=== PATIENT | female | born 1945 | race Caucasian/White ===

== ENCOUNTER 2020-01-27 13:09 | Outpatient (REF) | payer MEDICARE, SELFPAY ==
--- NOTE | 2020-01-27 13:28 | XR_ITS ---
EXAMINATION: BILATERAL SHOULDER X-RAY CLINICAL INFORMATION: Pain COMPARISON: None TECHNIQUE: 4 views each shoulder FINDINGS: Right: Bone alignment is normal. No fracture or dislocation is seen. There is evidence of arthritis at the glenohumeral and acromioclavicular joints with joint space narrowing and osteophyte formation. Soft tissues are unremarkable. Left: Bone alignment is normal. No fracture or dislocation is seen. There is evidence of arthritis of the glenohumeral and acromioclavicular joints with joint space narrowing and osteophyte formation. Soft tissues are unremarkable. IMPRESSION: Bilateral arthritis, right greater than left.
== END 2020-01-27 13:10 | disposition home or self-care (01) ==
LOC: HO.XRAY 13:09
PROVIDERS: PCP Family Medicine; Visit Provider Family Medicine
DX: M19.011 Primary osteoarthritis, right shoulder (principal); M25.511 Pain in right shoulder
CPT/HCPCS: 73030

== ENCOUNTER → 2020-02-07 16:17 | Outpatient (BNVA) | payer MEDICARE, SELFPAY | PROVIDERS: PCP Family Medicine; Visit Provider Internal Medicine | DX: I82.503 Chronic embolism and thrombosis of unspecified deep veins of lower extremity, bilateral (principal); Z51.81 Encounter for therapeutic drug level monitoring; Z79.01 Long term (current) use of anticoagulants | CPT/HCPCS: 85610; 99211 ==

== ENCOUNTER → 2020-03-01 16:09 | Outpatient (BNVA) | payer MEDICARE, SELFPAY | PROVIDERS: PCP Family Medicine; Referring Provider Family Medicine; Visit Provider Internal Medicine | DX: I82.503 Chronic embolism and thrombosis of unspecified deep veins of lower extremity, bilateral (principal); Z51.81 Encounter for therapeutic drug level monitoring; Z79.01 Long term (current) use of anticoagulants | CPT/HCPCS: 85610; 99211 ==

== ENCOUNTER → 2020-03-15 15:56 | Outpatient (BNVA) | payer MEDICARE, SELFPAY | PROVIDERS: PCP Family Medicine; Visit Provider Internal Medicine | DX: I82.503 Chronic embolism and thrombosis of unspecified deep veins of lower extremity, bilateral (principal); Z51.81 Encounter for therapeutic drug level monitoring; Z79.01 Long term (current) use of anticoagulants | CPT/HCPCS: 85610; 99211 ==

== ENCOUNTER 2020-03-22 16:14 | Outpatient (REF) | payer MEDICARE, SELFPAY ==
--- NOTE | 2020-03-22 | US_ITS ---
EXAMINATION: US RETROPERITONEAL LIMITED (RENAL ONLY) CLINICAL INFORMATION: Renal cyst. COMPARISON: Ultrasound abdomen 08/30/2015. CT abdomen and pelvis 09/08/2013. Renal ultrasound 11/12/2012. KUB 07/13/2009. TECHNIQUE: Real-time imaging of the kidneys. FINDINGS: RIGHT KIDNEY: 9.4 x 5.1 x 5.3 cm (SAG x AP x TRV). The kidney is normal in size, contour, and echogenicity. Renal cortical thickness is normal. No renal calculi or hydronephrosis. There are multiple anechoic cysts. The largest cyst midpole measures 3.0 x 2.1 x 2.5 cm. LEFT KIDNEY: 9.5 x 4.8 x 5.0 cm (SAG x AP x TRV). The kidney is normal in size, contour, and echogenicity. Renal cortical thickness is normal. No renal calculi or hydronephrosis. There are multiple anechoic cysts. The largest cyst in midpole measures 4.7 x 4.5 x 5.5 cm. US/US renal BI IMPRESSION: 1. Bilateral renal cysts. 2. No echogenic stones or hydronephrosis seen.
== END 2020-03-22 16:15 | disposition home or self-care (01) ==
LOC: HO.US 16:14
PROVIDERS: Visit Provider Urology
DX: N28.1 Cyst of kidney, acquired (principal)
CPT/HCPCS: 76775

== ENCOUNTER → 2020-04-04 16:04 | Outpatient (BNVA) | payer MEDICARE, SELFPAY | PROVIDERS: PCP Family Medicine; Referring Provider Family Medicine; Visit Provider Family Medicine | DX: I82.503 Chronic embolism and thrombosis of unspecified deep veins of lower extremity, bilateral (principal); Z79.01 Long term (current) use of anticoagulants; Z51.81 Encounter for therapeutic drug level monitoring | CPT/HCPCS: 85610; 99211 ==

== ENCOUNTER 2020-05-10 12:30 | Outpatient (REF) | payer MEDICARE, SELFPAY ==
[2020-05-10 13:55] LABS: MANUAL DIFF FLAG NO
[2020-05-10 14:06] LABS: Basophils Percent Auto 0.2 % (0-2); Eosinophils Percent Auto 0.6 % (0-4); Hematocrit 34.2 % (37-47); Hemoglobin 11.2 g/dl (12.0-16.0); Imm Gran Abs Auto 0.01 X10*3/uL (0.00-0.03); Imm Gran Pct Auto 0.2 % (0.0-0.4); Lymphocytes Absolute Auto 1.3 X10*3/uL (1.2-4.9); Mean Corpuscular HGB Conc 32.7 g/dl (31.0-35.0); Mean Corpuscular Hemoglobin 29.7 pg (27.0-33.0); Mean Corpuscular Volume 90.7 fL (80-98); Mean Platelet Volume 10.9 fL (9.4-12.3); Monocytes Absolute Auto 0.8 X10*3/uL (0.1-1.2); Monocytes Percent Auto 15.8 % (2-11); Neutrophils Absolute Auto 3.1 X10*3/uL (2.0-8.3); Neutrophils Percent Auto 59.2 % (45-73); Platelet Count 166 X10*3/uL (160-400); Red Blood Count 3.77 X10*6/uL (4.20-5.50); Red Cell Distribution Width 15.2 % (11.0-16.0); White Blood Count 5.3 X10*3/uL (4.8-10.8)
[2020-05-10 14:45] LABS: Alanine Aminotransferase 10 U/L (0-31); Albumin Level 3.9 g/dL (3.5-5.0); Alkaline Phosphatase 123 U/L (39-117); Anion Gap 13 (12-20); Aspartate Amino Transferase 16 U/L (5-31); Bilirubin Total 0.4 mg/dL (0.0-1.0); Blood Urea Nitrogen 16 mg/dL (9-16); C Reactive Protein 1.37 mg/dL (< or = 0.50); Calcium 8.8 mg/dL (8.4-10.2); Carbon Dioxide 25 mmol/L (22-29); Chloride 106 mmol/L (96-108); Estimated Glomerular Filt Rate 56; Glucose Random 103 mg/dL (60-115); Potassium 4.6 mmol/l (3.3-5.1); Sodium 139 mmol/L (135-145); Total Protein 6.6 g/dL (6.5-8.0)
[2020-05-10 14:54] LABS: Rheumatoid Factor < 15.0 IU/mL (<15.0)
[2020-05-10 15:13] LABS: Erythrocyte Sedimentation Rate 42 MM/HR (0-20)
[2020-05-11 15:48] LABS: Cyclic Citrullinated Peptide <16 UNITS
== END 2020-05-10 12:31 | disposition home or self-care (01) ==
LOC: HO.LAB 12:30
PROVIDERS: PCP Family Medicine; Referring Provider Family Medicine; Visit Provider Student in an Organized Health Care Education/Training Program
DX: M25.511 Pain in right shoulder (principal); M25.512 Pain in left shoulder; G89.29 Other chronic pain; Z79.899 Other long term (current) drug therapy; Z79.01 Long term (current) use of anticoagulants
CPT/HCPCS: 36415; 80053; 85025; 85652; 86140; 86200; 86431; 99202

== ENCOUNTER → 2020-05-19 16:04 | Outpatient (BNVA) | payer MEDICARE, SELFPAY | PROVIDERS: PCP Family Medicine; Visit Provider Internal Medicine | DX: I82.503 Chronic embolism and thrombosis of unspecified deep veins of lower extremity, bilateral (principal); Z51.81 Encounter for therapeutic drug level monitoring; Z79.01 Long term (current) use of anticoagulants | CPT/HCPCS: 85610; 99211 ==

== ENCOUNTER → 2020-06-16 15:50 | Outpatient (BNVA) | payer MEDICARE, SELFPAY | PROVIDERS: PCP Family Medicine; Visit Provider Internal Medicine | DX: I82.503 Chronic embolism and thrombosis of unspecified deep veins of lower extremity, bilateral (principal); Z51.81 Encounter for therapeutic drug level monitoring; Z79.01 Long term (current) use of anticoagulants | CPT/HCPCS: 85610; 99211 ==

== ENCOUNTER → 2020-07-04 16:04 | Outpatient (BNVA) | payer MEDICARE, SELFPAY | PROVIDERS: PCP Family Medicine; Visit Provider Internal Medicine | DX: I82.503 Chronic embolism and thrombosis of unspecified deep veins of lower extremity, bilateral (principal); Z51.81 Encounter for therapeutic drug level monitoring; Z79.01 Long term (current) use of anticoagulants | CPT/HCPCS: 85610; 99211 ==

== ENCOUNTER → 2020-07-21 16:00 | Outpatient (BNVA) | payer MEDICARE, SELFPAY | PROVIDERS: PCP Family Medicine; Visit Provider Internal Medicine | DX: I82.503 Chronic embolism and thrombosis of unspecified deep veins of lower extremity, bilateral (principal); Z79.01 Long term (current) use of anticoagulants; Z51.81 Encounter for therapeutic drug level monitoring | CPT/HCPCS: 85610; 99211 ==

== ENCOUNTER → 2020-07-27 10:24 | Outpatient (BNVA) | payer MEDICARE, SELFPAY | PROVIDERS: PCP Family Medicine; Visit Provider Internal Medicine | DX: I82.503 Chronic embolism and thrombosis of unspecified deep veins of lower extremity, bilateral (principal); Z79.01 Long term (current) use of anticoagulants; Z51.81 Encounter for therapeutic drug level monitoring | CPT/HCPCS: 85610; 99211 ==

== ENCOUNTER → 2020-08-03 16:05 | Outpatient (BNVA) | payer MEDICARE, SELFPAY | PROVIDERS: PCP Family Medicine; Visit Provider Internal Medicine | DX: I82.503 Chronic embolism and thrombosis of unspecified deep veins of lower extremity, bilateral (principal); Z79.01 Long term (current) use of anticoagulants; Z51.81 Encounter for therapeutic drug level monitoring | CPT/HCPCS: 85610; 99211 ==

== ENCOUNTER → 2020-08-11 11:02 | Outpatient (BNVA) | payer MEDICARE, SELFPAY | PROVIDERS: PCP Family Medicine; Visit Provider Internal Medicine | DX: I82.503 Chronic embolism and thrombosis of unspecified deep veins of lower extremity, bilateral (principal); Z79.01 Long term (current) use of anticoagulants; Z51.81 Encounter for therapeutic drug level monitoring | CPT/HCPCS: 85610; 99211 ==

== ENCOUNTER → 2020-09-08 16:07 | Outpatient (BNVA) | payer MEDICARE, SELFPAY | PROVIDERS: PCP Family Medicine; Visit Provider Internal Medicine | DX: I82.503 Chronic embolism and thrombosis of unspecified deep veins of lower extremity, bilateral (principal); Z51.81 Encounter for therapeutic drug level monitoring; Z79.01 Long term (current) use of anticoagulants | CPT/HCPCS: 85610; 99211 ==

== ENCOUNTER → 2020-10-02 16:01 | Outpatient (BNVA) | payer MEDICARE, SELFPAY | PROVIDERS: PCP Family Medicine; Visit Provider Internal Medicine | DX: I82.503 Chronic embolism and thrombosis of unspecified deep veins of lower extremity, bilateral (principal); Z51.81 Encounter for therapeutic drug level monitoring; Z79.01 Long term (current) use of anticoagulants | CPT/HCPCS: 85610; 99211 ==

== ENCOUNTER → 2020-10-16 15:16 | Outpatient (BNVA) | payer MEDICARE, SELFPAY | PROVIDERS: PCP Family Medicine; Visit Provider Internal Medicine | DX: I82.503 Chronic embolism and thrombosis of unspecified deep veins of lower extremity, bilateral (principal); Z51.81 Encounter for therapeutic drug level monitoring; Z79.01 Long term (current) use of anticoagulants | CPT/HCPCS: 85610; 99211 ==

== ENCOUNTER 2020-10-16 15:52 | Emergency (ER) | payer MEDICARE, SELFPAY ==
--- NOTE | ~2020-10-16 | CT_ITS ---
EXAMINATION: CT HEAD WITHOUT CONTRAST CT CERVICAL SPINE WITHOUT CONTRAST CLINICAL INFORMATION: Headache COMPARISON: CT head 05/01/2010 TECHNIQUE: Imaging was performed from the skull base to vertex without intravenous administration of contrast. In addition, helical noncontrast CT imaging was acquired through the cervical spine and source images were reviewed along with axial reconstructions and sagittal and coronal MPRs. [This CT examination was performed using dose optimization techniques as appropriate, variously including the following: *Automated exposure control *Adjustment of mA and/or kV according to patient size (this includes techniques or standardized protocols for targeted exams where dose is matched to indication/reason for exam; i.e. extremities or head) *Use of iterative reconstruction technique] DLP: 1414 mGy-cm FINDINGS: HEAD: No intracranial mass, hemorrhage, or midline shift is visualized. There is generalized global volume loss. There is mild prominence of the ventricles and the sulci . There is mild hypodensity of the periventricular white matter due to chronic small vessel ischemic disease. There are vascular calcifications of the internal carotid arteries bilaterally. No extra-axial collections are identified. The paranasal sinuses and mastoid air cells are well aerated. CERVICAL SPINE: There is no evidence of acute cervical spine fracture. Vertebral bodies remain normal in height. Cervical vertebrae have normal alignment. There is multilevel degenerative spondylosis of the cervical spine with disc height narrowing and endplate spurs and facet joint arthrosis No pre- or paravertebral soft tissue abnormality is identified. Limited assessment of the lung apices is unremarkable. CT/CT cervical spine wo con IMPRESSION: 1. No acute intracranial pathology. 2. No CT evidence of acute cervical spine fracture or traumatic subluxation
--- NOTE | ~2020-10-16 | XR_ITS ---
EXAMINATION: XR CHEST CLINICAL INFORMATION: Shortness of breath. COMPARISON: Chest 06/30/2018 TECHNIQUE: Frontal view of the chest was obtained. FINDINGS: No significant abnormality is noted involving the heart, lungs, mediastinum, bony thorax or soft tissues. XR/XR chest 1V IMPRESSION: Unremarkable chest exam.
[2020-10-16 15:57] VITALS: BP 122/74; PULSE 87; RESP 22; TEMP 36.7; O2SAT 95; BMI 39.9
--- NOTE | 2020-10-16 16:02 | ECG_ITS ---
Test Reason : SOB Blood Pressure : / mmHG Vent. Rate : 085 BPM Atrial Rate : 085 BPM P-R Int : 142 ms QRS Dur : 100 ms QT Int : 378 ms P-R-T Axes : 020 -19 053 degrees QTc Int : 449 ms Normal sinus rhythm Minimal voltage criteria for LVH, may be normal variant Borderline ECG When compared with ECG of 05-JAN-2020 11:54, No significant change was found Referred By: Generic ED Physician Electronically Signed By:LOTTIE COLLADO MD
[2020-10-16 16:34] LABS: MANUAL DIFF FLAG NO
[2020-10-16 16:35] LABS: Eosinophils Percent Auto 0.5 % (0-4); Hematocrit 33.8 % (37-47); Hemoglobin 11.1 g/dl (12.0-16.0); Imm Gran Abs Auto 0.01 X10*3/uL (0.00-0.03); Imm Gran Pct Auto 0.2 % (0.0-0.4); Lymphocytes Absolute Auto 1.4 X10*3/uL (1.2-4.9); Lymphocytes Percent Auto 22.7 % (20-40); Mean Corpuscular HGB Conc 32.8 g/dl (31.0-35.0); Mean Corpuscular Hemoglobin 29.4 pg (27.0-33.0); Mean Corpuscular Volume 89.4 fL (80-98); Mean Platelet Volume 10.4 fL (9.4-12.3); Monocytes Percent Auto 15.6 % (2-11); Neutrophils Absolute Auto 3.9 X10*3/uL (2.0-8.3); Platelet Count 154 X10*3/uL (160-400); Red Blood Count 3.78 X10*6/uL (4.20-5.50); Red Cell Distribution Width 14.7 % (11.0-16.0); White Blood Count 6.3 X10*3/uL (4.8-10.8)
[2020-10-16 17:02] LABS: B Type Natriuretic Peptide 93 pg/mL (<100); Troponin-I High Sensitivity 5.1 ng/L (<3.5-17.0)
[2020-10-16 17:06] LABS: Anion Gap 12 (12-20); Blood Urea Nitrogen 12 mg/dL (9-16); Calcium 8.9 mg/dL (8.4-10.2); Carbon Dioxide 27 mmol/L (22-29); Chloride 106 mmol/L (96-108); Creatinine Clr Calc Pharmacy 65.1; Estimated Glomerular Filt Rate > 60; Glucose Random 111 mg/dL (60-115); Potassium 3.9 mmol/L (3.3-5.1); Sodium 141 mmol/L (135-145)
[2020-10-16 21:24] VITALS: BP 153/66; PULSE 77; RESP 28; O2SAT 95
[2020-10-16 21:48] LABS: COVID-19 Test Negative (Negative); IDNOW Serial# 9DD0AD1C
--- NOTE | 2020-10-16 22:04 | ED_ITS ---
HPI - General Adult General Chief complaint: General Medical Stated complaint: sob Time Seen by Provider: 10/16/20 21:59 History of Present Illness HPI narrative: patient is 75 years old presents today with having weakness. Patient fell 2 days ago. Hit her head. She was in the bathroom at the time. Patient denies any chest pain. No nausea no vomiting. No diaphoresis. No coughing, congestion, upper respiratory symptoms. Patient is from home. History of coronary artery disease. History of HIV. History of hypertension. History of osteoarthritis. Patient denies any focal weakness. Denies any fever. Denies any pain on urination. Denies any recreational drug use. Amy kellogg also has a history of DVT. currently on Coumadin. Related Data Home Medications Medication Instructions Recorded Confirmed acetaminophen 500 mg capsule 500 mg PO Q6H PRN 01/18/20 07/27/20 albuterol sulfate 2.5 mg/0.5 mL 2.5 mg INHALATION Q20M 01/18/20 07/27/20 solution for nebulization albuterol sulfate 90 mcg/actuation 2 puff INHALATION Q6H PRN 01/18/20 07/27/20 aerosol inhaler bictegravir 50 mg-emtricitabine 1 tab PO DAILY 01/18/20 07/27/20 200 mg-tenofovir alafenam 25 mg tablet blood-glucose meter #1 ea 01/18/20 07/27/20 calcium carbonate 600 mg calcium 600 mg PO DAILY 01/18/20 07/27/20 (1,500 mg) tablet cyanocobalamin (vitamin B-12) 1,000 mcg PO DAILY 01/18/20 07/27/20 1,000 mcg/mL oral drops diltiazem HCl 120 mg 120 mg PO DAILY 01/18/20 07/27/20 capsule,extended release 24 hr docusate sodium 100 mg capsule 100 mg PO DAILY 01/18/20 07/27/20 famotidine 20 mg tablet 20 mg PO DAILY 01/18/20 07/27/20 lancets 28 gauge #100 ea 01/18/20 07/27/20 loratadine 10 mg capsule 10 mg PO DAILY 01/18/20 07/27/20 nitroglycerin 0.4 mg sublingual 0.4 mg SUBLINGUAL Q5M PRN 01/18/20 07/27/20 tablet polyethylene glycol 3350 17 gram 17 g PO DAILY 01/18/20 07/27/20 oral powder packet pregabalin 75 mg capsule 75 mg PO DAILY 01/18/20 07/27/20 quetiapine 200 mg tablet 200 mg PO BEDTIME 01/18/20 07/27/20 sertraline 100 mg tablet 100 mg PO DAILY 01/18/20 07/27/20 sertraline 25 mg tablet 25 mg PO DAILY 01/18/20 07/27/20 sumatriptan succinate 25 mg tablet 25 mg PO Q2-4H PRN 01/18/20 07/27/20 atorvastatin 20 mg tablet 20 mg PO DAILY 04/04/20 07/27/20 calcium carbonate 600 mg (1,500 1 tab PO BID 04/04/20 07/27/20 mg)-vitamin D3 400 unit tablet sumatriptan succinate 50 mg tablet 0 mg PO 04/04/20 07/27/20 torsemide 20 mg tablet 20 mg PO DAILY 04/04/20 07/27/20 sertraline 100 mg tablet 100 mg PO DAILY 05/10/20 07/27/20 acetaminophen 300 mg-codeine 30 mg 0 tab PO 05/19/20 07/27/20 tablet blood sugar diagnostic #10 ea 05/19/20 07/27/20 cyanocobalamin (vitamin B-12) 1,000 mcg PO DAILY 05/19/20 07/27/20 1,000 mcg tablet diltiazem HCl 180 mg 180 mg PO DAILY 05/19/20 07/27/20 capsule,extended release 24 hr inhalat.spacing dev,large mask #1 ea 05/19/20 07/27/20 loratadine 10 mg tablet 10 mg PO DAILY 05/19/20 07/27/20 metoprolol succinate 50 mg 50 mg PO DAILY 05/19/20 07/27/20 tablet,extended release 24 hr multivitamin-ferrous 1 tab PO DAILY 05/19/20 07/27/20 fumarate-folic acid 18 mg-400 mcg tablet pantoprazole 20 mg tablet,delayed 20 mg PO DAILY 05/19/20 07/27/20 release pregabalin 100 mg capsule 100 mg PO DAILY 05/19/20 07/27/20 sertraline 50 mg tablet 50 mg PO DAILY 05/19/20 07/27/20 tizanidine 2 mg capsule 2 mg PO BEDTIME PRN 05/19/20 07/27/20 varicella-zoster glycoE [id number] IM 05/19/20 07/27/20 adj(PF) 50 mcg/0.5 mL IM susp, kit alcohol swabs 0 pad TOPICAL 06/16/20 07/27/20 hydrocortisone 1 % lotion TOPICAL 06/16/20 07/27/20 nystatin 100,000 unit/gram topical TOPICAL 06/16/20 07/27/20 cream atorvastatin 10 mg tablet 10 mg PO DAILY 07/21/20 07/27/20 acetaminophen 500 mg tablet 0 mg PO 07/27/20 07/27/20 Previous Rx's Medication Instructions Recorded warfarin 5 mg tablet 5 mg PO DAILY #90 tab 02/07/20 Allergies Allergy/AdvReac Type Severity Reaction Status Date / Time aspirin [Aspirin] Allergy Intermediate HIVES,SWELLING, Verified 10/02/20 16:02 swelling Iodinated Contrast Media Allergy Mild ANAPHYLAXIS Verified 10/02/20 16:02 [IV DYE, IODINE CONTAINING] acetaminophen [Percocet] Allergy Unknown hives Verified 10/02/20 16:02 cat dander [CATS] Allergy Unknown STUFFY NOSE Verified 10/02/20 16:02 ciprofloxacin [Cipro] Allergy Unknown diarrhea Verified 10/02/20 16:02 codeine [Codeine] Allergy Unknown NAUSEA Verified 10/02/20 16:02 dog dander [DOGS] Allergy Unknown STUFFY NOSE Verified 10/02/20 16:02 ibuprofen Allergy Unknown nausea Verified 10/02/20 16:02 oxycodone [From PERCOCET] Allergy Unknown HIVES Verified 10/02/20 16:02 penicillin V Allergy Unknown swelling Verified 10/02/20 16:02 Penicillins Allergy Unknown HIVES,SWELL Verified 10/02/20 16:02 ING [id number] Antimigraine Allergy Unknown ELEVATED BP Verified 10/02/20 16:02 Agents [[id number] ANTIMIGRAINE AGENTS] tuberculin, purified protein Allergy Unknown REDNESS,ITC Verified 10/02/20 16:02 deriva NUZHAT [TUBERCULIN, PURIFIED PROTEIN DERIVA] NSAIDS (Non-Steroidal AdvReac Unknown ABD Verified 09/08/20 16:07 Anti-Inflamma PAIN,NAUSEA [NSAIDS] From Cipro Allergy Unknown DIARRHEA Uncoded 01/06/20 14:37 IV contrast Allergy Unknown anaphylaxis Uncoded 01/20/19 00:00 NSAIDS Allergy Unknown UNKNOWN Uncoded 03/01/20 16:10 PPD Allergy Unknown redness Uncoded 01/20/19 00:00 and itching [id number] ANTIMIGRAINE Allergy Unknown elevated BP Uncoded 01/20/19 00:00 AG Review of Systems Review of Systems: No fever no chills no cough no congestion. No chest pain. Patient has positive fall 2 days prior. Did hit her head. Yes all other systems are reviewed and are negative [facility] Past Medical History Attestation statement: The following information was validated with the patient. Medical History Acute (undifferentiated) schizophrenia Anemia Constipation Degenerative arthritis Diabetes DVT (deep venous thrombosis) Fibromyalgia GERD (gastroesophageal reflux disease) HIV (human immunodeficiency virus infection) HTN (hypertension) Obese Osteopenia Thalamic pain syndrome Surgical History History of appendectomy History of cholecystectomy History of hysterectomy History of temporal artery biopsy Family History Family History Father No problems noted. Mother Coronary artery disease Uterine cancer CVD (cardiovascular disease) Sister Breast cancer Sister Breast cancer Social History Social History (Updated 05/10/20 @ 12:45 by Jacquie Brand MD) Alcohol intake: never Advance Directives: No Advance Directives Information Provided: Yes Physical Exam Vital Signs: Vital Signs: Last Vital Signs Temp 98.4 F 10/16/20 22:12 Pulse 86 10/16/20 22:12 Resp 20 10/16/20 22:12 BP 182/61 H 10/16/20 22:12 Pulse Ox 97 10/16/20 22:12 Body Mass Index 39.9 Appearance: Alert. Oriented X3. No acute distress. Eyes: Pupils equal, round and reactive to light. ENT: Pharynx normal. Neck: Normal inspection. Neck supple. No lymph nodes noted. No crepitus CVS: Normal heart rate and rhythm. Pulses normal. Normal S1 and S2 Respiratory: No respiratory distress. Breath sounds normal. No Wheezing. No rales Abdomen: Soft and nontender. No rigidity. No distention. good BS x4 Skin: Skin warm and dry. Normal skin color. Normal skin turgor. Extremities: No lower extremity edema. Neurovascular intact to all extremities. No Lacerations. No Rash Neuro: Oriented X 3. No motor deficit. No sensory deficit. Moving all extermities. No slurred speech Medical Decision Making MDM Narrative Medical decision making narrative: Patient well-appearing not acute distress. Neurologically intact ambulates with a normal gait. The fall was 2 days prior. Patient is on Coumadin. We will go ahead and get a CT scan of the head and C- spine. Patient's EKG is normal. Troponin is negative. BMP negative. the fall was likely mechanical in nature. Currently in stable condition. CT head and C-spine were both grossly negative for any acute evidence of bleeding. Patient's troponin negative. Patient's electrolytes unremarkable. Well appearing. No distress. Neurologically intact. Will discharge patient home. Lab Data Result diagrams: 10/16/20 16:29 10/16/20 16:30 Labs: Lab Results 10/16/20 10/16/20 10/16/20 Range/Units 16:29 16:30 16:30 WBC 6.3 (4.8-10.8) X10*3/uL RBC 3.78 L (4.20-5.50) X10*6/uL Hgb 11.1 L (12.0-16.0) g/dl Hct 33.8 L (37-47) % MCV 89.4 (80-98) fL MCH 29.4 (27.0-33.0) pg MCHC 32.8 (31.0-35.0) g/dl RDW 14.7 (11.0-16.0) % Plt Count 154 L (160-400) X10*3/uL MPV 10.4 (9.4-12.3) fL Immature Gran % (Auto) 0.2 (0.0-0.4) % Neut % (Auto) 61.0 (45-73) % Lymph % (Auto) 22.7 (20-40) % [place] % (Auto) 15.6 H (2-11) % Eos % (Auto) 0.5 (0-4) % Baso % (Auto) 0.0 (0-2) % Lymph # (Auto) 1.4 (1.2-4.9) X10*3/uL [place] # (Auto) 1.0 (0.1-1.2) X10*3/uL Eos # (Auto) 0.0 (0.0-0.4) X10*3/uL Baso # (Auto) 0.0 (0.0-0.2) X10*3/uL Abs Immat Gran (auto) 0.01 (0.00-0.03) X10*3/uL Absolute Neuts (auto) 3.9 (2.0-8.3) X10*3/uL Absolute Nucleated RBC 0.000 (0.0-0.012) X10*3/uL Nucleated RBC % (auto) 0.0 (0.0-0.2) /100WBC PT (10.8-13.0) SEC INR (0.9-1.1) Sodium 141 (135-145) mmol/L Potassium 3.9 (3.3-5.1) mmol/L Chloride 106 (96-108) mmol/L Carbon Dioxide 27 (22-29) mmol/L Anion Gap 12 (12-20) BUN 12 (9-16) mg/dL Creatinine 0.82 (0.5-1.4) mg/dL Estim Creat Clear Calc 65.1 Estimated GFR > 60 Random Glucose 111 (60-115) mg/dL Calcium 8.9 (8.4-10.2) mg/dL Troponin I High Sens 5.1 (<3.5-17.0) ng/L B-Natriuretic Peptide 93 (<100) pg/mL Urine Color Urine Appearance Urine pH (5.0-8.0) Ur Specific [place] (1.005-1.025) Urine Protein (NEG-TRACE) MG/DL Urine Glucose (UA) (NEG) MG/DL Urine Ketones (NEG) MG/DL Urine Blood (NEG) Urine Nitrite (NEG) Ur Leukocyte Esterase (NEG) Urine RBC (0) /HPF Urine WBC (0-4) /HPF Ur Squamous Epith Cells /LPF Urine Bacteria /LPF COVID-19 ([facility]) (Negative) COVID-19 Clin Com 10/16/20 10/16/20 10/16/20 Range/Units 21:27 22:26 22:26 WBC (4.8-10.8) X10*3/uL RBC (4.20-5.50) X10*6/uL Hgb (12.0-16.0) g/dl Hct (37-47) % MCV (80-98) fL MCH (27.0-33.0) pg MCHC (31.0-35.0) g/dl RDW (11.0-16.0) % Plt Count (160-400) X10*3/uL MPV (9.4-12.3) fL Immature Gran % (Auto) (0.0-0.4) % Neut % (Auto) (45-73) % Lymph % (Auto) (20-40) % [place] % (Auto) (2-11) % Eos % (Auto) (0-4) % Baso % (Auto) (0-2) % Lymph # (Auto) (1.2-4.9) X10*3/uL [place] # (Auto) (0.1-1.2) X10*3/uL Eos # (Auto) (0.0-0.4) X10*3/uL Baso # (Auto) (0.0-0.2) X10*3/uL Abs Immat Gran (auto) (0.00-0.03) X10*3/uL Absolute Neuts (auto) (2.0-8.3) X10*3/uL Absolute Nucleated RBC (0.0-0.012) X10*3/uL Nucleated RBC % (auto) (0.0-0.2) /100WBC PT 36.2 H (10.8-13.0) SEC INR 3.0 H (0.9-1.1) Sodium (135-145) mmol/L Potassium (3.3-5.1) mmol/L Chloride (96-108) mmol/L Carbon Dioxide (22-29) mmol/L Anion Gap (12-20) BUN (9-16) mg/dL Creatinine (0.5-1.4) mg/dL Estim Creat Clear Calc Estimated GFR Random Glucose (60-115) mg/dL Calcium (8.4-10.2) mg/dL Troponin I High Sens (<3.5-17.0) ng/L B-Natriuretic Peptide (<100) pg/mL Urine Color YELLOW Urine Appearance CLEAR Urine pH 6.0 (5.0-8.0) Ur Specific [place] <= 1.005 (1.005-1.025) Urine Protein NEG (NEG-TRACE) MG/DL Urine Glucose (UA) NEG (NEG) MG/DL Urine Ketones NEG (NEG) MG/DL Urine Blood 2+ H (NEG) Urine Nitrite NEG (NEG) Ur Leukocyte Esterase 1+ H (NEG) Urine RBC 1-4 (0) /HPF Urine WBC 0-2 (0-4) /HPF Ur Squamous Epith Cells TRACE /LPF Urine Bacteria TRACE /LPF COVID-19 ([facility]) Negative (Negative) COVID-19 Clin Com See Note ECG Data Interpretation: Sinus heart rate is 80 MA QRS QT within normal limits is no acute ST segment elevation noted. Discharge Plan Discharge Clinical Impression: Head injury, Dizziness Patient Disposition: Home, Self-Care Instructions: Head Injury (ED) Prescriptions: No Action diltiazem HCl [Cardizem CD] 120 mg capsule,extended release 24hr 120 mg PO DAILY RF: 0 albuterol sulfate [ProAir HFA] 90 mcg/actuation HFA aerosol inhaler 2 puff inhalation Q6H PRNRF: 0 polyethylene glycol 3350 [Miralax] 17 gram powder in packet 17 g PO DAILY RF: 0 docusate sodium [Colace] 100 mg capsule 100 mg PO DAILY RF: 0 pregabalin [Lyrica] 75 mg capsule 75 mg PO DAILY RF: 0 acetaminophen 500 mg capsule 500 mg PO Q6H PRNRF: 0 albuterol sulfate 2.5 mg/0.5 mL solution for nebulization 2.5 mg inhalation Q20M RF: 0 sumatriptan succinate 25 mg tablet 25 mg PO Q2-4H PRNRF: 0 loratadine 10 mg capsule 10 mg PO DAILY RF: 0 Vitamin B-12 1,000 mcg/mL drops 1,000 mcg PO DAILY RF: 0 calcium carbonate [Calcium 600] 600 mg calcium (1,500 mg) tablet 600 mg PO DAILY RF: 0 famotidine 20 mg tablet 20 mg PO DAILY RF: 0 Biktarvy 50-200-25 mg tablet 1 tab PO DAILY RF: 0 nitroglycerin 0.4 mg tablet, sublingual 0.4 mg sublingual Q5M PRNRF: 0 (DME) blood-glucose meter [FreeStyle Lite Meter] Kit See Rx Instructions .ROUTE .MEDSUPPLY Qty: 1 RF: 0 (DME) lancets [FreeStyle Lancets] 28 gauge misc See Rx Instructions .ROUTE .MEDSUPPLY Qty: 100 RF: 0 sertraline [Zoloft] 25 mg tablet 25 mg PO DAILY RF: 0 sertraline 100 mg tablet 100 mg PO DAILY RF: 0 quetiapine [Seroquel] 200 mg tablet 200 mg PO BEDTIME RF: 0 warfarin 5 mg tablet 5 mg PO DAILY Qty: 90 RF: 0 sertraline 100 mg tablet 100 mg PO DAILY RF: 0 sumatriptan succinate 50 mg tablet 0 mg PO RF: 0 torsemide 20 mg tablet 20 mg PO DAILY RF: 0 calcium carbonate-vitamin D3 600 mg(1,500mg) -400 unit tablet 1 tab PO BID RF: 0 atorvastatin 20 mg tablet 20 mg PO DAILY RF: 0 diltiazem HCl 180 mg capsule,extended release 24hr 180 mg PO DAILY RF: 0 Complete Women 18-400 mg-mcg tablet 1 tab PO DAILY RF: 0 metoprolol succinate 50 mg tablet extended release 24 hr 50 mg PO DAILY RF: 0 acetaminophen-codeine 300-30 mg tablet 0 tab PO RF: 0 Shingrix (PF) 50 mcg/0.5 mL suspension for reconstitution IM RF: 0 sertraline 50 mg tablet 50 mg PO DAILY RF: 0 (DME) FreeStyle Lite Strips Strip See Rx Instructions ea Not Applicable DIRECTED Qty: 10 RF: 0 loratadine 10 mg tablet 10 mg PO DAILY RF: 0 pregabalin 100 mg capsule 100 mg PO DAILY RF: 0 tizanidine 2 mg capsule 2 mg PO BEDTIME PRNRF: 0 (DME) Procare Spacer With Adult Mask Spacer See Rx Instructions ea .ROUTE .MEDSUPPLY Qty: 1 RF: 0 pantoprazole 20 mg tablet,delayed release (DR/EC) 20 mg PO DAILY RF: 0 cyanocobalamin (vitamin B-12) 1,000 mcg tablet 1,000 mcg PO DAILY RF: 0 hydrocortisone 1 % lotion topical RF: 0 nystatin 100,000 unit/gram cream topical RF: 0 alcohol swabs Pads, Medicated 0 pad topical RF: 0 atorvastatin 10 mg tablet 10 mg PO DAILY RF: 0 acetaminophen 500 mg tablet 0 mg PO RF: 0 Referrals: Physician,Unknown [Primary Care Provider] - 2 days
[2020-10-16 22:12] VITALS: BP 182/61; PULSE 86; RESP 20; TEMP 36.9; O2SAT 97
[2020-10-16 22:33] LABS: Appearance Urine CLEAR; Color Urine YELLOW; Glucose Urine UA NEG (NEG); Leukocyte Esterase Urine 1+ (NEG); Nitrite Urine NEG (NEG); Specific Gravity - Urine <= 1.005 (1.005-1.025); UACC Culture Trigger YES; Urine Blood 2+ (NEG); Urine Ketones NEG (NEG); Urine Protein NEG (NEG-TRACE)
[2020-10-16 22:37] LABS: Prothrombin Time 36.2 SEC (10.8-13.0)
[2020-10-16 22:39] LABS: Bacteria Urine TRACE /LPF; Squamous Epithelial Cell Urine TRACE /LPF; WBC Urine 0-2 /HPF (0-4)
== END 2020-10-17 00:03 | disposition home or self-care (01) ==
PROVIDERS: Emergency Provider Emergency Medicine Emergency Medical Services
DX: S09.90XA Unspecified injury of head, initial encounter (principal); R42 Dizziness and giddiness; I10 Essential (primary) hypertension; Z21 Asymptomatic human immunodeficiency virus [HIV] infection status; I25.10 Atherosclerotic heart disease of native coronary artery without angina pectoris; Z86.718 Personal history of other venous thrombosis and embolism; Z79.01 Long term (current) use of anticoagulants; Z79.899 Other long term (current) drug therapy; W19.XXXA Unspecified fall, initial encounter; Y93.9 Activity, unspecified; Y92.002 Bathroom of unspecified non-institutional (private) residence as the place of occurrence of the external cause; Y99.9 Unspecified external cause status; Z20.822 Contact with and (suspected) exposure to COVID-19
CPT/HCPCS: 36415; 70450; 71045; 72125; 80048; 81001; 81003; 83880; 84484; 85025; 85610; 87086; 87635; 93005; 99284

== ENCOUNTER → 2020-10-30 15:51 | Outpatient (BNVA) | payer MEDICARE, SELFPAY | PROVIDERS: Visit Provider Internal Medicine | DX: I82.509 Chronic embolism and thrombosis of unspecified deep veins of unspecified lower extremity (principal); Z51.81 Encounter for therapeutic drug level monitoring; Z79.01 Long term (current) use of anticoagulants | CPT/HCPCS: 85610; 99211 ==

== ENCOUNTER → 2020-11-13 11:27 | Outpatient (BNVA) | payer MEDICARE, SELFPAY | PROVIDERS: PCP Family Medicine; Visit Provider Internal Medicine | DX: I82.509 Chronic embolism and thrombosis of unspecified deep veins of unspecified lower extremity (principal); Z51.81 Encounter for therapeutic drug level monitoring; Z79.01 Long term (current) use of anticoagulants | CPT/HCPCS: 85610; 99211 ==

== ENCOUNTER → 2020-11-28 11:38 | Outpatient (BNVA) | payer MEDICARE, SELFPAY | PROVIDERS: PCP Family Medicine; Visit Provider Internal Medicine | DX: Z86.718 Personal history of other venous thrombosis and embolism (principal); Z79.01 Long term (current) use of anticoagulants; Z51.81 Encounter for therapeutic drug level monitoring | CPT/HCPCS: 85610; 99211 ==

== ENCOUNTER → 2020-12-19 11:02 | Outpatient (BNVA) | payer MEDICARE, SELFPAY | PROVIDERS: PCP Family Medicine; Visit Provider Internal Medicine | DX: Z86.718 Personal history of other venous thrombosis and embolism (principal); Z51.81 Encounter for therapeutic drug level monitoring; Z79.01 Long term (current) use of anticoagulants | CPT/HCPCS: 85610; 99211 ==

== ENCOUNTER → 2021-01-02 11:36 | Outpatient (BNVA) | payer MEDICARE, SELFPAY | PROVIDERS: PCP Family Medicine; Visit Provider Internal Medicine | DX: Z86.718 Personal history of other venous thrombosis and embolism (principal); Z51.81 Encounter for therapeutic drug level monitoring; Z79.01 Long term (current) use of anticoagulants | CPT/HCPCS: 85610; 99211 ==

== ENCOUNTER → 2021-03-09 14:28 | Outpatient (BNVA) | payer MEDICARE, SELFPAY | PROVIDERS: PCP Family Medicine; Visit Provider Internal Medicine | DX: Z86.718 Personal history of other venous thrombosis and embolism (principal); Z51.81 Encounter for therapeutic drug level monitoring; Z79.01 Long term (current) use of anticoagulants | CPT/HCPCS: Q3014 ==

== ENCOUNTER → 2021-03-12 15:02 | Outpatient (BNVA) | payer MEDICARE, SELFPAY | PROVIDERS: PCP Family Medicine; Visit Provider Internal Medicine ==

== ENCOUNTER → 2021-03-14 16:19 | Outpatient (BNVA) | payer MEDICARE, SELFPAY | PROVIDERS: PCP Family Medicine; Visit Provider Internal Medicine | DX: Z86.718 Personal history of other venous thrombosis and embolism (principal); Z51.81 Encounter for therapeutic drug level monitoring; Z79.01 Long term (current) use of anticoagulants | CPT/HCPCS: Q3014 ==

== ENCOUNTER → 2021-03-19 15:08 | Outpatient (BNVA) | payer MEDICARE, SELFPAY | PROVIDERS: PCP Family Medicine; Visit Provider Internal Medicine | DX: Z86.718 Personal history of other venous thrombosis and embolism (principal); Z51.81 Encounter for therapeutic drug level monitoring; Z79.01 Long term (current) use of anticoagulants | CPT/HCPCS: Q3014 ==

== ENCOUNTER → 2021-04-04 13:44 | Outpatient (BNVA) | payer MEDICARE, SELFPAY | PROVIDERS: PCP Family Medicine; Visit Provider Internal Medicine | DX: Z86.718 Personal history of other venous thrombosis and embolism (principal); Z51.81 Encounter for therapeutic drug level monitoring; Z79.01 Long term (current) use of anticoagulants | CPT/HCPCS: 85610; 99211 ==

== ENCOUNTER → 2021-04-09 11:34 | Outpatient (BNVA) | payer MEDICARE, SELFPAY | PROVIDERS: PCP Family Medicine; Visit Provider Internal Medicine | DX: Z86.718 Personal history of other venous thrombosis and embolism (principal); Z51.81 Encounter for therapeutic drug level monitoring; Z79.01 Long term (current) use of anticoagulants | CPT/HCPCS: 85610; 99211 ==

== ENCOUNTER → 2021-04-23 13:30 | Outpatient (BNVA) | payer MEDICARE, SELFPAY | PROVIDERS: PCP Family Medicine; Visit Provider Internal Medicine | DX: Z86.718 Personal history of other venous thrombosis and embolism (principal); Z51.81 Encounter for therapeutic drug level monitoring; Z79.01 Long term (current) use of anticoagulants | CPT/HCPCS: 85610; 99211 ==

== ENCOUNTER → 2021-05-17 10:58 | Outpatient (BNVA) | payer MEDICARE, SELFPAY | PROVIDERS: PCP Family Medicine; Visit Provider Internal Medicine | DX: Z86.718 Personal history of other venous thrombosis and embolism (principal); Z51.81 Encounter for therapeutic drug level monitoring; Z79.01 Long term (current) use of anticoagulants | CPT/HCPCS: 85610; 99211 ==

== ENCOUNTER → 2021-05-24 11:32 | Outpatient (BNVA) | payer MEDICARE, SELFPAY | PROVIDERS: PCP Family Medicine; Visit Provider Internal Medicine | DX: Z86.718 Personal history of other venous thrombosis and embolism (principal); Z51.81 Encounter for therapeutic drug level monitoring; Z79.01 Long term (current) use of anticoagulants | CPT/HCPCS: 85610; 99211 ==

== ENCOUNTER → 2021-06-06 10:15 | Outpatient (BNVA) | payer MEDICARE, SELFPAY | PROVIDERS: PCP Family Medicine; Visit Provider Internal Medicine | DX: Z86.718 Personal history of other venous thrombosis and embolism (principal); Z51.81 Encounter for therapeutic drug level monitoring; Z79.01 Long term (current) use of anticoagulants | CPT/HCPCS: 85610; 99211 ==

== ENCOUNTER → 2021-06-20 09:01 | Outpatient (BNVA) | payer MEDICARE, SELFPAY | PROVIDERS: PCP Family Medicine; Visit Provider Internal Medicine | DX: Z86.718 Personal history of other venous thrombosis and embolism (principal); Z51.81 Encounter for therapeutic drug level monitoring; Z79.01 Long term (current) use of anticoagulants | CPT/HCPCS: 85610; 99211 ==

== ENCOUNTER → 2021-07-09 10:31 | Outpatient (BNVA) | payer MEDICARE, SELFPAY | PROVIDERS: PCP Family Medicine; Visit Provider Internal Medicine | DX: Z86.718 Personal history of other venous thrombosis and embolism (principal); Z79.01 Long term (current) use of anticoagulants; Z51.81 Encounter for therapeutic drug level monitoring | CPT/HCPCS: 85610; 99211 ==

== ENCOUNTER → 2021-07-23 10:38 | Outpatient (BNVA) | payer OTHER, SELFPAY | PROVIDERS: PCP Family Medicine; Visit Provider Internal Medicine | DX: Z86.718 Personal history of other venous thrombosis and embolism (principal); Z51.81 Encounter for therapeutic drug level monitoring; Z79.01 Long term (current) use of anticoagulants | CPT/HCPCS: 85610; 99212 ==

== ENCOUNTER → 2021-07-26 10:44 | Outpatient (BNVA) | payer OTHER, SELFPAY | PROVIDERS: PCP Family Medicine; Visit Provider Internal Medicine | DX: Z86.718 Personal history of other venous thrombosis and embolism (principal); Z51.81 Encounter for therapeutic drug level monitoring; Z79.01 Long term (current) use of anticoagulants | CPT/HCPCS: 85610; 99211 ==

== ENCOUNTER → 2021-08-15 08:58 | Outpatient (BNVA) | payer MEDICARE, SELFPAY | PROVIDERS: PCP Family Medicine; Visit Provider Internal Medicine | DX: Z86.718 Personal history of other venous thrombosis and embolism (principal); Z79.01 Long term (current) use of anticoagulants; Z51.81 Encounter for therapeutic drug level monitoring | CPT/HCPCS: 85610; 99211 ==

== ENCOUNTER → 2021-08-29 09:12 | Outpatient (BNVA) | payer MEDICARE, SELFPAY | PROVIDERS: PCP Family Medicine; Visit Provider Internal Medicine | DX: Z86.718 Personal history of other venous thrombosis and embolism (principal); Z79.01 Long term (current) use of anticoagulants; Z51.81 Encounter for therapeutic drug level monitoring | CPT/HCPCS: 85610; 99211 ==

== ENCOUNTER → 2021-09-12 09:58 | Outpatient (BNVA) | payer MEDICARE, SELFPAY | PROVIDERS: PCP Family Medicine; Visit Provider Internal Medicine | DX: Z86.718 Personal history of other venous thrombosis and embolism (principal); Z79.01 Long term (current) use of anticoagulants; Z51.81 Encounter for therapeutic drug level monitoring | CPT/HCPCS: 85610; 99211 ==

== ENCOUNTER → 2021-09-26 10:09 | Outpatient (BNVA) | payer MEDICARE, SELFPAY | PROVIDERS: PCP Family Medicine; Visit Provider Internal Medicine | DX: Z86.718 Personal history of other venous thrombosis and embolism (principal); Z79.01 Long term (current) use of anticoagulants; Z51.81 Encounter for therapeutic drug level monitoring | CPT/HCPCS: 85610; 99211 ==

== ENCOUNTER → 2021-11-01 09:41 | Outpatient (BNVA) | payer MEDICARE, SELFPAY | PROVIDERS: PCP Family Medicine; Visit Provider Internal Medicine | DX: Z86.718 Personal history of other venous thrombosis and embolism (principal); Z79.01 Long term (current) use of anticoagulants; Z51.81 Encounter for therapeutic drug level monitoring | CPT/HCPCS: 85610; 99211 ==

== ENCOUNTER → 2021-11-20 10:21 | Outpatient (BNVA) | payer MEDICARE, SELFPAY | PROVIDERS: PCP Family Medicine; Visit Provider Internal Medicine | DX: Z86.718 Personal history of other venous thrombosis and embolism (principal); Z79.01 Long term (current) use of anticoagulants; Z51.81 Encounter for therapeutic drug level monitoring | CPT/HCPCS: 85610; 99211 ==

== ENCOUNTER → 2021-12-04 10:31 | Outpatient (BNVA) | payer MEDICARE, SELFPAY | PROVIDERS: PCP Family Medicine; Visit Provider Internal Medicine | DX: Z86.718 Personal history of other venous thrombosis and embolism (principal); Z79.01 Long term (current) use of anticoagulants; Z51.81 Encounter for therapeutic drug level monitoring | CPT/HCPCS: 85610; 99211 ==

== ENCOUNTER → 2022-01-11 10:08 | Outpatient (BNVA) | payer MEDICARE, SELFPAY | PROVIDERS: PCP Family Medicine; Visit Provider Internal Medicine | DX: Z86.718 Personal history of other venous thrombosis and embolism (principal); Z79.01 Long term (current) use of anticoagulants; Z51.81 Encounter for therapeutic drug level monitoring | CPT/HCPCS: 85610; 99211 ==

== ENCOUNTER 2022-01-21 10:32 | Outpatient (REF) | payer MEDICARE, SELFPAY ==
--- NOTE | ~2022-01-21 | MM_ITS ---
EXAMINATION: MM DIAGNOSTIC DIGITAL BREAST TOMOSYNTHESIS, BILATERAL US DIAGNOSTIC ULTRASOUND BREAST, BILATERAL CLINICAL INFORMATION: Due for yearly. Patient notes pain several months posterior upper outer right breast radiating towards axilla and left periareolar region. No palpable mass or discharge. The lifetime risk of breast cancer based on the Tyrer-Cuzick Model is 2%. COMPARISON: Mammography: 08/04/2018, 04/23/2017, 04/18/2016 TECHNIQUE: Digital breast tomosynthesis is performed in both the craniocaudal and mediolateral oblique views along with computer-aided detection (CAD). Synthesized 2D images are generated from the tomosynthesis. Additional bilateral CC and left MLO views are obtained. Bilateral breast ultrasound is targeted to the areas of clinical concern. Right breast is imaged upper outer quadrant and axilla. Left breast is imaged retroareolar and periareolar region. Grayscale imaging and color Doppler are performed without and with harmonics. FINDINGS: There are scattered areas of fibroglandular density (ACR BI-RADS breast composition Category b). There are no significant masses, abnormal calcifications, or other abnormalities. Breast tissue composition borders on dominantly fatty. Background stromal and fibroglandular densities are unremarkable. There is no developing density or architectural abnormality. Again, there are scattered bilateral benign vascular and ductal secretory and some scattered round calcifications. The axilla are unremarkable. No skin thickening or coarsening of the Randolph's ligaments. Ultrasound bilateral breasts demonstrate no cystic or solid mass or architectural abnormality. No focal duct ectasia. No skin thickening or edema tracking in soft tissue planes. No right axillary adenopathy. Results are discussed with the patient at time of visit. MM/MM tomosynthesis diagnostic BI IMPRESSION: -No mammographic evidence of malignancy or inflammatory changes. -Unremarkable bilateral ultrasound. ASSESSMENT: BI-RADS 2: Benign RECOMMENDATION: 1. Patient's bilateral breast pain should be managed based on the clinical impression. 2. Otherwise, routine annual screening mammography. This patient's information was entered into a reminder system with a target due date for their next mammogram.
== END 2022-01-21 10:33 | disposition home or self-care (01) ==
LOC: HO.MAMMO 10:32
PROVIDERS: PCP Family Medicine; Visit Provider Family Medicine
DX: N64.4 Mastodynia (principal)
CPT/HCPCS: 76642; 77062; 77066

== ENCOUNTER → 2022-02-06 10:06 | Outpatient (BNVA) | payer MEDICARE, SELFPAY | PROVIDERS: PCP Family Medicine; Visit Provider Internal Medicine | DX: Z86.718 Personal history of other venous thrombosis and embolism (principal); Z79.01 Long term (current) use of anticoagulants; Z51.81 Encounter for therapeutic drug level monitoring | CPT/HCPCS: 85610; 99211 ==

== ENCOUNTER → 2022-03-06 10:37 | Outpatient (BNVA) | payer MEDICARE, SELFPAY | PROVIDERS: PCP Family Medicine; Visit Provider Internal Medicine | DX: Z86.718 Personal history of other venous thrombosis and embolism (principal); Z51.81 Encounter for therapeutic drug level monitoring; Z79.01 Long term (current) use of anticoagulants | CPT/HCPCS: 85610; 99211 ==

== ENCOUNTER → 2022-04-03 10:40 | Outpatient (BNVA) | payer MEDICARE, SELFPAY | PROVIDERS: PCP Family Medicine; Visit Provider Internal Medicine | DX: Z86.718 Personal history of other venous thrombosis and embolism (principal); Z79.01 Long term (current) use of anticoagulants; Z51.81 Encounter for therapeutic drug level monitoring | CPT/HCPCS: 85610; 99211 ==

== ENCOUNTER → 2022-05-08 10:27 | Outpatient (BNVA) | payer MEDICARE, SELFPAY | PROVIDERS: PCP Family Medicine; Visit Provider Internal Medicine | DX: Z86.718 Personal history of other venous thrombosis and embolism (principal); Z79.01 Long term (current) use of anticoagulants; Z51.81 Encounter for therapeutic drug level monitoring | CPT/HCPCS: 85610; 99211 ==

== ENCOUNTER → 2022-06-05 10:35 | Outpatient (BNVA) | payer MEDICARE, SELFPAY | PROVIDERS: PCP Family Medicine; Visit Provider Internal Medicine | DX: Z86.718 Personal history of other venous thrombosis and embolism (principal); Z51.81 Encounter for therapeutic drug level monitoring; Z79.01 Long term (current) use of anticoagulants | CPT/HCPCS: 85610; 99211 ==

== ENCOUNTER → 2022-07-17 13:21 | Outpatient (BNVA) | payer OTHER, SELFPAY | PROVIDERS: PCP Family Medicine; Visit Provider Internal Medicine | DX: Z86.718 Personal history of other venous thrombosis and embolism (principal); Z79.01 Long term (current) use of anticoagulants; Z51.81 Encounter for therapeutic drug level monitoring | CPT/HCPCS: 85610; 99211 ==

== ENCOUNTER → 2022-08-14 10:26 | Outpatient (BNVA) | payer MEDICARE, SELFPAY | PROVIDERS: PCP Family Medicine; Visit Provider Internal Medicine | DX: Z86.718 Personal history of other venous thrombosis and embolism (principal); Z79.01 Long term (current) use of anticoagulants; Z51.81 Encounter for therapeutic drug level monitoring | CPT/HCPCS: 85610; 99211 ==

== ENCOUNTER → 2022-09-11 10:39 | Outpatient (BNVA) | payer MEDICARE, SELFPAY | PROVIDERS: PCP Family Medicine; Visit Provider Internal Medicine | DX: Z86.718 Personal history of other venous thrombosis and embolism (principal); Z79.01 Long term (current) use of anticoagulants; Z51.81 Encounter for therapeutic drug level monitoring | CPT/HCPCS: 85610; 99211 ==

== ENCOUNTER → 2022-09-25 10:50 | Outpatient (BNVA) | payer MEDICARE, SELFPAY | PROVIDERS: PCP Family Medicine; Visit Provider Internal Medicine | DX: Z86.718 Personal history of other venous thrombosis and embolism (principal); Z79.01 Long term (current) use of anticoagulants; Z51.81 Encounter for therapeutic drug level monitoring | CPT/HCPCS: 85610; 99211 ==

== ENCOUNTER → 2022-10-09 10:41 | Outpatient (BNVA) | payer MEDICARE, SELFPAY | PROVIDERS: PCP Family Medicine; Visit Provider Internal Medicine | DX: Z86.718 Personal history of other venous thrombosis and embolism (principal); Z79.01 Long term (current) use of anticoagulants; Z51.81 Encounter for therapeutic drug level monitoring | CPT/HCPCS: 85610; 99211 ==

== ENCOUNTER → 2022-10-23 10:24 | Outpatient (BNVA) | payer MEDICARE, SELFPAY | PROVIDERS: PCP Family Medicine; Visit Provider Internal Medicine | DX: Z86.718 Personal history of other venous thrombosis and embolism (principal); Z79.01 Long term (current) use of anticoagulants; Z51.81 Encounter for therapeutic drug level monitoring | CPT/HCPCS: 85610; 99211 ==

== ENCOUNTER 2022-11-06 10:29 | Outpatient (AMB) | payer MEDICARE, SELFPAY ==
[2022-11-06 10:46] LABS: Prothrombin Time Whole Bld POC 27.3 sec (11.1-13.5); ~PT, ~INR - Anti Coag Clinic 2.3 (0.9-1.1)
--- NOTE | 2022-11-06 10:53 | MHC.OFFVISCO ---
Intake Intake Visit Reasons: Anticoagulation Allergies Iodinated Contrast Media [IV DYE, IODINE CONTAINING] Allergy (Severe, Verified 11/06/22 10:41) ANAPHYLAXIS aspirin [Aspirin] Allergy (Intermediate, Verified 11/06/22 10:41) HIVES,SWELLING, swelling ciprofloxacin [Cipro] Allergy (Unknown, Verified 11/06/22 10:41) diarrhea ibuprofen Allergy (Unknown, Verified 11/06/22 10:41) nausea Penicillins Allergy (Unknown, Verified 11/06/22 10:41) HIVES,SWELLING tuberculin, purified protein deriva [TUBERCULIN, PURIFIED PROTEIN DERIVA] Allergy (Unknown, Verified 11/06/22 10:41) REDNESS,ITCHING NSAIDS (Non-Steroidal Anti-Inflamma [NSAIDS] Adverse Reaction (Unknown, Verified 11/06/22 10:41) ABD PAIN,NAUSEA Medication List - Last Reconciled 11/06/22 by Candace Manjarrez, RN acetaminophen 0 mg PO acetaminophen (Tylenol 8 Hour) PO acetaminophen-codeine 300-30 mg 0 tabs PO albuterol sulfate 90 mcg/actuation (ProAir HFA) 2 puffs inhalation Q6H PRN albuterol sulfate 2.5 mg inhalation Q20M alcohol swabs 0 pad topical atorvastatin 20 mg PO DAILY pglxaviyt-uzgikyjn-sethyxq ala 50-200-25 mg (Biktarvy) 1 tab PO DAILY blood sugar diagnostic As directed blood-glucose meter (FreeStyle Lite Meter kit) As directed calcium carbonate-vitamin D3 600 mg-10 mcg (400 unit) 1 tab PO BID capsaicin 0.025% (Salonpas-Hot) 1 patch topical DAILY PRN cyanocobalamin (vitamin B-12) 1,000 mcg PO DAILY diltiazem HCl 180 mg PO DAILY docusate sodium (Colace) 100 mg PO DAILY famotidine 20 mg PO BID fluticasone propionate 50 mcg/actuation sprays intranasal hydrocortisone 1% topical inhalat.spacing dev,large mask As directed ipratropium-albuterol 0.5 mg-3 mg(2.5 mg base)/3 mL mL inhalation lancets (FreeStyle Lancets) As directed loratadine 10 mg PO DAILY melatonin 3 mg PO BEDTIME metoprolol succinate ER 50 mg PO DAILY xeslydyv-utxe-OV-calcium-mins 9 mg iron-400 mcg (High Potency Multivitamin (w-iron)) 0 tabs PO nitroglycerin 0.4 mg sublingual Q5M PRN nystatin topical pantoprazole 40 mg PO DAILY potassium chloride ER (Klor-Con M) 20 mEq PO DAILY pregabalin 100 mg PO DAILY quetiapine (Seroquel) 200 mg PO BEDTIME sennosides (senna) 17.2 mg PO DAILY sertraline 100 mg PO DAILY sertraline 50 mg PO DAILY sumatriptan succinate 0 mg PO tizanidine 2 mg PO BEDTIME PRN torsemide 20 mg PO DAILY warfarin 5 mg See Protocol PO DAILY Nursing Note PT.STATES THAT SHE HAS HAD RECENT EPIGASTRIC PAIN, AND HAS APPT.WITH GI SOON. NO CP,SOB OR DIET/;MED CHANGES OR SX OF BLEEDING. CONTINUE PRESENT DOSE AND FOLLOW-UP IN 3 WEEKS. GOOD UNDERSTANDING OF DOSING INSTRJose Alejandro VIDES CALLED WITH INR AND POC. 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
== END 2022-11-06 10:55 | disposition home or self-care (01) ==
LOC: HO.ACS 10:29
PROVIDERS: PCP Family Medicine; Visit Provider Internal Medicine
DX: Z79.01 Long term (current) use of anticoagulants (principal)

== ENCOUNTER → 2022-11-06 10:29 | Outpatient (BNVA) | payer MEDICARE, SELFPAY | PROVIDERS: PCP Family Medicine; Visit Provider Internal Medicine | DX: Z86.718 Personal history of other venous thrombosis and embolism (principal); Z79.01 Long term (current) use of anticoagulants; Z51.81 Encounter for therapeutic drug level monitoring | CPT/HCPCS: 85610; 99211 ==

== ENCOUNTER 2022-12-02 10:36 | Outpatient (AMB) | payer MEDICARE, SELFPAY ==
[2022-12-02 10:52] LABS: Prothrombin Time Whole Bld POC 41.7 sec (11.1-13.5); ~PT, ~INR - Anti Coag Clinic 3.5 (0.9-1.1)
--- NOTE | 2022-12-02 10:52 | MHC.OFFVISCO ---
Intake Intake Visit Reasons: Anticoagulation Allergies Iodinated Contrast Media [IV DYE, IODINE CONTAINING] Allergy (Severe, Verified 12/02/22 10:45) ANAPHYLAXIS aspirin [Aspirin] Allergy (Intermediate, Verified 12/02/22 10:45) HIVES,SWELLING, swelling ciprofloxacin [Cipro] Allergy (Unknown, Verified 12/02/22 10:45) diarrhea ibuprofen Allergy (Unknown, Verified 12/02/22 10:45) nausea Penicillins Allergy (Unknown, Verified 12/02/22 10:45) HIVES,SWELLING tuberculin, purified protein deriva [TUBERCULIN, PURIFIED PROTEIN DERIVA] Allergy (Unknown, Verified 12/02/22 10:45) REDNESS,ITCHING NSAIDS (Non-Steroidal Anti-Inflamma [NSAIDS] Adverse Reaction (Unknown, Verified 12/02/22 10:45) ABD PAIN,NAUSEA Medication List - Last Reconciled 12/02/22 by Anni Gill RN acetaminophen 0 mg PO acetaminophen (Tylenol 8 Hour) PO acetaminophen-codeine 300-30 mg 0 tabs PO albuterol sulfate 90 mcg/actuation (ProAir HFA) 2 puffs inhalation Q6H PRN albuterol sulfate 2.5 mg inhalation Q20M alcohol swabs 0 pad topical atorvastatin 20 mg PO DAILY lscynjtez-tiyfvlfw-laqocto ala 50-200-25 mg (Biktarvy) 1 tab PO DAILY blood sugar diagnostic As directed blood-glucose meter (FreeStyle Lite Meter kit) As directed calcium carbonate-vitamin D3 600 mg-10 mcg (400 unit) 1 tab PO BID capsaicin 0.025% (Salonpas-Hot) 1 patch topical DAILY PRN cyanocobalamin (vitamin B-12) 1,000 mcg PO DAILY diltiazem HCl 180 mg PO DAILY docusate sodium (Colace) 100 mg PO DAILY famotidine 20 mg PO BID fluticasone propionate 50 mcg/actuation sprays intranasal hydrocortisone 1% topical inhalat.spacing dev,large mask As directed ipratropium-albuterol 0.5 mg-3 mg(2.5 mg base)/3 mL mL inhalation lancets (FreeStyle Lancets) As directed loratadine 10 mg PO DAILY melatonin 3 mg PO BEDTIME metoprolol succinate ER 50 mg PO DAILY wxwadxfy-eojr-VA-calcium-mins 9 mg iron-400 mcg (High Potency Multivitamin (w-iron)) 0 tabs PO nitroglycerin 0.4 mg sublingual Q5M PRN nystatin topical pantoprazole 40 mg PO DAILY potassium chloride ER (Klor-Con M) 20 mEq PO DAILY pregabalin 100 mg PO DAILY quetiapine (Seroquel) 200 mg PO BEDTIME sennosides (senna) 17.2 mg PO DAILY sertraline 100 mg PO DAILY sertraline 50 mg PO DAILY sumatriptan succinate 0 mg PO tizanidine 2 mg PO BEDTIME PRN torsemide 20 mg PO DAILY warfarin 5 mg See Protocol PO DAILY Nursing Note INR: 3.5 OUT OF THERAPEUTIC range SHE HAS MUTLIPLE BRUISES ALL OVER - IN UNUSUAL PLACES SHOULDERS NECK SIDES OF LEGS - CHANELL FALLING, HX OF BORDERLINE LOW PLATELETS- SHE IS ON FAMOPTADINE PT STATES SHE HAD A MRI SAT DUE TO HER ABD PAIN (BURNING SENSATIONS) MD AWARE- RESULTS PENDING Medications and supplements reviewed No changes in health, diet, medications, or supplements, Bleeding, bruising, clotting discussed Nutritional guidance given - GRAPES CAN RAISE THE INR DUE TO VIT E CONTENT, ORANGE AND REDS CAN RAISE THE INR, GREENS LOWER THE INR - EAT GREENS TODAY Dose: DECREASE WEEKLY DOSE THIS WEEK 2.5MG X 3 DAYS(DUE TO BRUISING) THEN RESUME NEXT WEEK 2.5MG X 2 DAYS/ 5MG X 5 DAYS, F/U INR: 2 WEEKS Patient verbalizes understanding of instructions given Anti-Coag Initial Assessment Social Hx alcohol intake: never Coding Level of Care Code Est Patient Level 1 Diagnoses Current use of anticoagulant therapy Z79.01 Assessment & Plan Assessment & Plan (1) Current use of anticoagulant therapy: Code(s): Z79.01 - terminal 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
== END 2022-12-02 11:15 | disposition home or self-care (01) ==
LOC: HO.ACS 10:36
PROVIDERS: PCP Family Medicine; Visit Provider Internal Medicine
DX: Z79.01 Long term (current) use of anticoagulants (principal)

== ENCOUNTER → 2022-12-02 10:36 | Outpatient (BNVA) | payer MEDICARE, SELFPAY | PROVIDERS: PCP Family Medicine; Visit Provider Internal Medicine | DX: Z86.718 Personal history of other venous thrombosis and embolism (principal); Z79.01 Long term (current) use of anticoagulants; Z51.81 Encounter for therapeutic drug level monitoring | CPT/HCPCS: 85610; 99211 ==

== ENCOUNTER 2022-12-09 12:05 | Outpatient (REF) | payer MEDICARE, SELFPAY ==
[2022-12-09 13:17] LABS: MANUAL DIFF FLAG NO
[2022-12-09 13:53] LABS: Basophils Percent Auto 0.2 % (0-2); Eosinophils Percent Auto 0.9 % (0-4); Hematocrit 33.3 % (37.0-47.0); Hemoglobin 10.9 g/dl (12.0-16.0); Imm Gran Abs Auto 0.01 X10*3/uL (0.00-0.03); Imm Gran Pct Auto 0.2 % (0.0-0.4); Lymphocytes Absolute Auto 1.3 X10*3/uL (1.2-4.9); Lymphocytes Percent Auto 27.5 % (20-40); Mean Corpuscular HGB Conc 32.7 g/dl (31.0-35.0); Mean Corpuscular Hemoglobin 28.5 pg (27.0-33.0); Mean Corpuscular Volume 86.9 fL (80.0-98.0); Mean Platelet Volume 11.6 fL (9.4-12.3); Monocytes Absolute Auto 0.7 X10*3/uL (0.1-1.2); Monocytes Percent Auto 15.9 % (2-11); Neutrophils Absolute Auto 2.5 x10*3/uL (2.0-8.3); Neutrophils Percent Auto 55.3 % (45-73); Platelet Count 144 X10*3/uL (160-400); Red Blood Count 3.83 X10*6/uL (4.20-5.50); Red Cell Distribution Width 15.6 % (11.0-16.0); White Blood Count 4.6 X10*3/uL (4.8-10.8)
[2022-12-09 14:07] LABS: Cholesterol 163 mg/dL (<200); HDL Cholesterol 44 mg/dL (>40); LDL Cholesterol Calculated 91 mg/dL (<100); Triglycerides 144 mg/dL (<150)
[2022-12-09 14:27] LABS: Reflex LDLD? No
[2022-12-09 14:32] LABS: Erythrocyte Sedimentation Rate 38 MM/HR (0-20)
[2022-12-09 14:45] LABS: Alanine Aminotransferase 10 U/L (0-31); Albumin Level 3.7 g/dL (3.5-5.0); Alkaline Phosphatase 142 U/L (39-117); Anion Gap 10 (12-20); Aspartate Amino Transferase 16 U/L (5-31); Bilirubin Total 0.4 mg/dL (0.0-1.0); Blood Urea Nitrogen 14 mg/dL (9-16); C Reactive Protein 0.95 mg/dL (< or = 0.50); Calcium 9.7 mg/dL (8.4-10.2); Carbon Dioxide 27 mmol/L (22-29); Chloride 108 mmol/L (96-108); Estimated Glomerular Filt Rate > 60; Glucose Random 88 mg/dL (60-115); Potassium 4.2 mmol/L (3.3-5.1); Sodium 141 mmol/L (135-145); Total Protein 6.9 g/dL (6.5-8.0)
[2022-12-09 15:04] LABS: TSH reflex Free T4 1.87 uIU/mL (0.32-4.0)
[2022-12-09 15:14] LABS: Creatinine Urine 113.37 mg/dL; Microalbum/Creatinine Ratio Ur 12.3 ug/mg cr (<30)
== END 2022-12-09 12:06 | disposition home or self-care (01) ==
LOC: HO.HHCL 12:05
PROVIDERS: Visit Provider Family Medicine
DX: E11.9 Type 2 diabetes mellitus without complications (principal); D64.9 Anemia, unspecified; R63.4 Abnormal weight loss
CPT/HCPCS: 36415; 80053; 80061; 82043; 84443; 85025; 85652; 86140

== ENCOUNTER 2022-12-16 10:30 | Outpatient (AMB) | payer MEDICARE, SELFPAY ==
[2022-12-16 10:46] LABS: Prothrombin Time Whole Bld POC 27.5 sec (11.1-13.5); ~PT, ~INR - Anti Coag Clinic 2.3 (0.9-1.1)
--- NOTE | 2022-12-16 10:49 | MHC.OFFVISCO ---
Intake Intake Visit Reasons: Anticoagulation Allergies Iodinated Contrast Media [IV DYE, IODINE CONTAINING] Allergy (Severe, Verified 12/16/22 10:40) ANAPHYLAXIS aspirin [Aspirin] Allergy (Intermediate, Verified 12/16/22 10:40) HIVES,SWELLING, swelling ciprofloxacin [Cipro] Allergy (Unknown, Verified 12/16/22 10:40) diarrhea ibuprofen Allergy (Unknown, Verified 12/16/22 10:40) nausea Penicillins Allergy (Unknown, Verified 12/16/22 10:40) HIVES,SWELLING tuberculin, purified protein deriva [TUBERCULIN, PURIFIED PROTEIN DERIVA] Allergy (Unknown, Verified 12/16/22 10:40) REDNESS,ITCHING NSAIDS (Non-Steroidal Anti-Inflamma [NSAIDS] Adverse Reaction (Unknown, Verified 12/16/22 10:40) ABD PAIN,NAUSEA Medication List - Last Reconciled 12/16/22 by Anni Gill RN acetaminophen 0 mg PO acetaminophen (Tylenol 8 Hour) PO acetaminophen-codeine 300-30 mg 0 tabs PO albuterol sulfate 90 mcg/actuation (ProAir HFA) 2 puffs inhalation Q6H PRN albuterol sulfate 2.5 mg inhalation Q20M alcohol swabs 0 pad topical atorvastatin 20 mg PO DAILY xddnltpsg-fnlfwpcg-vrfoewz ala 50-200-25 mg (Biktarvy) 1 tab PO DAILY blood sugar diagnostic As directed blood-glucose meter (FreeStyle Lite Meter kit) As directed calcium carbonate-vitamin D3 600 mg-10 mcg (400 unit) 1 tab PO BID capsaicin 0.025% (Salonpas-Hot) 1 patch topical DAILY PRN cyanocobalamin (vitamin B-12) 1,000 mcg PO DAILY diltiazem HCl 180 mg PO DAILY docusate sodium (Colace) 100 mg PO DAILY famotidine 20 mg PO BID fluticasone propionate 50 mcg/actuation sprays intranasal hydrocortisone 1% topical inhalat.spacing dev,large mask As directed ipratropium-albuterol 0.5 mg-3 mg(2.5 mg base)/3 mL mL inhalation lancets (FreeStyle Lancets) As directed loratadine 10 mg PO DAILY melatonin 3 mg PO BEDTIME metoprolol succinate ER 50 mg PO DAILY dugvydwe-jxrf-NH-calcium-mins 9 mg iron-400 mcg (High Potency Multivitamin (w-iron)) 0 tabs PO nitroglycerin 0.4 mg sublingual Q5M PRN nystatin topical pantoprazole 40 mg PO DAILY potassium chloride ER (Klor-Con M) 20 mEq PO DAILY pregabalin 100 mg PO DAILY quetiapine (Seroquel) 200 mg PO BEDTIME sennosides (senna) 17.2 mg PO DAILY sertraline 100 mg PO DAILY sertraline 50 mg PO DAILY sumatriptan succinate 0 mg PO tizanidine 2 mg PO BEDTIME PRN torsemide 20 mg PO DAILY warfarin 5 mg See Protocol PO DAILY Nursing Note INR: 2.3 in therapeutic range HAD MRI POSSIBLE CYST IN PANCREASE - PENDING ALL THE RESULTS UNTIL SHE MEEDS WITH PCP Medications and supplements reviewed No changes in health, diet, medications, or supplements, Denies any signs and symptoms of bleeding or bruising or clotting. 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
== END 2022-12-16 11:02 | disposition home or self-care (01) ==
LOC: HO.ACS 10:30
PROVIDERS: PCP Family Medicine; Visit Provider Internal Medicine
DX: Z79.01 Long term (current) use of anticoagulants (principal)

== ENCOUNTER → 2022-12-16 10:30 | Outpatient (BNVA) | payer MEDICARE, SELFPAY | PROVIDERS: PCP Family Medicine; Visit Provider Internal Medicine | DX: Z86.718 Personal history of other venous thrombosis and embolism (principal); Z79.01 Long term (current) use of anticoagulants; Z51.81 Encounter for therapeutic drug level monitoring | CPT/HCPCS: 85610; 99211 ==

== ENCOUNTER 2023-01-01 10:19 | Outpatient (AMB) | payer MEDICARE, SELFPAY ==
[2023-01-01 10:32] LABS: Prothrombin Time Whole Bld POC 17.9 sec (11.1-13.5); ~PT, ~INR - Anti Coag Clinic 1.5 (0.9-1.1)
--- NOTE | 2023-01-01 10:43 | MHC.OFFVISCO ---
Intake Intake Visit Reasons: Anticoagulation Allergies Iodinated Contrast Media [IV DYE, IODINE CONTAINING] Allergy (Severe, Verified 01/01/23 10:25) ANAPHYLAXIS aspirin [Aspirin] Allergy (Intermediate, Verified 01/01/23 10:25) HIVES,SWELLING, swelling ciprofloxacin [Cipro] Allergy (Unknown, Verified 01/01/23 10:25) diarrhea ibuprofen Allergy (Unknown, Verified 01/01/23 10:25) nausea Penicillins Allergy (Unknown, Verified 01/01/23 10:25) HIVES,SWELLING tuberculin, purified protein deriva [TUBERCULIN, PURIFIED PROTEIN DERIVA] Allergy (Unknown, Verified 01/01/23 10:25) REDNESS,ITCHING NSAIDS (Non-Steroidal Anti-Inflamma [NSAIDS] Adverse Reaction (Unknown, Verified 01/01/23 10:25) ABD PAIN,NAUSEA Medication List - Last Reconciled 01/01/23 by Anni Gill RN acetaminophen 0 mg PO acetaminophen (Tylenol 8 Hour) PO acetaminophen-codeine 300-30 mg 0 tabs PO albuterol sulfate 90 mcg/actuation (ProAir HFA) 2 puffs inhalation Q6H PRN albuterol sulfate 2.5 mg inhalation Q20M alcohol swabs 0 pad topical atorvastatin 20 mg PO DAILY gigvozmqa-gzixlqhc-tiuaugb ala 50-200-25 mg (Biktarvy) 1 tab PO DAILY blood sugar diagnostic As directed blood-glucose meter (FreeStyle Lite Meter kit) As directed calcium carbonate-vitamin D3 600 mg-10 mcg (400 unit) 1 tab PO BID capsaicin 0.025% (Salonpas-Hot) 1 patch topical DAILY PRN cyanocobalamin (vitamin B-12) 1,000 mcg PO DAILY diltiazem HCl 180 mg PO DAILY docusate sodium (Colace) 100 mg PO DAILY famotidine 20 mg PO BID fluticasone propionate 50 mcg/actuation sprays intranasal hydrocortisone 1% topical inhalat.spacing dev,large mask As directed ipratropium-albuterol 0.5 mg-3 mg(2.5 mg base)/3 mL mL inhalation lancets (FreeStyle Lancets) As directed loratadine 10 mg PO DAILY melatonin 3 mg PO BEDTIME metoprolol succinate ER 50 mg PO DAILY vssvbfzs-yndb-YA-calcium-mins 9 mg iron-400 mcg (High Potency Multivitamin (w-iron)) 0 tabs PO nitroglycerin 0.4 mg sublingual Q5M PRN nystatin topical pantoprazole 40 mg PO DAILY potassium chloride ER (Klor-Con M) 20 mEq PO DAILY pregabalin 100 mg PO DAILY quetiapine (Seroquel) 200 mg PO BEDTIME sennosides (senna) 17.2 mg PO DAILY sertraline 100 mg PO DAILY sertraline 50 mg PO DAILY sumatriptan succinate 0 mg PO tizanidine 2 mg PO BEDTIME PRN torsemide 20 mg PO DAILY warfarin 5 mg See Protocol PO DAILY Nursing Note INR: 1.5 OUT OF therapeutic range, DENIES ANY MISSED DOSES Medications and supplements reviewed- DENIES ANY CHANGES HAD AN INJECTION TO ELBOW WITH RELIEF FROM [facility] 2 WEEKS AGO Denies any signs and symptoms of bleeding or bruising or clotting. Bleeding, bruising, clotting discussed Nutritional guidance given - AVOID GREENS X 3 DAYS, EAT ORANGE AND REDS TO HELP RAISE THE INR Dose: 7.5MG TODAY THEN RESUME, 5MG X 5 DAYS/ 2.5MG X 2 DAYS F/U INR: 01/06/23 Patient verbalizes understanding of instructions given T/C TO PCP SPOKE WITH TRIAGE NURSE CHRISTEL TO ALBA JIG TO PCP OF INR, PT STATUS AND PLAN OF CARE. Anti-Coag Initial Assessment Social Hx alcohol intake: never Coding Level of Care Code Est Patient Level 1 Diagnoses Current use of anticoagulant therapy Z79.01 Assessment & Plan Assessment & Plan (1) Current use of anticoagulant therapy: Code(s): Z79.01 - group home (current) use of 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
== END 2023-01-01 10:52 | disposition home or self-care (01) ==
LOC: HO.ACS 10:19
PROVIDERS: PCP Family Medicine; Visit Provider Internal Medicine
DX: Z79.01 Long term (current) use of anticoagulants (principal)

== ENCOUNTER → 2023-01-01 10:19 | Outpatient (BNVA) | payer MEDICARE, SELFPAY | PROVIDERS: PCP Family Medicine; Visit Provider Internal Medicine | DX: Z86.718 Personal history of other venous thrombosis and embolism (principal); Z79.01 Long term (current) use of anticoagulants; Z51.81 Encounter for therapeutic drug level monitoring | CPT/HCPCS: 85610; 99211 ==

== ENCOUNTER 2023-01-06 10:17 | Outpatient (AMB) | payer MEDICARE, SELFPAY ==
[2023-01-06 10:31] LABS: Prothrombin Time Whole Bld POC 25.8 sec (11.1-13.5); ~PT, ~INR - Anti Coag Clinic 2.2 (0.9-1.1)
--- NOTE | 2023-01-06 10:38 | MHC.OFFVISCO ---
Intake Intake Visit Reasons: Anticoagulation Allergies Iodinated Contrast Media [IV DYE, IODINE CONTAINING] Allergy (Severe, Verified 01/06/23 10:25) ANAPHYLAXIS aspirin [Aspirin] Allergy (Intermediate, Verified 01/06/23 10:25) HIVES,SWELLING, swelling ciprofloxacin [Cipro] Allergy (Unknown, Verified 01/06/23 10:25) diarrhea ibuprofen Allergy (Unknown, Verified 01/06/23 10:25) nausea Penicillins Allergy (Unknown, Verified 01/06/23 10:25) HIVES,SWELLING tuberculin, purified protein deriva [TUBERCULIN, PURIFIED PROTEIN DERIVA] Allergy (Unknown, Verified 01/06/23 10:25) REDNESS,ITCHING NSAIDS (Non-Steroidal Anti-Inflamma [NSAIDS] Adverse Reaction (Unknown, Verified 01/06/23 10:25) ABD PAIN,NAUSEA Medication List - Last Reconciled 01/06/23 by Anni Gill RN acetaminophen 0 mg PO acetaminophen (Tylenol 8 Hour) PO acetaminophen-codeine 300-30 mg 0 tabs PO albuterol sulfate 90 mcg/actuation (ProAir HFA) 2 puffs inhalation Q6H PRN albuterol sulfate 2.5 mg inhalation Q20M alcohol swabs 0 pad topical atorvastatin 20 mg PO DAILY bxwrbdqxm-hngbnaay-uduvrtb ala 50-200-25 mg (Biktarvy) 1 tab PO DAILY blood sugar diagnostic As directed blood-glucose meter (FreeStyle Lite Meter kit) As directed calcium carbonate-vitamin D3 600 mg-10 mcg (400 unit) 1 tab PO BID capsaicin 0.025% (Salonpas-Hot) 1 patch topical DAILY PRN cyanocobalamin (vitamin B-12) 1,000 mcg PO DAILY diltiazem HCl 180 mg PO DAILY docusate sodium (Colace) 100 mg PO DAILY famotidine 20 mg PO BID fluticasone propionate 50 mcg/actuation sprays intranasal hydrocortisone 1% topical inhalat.spacing dev,large mask As directed ipratropium-albuterol 0.5 mg-3 mg(2.5 mg base)/3 mL mL inhalation lancets (FreeStyle Lancets) As directed loratadine 10 mg PO DAILY melatonin 3 mg PO BEDTIME metoprolol succinate ER 50 mg PO DAILY oytimjwi-cffo-LO-calcium-mins 9 mg iron-400 mcg (High Potency Multivitamin (w-iron)) 0 tabs PO nitroglycerin 0.4 mg sublingual Q5M PRN nystatin topical pantoprazole 40 mg PO DAILY potassium chloride ER (Klor-Con M) 20 mEq PO DAILY pregabalin 100 mg PO DAILY quetiapine (Seroquel) 200 mg PO BEDTIME sennosides (senna) 17.2 mg PO DAILY sertraline 100 mg PO DAILY sertraline 50 mg PO DAILY sumatriptan succinate 0 mg PO tizanidine 2 mg PO BEDTIME PRN torsemide 20 mg PO DAILY warfarin 5 mg See Protocol PO DAILY Nursing Note INR: 2.2 in therapeutic range Medications and supplements reviewed No changes in health, diet, medications, or supplements, Denies any signs and symptoms of bleeding or bruising or clotting. Bleeding, bruising, clotting discussed Nutritional guidance given EAT A MIX OF FRUITS AND VEGETABLES Dose: KEEP SAME 2.5MG X 2 DAYS/ 5MG X 5 DAYS F/U INR: 2 WEEKS Patient AND daughter verbalizes understanding of instructions given t/c to nurse Rebecca who sets up her medications, she states the pt has not had any medication or health changes, warfarin dosing explained along with diet recommendations and next f/u appt given. 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
== END 2023-01-06 10:45 | disposition home or self-care (01) ==
LOC: HO.ACS 10:17
PROVIDERS: PCP Family Medicine; Visit Provider Internal Medicine
DX: Z79.01 Long term (current) use of anticoagulants (principal)

== ENCOUNTER → 2023-01-06 10:17 | Outpatient (BNVA) | payer MEDICARE, SELFPAY | PROVIDERS: PCP Family Medicine; Visit Provider Internal Medicine | DX: Z86.718 Personal history of other venous thrombosis and embolism (principal); Z79.01 Long term (current) use of anticoagulants; Z51.81 Encounter for therapeutic drug level monitoring | CPT/HCPCS: 85610; 99211 ==

== ENCOUNTER 2023-01-20 10:35 | Outpatient (AMB) | payer MEDICARE, SELFPAY ==
[2023-01-20 10:44] LABS: Prothrombin Time Whole Bld POC 24.1 sec (11.1-13.5)
--- NOTE | 2023-01-20 10:51 | MHC.OFFVISCO ---
Intake Intake Visit Reasons: Anticoagulation Allergies Iodinated Contrast Media [IV DYE, IODINE CONTAINING] Allergy (Severe, Verified 01/20/23 10:37) ANAPHYLAXIS aspirin [Aspirin] Allergy (Intermediate, Verified 01/20/23 10:37) HIVES,SWELLING, swelling ciprofloxacin [Cipro] Allergy (Unknown, Verified 01/20/23 10:37) diarrhea ibuprofen Allergy (Unknown, Verified 01/20/23 10:37) nausea Penicillins Allergy (Unknown, Verified 01/20/23 10:37) HIVES,SWELLING tuberculin, purified protein deriva [TUBERCULIN, PURIFIED PROTEIN DERIVA] Allergy (Unknown, Verified 01/20/23 10:37) REDNESS,ITCHING NSAIDS (Non-Steroidal Anti-Inflamma [NSAIDS] Adverse Reaction (Unknown, Verified 01/20/23 10:37) ABD PAIN,NAUSEA Medication List - Last Reconciled 01/20/23 by Anni Gill RN acetaminophen 0 mg PO acetaminophen (Tylenol 8 Hour) PO acetaminophen-codeine 300-30 mg 0 tabs PO albuterol sulfate 90 mcg/actuation (ProAir HFA) 2 puffs inhalation Q6H PRN albuterol sulfate 2.5 mg inhalation Q20M alcohol swabs 0 pad topical atorvastatin 20 mg PO DAILY ifeowlcxv-zlmeddov-xlfamvv ala 50-200-25 mg (Biktarvy) 1 tab PO DAILY blood sugar diagnostic As directed blood-glucose meter (FreeStyle Lite Meter kit) As directed calcium carbonate-vitamin D3 600 mg-10 mcg (400 unit) 1 tab PO BID capsaicin 0.025% (Salonpas-Hot) 1 patch topical DAILY PRN cyanocobalamin (vitamin B-12) 1,000 mcg PO DAILY diltiazem HCl 180 mg PO DAILY docusate sodium (Colace) 100 mg PO DAILY famotidine 20 mg PO BID fluticasone propionate 50 mcg/actuation sprays intranasal hydrocortisone 1% topical inhalat.spacing dev,large mask As directed ipratropium-albuterol 0.5 mg-3 mg(2.5 mg base)/3 mL mL inhalation lancets (FreeStyle Lancets) As directed loratadine 10 mg PO DAILY melatonin 3 mg PO BEDTIME metoprolol succinate ER 50 mg PO DAILY utfpurid-hlvl-WG-calcium-mins 9 mg iron-400 mcg (High Potency Multivitamin (w-iron)) 0 tabs PO nitroglycerin 0.4 mg sublingual Q5M PRN nystatin topical pantoprazole 40 mg PO DAILY potassium chloride ER (Klor-Con M) 20 mEq PO DAILY pregabalin 100 mg PO DAILY quetiapine (Seroquel) 200 mg PO BEDTIME sennosides (senna) 17.2 mg PO DAILY sertraline 100 mg PO DAILY sertraline 50 mg PO DAILY sumatriptan succinate 0 mg PO tizanidine 2 mg PO BEDTIME PRN torsemide 20 mg PO DAILY warfarin 5 mg See Protocol PO DAILY Nursing Note INR: 2.0 in therapeutic range Medications and supplements reviewed No changes in health, diet, medications, or supplements, Denies any signs and symptoms of bleeding or clotting. SMALL AMT OF BRUISING BACK OF RIGHT ARM FROM FAMILY HELPING HER UP Bleeding, bruising, clotting discussed Nutritional guidance given- TO EAT A MIX OF FRUITS AND VEGETABLES,, AVOID GREENS TODAY, EAT ORANGE AND REDS TODAY Dose: 2.5MG X 2 DAYS/ 5MG X 5 DAYS F/U INR: 3 WEEKS Patient verbalizes understanding of instructions given T/C TO MED NURSE MAHOGANY WITH INR DOSING DIET INSTRUCTIONS - NO ANSWER MSG LEFT WITH DETAILS OF THIS VISIT STATED ABOVE WITH INSTRUCTIONS TO CALL [facility] BACK VERIFYING SHE RECEIVED THEM Anti-Coag Initial Assessment Social Hx alcohol intake: never Coding Level of Care Code Est Patient Level 1 Diagnoses Current use of anticoagulant therapy Z79.01 Comment T/C TO MED NURSE WITH RESULT, DOSING AND DIET INSTRUCTIONS Assessment & Plan Assessment & Plan (1) Current use of anticoagulant therapy: Code(s): Z79.01 - long-term (current) use of 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
== END 2023-01-20 11:01 | disposition home or self-care (01) ==
LOC: HO.ACS 10:35
PROVIDERS: PCP Family Medicine; Visit Provider Internal Medicine
DX: Z79.01 Long term (current) use of anticoagulants (principal)

== ENCOUNTER → 2023-01-20 10:35 | Outpatient (BNVA) | payer MEDICARE, SELFPAY | PROVIDERS: PCP Family Medicine; Visit Provider Internal Medicine | DX: I82.503 Chronic embolism and thrombosis of unspecified deep veins of lower extremity, bilateral (principal); Z51.81 Encounter for therapeutic drug level monitoring; Z79.01 Long term (current) use of anticoagulants | CPT/HCPCS: 85610; 99211 ==

== ENCOUNTER → 2023-01-30 09:15 | Outpatient (BNV) | payer MEDICARE, SELFPAY | PROVIDERS: Visit Provider Radiology Diagnostic Radiology | DX: Z12.31 Encounter for screening mammogram for malignant neoplasm of breast (principal) | CPT/HCPCS: 77063; 77067 ==

== ENCOUNTER 2023-01-30 09:17 | Outpatient (REF) | payer MEDICARE, SELFPAY ==
--- NOTE | ~2023-01-30 | MM_ITS ---
EXAMINATION: MM SCREENING DIGITAL BREAST TOMOSYNTHESIS, BILATERAL CLINICAL INFORMATION: Screening. Asymptomatic. COMPARISON: Mammography: This study is compared with prior exams dating back to 2018. TECHNIQUE: Digital breast tomosynthesis is performed in both the craniocaudal and mediolateral oblique views along with computer-aided detection (CAD). Synthesized 2D images are generated from the tomosynthesis. FINDINGS: There are scattered areas of fibroglandular density (ACR BI-RADS breast composition Category b). There are no significant masses, abnormal calcifications, or other abnormalities. Bilateral benign calcifications are present MM/MM tomosynthesis screening BI IMPRESSION: No mammographic evidence of malignancy. ASSESSMENT: BI-RADS BI-RADS 2 - Benign Findings RECOMMENDATION: Routine annual mammography screening. 1 year F/U This examination should not preclude the clinical evaluation of a suspicious palpable abnormality. This patient's information was entered into a reminder system with a target due date for their next mammogram.
== END 2023-01-30 09:18 | disposition home or self-care (01) ==
LOC: HO.MAMMO 09:17
PROVIDERS: Visit Provider Family Medicine
DX: Z12.31 Encounter for screening mammogram for malignant neoplasm of breast (principal)
CPT/HCPCS: 77063; 77067

== ENCOUNTER 2023-02-14 09:56 | Outpatient (AMB) | payer MEDICARE, SELFPAY ==
--- NOTE | 2023-02-14 10:23 | MHC.OFFVISCO ---
Intake Intake Visit Reasons: Anticoagulation Allergies Iodinated Contrast Media [IV DYE, IODINE CONTAINING] Allergy (Severe, Verified 02/14/23 10:01) ANAPHYLAXIS aspirin [Aspirin] Allergy (Intermediate, Verified 02/14/23 10:01) HIVES,SWELLING, swelling ciprofloxacin [Cipro] Allergy (Unknown, Verified 02/14/23 10:01) diarrhea ibuprofen Allergy (Unknown, Verified 02/14/23 10:01) nausea Penicillins Allergy (Unknown, Verified 02/14/23 10:01) HIVES,SWELLING tuberculin, purified protein deriva [TUBERCULIN, PURIFIED PROTEIN DERIVA] Allergy (Unknown, Verified 02/14/23 10:01) REDNESS,ITCHING NSAIDS (Non-Steroidal Anti-Inflamma [NSAIDS] Adverse Reaction (Unknown, Verified 02/14/23 10:01) ABD PAIN,NAUSEA Medication List - Last Reconciled 02/14/23 by Anni Gill RN acetaminophen 0 mg PO acetaminophen (Tylenol 8 Hour) PO acetaminophen-codeine 300-30 mg 0 tabs PO albuterol sulfate 90 mcg/actuation (ProAir HFA) 2 puffs inhalation Q6H PRN albuterol sulfate 2.5 mg inhalation Q20M alcohol swabs 0 pad topical atorvastatin 20 mg PO DAILY fftyyzcjl-exfxoizi-lnhfhqc ala 50-200-25 mg (Biktarvy) 1 tab PO DAILY blood sugar diagnostic As directed blood-glucose meter ([employer]Style Lite Meter kit) As directed calcium carbonate-vitamin D3 600 mg-10 mcg (400 unit) 1 tab PO BID capsaicin 0.025% (Salonpas-Hot) 1 patch topical DAILY PRN cyanocobalamin (vitamin B-12) 1,000 mcg PO DAILY diltiazem HCl 180 mg PO DAILY docusate sodium (Colace) 100 mg PO DAILY famotidine 20 mg PO BID fluticasone propionate 50 mcg/actuation sprays intranasal hydrocortisone 1% topical inhalat.spacing dev,large mask As directed ipratropium-albuterol 0.5 mg-3 mg(2.5 mg base)/3 mL mL inhalation lancets (FreeStyle Lancets) As directed loratadine 10 mg PO DAILY melatonin 3 mg PO BEDTIME metoprolol succinate ER 50 mg PO DAILY dpgwdnls-ofhk-[place]-calcium-mins 9 mg iron-400 mcg (High Potency Multivitamin (w-iron)) 0 tabs PO nitroglycerin 0.4 mg sublingual Q5M PRN nystatin topical pantoprazole 40 mg PO DAILY potassium chloride ER (Klor-Con M) 20 mEq PO DAILY pregabalin 100 mg PO DAILY quetiapine (Seroquel) 200 mg PO BEDTIME sennosides (senna) 17.2 mg PO DAILY sertraline 100 mg PO DAILY sertraline 50 mg PO DAILY sumatriptan succinate 0 mg PO tizanidine 2 mg PO BEDTIME PRN torsemide 20 mg PO DAILY warfarin 5 mg See Protocol PO DAILY Nursing Note 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 a MACHINE SKIVER 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, INR 1.9 out of therapeutic range Medications and supplements reviewed Patient status: pt stated that she had stomach upset x 3 days n/v/d and decreased appetite, and yesterday her b/p was elevated at home- but refused to go to ER, she stated she takes her b/p med - it may have been that she had stomach upset that she may haven ot absorbed her meds all the way, she is feeling better today, she was able to take her b/p meds this am b/p 115/ 70 her regular 72 Medications or supplements: no changes Diet: imrpoving Denies any signs and symptoms of bleeding or clotting or unusual bruising Bleeding, bruising, clotting discussed Nutritional guidance given: avoid greens x 3 days, eat orange and reds today to help raise the INR Dose: keep same 2.5mg x 2 DAYSS/ 5MG X 5 DAYS F/U INR Date : 3 WEEKS T/C TO NURSE VIDES WITH PT INR AND PLAN OF CARE ?? Patient verbalizing understanding of instructions given. Anti-Coag Initial Assessment Social Hx alcohol intake: never Coding Level of Care Code Est Patient Level 1 Diagnoses Current use of anticoagulant therapy Z79.01 Results AMB INR Fingerstick AMB INR Fingerstick 1.9 Last Edit by Anni Gill RN on 02/14/23 10:10 MANUAL ENTRY INTERFACING FAILURE Assessment & Plan Assessment & Plan (1) Current use of anticoagulant therapy: Code(s): Z79.01 - correction (current) use of 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
[2023-02-14 10:24] LABS: Prothrombin Time Whole Bld POC 23.1 sec (11.1-13.5); ~PT, ~INR - Anti Coag Clinic 1.9 (0.9-1.1)
== END 2023-02-14 10:29 | disposition home or self-care (01) ==
LOC: HO.ACS 09:56
PROVIDERS: PCP Family Medicine; Visit Provider Internal Medicine
DX: Z79.01 Long term (current) use of anticoagulants (principal)

== ENCOUNTER → 2023-02-14 09:56 | Outpatient (BNVA) | payer MEDICARE, SELFPAY | PROVIDERS: PCP Family Medicine; Visit Provider Internal Medicine | DX: Z86.718 Personal history of other venous thrombosis and embolism (principal); Z79.01 Long term (current) use of anticoagulants; Z51.81 Encounter for therapeutic drug level monitoring | CPT/HCPCS: 85610; 99211 ==

== ENCOUNTER 2023-03-07 10:33 | Outpatient (AMB) | payer MEDICARE, SELFPAY ==
[2023-03-07 11:13] LABS: Prothrombin Time Whole Bld POC 23.4 sec (11.1-13.5)
--- NOTE | 2023-03-07 11:19 | MHC.OFFVISCO ---
Intake Intake Visit Reasons: Anticoagulation Allergies Iodinated Contrast Media [IV DYE, IODINE CONTAINING] Allergy (Severe, Verified 03/07/23 11:06) ANAPHYLAXIS aspirin [Aspirin] Allergy (Intermediate, Verified 03/07/23 11:06) HIVES,SWELLING, swelling ciprofloxacin [Cipro] Allergy (Unknown, Verified 03/07/23 11:06) diarrhea ibuprofen Allergy (Unknown, Verified 03/07/23 11:06) nausea Penicillins Allergy (Unknown, Verified 03/07/23 11:06) HIVES,SWELLING tuberculin, purified protein deriva [TUBERCULIN, PURIFIED PROTEIN DERIVA] Allergy (Unknown, Verified 03/07/23 11:06) REDNESS,ITCHING NSAIDS (Non-Steroidal Anti-Inflamma [NSAIDS] Adverse Reaction (Unknown, Verified 03/07/23 11:06) ABD PAIN,NAUSEA Medication List - Last Reconciled 03/07/23 by Anni Gill RN acetaminophen 0 mg PO acetaminophen (Tylenol 8 Hour) PO acetaminophen-codeine 300-30 mg 0 tabs PO albuterol sulfate 90 mcg/actuation (ProAir HFA) 2 puffs inhalation Q6H PRN albuterol sulfate 2.5 mg inhalation Q20M alcohol swabs 0 pad topical atorvastatin 20 mg PO DAILY ufrhnnyks-abscjdqq-sbhemgc ala 50-200-25 mg (Biktarvy) 1 tab PO DAILY blood sugar diagnostic As directed blood-glucose meter ([employer]Style Lite Meter kit) As directed calcium carbonate-vitamin D3 600 mg-10 mcg (400 unit) 1 tab PO BID capsaicin 0.025% (Salonpas-Hot) 1 patch topical DAILY PRN cyanocobalamin (vitamin B-12) 1,000 mcg PO DAILY diltiazem HCl 180 mg PO DAILY docusate sodium (Colace) 100 mg PO DAILY famotidine 20 mg PO BID fluticasone propionate 50 mcg/actuation sprays intranasal hydrocortisone 1% topical inhalat.spacing dev,large mask As directed ipratropium-albuterol 0.5 mg-3 mg(2.5 mg base)/3 mL mL inhalation lancets (FreeStyle Lancets) As directed loratadine 10 mg PO DAILY melatonin 3 mg PO BEDTIME metoprolol succinate ER 50 mg PO DAILY jngywtiz-jnfc-HJ-calcium-mins 9 mg iron-400 mcg (High Potency Multivitamin (w-iron)) 0 tabs PO nitroglycerin 0.4 mg sublingual Q5M PRN nystatin topical pantoprazole 40 mg PO DAILY potassium chloride ER (Klor-Con M) 20 mEq PO DAILY pregabalin 100 mg PO DAILY quetiapine (Seroquel) 200 mg PO BEDTIME sennosides (senna) 17.2 mg PO DAILY sertraline 100 mg PO DAILY sertraline 50 mg PO DAILY sumatriptan succinate 0 mg PO tizanidine 2 mg PO BEDTIME PRN torsemide 20 mg PO DAILY warfarin 5 mg See Protocol PO DAILY Nursing Note INR: 2.0 in therapeutic range Medications and supplements reviewed No changes in health, diet, medications, or supplements, Denies any signs and symptoms of bleeding or bruising or clotting. 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
== END 2023-03-07 11:26 | disposition home or self-care (01) ==
LOC: HO.ACS 10:33
PROVIDERS: PCP Family Medicine; Visit Provider Internal Medicine
DX: Z79.01 Long term (current) use of anticoagulants (principal)

== ENCOUNTER → 2023-03-07 10:33 | Outpatient (BNVA) | payer MEDICARE, SELFPAY | PROVIDERS: PCP Family Medicine; Visit Provider Internal Medicine | DX: Z86.718 Personal history of other venous thrombosis and embolism (principal); Z79.01 Long term (current) use of anticoagulants; Z51.81 Encounter for therapeutic drug level monitoring | CPT/HCPCS: 85610; 99211 ==

== ENCOUNTER 2023-03-27 10:26 | Outpatient (AMB) | payer MEDICARE, SELFPAY ==
--- NOTE | 2023-03-27 10:38 | MHC.OFFVISCO ---
Intake Intake Visit Reasons: Anticoagulation Allergies Iodinated Contrast Media [IV DYE, IODINE CONTAINING] Allergy (Severe, Verified 03/27/23 10:35) ANAPHYLAXIS aspirin [Aspirin] Allergy (Intermediate, Verified 03/27/23 10:35) HIVES,SWELLING, swelling ciprofloxacin [Cipro] Allergy (Unknown, Verified 03/27/23 10:35) diarrhea ibuprofen Allergy (Unknown, Verified 03/27/23 10:35) nausea Penicillins Allergy (Unknown, Verified 03/27/23 10:35) HIVES,SWELLING tuberculin, purified protein deriva [TUBERCULIN, PURIFIED PROTEIN DERIVA] Allergy (Unknown, Verified 03/27/23 10:35) REDNESS,ITCHING NSAIDS (Non-Steroidal Anti-Inflamma [NSAIDS] Adverse Reaction (Unknown, Verified 03/27/23 10:35) ABD PAIN,NAUSEA Medication List - Last Reconciled 03/27/23 by Trice Inman RN acetaminophen 0 mg PO acetaminophen (Tylenol 8 Hour) PO acetaminophen-codeine 300-30 mg 0 tabs PO albuterol sulfate 90 mcg/actuation (ProAir HFA) 2 puffs inhalation Q6H PRN albuterol sulfate 2.5 mg inhalation Q20M alcohol swabs 0 pad topical atorvastatin 20 mg PO DAILY avrrakmex-gawzbxjz-wphjbki ala 50-200-25 mg (Biktarvy) 1 tab PO DAILY blood sugar diagnostic As directed blood-glucose meter (FreeStyle Lite Meter kit) As directed calcium carbonate-vitamin D3 600 mg-10 mcg (400 unit) 1 tab PO BID capsaicin 0.025% (Salonpas-Hot) 1 patch topical DAILY PRN cyanocobalamin (vitamin B-12) 1,000 mcg PO DAILY diltiazem HCl 180 mg PO DAILY docusate sodium (Colace) 100 mg PO DAILY famotidine 20 mg PO BID fluticasone propionate 50 mcg/actuation sprays intranasal hydrocortisone 1% topical inhalat.spacing dev,large mask As directed ipratropium-albuterol 0.5 mg-3 mg(2.5 mg base)/3 mL mL inhalation lancets (FreeStyle Lancets) As directed loratadine 10 mg PO DAILY melatonin 3 mg PO BEDTIME metoprolol succinate ER 50 mg PO DAILY hjiwdufy-rrmb-VY-calcium-mins 9 mg iron-400 mcg (High Potency Multivitamin (w-iron)) 0 tabs PO nitroglycerin 0.4 mg sublingual Q5M PRN nystatin topical pantoprazole 40 mg PO DAILY potassium chloride ER (Klor-Con M) 20 mEq PO DAILY pregabalin 100 mg PO DAILY quetiapine (Seroquel) 200 mg PO BEDTIME sennosides (senna) 17.2 mg PO DAILY sertraline 100 mg PO DAILY sertraline 50 mg PO DAILY sumatriptan succinate 0 mg PO tizanidine 2 mg PO BEDTIME PRN torsemide 20 mg PO DAILY warfarin 5 mg See Protocol PO DAILY Nursing Note INR: 2.1- in therapeutic range of 2-3 Medications and supplements reviewed- ondansetron prn- no interaction with warfarin per micromedex No changes in health, diet, medications, or supplements, Denies any signs and symptoms of bleeding or bruising or clotting. Bleeding, bruising, clotting discussed Nutritional guidance given Dose: 2.5mg x 2, 5mg x 5 F/U INR: 2 weeks Patient verbalizes understanding of instructions given pt acompanied by patti Spaulding, pt states has had weight loss and her pcp wants her to take ensure bid. 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
[2023-03-27 10:40] LABS: Prothrombin Time Whole Bld POC 25.2 sec (11.1-13.5); ~PT, ~INR - Anti Coag Clinic 2.1 (0.9-1.1)
== END 2023-03-27 10:45 | disposition home or self-care (01) ==
LOC: HO.ACS 10:26
PROVIDERS: PCP Family Medicine; Visit Provider Internal Medicine
DX: Z79.01 Long term (current) use of anticoagulants (principal)

== ENCOUNTER → 2023-03-27 10:26 | Outpatient (BNVA) | payer MEDICARE, SELFPAY | PROVIDERS: PCP Family Medicine; Visit Provider Internal Medicine | DX: Z86.718 Personal history of other venous thrombosis and embolism (principal); Z51.81 Encounter for therapeutic drug level monitoring; Z79.01 Long term (current) use of anticoagulants | CPT/HCPCS: 85610; 99211 ==

== ENCOUNTER 2023-04-15 10:30 | Outpatient (AMB) | payer MEDICARE, SELFPAY ==
[2023-04-15 10:42] LABS: Prothrombin Time Whole Bld POC 29.9 sec (11.1-13.5); ~PT, ~INR - Anti Coag Clinic 2.5 (0.9-1.1)
--- NOTE | 2023-04-15 10:47 | MHC.OFFVISCO ---
Intake Intake Visit Reasons: Anticoagulation Allergies Iodinated Contrast Media [IV DYE, IODINE CONTAINING] Allergy (Severe, Verified 04/15/23 10:33) ANAPHYLAXIS aspirin [Aspirin] Allergy (Intermediate, Verified 04/15/23 10:33) HIVES,SWELLING, swelling ciprofloxacin [Cipro] Allergy (Unknown, Verified 04/15/23 10:33) diarrhea ibuprofen Allergy (Unknown, Verified 04/15/23 10:33) nausea Penicillins Allergy (Unknown, Verified 04/15/23 10:33) HIVES,SWELLING tuberculin, purified protein deriva [TUBERCULIN, PURIFIED PROTEIN DERIVA] Allergy (Unknown, Verified 04/15/23 10:33) REDNESS,ITCHING NSAIDS (Non-Steroidal Anti-Inflamma [NSAIDS] Adverse Reaction (Unknown, Verified 04/15/23 10:33) ABD PAIN,NAUSEA Medication List - Last Reconciled 04/15/23 by Catie Guerrero, RN acetaminophen 0 mg PO acetaminophen (Tylenol 8 Hour) PO acetaminophen-codeine 300-30 mg 0 tabs PO albuterol sulfate 90 mcg/actuation (ProAir HFA) 2 puffs inhalation Q6H PRN albuterol sulfate 2.5 mg inhalation Q20M alcohol swabs 0 pad topical atorvastatin 20 mg PO DAILY wgiicckmj-cognnhhi-zonntsp ala 50-200-25 mg (Biktarvy) 1 tab PO DAILY blood sugar diagnostic As directed blood-glucose meter (FreeStyle Lite Meter kit) As directed calcium carbonate-vitamin D3 600 mg-10 mcg (400 unit) 1 tab PO BID capsaicin 0.025% (Salonpas-Hot) 1 patch topical DAILY PRN cyanocobalamin (vitamin B-12) 1,000 mcg PO DAILY diltiazem HCl 180 mg PO DAILY docusate sodium (Colace) 100 mg PO DAILY famotidine 20 mg PO BID fluticasone propionate 50 mcg/actuation sprays intranasal hydrocortisone 1% topical inhalat.spacing dev,large mask As directed ipratropium-albuterol 0.5 mg-3 mg(2.5 mg base)/3 mL mL inhalation lancets (FreeStyle Lancets) As directed loratadine 10 mg PO DAILY meclizine (Antivert) 25 mg PO DAILY PRN melatonin 3 mg PO BEDTIME metoprolol succinate ER 50 mg PO DAILY gpigzcsr-rgtx-TH-calcium-mins 9 mg iron-400 mcg (High Potency Multivitamin (w-iron)) 0 tabs PO nitroglycerin 0.4 mg sublingual Q5M PRN nystatin topical ondansetron 4 mg PO Q8H pantoprazole 40 mg PO DAILY potassium chloride ER (Klor-Con M) 20 mEq PO DAILY pregabalin 100 mg PO DAILY quetiapine (Seroquel) 200 mg PO BEDTIME sennosides (senna) 17.2 mg PO DAILY sertraline 100 mg PO DAILY sertraline 50 mg PO DAILY sumatriptan succinate 0 mg PO tizanidine 2 mg PO BEDTIME PRN torsemide 20 mg PO DAILY warfarin 5 mg See Protocol PO DAILY Nursing Note 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, 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 Medications and supplements reviewed, sts she started 2 new meds about 2 weeks ago one for dizziness and one for stomach No other changes in health, diet, medications, or supplements Denies any unusual signs and symptoms of bruising, bleeding Denies any new Chest pain, SOB, or clotting INR:2.5 in therapeutic range Nutritional guidance given: balance greens and reds in diet, can start the Ensure a couple times a week Dose: continue usual dosing;2.5mg x 2 days and 5mg x 5 days F/U INR: 2 weeks Patient verbalizes understanding of instructions given with accurate read back/ teach back of dosing call to Smiley who sets up medication- sts pt has been on ondansetron PRN and Meclazine PRN for a while now (both do not interfere with INR) sts also that pt tried Ensure, did not like the taste of it and was concerned that it can upset stomach so she is not going to drink it Anti-Coag Initial Assessment Social Hx alcohol intake: never Questionnaires HAS-BLED Does the patient had uncontrolled Hypertension?: No Does the patient have renal disease?: Yes Does the patient have liver disease?: No Does the patient have a history of stroke?: Yes Has the patient had major bleeding or predisposition to bleeding?: No Does the patient have labile INRs?: No Is the patient over 65 years of age?: Yes Is the patient on medications that gives them a predisposition to bleeding?: Yes Does the patient use alcohol?: No HAS-BLED Score: 4 CHADSVASC Age: 75 or over Gender: Female Does the patient have a history of CHF?: No Does the patient have a history of Hypertension?: Yes Does the patient have a history of Stroke/TIA/Thromboembolism?: Yes Does the patient have a history of Vascular Disease (prior MD, PAD or aortic plaque)?: No Does the patient have a history of Diabetes?: Yes CHADS VACS Score: 7 Curry Prediction Score Rsk VTE Active Cancer: No Previous VTE, excluding superficial vein thrombosis: Yes Reduced mobility: Yes Already known Thrombophilic Condition: Yes With-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 Trauma and/or Surgery: No Elderly 70 year or older: Yes Heart and/or Respiratory Failure: No Acute Myocardial infarction and/or Ischemic Stroke: Yes Acute Infection and/or Rheumatologic Disorder: No Obesity (BMI 30 or greater): No Ongoing Hormonal Treatment: No Score: 11 Curry Score less than 4; Low Risk of VTE Curry Score 4 or greater; High Risk of VTE Coding Level of Care Code Est Patient Level 1 Diagnoses Current use of anticoagulant therapy Z79.01 Time Spent (min) 15 Assessment & Plan Assessment & Plan (1) Current use of anticoagulant therapy: Code(s): 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
== END 2023-04-15 11:58 | disposition home or self-care (01) ==
LOC: HO.ACS 10:30
PROVIDERS: PCP Family Medicine; Visit Provider Internal Medicine
DX: Z79.01 Long term (current) use of anticoagulants (principal)

== ENCOUNTER → 2023-04-15 10:30 | Outpatient (BNVA) | payer MEDICARE, SELFPAY | PROVIDERS: PCP Family Medicine; Visit Provider Internal Medicine | DX: Z86.718 Personal history of other venous thrombosis and embolism (principal); Z79.01 Long term (current) use of anticoagulants; Z51.81 Encounter for therapeutic drug level monitoring | CPT/HCPCS: 85610; 99211 ==

== ENCOUNTER 2023-04-18 09:50 | Outpatient (REF) | payer OTHER, SELFPAY ==
--- NOTE | ~2023-04-18 | MM_ITS ---
EXAMINATION: BONE DENSITOMETRY CLINICAL INDICATION: Age-related osteoporosis without current pathological fracture. COMPARISON: Previous BD dated 02/28/2014 and baseline BD dated 05/27/2005. TECHNIQUE: Using a [employer] DXA System (software version: 13.1) manufactured by [employer], dual-energy x-ray absorptiometry was performed of the lumbar spine and left hip. The images are of good technical quality. Summary results are attached. FINDINGS: LEFT FEMUR, NECK: Current: BMD 0.698 g/cm2, Z-score -0.8, T-score -2.4, osteopenia. Prior: BMD 0.758 g/cm2. Baseline: BMD 0.839 g/cm2. LEFT FEMUR, TOTAL: Current: BMD 0.747 g/cm2, Z-score -0.6, T-score -2.1, osteopenia, 13.9% decrease from previous, 20.8% decrease from baseline (<5% change is not significant). Prior: BMD 0.868 g/cm2. Baseline: BMD 0.943 g/cm2. AP SPINE L2-L4 (excluding L1): The data of L1-L4 has been changed to exclude the L1 vertebral body, because degenerative sclerosis at this level may cause overestimation of lumbar spine density. Current: BMD 0.796 g/cm2, Z-score -2.2, T-score -3.4, osteoporosis, 20.1% decrease from previous, 11.0% decrease from baseline (<5% change is not significant). Prior: BMD 0.996 g/cm2. Baseline: BMD 0.894 g/cm2. IDENTIFIED RISK FACTORS: Early menopause, secondary osteoporosis, bilateral oophorectomy, history of fracture (adult), hysterectomy, osteoporosis. HISTORY OF FRACTURE: Other. Humerus, shoulder. MEDICATIONS: Calcium. MM/XR DEXA axial skeleton IMPRESSION: 1. DIAGNOSIS: Severe osteoporosis based on the lowest T-score value of -3.4 in the lumbar spine and history of fracture applying World Health Organization criteria. 2. 10-YEAR FRACTURE RISK PREDICTION, FRAX: According to the guidelines, FRAX calculation should only be performed on patients in the osteopenia bone density category. Therefore, FRAX was not performed on this patient. 3. Treatment Recommendations: NOF guidelines recommend consideration for treatment in postmenopausal women and men age 50 and older presenting with the following: -A hip or vertebral (clinical or morphometric) fracture. -T-score less than or equal to -2.5 at the femoral neck or spine after appropriate evaluation to exclude secondary causes. -Low bone mass at the hip or spine and a 10-year fracture probability by FRAX of greater than or equal to 3% for hip fracture or greater than or equal to 20% for major osteoporotic fracture based on the [place] adapted WHO algorithm. 4. Other Recommendations: All treatment decisions require clinical judgment and consideration of individual patient factors, including patient preferences, comorbidities, previous drug use, risk factors not captured in the FRAX model (e.g. frailty, falls, vitamin D deficiency, increased bone turnover, interval significant decline in bone density) and possible under or overestimation of fracture risk by FRAX. Additional medical evaluation for secondary cause of low bone mineral density may be appropriate. FUTURE SCAN RECOMMENDATION: People with diagnosed cases of osteoporosis or at high risk for fracture should have regular bone mineral density tests. For patients eligible for Medicare, routine testing is allowed once every 2 years. The testing frequency can be increased to one year for patients who have rapidly progressing disease, those who are receiving or discontinuing medical therapy to restore bone mass, or have additional risk factors.
== END 2023-04-18 09:51 | disposition home or self-care (01) ==
LOC: HO.MAMMO 09:50
PROVIDERS: PCP Family Medicine; Visit Provider Family Medicine
DX: Z13.820 Encounter for screening for osteoporosis (principal); Z78.0 Asymptomatic menopausal state; M81.0 Age-related osteoporosis without current pathological fracture
CPT/HCPCS: 77080

== ENCOUNTER 2023-04-29 10:30 | Outpatient (AMB) | payer OTHER, SELFPAY ==
[2023-04-29 10:47] LABS: Prothrombin Time Whole Bld POC 24.6 sec (11.1-13.5)
--- NOTE | 2023-04-29 11:02 | MHC.OFFVISCO ---
Intake Intake Visit Reasons: Anticoagulation Allergies Iodinated Contrast Media [IV DYE, IODINE CONTAINING] Allergy (Severe, Verified 04/29/23 10:39) ANAPHYLAXIS aspirin [Aspirin] Allergy (Intermediate, Verified 04/29/23 10:39) HIVES,SWELLING, swelling ciprofloxacin [Cipro] Allergy (Unknown, Verified 04/29/23 10:39) diarrhea ibuprofen Allergy (Unknown, Verified 04/29/23 10:39) nausea Penicillins Allergy (Unknown, Verified 04/29/23 10:39) HIVES,SWELLING tuberculin, purified protein deriva [TUBERCULIN, PURIFIED PROTEIN DERIVA] Allergy (Unknown, Verified 04/29/23 10:39) REDNESS,ITCHING NSAIDS (Non-Steroidal Anti-Inflamma [NSAIDS] Adverse Reaction (Unknown, Verified 04/29/23 10:39) ABD PAIN,NAUSEA Medication List - Last Reconciled 04/29/23 by Anni Gill RN acetaminophen 0 mg PO acetaminophen (Tylenol 8 Hour) PO acetaminophen-codeine 300-30 mg 0 tabs PO albuterol sulfate 90 mcg/actuation (ProAir HFA) 2 puffs inhalation Q6H PRN albuterol sulfate 2.5 mg inhalation Q20M alcohol swabs 0 pad topical atorvastatin 20 mg PO DAILY flwcrmakn-yxagmyoz-woonpvu ala 50-200-25 mg (Biktarvy) 1 tab PO DAILY blood sugar diagnostic As directed blood-glucose meter (FreeStyle Lite Meter kit) As directed calcium carbonate-vitamin D3 600 mg-10 mcg (400 unit) 1 tab PO BID capsaicin 0.025% (Salonpas-Hot) 1 patch topical DAILY PRN cyanocobalamin (vitamin B-12) 1,000 mcg PO DAILY diltiazem HCl 180 mg PO DAILY docusate sodium (Colace) 100 mg PO DAILY famotidine 20 mg PO BID fluticasone propionate 50 mcg/actuation sprays intranasal hydrocortisone 1% topical inhalat.spacing dev,large mask As directed ipratropium-albuterol 0.5 mg-3 mg(2.5 mg base)/3 mL mL inhalation lancets (FreeStyle Lancets) As directed loratadine 10 mg PO DAILY meclizine (Antivert) 25 mg PO DAILY PRN melatonin 3 mg PO BEDTIME metoprolol succinate ER 50 mg PO DAILY smeucfoz-prqc-RA-calcium-mins 9 mg iron-400 mcg (High Potency Multivitamin (w-iron)) 0 tabs PO nitroglycerin 0.4 mg sublingual Q5M PRN nystatin topical ondansetron 4 mg PO Q8H pantoprazole 40 mg PO DAILY potassium chloride ER (Klor-Con M) 20 mEq PO DAILY pregabalin 100 mg PO DAILY quetiapine (Seroquel) 200 mg PO BEDTIME sennosides (senna) 17.2 mg PO DAILY sertraline 100 mg PO DAILY sertraline 50 mg PO DAILY sumatriptan succinate 0 mg PO tizanidine 2 mg PO BEDTIME PRN torsemide 20 mg PO DAILY warfarin 5 mg See Protocol PO DAILY Nursing Note INR: 2.0 in therapeutic range Medications and supplements reviewed METOPROLOL INCREASED TO 75MG DAILY, PT has bilat lower leg bruising and a bruise on her arm and breast, denies any fall or bumping herself has hx of low platelets - will notify her med nurse and PCP of bruising trying to eat better because she did not like the ensure it upset her stomach Denies any signs and symptoms of bleeding or bruising or clotting. Bleeding, bruising, clotting discussed Nutritional guidance given - eat a mix if fruits and vegetables - avoid greens today Dose: keep same dose for now 2.5mg x 2 days/ 5mg x 5 days F/U INR: 2 weeks Patient verbalizes understanding of instructions given CALL TO PCP REGARDING BRUISES - TAKING OVER 10 MIN TO REACH A HEALTH CARE PROVIDER SPOKE WITH CARISA TO CONVEY MSG TO PCP Anti-Coag Initial Assessment Social Hx alcohol intake: never Coding Level of Care Code Est Patient Level 2 Diagnoses Current use of anticoagulant therapy Z79.01 Comment visit, plus call to med nurse and call to PCP Assessment & Plan Assessment & Plan (1) Current use of anticoagulant therapy: Code(s): 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
== END 2023-04-29 11:22 | disposition home or self-care (01) ==
LOC: HO.ACS 10:30
PROVIDERS: PCP Family Medicine; Visit Provider Internal Medicine
DX: Z79.01 Long term (current) use of anticoagulants (principal)

== ENCOUNTER → 2023-04-29 10:30 | Outpatient (BNVA) | payer OTHER, SELFPAY | PROVIDERS: PCP Family Medicine; Visit Provider Internal Medicine | DX: Z86.718 Personal history of other venous thrombosis and embolism (principal); Z79.01 Long term (current) use of anticoagulants; Z51.81 Encounter for therapeutic drug level monitoring | CPT/HCPCS: 85610; 99212 ==

== ENCOUNTER 2023-06-13 10:36 | Outpatient (AMB) | payer OTHER, SELFPAY ==
[2023-06-13 10:51] LABS: Prothrombin Time Whole Bld POC 29.7 sec (11.1-13.5); ~PT, ~INR - Anti Coag Clinic 2.5 (0.9-1.1)
--- NOTE | 2023-06-13 10:57 | MHC.OFFVISCO ---
Intake Intake Visit Reasons: Anticoagulation Allergies Iodinated Contrast Media [IV DYE, IODINE CONTAINING] Allergy (Severe, Verified 06/13/23 10:45) ANAPHYLAXIS aspirin [Aspirin] Allergy (Intermediate, Verified 06/13/23 10:45) HIVES,SWELLING, swelling ciprofloxacin [Cipro] Allergy (Unknown, Verified 06/13/23 10:45) diarrhea ibuprofen Allergy (Unknown, Verified 06/13/23 10:45) nausea Penicillins Allergy (Unknown, Verified 06/13/23 10:45) HIVES,SWELLING tuberculin, purified protein deriva [TUBERCULIN, PURIFIED PROTEIN DERIVA] Allergy (Unknown, Verified 06/13/23 10:45) REDNESS,ITCHING NSAIDS (Non-Steroidal Anti-Inflamma [NSAIDS] Adverse Reaction (Unknown, Verified 06/13/23 10:45) ABD PAIN,NAUSEA Medication List - Last Reconciled 06/13/23 by Candace Manjarrez, RN acetaminophen 0 mg PO acetaminophen (Tylenol 8 Hour) PO acetaminophen-codeine 300-30 mg 0 tabs PO albuterol sulfate 90 mcg/actuation (ProAir HFA) 2 puffs inhalation Q6H PRN albuterol sulfate 2.5 mg inhalation Q20M alcohol swabs 0 pad topical atorvastatin 20 mg PO DAILY swekrahbe-vgwdkfwp-lurgghm ala 50-200-25 mg (Biktarvy) 1 tab PO DAILY blood sugar diagnostic As directed blood-glucose meter ([employer]Style Lite Meter kit) As directed calcium carbonate-vitamin D3 600 mg-10 mcg (400 unit) 1 tab PO BID capsaicin 0.025% (Salonpas-Hot) 1 patch topical DAILY PRN cyanocobalamin (vitamin B-12) 1,000 mcg PO DAILY diltiazem HCl 180 mg PO DAILY docusate sodium (Colace) 100 mg PO DAILY famotidine 20 mg PO BID fluticasone propionate 50 mcg/actuation sprays intranasal hydrocortisone 1% topical inhalat.spacing dev,large mask As directed ipratropium-albuterol 0.5 mg-3 mg(2.5 mg base)/3 mL mL inhalation lancets (FreeStyle Lancets) As directed loratadine 10 mg PO DAILY meclizine (Antivert) 25 mg PO DAILY PRN melatonin 3 mg PO BEDTIME metoprolol succinate ER 50 mg PO DAILY metoprolol tartrate 75 mg PO DAILY ntytrmsl-xztu-EA-calcium-mins 9 mg iron-400 mcg (High Potency Multivitamin (w-iron)) 0 tabs PO nitroglycerin 0.4 mg sublingual Q5M PRN nystatin topical ondansetron 4 mg PO Q8H pantoprazole 40 mg PO DAILY potassium chloride ER (Klor-Con M) 20 mEq PO DAILY pregabalin 100 mg PO DAILY quetiapine (Seroquel) 200 mg PO BEDTIME sennosides (senna) 17.2 mg PO DAILY sertraline 100 mg PO DAILY sertraline 50 mg PO DAILY sumatriptan succinate 0 mg PO tizanidine 2 mg PO BEDTIME PRN torsemide 20 mg PO DAILY warfarin 5 mg See Protocol PO DAILY Nursing Note PT.WAS DC'D FROM [facility] ON 05/15 AFTER ADM.WITH VIRAL GASTROENTERITIS. METROPOLOL IS DC'D PT.STATES. PT.HAS APPT.WITH PCP ON 06/16. PT.CONTINUES TO HAVE SOME ABD.PAIN AFETR EATING. SHE IS UNSURE OF RESULTS FROM TESTING WHILE ADMITTED BUT WILL BE SURE TO DISCUSS AT PCP MEETING ON 06/16. CONTINUE SAME WARFARIN DOSE AND FOLLOW-UP IN 1 WEE. 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 Anti-Coag Initial Assessment Social Hx alcohol intake: never Coding Level of Care Code Est Patient Level 1 Diagnoses Current use of anticoagulant therapy Z79.01 Assessment & Plan Assessment & Plan (1) Current use of anticoagulant therapy: Code(s): Z79.01 - [facility] (current) use of 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
== END 2023-06-13 11:03 | disposition home or self-care (01) ==
LOC: HO.ACS 10:36
PROVIDERS: PCP Family Medicine; Visit Provider Internal Medicine
DX: Z79.01 Long term (current) use of anticoagulants (principal)

== ENCOUNTER → 2023-06-13 10:36 | Outpatient (BNVA) | payer OTHER, SELFPAY | PROVIDERS: PCP Family Medicine; Visit Provider Internal Medicine | DX: Z86.718 Personal history of other venous thrombosis and embolism (principal); Z79.01 Long term (current) use of anticoagulants; Z51.81 Encounter for therapeutic drug level monitoring | CPT/HCPCS: 85610; 99211 ==

== ENCOUNTER 2023-06-16 10:11 | Outpatient (REF) | payer MEDICARE, MEDICAID, SELFPAY ==
[2023-06-16 11:33] LABS: MANUAL DIFF FLAG NO
[2023-06-16 11:36] LABS: Basophils Percent Auto 0.2 % (0-2); Eosinophils Absolute Auto 0.1 X10*3/uL (0.0-0.4); Eosinophils Percent Auto 1.3 % (0-4); Hematocrit 35.7 % (37.0-47.0); Hemoglobin 11.3 g/dl (12.0-16.0); Imm Gran Abs Auto 0.01 X10*3/uL (0.00-0.03); Imm Gran Pct Auto 0.2 % (0.0-0.4); Lymphocytes Absolute Auto 1.4 X10*3/uL (1.2-4.9); Lymphocytes Percent Auto 27.4 % (20-40); Mean Corpuscular HGB Conc 31.7 g/dl (31.0-35.0); Mean Corpuscular Hemoglobin 27.6 pg (27.0-33.0); Mean Corpuscular Volume 87.3 fL (80.0-98.0); Mean Platelet Volume 10.6 fL (9.4-12.3); Monocytes Absolute Auto 0.9 X10*3/uL (0.1-1.2); Monocytes Percent Auto 17.3 % (2-11); Neutrophils Absolute Auto 2.8 x10*3/uL (2.0-8.3); Neutrophils Percent Auto 53.6 % (45-73); Platelet Count 155 X10*3/uL (160-400); Red Blood Count 4.09 X10*6/uL (4.20-5.50); Red Cell Distribution Width 15.9 % (11.0-16.0); White Blood Count 5.3 X10*3/uL (4.8-10.8)
[2023-06-16 11:53] LABS: Estimated Average Glucose 114 mg/dL; Hemoglobin A1c % 5.6 % (<6.0)
[2023-06-16 13:00] LABS: Creatinine Urine 120.45 mg/dL; Microalbum/Creatinine Ratio Ur 10.7 ug/mg cr (<30)
[2023-06-16 13:02] LABS: Alanine Aminotransferase 10 U/L (0-31); Albumin Level 3.8 g/dL (3.5-5.0); Alkaline Phosphatase 126 U/L (39-117); Anion Gap 12 (12-20); Aspartate Amino Transferase 16 U/L (5-31); Bilirubin Total 0.5 mg/dL (0.0-1.0); Blood Urea Nitrogen 13 mg/dL (9-16); Calcium 9.6 mg/dL (8.4-10.2); Carbon Dioxide 24 mmol/L (22-29); Chloride 111 mmol/L (96-108); Cholesterol 187 mg/dL (<200); Estimated Glomerular Filt Rate > 60; Glucose Random 90 mg/dL (60-115); HDL Cholesterol 42 mg/dL (>40); LDL Cholesterol Calculated 117 mg/dL (<100); Sodium 143 mmol/L (135-145); Total Protein 7.5 g/dL (6.5-8.0); Triglycerides 142 mg/dL (<150)
[2023-06-16 13:20] LABS: TSH reflex Free T4 0.87 uIU/mL (0.32-4.0)
[2023-06-16 13:24] LABS: Folate 15.4 ng/mL (> or = 4.0); Vitamin B12 499 pg/mL (200-900)
[2023-06-16 13:38] LABS: Reflex LDLD? No
== END 2023-06-16 10:12 | disposition home or self-care (01) ==
LOC: HO.HHCL 10:11
PROVIDERS: Visit Provider Family Medicine
DX: D64.9 Anemia, unspecified (principal); R63.4 Abnormal weight loss; E11.9 Type 2 diabetes mellitus without complications
CPT/HCPCS: 36415; 80053; 80061; 82043; 82570; 82607; 82746; 83036; 84443; 85025

== ENCOUNTER 2023-06-20 09:29 | Outpatient (AMB) | payer MEDICAID, SELFPAY ==
[2023-06-20 09:59] LABS: Prothrombin Time Whole Bld POC 34.7 sec (11.1-13.5); ~PT, ~INR - Anti Coag Clinic 2.9 (0.9-1.1)
--- NOTE | 2023-06-20 10:12 | MHC.OFFVISCO ---
Intake Intake Visit Reasons: Anticoagulation Allergies Iodinated Contrast Media [IV DYE, IODINE CONTAINING] Allergy (Severe, Verified 06/20/23 09:52) ANAPHYLAXIS aspirin [Aspirin] Allergy (Intermediate, Verified 06/20/23 09:52) HIVES,SWELLING, swelling ciprofloxacin [Cipro] Allergy (Unknown, Verified 06/20/23 09:52) diarrhea ibuprofen Allergy (Unknown, Verified 06/20/23 09:52) nausea Penicillins Allergy (Unknown, Verified 06/20/23 09:52) HIVES,SWELLING tuberculin, purified protein deriva [TUBERCULIN, PURIFIED PROTEIN DERIVA] Allergy (Unknown, Verified 06/20/23 09:52) REDNESS,ITCHING NSAIDS (Non-Steroidal Anti-Inflamma [NSAIDS] Adverse Reaction (Unknown, Verified 06/20/23 09:52) ABD PAIN,NAUSEA Medication List - Last Reconciled 06/20/23 by Catie العراقي, RN acetaminophen 0 mg PO acetaminophen (Tylenol 8 Hour) PO acetaminophen-codeine 300-30 mg 0 tabs PO albuterol sulfate 90 mcg/actuation (ProAir HFA) 2 puffs inhalation Q6H PRN albuterol sulfate 2.5 mg inhalation Q20M alcohol swabs 0 pad topical atorvastatin 20 mg PO DAILY yvfafwnkn-axvqlmab-joiizav ala 50-200-25 mg (Biktarvy) 1 tab PO DAILY blood sugar diagnostic As directed blood-glucose meter ([employer]Style Lite Meter kit) As directed calcium carbonate-vitamin D3 600 mg-10 mcg (400 unit) 1 tab PO BID capsaicin 0.025% (Salonpas-Hot) 1 patch topical DAILY PRN cyanocobalamin (vitamin B-12) 1,000 mcg PO DAILY diltiazem HCl 180 mg PO DAILY docusate sodium (Colace) 100 mg PO DAILY famotidine 20 mg PO BID fluticasone propionate 50 mcg/actuation sprays intranasal hydrocortisone 1% topical inhalat.spacing dev,large mask As directed ipratropium-albuterol 0.5 mg-3 mg(2.5 mg base)/3 mL mL inhalation lancets (FreeStyle Lancets) As directed loratadine 10 mg PO DAILY meclizine (Antivert) 25 mg PO DAILY PRN melatonin 3 mg PO BEDTIME metoprolol succinate ER 50 mg PO DAILY metoprolol tartrate 75 mg PO DAILY labnlepz-xuzo-TU-calcium-mins 9 mg iron-400 mcg (High Potency Multivitamin (w-iron)) 0 tabs PO nitroglycerin 0.4 mg sublingual Q5M PRN nystatin topical ondansetron 4 mg PO Q8H pantoprazole 40 mg PO DAILY potassium chloride ER (Klor-Con M) 20 mEq PO DAILY pregabalin 100 mg PO DAILY quetiapine (Seroquel) 200 mg PO BEDTIME sennosides (senna) 17.2 mg PO DAILY sertraline 100 mg PO DAILY sertraline 50 mg PO DAILY sumatriptan succinate 0 mg PO tizanidine 2 mg PO BEDTIME PRN torsemide 20 mg PO DAILY warfarin 5 mg See Protocol PO DAILY Nursing Note INR: 2.9 in therapeutic range of 2-3 Medications and supplements reviewed No changes in health, diet, medications, or supplements, Pt to have endoscopy this month at [facility]. Will call [facility] with date Denies any signs and symptoms of bleeding or bruising or clotting. 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
== END 2023-06-20 11:01 | disposition home or self-care (01) ==
LOC: HO.ACS 09:29
PROVIDERS: PCP Family Medicine; Visit Provider Internal Medicine
DX: Z79.01 Long term (current) use of anticoagulants (principal)

== ENCOUNTER → 2023-06-20 09:29 | Outpatient (BNVA) | payer OTHER, MEDICAID, SELFPAY | PROVIDERS: PCP Family Medicine; Visit Provider Internal Medicine | DX: Z86.718 Personal history of other venous thrombosis and embolism (principal); Z79.01 Long term (current) use of anticoagulants; Z51.81 Encounter for therapeutic drug level monitoring | CPT/HCPCS: 85610; 99211 ==

== ENCOUNTER 2023-07-07 10:12 | Outpatient (AMB) | payer MEDICAID, SELFPAY ==
[2023-07-07 10:36] LABS: Prothrombin Time Whole Bld POC 28.9 sec (11.1-13.5); ~PT, ~INR - Anti Coag Clinic 2.4 (0.9-1.1)
--- NOTE | 2023-07-07 10:59 | MHC.OFFVISCO ---
Intake Intake Visit Reasons: Anticoagulation Allergies Iodinated Contrast Media [IV DYE, IODINE CONTAINING] Allergy (Severe, Verified 07/07/23 10:28) ANAPHYLAXIS aspirin [Aspirin] Allergy (Intermediate, Verified 07/07/23 10:28) HIVES,SWELLING, swelling ciprofloxacin [Cipro] Allergy (Unknown, Verified 07/07/23 10:28) diarrhea ibuprofen Allergy (Unknown, Verified 07/07/23 10:28) nausea Penicillins Allergy (Unknown, Verified 07/07/23 10:28) HIVES,SWELLING tuberculin, purified protein deriva [TUBERCULIN, PURIFIED PROTEIN DERIVA] Allergy (Unknown, Verified 07/07/23 10:28) REDNESS,ITCHING NSAIDS (Non-Steroidal Anti-Inflamma [NSAIDS] Adverse Reaction (Unknown, Verified 07/07/23 10:28) ABD PAIN,NAUSEA Medication List - Last Reconciled 07/07/23 by Anni Gill RN acetaminophen 0 mg PO acetaminophen (Tylenol 8 Hour) PO acetaminophen-codeine 300-30 mg 0 tabs PO albuterol sulfate 90 mcg/actuation (ProAir HFA) 2 puffs inhalation Q6H PRN albuterol sulfate 2.5 mg inhalation Q20M alcohol swabs 0 pad topical atorvastatin 20 mg PO DAILY lclsuzaeg-xfccysng-kygtujp ala 50-200-25 mg (Biktarvy) 1 tab PO DAILY blood sugar diagnostic As directed blood-glucose meter ([employer]Style Lite Meter kit) As directed calcium carbonate-vitamin D3 600 mg-10 mcg (400 unit) 1 tab PO BID capsaicin 0.025% (Salonpas-Hot) 1 patch topical DAILY PRN cyanocobalamin (vitamin B-12) 1,000 mcg PO DAILY diltiazem HCl 180 mg PO DAILY docusate sodium (Colace) 100 mg PO DAILY famotidine 20 mg PO BID fluticasone propionate 50 mcg/actuation sprays intranasal hydrocortisone 1% topical inhalat.spacing dev,large mask As directed ipratropium-albuterol 0.5 mg-3 mg(2.5 mg base)/3 mL mL inhalation lancets (FreeStyle Lancets) As directed loratadine 10 mg PO DAILY meclizine (Antivert) 25 mg PO DAILY PRN melatonin 3 mg PO BEDTIME metoprolol succinate ER 50 mg PO DAILY metoprolol tartrate 75 mg PO DAILY dofccfdt-xltf-VE-calcium-mins 9 mg iron-400 mcg (High Potency Multivitamin (w-iron)) 0 tabs PO nitroglycerin 0.4 mg sublingual Q5M PRN nystatin topical omeprazole 20 mg PO DAILY ondansetron 4 mg PO Q8H pantoprazole 40 mg PO DAILY potassium chloride ER (Klor-Con M) 20 mEq PO DAILY pregabalin 100 mg PO DAILY quetiapine (Seroquel) 200 mg PO BEDTIME sennosides (senna) 17.2 mg PO DAILY sertraline 100 mg PO DAILY sertraline 50 mg PO DAILY sumatriptan succinate 0 mg PO tizanidine 2 mg PO BEDTIME PRN torsemide 20 mg PO DAILY warfarin 5 mg See Protocol PO DAILY Nursing Note INR: 2.4 in therapeutic range Medications and supplements reviewed- pt rx new GI med from [facility] - pt unsure of name of provider she has rx for pantoprazole, famoptadine and now omperazole( she has not started omeprazole) She trying to eat a low FODMAP diet Denies any signs and symptoms of bleeding or clotting, HOWEVER- she has multiple small bruises but not sure where from. 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 Date of procedure ? and will she need lovenox bridge? Also mentioned small bruises with no known injury Nurse will convey msg to PCP med team and to call [facility] with plan of care Patient and nurse verbalizes understanding of instructions given and will call with date and understand she may need another INR prior the procedure and possibly lovneox injectiosn Anti-Coag Initial Assessment Social Hx alcohol intake: never Coding Level of Care Code Est Patient Level 1 Diagnoses Current use of anticoagulant therapy Z79.01 Assessment & Plan Assessment & Plan (1) Current use of anticoagulant therapy: Code(s): Z79.01 - [facility] (current) use of 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
== END 2023-07-07 11:16 | disposition home or self-care (01) ==
LOC: HO.ACS 10:12
PROVIDERS: PCP Family Medicine; Visit Provider Internal Medicine
DX: Z79.01 Long term (current) use of anticoagulants (principal)

== ENCOUNTER → 2023-07-07 10:12 | Outpatient (BNVA) | payer OTHER, MEDICAID, SELFPAY | PROVIDERS: PCP Family Medicine; Visit Provider Internal Medicine | DX: Z86.718 Personal history of other venous thrombosis and embolism (principal); Z79.01 Long term (current) use of anticoagulants; Z51.81 Encounter for therapeutic drug level monitoring | CPT/HCPCS: 85610; 99211 ==

== ENCOUNTER → 2023-07-15 12:14 | Outpatient (BNVA) | payer MEDICAID, SELFPAY | PROVIDERS: PCP Family Medicine; Visit Provider Internal Medicine ==

== ENCOUNTER 2023-07-21 09:54 | Outpatient (AMB) | payer MEDICAID, SELFPAY ==
--- NOTE | 2023-07-21 10:26 | MHC.OFFVISCO ---
Intake Intake Visit Reasons: Anticoagulation Allergies Iodinated Contrast Media [IV DYE, IODINE CONTAINING] Allergy (Severe, Verified 07/21/23 10:06) ANAPHYLAXIS aspirin [Aspirin] Allergy (Intermediate, Verified 07/21/23 10:06) HIVES,SWELLING, swelling ciprofloxacin [Cipro] Allergy (Unknown, Verified 07/21/23 10:06) diarrhea ibuprofen Allergy (Unknown, Verified 07/21/23 10:06) nausea Penicillins Allergy (Unknown, Verified 07/21/23 10:06) HIVES,SWELLING tuberculin, purified protein deriva [TUBERCULIN, PURIFIED PROTEIN DERIVA] Allergy (Unknown, Verified 07/21/23 10:06) REDNESS,ITCHING NSAIDS (Non-Steroidal Anti-Inflamma [NSAIDS] Adverse Reaction (Unknown, Verified 07/21/23 10:06) ABD PAIN,NAUSEA Medication List - Last Reconciled 07/21/23 by Anni Gill RN acetaminophen 0 mg PO acetaminophen (Tylenol 8 Hour) PO acetaminophen-codeine 300-30 mg 0 tabs PO albuterol sulfate 90 mcg/actuation (ProAir HFA) 2 puffs inhalation Q6H PRN albuterol sulfate 2.5 mg inhalation Q20M alcohol swabs 0 pad topical atorvastatin 20 mg PO DAILY aytgyxwod-warfiaqw-dicafbw ala 50-200-25 mg (Biktarvy) 1 tab PO DAILY blood sugar diagnostic As directed blood-glucose meter ([employer]Style Lite Meter kit) As directed calcium carbonate-vitamin D3 600 mg-10 mcg (400 unit) 1 tab PO BID capsaicin 0.025% (Salonpas-Hot) 1 patch topical DAILY PRN cyanocobalamin (vitamin B-12) 1,000 mcg PO DAILY diltiazem HCl 180 mg PO DAILY docusate sodium (Colace) 100 mg PO DAILY enoxaparin mg subcut fluticasone propionate 50 mcg/actuation sprays intranasal hydrocortisone 1% topical inhalat.spacing dev,large mask As directed ipratropium-albuterol 0.5 mg-3 mg(2.5 mg base)/3 mL mL inhalation lancets (FreeStyle Lancets) As directed loratadine 10 mg PO DAILY meclizine (Antivert) 25 mg PO DAILY PRN melatonin 3 mg PO BEDTIME metoprolol succinate ER 50 mg PO DAILY metoprolol tartrate 75 mg PO DAILY jjtlxbdd-hala-LC-calcium-mins 9 mg iron-400 mcg (High Potency Multivitamin (w-iron)) 0 tabs PO nitroglycerin 0.4 mg sublingual Q5M PRN nystatin topical omeprazole 20 mg PO DAILY ondansetron 4 mg PO Q8H pantoprazole 40 mg PO DAILY potassium chloride ER (Klor-Con M) 20 mEq PO DAILY pregabalin 100 mg PO DAILY quetiapine (Seroquel) 200 mg PO BEDTIME sennosides (senna) 17.2 mg PO DAILY sertraline 100 mg PO DAILY sertraline 50 mg PO DAILY sumatriptan succinate 0 mg PO tizanidine 2 mg PO BEDTIME PRN torsemide 20 mg PO DAILY warfarin 5 mg See Protocol PO DAILY Nursing Note S/P COLONOSCOPY 07/16/23 INR 1.5 out of therapeutic range Medications and supplements reviewed Patient status: PT FEELING WELL TODAY/ S/P COLONOSCOPY WITH POLYPECTOMIES X 5 Medications or supplements: LOVNEOX X 3 DAYS Diet: GOOD Denies any signs and symptoms of bleeding or clotting or unusual bruising Bleeding, bruising, clotting discussed Nutritional guidance given: AVOID ALL GREENS UNTIL INR THERAPEUTIC Dose: 7.5MG TODAY THEN RESUME USUAL DOSE 2.5MG X 2 DAYS/ 5MG X 5 DAYS F/U INR Date : 07/24/23?? Patient verbalizing understanding of instructions given. CALL TO PCP TO REPORT INR AND PLAN OF CARE SPOKE WITH CARISA MONACO TO CONVEY MSG TO PCP AND REQUEST FOR LOVNEOX RX IF TO CONT CALL TO NURSE MAHOGANY WITH PLAN OF CARE - NO ANSWER AND MAILBOX FULL - WILL TRY AGAIN LATER 1208 T/C WITH MAHOGANY - SHE STATES PT HAS MORE LOVENOX LEFT - SHE WAS ADVISED TO CONT LOVENOX Fri AND RECHECK INR FRIDAY Anti-Coag Initial Assessment Social Hx alcohol intake: never Coding Level of Care Code Est Patient Level 1 Diagnoses Current use of anticoagulant therapy Z79.01 Results AMB INR Fingerstick AMB INR Fingerstick 1.5 Last Edit by Anni Gill RN on 07/21/23 10:14 MANUAL ENTRY Assessment & Plan Assessment & Plan (1) Current use of anticoagulant therapy: Code(s): 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
[2023-07-21 10:41] LABS: Prothrombin Time Whole Bld POC 18.2 sec (11.1-13.5); ~PT, ~INR - Anti Coag Clinic 1.5 (0.9-1.1)
== END 2023-07-21 10:31 | disposition home or self-care (01) ==
LOC: HO.ACS 09:54
PROVIDERS: PCP Family Medicine; Visit Provider Internal Medicine
DX: Z79.01 Long term (current) use of anticoagulants (principal)

== ENCOUNTER → 2023-07-21 09:54 | Outpatient (BNVA) | payer OTHER, MEDICAID, SELFPAY | PROVIDERS: PCP Family Medicine; Visit Provider Internal Medicine | DX: Z86.718 Personal history of other venous thrombosis and embolism (principal); Z51.81 Encounter for therapeutic drug level monitoring; Z79.01 Long term (current) use of anticoagulants | CPT/HCPCS: 85610; 99211 ==

== ENCOUNTER 2023-07-24 09:57 | Outpatient (AMB) | payer MEDICAID, SELFPAY ==
[2023-07-24 10:05] LABS: Prothrombin Time Whole Bld POC 29.2 sec (11.1-13.5); ~PT, ~INR - Anti Coag Clinic 2.4 (0.9-1.1)
--- NOTE | 2023-07-24 10:17 | MHC.OFFVISCO ---
Intake Intake Visit Reasons: Anticoagulation Allergies Iodinated Contrast Media [IV DYE, IODINE CONTAINING] Allergy (Severe, Verified 07/24/23 09:58) ANAPHYLAXIS aspirin [Aspirin] Allergy (Intermediate, Verified 07/24/23 09:58) HIVES,SWELLING, swelling ciprofloxacin [Cipro] Allergy (Unknown, Verified 07/24/23 09:58) diarrhea ibuprofen Allergy (Unknown, Verified 07/24/23 09:58) nausea Penicillins Allergy (Unknown, Verified 07/24/23 09:58) HIVES,SWELLING tuberculin, purified protein deriva [TUBERCULIN, PURIFIED PROTEIN DERIVA] Allergy (Unknown, Verified 07/24/23 09:58) REDNESS,ITCHING NSAIDS (Non-Steroidal Anti-Inflamma [NSAIDS] Adverse Reaction (Unknown, Verified 07/24/23 09:58) ABD PAIN,NAUSEA Medication List - Last Reconciled 07/24/23 by Anni Gill RN acetaminophen 0 mg PO acetaminophen (Tylenol 8 Hour) PO acetaminophen-codeine 300-30 mg 0 tabs PO albuterol sulfate 90 mcg/actuation (ProAir HFA) 2 puffs inhalation Q6H PRN albuterol sulfate 2.5 mg inhalation Q20M alcohol swabs 0 pad topical atorvastatin 20 mg PO DAILY btocptwfp-fybklcba-nojlkux ala 50-200-25 mg (Biktarvy) 1 tab PO DAILY blood sugar diagnostic As directed blood-glucose meter ([employer]Style Lite Meter kit) As directed calcium carbonate-vitamin D3 600 mg-10 mcg (400 unit) 1 tab PO BID capsaicin 0.025% (Salonpas-Hot) 1 patch topical DAILY PRN cyanocobalamin (vitamin B-12) 1,000 mcg PO DAILY diltiazem HCl CD 180 mg PO DAILY docusate sodium (Colace) 100 mg PO DAILY enoxaparin mg See Protocol subcut fluticasone propionate 50 mcg/actuation sprays intranasal hydrocortisone 1% topical inhalat.spacing dev,large mask As directed ipratropium-albuterol 0.5 mg-3 mg(2.5 mg base)/3 mL mL inhalation lancets (FreeStyle Lancets) As directed loratadine 10 mg PO DAILY meclizine (Antivert) 25 mg PO DAILY PRN melatonin 3 mg PO BEDTIME metoprolol succinate ER 50 mg PO DAILY metoprolol tartrate 75 mg PO DAILY dqesgpiq-ywyi-NP-calcium-mins 9 mg iron-400 mcg (High Potency Multivitamin (w-iron)) 0 tabs PO nitroglycerin 0.4 mg sublingual Q5M PRN nystatin topical omeprazole 20 mg PO DAILY ondansetron 4 mg PO Q8H pantoprazole 40 mg PO DAILY potassium chloride ER (Klor-Con M) 20 mEq PO DAILY pregabalin 100 mg PO DAILY quetiapine (Seroquel) 200 mg PO BEDTIME sennosides (senna) 17.2 mg PO DAILY sertraline 100 mg PO DAILY sertraline 50 mg PO DAILY sumatriptan succinate 0 mg PO tizanidine 2 mg PO BEDTIME PRN torsemide 20 mg PO DAILY warfarin 5 mg See Protocol PO DAILY Nursing Note INR: 2.4 in therapeutic range Medications and supplements reviewed Can stop lovenox now Denies any signs and symptoms of bleeding or bruising or clotting. 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
== END 2023-07-24 10:28 | disposition home or self-care (01) ==
LOC: HO.ACS 09:57
PROVIDERS: PCP Family Medicine; Visit Provider Internal Medicine
DX: Z79.01 Long term (current) use of anticoagulants (principal)

== ENCOUNTER → 2023-07-24 09:57 | Outpatient (BNVA) | payer OTHER, MEDICAID, SELFPAY | PROVIDERS: PCP Family Medicine; Visit Provider Internal Medicine | DX: I82.503 Chronic embolism and thrombosis of unspecified deep veins of lower extremity, bilateral (principal); Z79.01 Long term (current) use of anticoagulants; Z51.81 Encounter for therapeutic drug level monitoring | CPT/HCPCS: 85610; 99211 ==

== ENCOUNTER 2023-08-07 09:27 | Outpatient (AMB) | payer MEDICAID, SELFPAY ==
[2023-08-07 09:55] LABS: Prothrombin Time Whole Bld POC 24.1 sec (11.1-13.5)
--- NOTE | 2023-08-07 10:01 | MHC.OFFVISCO ---
Intake Intake Visit Reasons: Anticoagulation Allergies Iodinated Contrast Media [IV DYE, IODINE CONTAINING] Allergy (Severe, Verified 08/07/23 09:47) ANAPHYLAXIS aspirin [Aspirin] Allergy (Intermediate, Verified 08/07/23 09:47) HIVES,SWELLING, swelling ciprofloxacin [Cipro] Allergy (Unknown, Verified 08/07/23 09:47) diarrhea ibuprofen Allergy (Unknown, Verified 08/07/23 09:47) nausea Penicillins Allergy (Unknown, Verified 08/07/23 09:47) HIVES,SWELLING tuberculin, purified protein deriva [TUBERCULIN, PURIFIED PROTEIN DERIVA] Allergy (Unknown, Verified 08/07/23 09:47) REDNESS,ITCHING NSAIDS (Non-Steroidal Anti-Inflamma [NSAIDS] Adverse Reaction (Unknown, Verified 08/07/23 09:47) ABD PAIN,NAUSEA Nursing Note NO CP,SOB,DIET CHANGES,FALLS OR SX OF BLEEDING. CONTINUE PRESENT DOSE AND FOLLOW-UP IN 2 WEEKS. PT.HAS STARTD CALCIUM SUPPLEMENT BID WHICH IS LIKELY TO CONTRIBUTE TO HIGHER INR'S. WILL MONITOR FOR THIS POSSIBLE CHANGE. Anti-Coag Initial Assessment Social Hx alcohol intake: never Coding Level of Care Code Est Patient Level 1 Diagnoses Current use of anticoagulant therapy Z79.01 Assessment & Plan Assessment & Plan (1) Current use of anticoagulant therapy: Code(s): Z79.01 - detention (current) use of 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
== END 2023-08-07 10:04 | disposition home or self-care (01) ==
LOC: HO.ACS 09:27
PROVIDERS: PCP Family Medicine; Visit Provider Internal Medicine
DX: Z79.01 Long term (current) use of anticoagulants (principal)

== ENCOUNTER → 2023-08-07 09:27 | Outpatient (BNVA) | payer MEDICAID, SELFPAY | PROVIDERS: PCP Family Medicine; Visit Provider Internal Medicine | DX: I82.503 Chronic embolism and thrombosis of unspecified deep veins of lower extremity, bilateral (principal); Z79.01 Long term (current) use of anticoagulants; Z51.81 Encounter for therapeutic drug level monitoring | CPT/HCPCS: 85610; 99211 ==

== ENCOUNTER 2023-08-21 09:47 | Outpatient (AMB) | payer MEDICAID, SELFPAY ==
[2023-08-21 10:13] LABS: Prothrombin Time Whole Bld POC 34.3 sec (11.1-13.5); ~PT, ~INR - Anti Coag Clinic 2.9 (0.9-1.1)
--- NOTE | 2023-08-21 10:20 | MHC.OFFVISCO ---
Intake Intake Visit Reasons: Anticoagulation Allergies Iodinated Contrast Media [IV DYE, IODINE CONTAINING] Allergy (Severe, Verified 08/21/23 10:06) ANAPHYLAXIS aspirin [Aspirin] Allergy (Intermediate, Verified 08/21/23 10:06) HIVES,SWELLING, swelling ciprofloxacin [Cipro] Allergy (Unknown, Verified 08/21/23 10:06) diarrhea ibuprofen Allergy (Unknown, Verified 08/21/23 10:06) nausea Penicillins Allergy (Unknown, Verified 08/21/23 10:06) HIVES,SWELLING tuberculin, purified protein deriva [TUBERCULIN, PURIFIED PROTEIN DERIVA] Allergy (Unknown, Verified 08/21/23 10:06) REDNESS,ITCHING NSAIDS (Non-Steroidal Anti-Inflamma [NSAIDS] Adverse Reaction (Unknown, Verified 08/21/23 10:06) ABD PAIN,NAUSEA Medication List - Last Reconciled 08/21/23 by Candace Manjarrez, RN acetaminophen 0 mg PO acetaminophen (Tylenol 8 Hour) PO acetaminophen-codeine 300-30 mg 0 tabs PO albuterol sulfate 90 mcg/actuation (ProAir HFA) 2 puffs inhalation Q6H PRN albuterol sulfate 2.5 mg inhalation Q20M alcohol swabs 0 pad topical atorvastatin 20 mg PO DAILY nhjnyqmmh-gqfeqhnc-pximepq ala 50-200-25 mg (Biktarvy) 1 tab PO DAILY blood sugar diagnostic As directed blood-glucose meter ([employer]Style Lite Meter kit) As directed calcium carbonate-vitamin D3 600 mg-10 mcg (400 unit) 1 tab PO BID capsaicin 0.025% (Salonpas-Hot) 1 patch topical DAILY PRN cyanocobalamin (vitamin B-12) 1,000 mcg PO DAILY diltiazem HCl CD 180 mg PO DAILY docusate sodium (Colace) 100 mg PO DAILY fluticasone propionate 50 mcg/actuation sprays intranasal hydrocortisone 1% topical inhalat.spacing dev,large mask As directed ipratropium-albuterol 0.5 mg-3 mg(2.5 mg base)/3 mL mL inhalation lancets (FreeStyle Lancets) As directed loratadine 10 mg PO DAILY meclizine (Antivert) 25 mg PO DAILY PRN melatonin 3 mg PO BEDTIME metoprolol succinate ER 50 mg PO DAILY metoprolol tartrate 75 mg PO DAILY jtphmuuo-mobq-HQ-calcium-mins 9 mg iron-400 mcg (High Potency Multivitamin (w-iron)) 0 tabs PO nitroglycerin 0.4 mg sublingual Q5M PRN nystatin topical omeprazole 20 mg PO DAILY ondansetron 4 mg PO Q8H pantoprazole 40 mg PO DAILY potassium chloride ER (Klor-Con M) 20 mEq PO DAILY pregabalin 100 mg PO DAILY quetiapine (Seroquel) 200 mg PO BEDTIME sennosides (senna) 17.2 mg PO DAILY sertraline 100 mg PO DAILY sertraline 50 mg PO DAILY sumatriptan succinate 0 mg PO tizanidine 2 mg PO BEDTIME PRN torsemide 20 mg PO DAILY warfarin 5 mg See Protocol PO DAILY Nursing Note NO CP,SOB,DIET/MED CHANGES,FALLS OR SX OF BLEEDING. CA++ SEEMS TO HAVE HELPED TO INCREASE INR, BUT WILL CONTINUE SAME WARFARIN DOSE, AND PT.IS HAPPY TO INCREASE GREENS A BIT. FOLLOW-UP APPT.IN 3 WEEKS. GOOD UNDERSTANDING OF DOSING INSTR. 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
== END 2023-08-21 10:24 | disposition home or self-care (01) ==
LOC: HO.ACS 09:47
PROVIDERS: PCP Family Medicine; Visit Provider Internal Medicine
DX: Z79.01 Long term (current) use of anticoagulants (principal)

== ENCOUNTER → 2023-08-21 09:47 | Outpatient (BNVA) | payer MEDICAID, SELFPAY | PROVIDERS: PCP Family Medicine; Visit Provider Internal Medicine | DX: I82.503 Chronic embolism and thrombosis of unspecified deep veins of lower extremity, bilateral (principal); Z51.81 Encounter for therapeutic drug level monitoring; Z79.01 Long term (current) use of anticoagulants | CPT/HCPCS: 85610; 99211 ==

== ENCOUNTER 2023-08-28 09:32 | Outpatient (AMB) | payer MEDICARE, SELFPAY ==
[2023-08-28 10:16] LABS: Prothrombin Time Whole Bld POC 33.6 sec (11.1-13.5); ~PT, ~INR - Anti Coag Clinic 2.8 (0.9-1.1)
--- NOTE | 2023-08-28 10:24 | MHC.OFFVISCO ---
Intake Intake Visit Reasons: Anticoagulation Allergies Iodinated Contrast Media [IV DYE, IODINE CONTAINING] Allergy (Severe, Verified 08/28/23 10:10) ANAPHYLAXIS aspirin [Aspirin] Allergy (Intermediate, Verified 08/28/23 10:10) HIVES,SWELLING, swelling ciprofloxacin [Cipro] Allergy (Unknown, Verified 08/28/23 10:10) diarrhea ibuprofen Allergy (Unknown, Verified 08/28/23 10:10) nausea Penicillins Allergy (Unknown, Verified 08/28/23 10:10) HIVES,SWELLING tuberculin, purified protein deriva [TUBERCULIN, PURIFIED PROTEIN DERIVA] Allergy (Unknown, Verified 08/28/23 10:10) REDNESS,ITCHING NSAIDS (Non-Steroidal Anti-Inflamma [NSAIDS] Adverse Reaction (Unknown, Verified 08/28/23 10:10) ABD PAIN,NAUSEA Medication List - Last Reconciled 08/28/23 by Anni Gill RN acetaminophen 0 mg PO acetaminophen (Tylenol 8 Hour) PO acetaminophen-codeine 300-30 mg 0 tabs PO albuterol sulfate 90 mcg/actuation (ProAir HFA) 2 puffs inhalation Q6H PRN albuterol sulfate 2.5 mg inhalation Q20M alcohol swabs 0 pad topical atorvastatin 20 mg PO DAILY nyjvcwapf-pxzksyia-hurlwgq ala 50-200-25 mg (Biktarvy) 1 tab PO DAILY blood sugar diagnostic As directed blood-glucose meter ([employer] Lite Meter kit) As directed calcium carbonate-vitamin D3 600 mg-10 mcg (400 unit) 1 tab PO BID capsaicin 0.025% (Salonpas-Hot) 1 patch topical DAILY PRN cyanocobalamin (vitamin B-12) 1,000 mcg PO DAILY diltiazem HCl CD 180 mg PO DAILY docusate sodium (Colace) 100 mg PO DAILY fluticasone propionate 50 mcg/actuation sprays intranasal hydrocortisone 1% topical inhalat.spacing dev,large mask As directed ipratropium-albuterol 0.5 mg-3 mg(2.5 mg base)/3 mL mL inhalation lancets (FreeStyle Lancets) As directed loratadine 10 mg PO DAILY meclizine mg PO meclizine (Antivert) 25 mg PO DAILY PRN melatonin 3 mg PO BEDTIME metoprolol succinate ER 50 mg PO DAILY metoprolol tartrate 75 mg PO DAILY kztmyucc-qnhf-UJ-calcium-mins 9 mg iron-400 mcg (High Potency Multivitamin (w-iron)) 0 tabs PO nitroglycerin 0.4 mg sublingual Q5M PRN nystatin topical omeprazole 20 mg PO DAILY ondansetron 4 mg PO Q8H pantoprazole 40 mg PO DAILY potassium chloride ER (Klor-Con M) 20 mEq PO DAILY pregabalin 100 mg PO DAILY quetiapine (Seroquel) 200 mg PO BEDTIME sennosides (senna) 17.2 mg PO DAILY sertraline 100 mg PO DAILY sertraline 50 mg PO DAILY sumatriptan succinate 0 mg PO tizanidine 2 mg PO BEDTIME PRN torsemide 20 mg PO DAILY warfarin 5 mg See Protocol PO DAILY Nursing Note INR: 2.8 in therapeutic range Medications and supplements reviewed bruising more than usual on legs and thighs, has not eaten greens in 2 weeks. she states she likes spinach and broccoli Enc to call md regarding bruising, also enc that when she notices more bruising to eat a little more greens and less of the reds Bleeding, bruising, clotting discussed Nutritional guidance given - can eat spinach 1 day/ week or broccoli x 2 servings/ weeks- pt states she will Dose: keep same for now 2.5mg x 2days / 5mg x 5 days if INR in upper range and still bruising chk cbc w/plateletts and possibly lower dose F/U INR: 2 weeks Patient verbalizes understanding of instructions given Anti-Coag Initial Assessment Social Hx alcohol intake: never Coding Level of Care Code Est Patient Level 1 Diagnoses Current use of anticoagulant therapy Z79.01 Assessment & Plan Assessment & Plan (1) Current use of anticoagulant therapy: Code(s): Z79.01 - longterm (current) use of 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
== END 2023-08-28 10:38 | disposition home or self-care (01) ==
LOC: HO.ACS 09:32
PROVIDERS: PCP Family Medicine; Visit Provider Internal Medicine
DX: Z79.01 Long term (current) use of anticoagulants (principal)

== ENCOUNTER → 2023-08-28 09:32 | Outpatient (BNVA) | payer MEDICARE, SELFPAY | PROVIDERS: PCP Family Medicine; Visit Provider Internal Medicine | DX: I82.503 Chronic embolism and thrombosis of unspecified deep veins of lower extremity, bilateral (principal); Z51.81 Encounter for therapeutic drug level monitoring; Z79.01 Long term (current) use of anticoagulants | CPT/HCPCS: 85610; 99211 ==

== ENCOUNTER 2023-09-04 10:26 | Outpatient (REF) | payer MEDICARE, SELFPAY | END 2023-09-04 10:27 | disposition home or self-care (01) | LOC: HO.HHCL 10:26 | PROVIDERS: Visit Provider Family Medicine | DX: Z13.89 Encounter for screening for other disorder (principal) ==

== ENCOUNTER 2023-09-11 10:34 | Outpatient (AMB) | payer MEDICARE, SELFPAY ==
[2023-09-11 10:52] LABS: Prothrombin Time Whole Bld POC 27.1 sec (11.1-13.5); ~PT, ~INR - Anti Coag Clinic 2.3 (0.9-1.1)
--- NOTE | 2023-09-11 11:01 | MHC.OFFVISCO ---
Intake Intake Visit Reasons: Anticoagulation Allergies Iodinated Contrast Media [IV DYE, IODINE CONTAINING] Allergy (Severe, Verified 09/11/23 10:48) ANAPHYLAXIS aspirin [Aspirin] Allergy (Intermediate, Verified 09/11/23 10:48) HIVES,SWELLING, swelling ciprofloxacin [Cipro] Allergy (Unknown, Verified 09/11/23 10:48) diarrhea ibuprofen Allergy (Unknown, Verified 09/11/23 10:48) nausea Penicillins Allergy (Unknown, Verified 09/11/23 10:48) HIVES,SWELLING tuberculin, purified protein deriva [TUBERCULIN, PURIFIED PROTEIN DERIVA] Allergy (Unknown, Verified 09/11/23 10:48) REDNESS,ITCHING NSAIDS (Non-Steroidal Anti-Inflamma [NSAIDS] Adverse Reaction (Unknown, Verified 09/11/23 10:48) ABD PAIN,NAUSEA Medication List - Last Reconciled 09/11/23 by Catie العراقي, RN acetaminophen 0 mg PO acetaminophen (Tylenol 8 Hour) PO acetaminophen-codeine 300-30 mg 0 tabs PO albuterol sulfate 90 mcg/actuation (ProAir HFA) 2 puffs inhalation Q6H PRN albuterol sulfate 2.5 mg inhalation Q20M alcohol swabs 0 pad topical atorvastatin 20 mg PO DAILY adokpovwv-aesinklr-lorsgyt ala 50-200-25 mg (Biktarvy) 1 tab PO DAILY blood sugar diagnostic As directed blood-glucose meter ([employer] Lite Meter kit) As directed calcium carbonate-vitamin D3 600 mg-10 mcg (400 unit) 1 tab PO BID capsaicin 0.025% (Salonpas-Hot) 1 patch topical DAILY PRN cyanocobalamin (vitamin B-12) 1,000 mcg PO DAILY diltiazem HCl CD 180 mg PO DAILY docusate sodium (Colace) 100 mg PO DAILY fluticasone propionate 50 mcg/actuation sprays intranasal hydrocortisone 1% topical inhalat.spacing dev,large mask As directed ipratropium-albuterol 0.5 mg-3 mg(2.5 mg base)/3 mL mL inhalation lancets (FreeStyle Lancets) As directed loratadine 10 mg PO DAILY meclizine mg PO meclizine (Antivert) 25 mg PO DAILY PRN melatonin 3 mg PO BEDTIME metoprolol succinate ER 50 mg PO DAILY metoprolol tartrate 75 mg PO DAILY mzubzazn-xzet-DJ-calcium-mins 9 mg iron-400 mcg (High Potency Multivitamin (w-iron)) 0 tabs PO nitroglycerin 0.4 mg sublingual Q5M PRN nystatin topical omeprazole 20 mg PO DAILY ondansetron 4 mg PO Q8H potassium chloride ER (Klor-Con M) 20 mEq PO DAILY pregabalin 100 mg PO DAILY quetiapine (Seroquel) 200 mg PO BEDTIME sennosides (senna) 17.2 mg PO DAILY sertraline 100 mg PO DAILY sertraline 50 mg PO DAILY sumatriptan succinate 0 mg PO tizanidine 2 mg PO BEDTIME PRN torsemide 20 mg PO DAILY warfarin 5 mg See Protocol PO DAILY Nursing Note INR: 2.3 in therapeutic range of 2-3 Medications and supplements reviewed: no changes No changes in health, diet, medications, or supplements, Denies any signs and symptoms of bleeding or bruising or clotting. 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
== END 2023-09-11 11:07 | disposition home or self-care (01) ==
LOC: HO.ACS 10:34
PROVIDERS: PCP Family Medicine; Visit Provider Internal Medicine
DX: Z79.01 Long term (current) use of anticoagulants (principal)

== ENCOUNTER → 2023-09-11 10:34 | Outpatient (BNVA) | payer MEDICARE, SELFPAY | PROVIDERS: PCP Family Medicine; Visit Provider Internal Medicine | DX: Z86.718 Personal history of other venous thrombosis and embolism (principal); Z79.01 Long term (current) use of anticoagulants; Z51.81 Encounter for therapeutic drug level monitoring | CPT/HCPCS: 85610; 99211 ==

== ENCOUNTER 2023-10-02 09:19 | Outpatient (AMB) | payer MEDICARE, SELFPAY ==
--- NOTE | 2023-10-02 09:29 | MHC.OFFVISCO ---
Intake Intake Visit Reasons: Anticoagulation Allergies Iodinated Contrast Media [IV DYE, IODINE CONTAINING] Allergy (Severe, Verified 10/02/23 09:24) ANAPHYLAXIS aspirin [Aspirin] Allergy (Intermediate, Verified 10/02/23 09:24) HIVES,SWELLING, swelling ciprofloxacin [Cipro] Allergy (Unknown, Verified 10/02/23 09:24) diarrhea ibuprofen Allergy (Unknown, Verified 10/02/23 09:24) nausea Penicillins Allergy (Unknown, Verified 10/02/23 09:24) HIVES,SWELLING tuberculin, purified protein deriva [TUBERCULIN, PURIFIED PROTEIN DERIVA] Allergy (Unknown, Verified 10/02/23 09:24) REDNESS,ITCHING NSAIDS (Non-Steroidal Anti-Inflamma [NSAIDS] Adverse Reaction (Unknown, Verified 10/02/23 09:24) ABD PAIN,NAUSEA Medication List - Last Reconciled 10/02/23 by Trice Inman RN acetaminophen 0 mg PO acetaminophen (Tylenol 8 Hour) PO acetaminophen-codeine 300-30 mg 0 tabs PO albuterol sulfate 90 mcg/actuation (ProAir HFA) 2 puffs inhalation Q6H PRN albuterol sulfate 2.5 mg inhalation Q20M alcohol swabs 0 pad topical atorvastatin 20 mg PO DAILY fuexlmkfe-iqccspzz-rflnpdx ala 50-200-25 mg (Biktarvy) 1 tab PO DAILY blood sugar diagnostic As directed blood-glucose meter ([employer] Lite Meter kit) As directed calcium carbonate-vitamin D3 600 mg-10 mcg (400 unit) 1 tab PO BID capsaicin 0.025% (Salonpas-Hot) 1 patch topical DAILY PRN cyanocobalamin (vitamin B-12) 1,000 mcg PO DAILY diltiazem HCl CD 180 mg PO DAILY docusate sodium (Colace) 100 mg PO DAILY fluticasone propionate 50 mcg/actuation sprays intranasal hydrocortisone 1% topical inhalat.spacing dev,large mask As directed ipratropium-albuterol 0.5 mg-3 mg(2.5 mg base)/3 mL mL inhalation lancets (FreeStyle Lancets) As directed loratadine 10 mg PO DAILY meclizine mg PO meclizine (Antivert) 25 mg PO DAILY PRN melatonin 3 mg PO BEDTIME metoprolol succinate ER 50 mg PO DAILY metoprolol tartrate 75 mg PO DAILY uqzrrqoj-mhhm-CC-calcium-mins 9 mg iron-400 mcg (High Potency Multivitamin (w-iron)) 0 tabs PO nitroglycerin 0.4 mg sublingual Q5M PRN nystatin topical omeprazole 20 mg PO DAILY ondansetron 4 mg PO Q8H potassium chloride ER (Klor-Con M) 20 mEq PO DAILY pregabalin 100 mg PO DAILY quetiapine (Seroquel) 200 mg PO BEDTIME sennosides (senna) 17.2 mg PO DAILY sertraline 100 mg PO DAILY sertraline 50 mg PO DAILY sumatriptan succinate 0 mg PO tizanidine 2 mg PO BEDTIME PRN torsemide 20 mg PO DAILY warfarin 5 mg See Protocol PO DAILY Nursing Note INR: 2.1- in therapeutic range of 2-3 Medications and supplements reviewed- no changes, req to fax current med list No changes in health, diet, medications, or supplements, Denies any signs and symptoms of bleeding or bruising or clotting. Bleeding, bruising, clotting discussed - pt states bruising to lower leg approx 1-2 weeks ago but resolved, she states home nurse chloe aware and pcp aware, has upcoming appt with pcp, pt states bruise on left chest as well, chloe pt home nurse called and made aware of bruise, req platelet count , will see pt sooner with any further bruising. 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
[2023-10-02 09:30] LABS: Prothrombin Time Whole Bld POC 25.6 sec (11.1-13.5); ~PT, ~INR - Anti Coag Clinic 2.1 (0.9-1.1)
== END 2023-10-02 09:55 | disposition home or self-care (01) ==
LOC: HO.ACS 09:19
PROVIDERS: PCP Family Medicine; Visit Provider Internal Medicine
DX: Z79.01 Long term (current) use of anticoagulants (principal)

== ENCOUNTER → 2023-10-02 09:19 | Outpatient (BNVA) | payer MEDICARE, SELFPAY | PROVIDERS: PCP Family Medicine; Visit Provider Internal Medicine | DX: Z86.718 Personal history of other venous thrombosis and embolism (principal); Z79.01 Long term (current) use of anticoagulants; Z51.81 Encounter for therapeutic drug level monitoring | CPT/HCPCS: 85610; 99211 ==

== ENCOUNTER 2023-10-06 10:24 | Outpatient (REF) | payer MEDICARE, SELFPAY | END 2023-10-06 10:25 | disposition home or self-care (01) | LOC: HO.HHCL 10:24 | PROVIDERS: Visit Provider Family Medicine | DX: Z13.89 Encounter for screening for other disorder (principal) ==

== ENCOUNTER 2023-10-22 09:11 | Outpatient (AMB) | payer MEDICARE, SELFPAY ==
[2023-10-22 09:25] LABS: Prothrombin Time Whole Bld POC 29.1 sec (11.1-13.5); ~PT, ~INR - Anti Coag Clinic 2.4 (0.9-1.1)
--- NOTE | 2023-10-22 09:28 | MHC.OFFVISCO ---
Intake Intake Visit Reasons: Anticoagulation Allergies Iodinated Contrast Media [IV DYE, IODINE CONTAINING] Allergy (Severe, Verified 10/22/23 09:17) ANAPHYLAXIS aspirin [Aspirin] Allergy (Intermediate, Verified 10/22/23 09:17) HIVES,SWELLING, swelling ciprofloxacin [Cipro] Allergy (Unknown, Verified 10/22/23 09:17) diarrhea ibuprofen Allergy (Unknown, Verified 10/22/23 09:17) nausea Penicillins Allergy (Unknown, Verified 10/22/23 09:17) HIVES,SWELLING tuberculin, purified protein deriva [TUBERCULIN, PURIFIED PROTEIN DERIVA] Allergy (Unknown, Verified 10/22/23 09:17) REDNESS,ITCHING NSAIDS (Non-Steroidal Anti-Inflamma [NSAIDS] Adverse Reaction (Unknown, Verified 10/22/23 09:17) ABD PAIN,NAUSEA Medication List - Last Reconciled 10/22/23 by Anni Gill RN acetaminophen 0 mg PO acetaminophen (Tylenol 8 Hour) PO acetaminophen-codeine 300-30 mg 0 tabs PO albuterol sulfate 90 mcg/actuation (ProAir HFA) 2 puffs inhalation Q6H PRN albuterol sulfate 2.5 mg inhalation Q20M alcohol swabs 0 pad topical atorvastatin 20 mg PO DAILY vlndqyhaa-atouchvi-zwsmjrn ala 50-200-25 mg (Biktarvy) 1 tab PO DAILY blood sugar diagnostic As directed blood-glucose meter ([employer] Lite Meter kit) As directed calcium carbonate-vitamin D3 600 mg-10 mcg (400 unit) 1 tab PO BID capsaicin 0.025% (Salonpas-Hot) 1 patch topical DAILY PRN cyanocobalamin (vitamin B-12) 1,000 mcg PO DAILY diltiazem HCl CD 180 mg PO DAILY docusate sodium (Colace) 100 mg PO DAILY famotidine 20 mg PO BID fluticasone propionate 50 mcg/actuation sprays intranasal hydrocortisone 1% topical inhalat.spacing dev,large mask As directed ipratropium-albuterol 0.5 mg-3 mg(2.5 mg base)/3 mL mL inhalation lancets (FreeStyle Lancets) As directed loratadine 10 mg PO DAILY meclizine mg PO meclizine (Antivert) 25 mg PO DAILY PRN melatonin 3 mg PO BEDTIME metoprolol succinate ER 50 mg PO DAILY metoprolol tartrate 75 mg PO DAILY ggdpqrln-dhgh-CZ-calcium-mins 9 mg iron-400 mcg (High Potency Multivitamin (w-iron)) 0 tabs PO nitroglycerin 0.4 mg sublingual Q5M PRN nystatin topical omeprazole 20 mg PO DAILY ondansetron 4 mg PO Q8H pantoprazole 40 mg PO DAILY potassium chloride ER (Klor-Con M) 20 mEq PO DAILY pregabalin 100 mg PO DAILY quetiapine (Seroquel) 200 mg PO BEDTIME sennosides (senna) 17.2 mg PO DAILY sertraline 100 mg PO DAILY sertraline 50 mg PO DAILY sumatriptan succinate 0 mg PO tizanidine 2 mg PO BEDTIME PRN torsemide 20 mg PO DAILY warfarin 5 mg See Protocol PO DAILY Nursing Note INR: 2.4 in therapeutic range Medications and supplements reviewed No changes in health, diet, medications, or supplements, Denies any signs and symptoms of bleeding or bruising or clotting. Bleeding, bruising, clotting discussed Nutritional guidance given Dose: KEEP SAME DOSE 2.5MG X 2 DAYS/ 5MG X 5 DAYS F/U INR: KEEP 3 WEEKS INR MORE STABLE WITH 3 WEEKS INSTEAD OF 4 WK Patient verbalizes understanding of instructions given T/C TO MED NURSE WITH PT PRESENT- MED LIST UPDATED, NO CHANGES INR RESULT AND DOSING GIVEN WITH GOOD UNDERSTANDING AND READ BACK Anti-Coag Initial Assessment Social Hx alcohol intake: never Coding Level of Care Code Est Patient Level 1 Diagnoses Current use of anticoagulant therapy Z79.01 Assessment & Plan Assessment & Plan (1) Current use of anticoagulant therapy: Code(s): Z79.01 - group home (current) use of 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
== END 2023-10-22 09:38 | disposition home or self-care (01) ==
LOC: HO.ACS 09:11
PROVIDERS: PCP Family Medicine; Visit Provider Internal Medicine
DX: Z79.01 Long term (current) use of anticoagulants (principal)

== ENCOUNTER → 2023-10-22 09:11 | Outpatient (BNVA) | payer MEDICARE, SELFPAY | PROVIDERS: PCP Family Medicine; Visit Provider Internal Medicine | DX: Z86.718 Personal history of other venous thrombosis and embolism (principal); Z51.81 Encounter for therapeutic drug level monitoring; Z79.01 Long term (current) use of anticoagulants | CPT/HCPCS: 85610; 99211 ==

== ENCOUNTER 2023-11-13 09:19 | Outpatient (AMB) | payer MEDICARE, SELFPAY ==
[2023-11-13 09:29] LABS: Prothrombin Time Whole Bld POC 24.1 sec (11.1-13.5)
--- NOTE | 2023-11-13 09:35 | MHC.OFFVISCO ---
Intake Intake Visit Reasons: Anticoagulation Allergies Iodinated Contrast Media [IV DYE, IODINE CONTAINING] Allergy (Severe, Verified 11/13/23 09:20) ANAPHYLAXIS aspirin [Aspirin] Allergy (Intermediate, Verified 11/13/23 09:20) HIVES,SWELLING, swelling ciprofloxacin [Cipro] Allergy (Unknown, Verified 11/13/23 09:20) diarrhea ibuprofen Allergy (Unknown, Verified 11/13/23 09:20) nausea Penicillins Allergy (Unknown, Verified 11/13/23 09:20) HIVES,SWELLING tuberculin, purified protein deriva [TUBERCULIN, PURIFIED PROTEIN DERIVA] Allergy (Unknown, Verified 11/13/23 09:20) REDNESS,ITCHING NSAIDS (Non-Steroidal Anti-Inflamma [NSAIDS] Adverse Reaction (Unknown, Verified 11/13/23 09:20) ABD PAIN,NAUSEA Medication List - Last Reconciled 11/13/23 by Catie العراقي, RN acetaminophen 0 mg PO acetaminophen (Tylenol 8 Hour) PO acetaminophen-codeine 300-30 mg 0 tabs PO albuterol sulfate 90 mcg/actuation (ProAir HFA) 2 puffs inhalation Q6H PRN albuterol sulfate 2.5 mg inhalation Q20M alcohol swabs 0 pad topical atorvastatin 20 mg PO DAILY eifmwzyjq-csmcofvo-ratfthq ala 50-200-25 mg (Biktarvy) 1 tab PO DAILY blood sugar diagnostic As directed blood-glucose meter ([employer] Lite Meter kit) As directed calcium carbonate-vitamin D3 600 mg-10 mcg (400 unit) 1 tab PO BID capsaicin 0.025% (Salonpas-Hot) 1 patch topical DAILY PRN cyanocobalamin (vitamin B-12) 1,000 mcg PO DAILY diltiazem HCl CD 180 mg PO DAILY docusate sodium (Colace) 100 mg PO DAILY fluticasone propionate 50 mcg/actuation sprays intranasal hydrocortisone 1% topical inhalat.spacing dev,large mask As directed ipratropium-albuterol 0.5 mg-3 mg(2.5 mg base)/3 mL mL inhalation lancets (FreeStyle Lancets) As directed loratadine 10 mg PO DAILY meclizine mg PO meclizine (Antivert) 25 mg PO DAILY PRN melatonin 3 mg PO BEDTIME metoprolol succinate ER 50 mg PO DAILY metoprolol tartrate 75 mg PO DAILY mkxdkixr-jnwi-RG-calcium-mins 9 mg iron-400 mcg (High Potency Multivitamin (w-iron)) 0 tabs PO nitroglycerin 0.4 mg sublingual Q5M PRN nystatin topical omeprazole 20 mg PO DAILY ondansetron 4 mg PO Q8H potassium chloride ER (Klor-Con M) 20 mEq PO DAILY pregabalin 100 mg PO DAILY quetiapine (Seroquel) 200 mg PO BEDTIME sennosides (senna) 17.2 mg PO DAILY sertraline 100 mg PO DAILY sertraline 50 mg PO DAILY sumatriptan succinate 0 mg PO tizanidine 2 mg PO BEDTIME PRN torsemide 20 mg PO DAILY warfarin 5 mg See Protocol PO DAILY Nursing Note INR: 2.0 in therapeutic range of 2-3 Medications and supplements reviewed No changes in health, diet, medications, or supplements, Denies any signs and symptoms of bleeding or bruising or clotting. Bleeding, bruising, clotting discussed Nutritional guidance given to hold greens today then to balance both greens and reds Dose: 5mg X 5 days then 2.5mg X 2 days F/U INR: 3 weeks Patient verbalizes understanding of instructions given Anti-Coag Initial Assessment Social Hx alcohol intake: never Coding Level of Care Code Est Patient Level 1 Diagnoses Current use of anticoagulant therapy Z79.01 Results AMB INR Fingerstick AMB INR Fingerstick 2.0 Last Edit by Catie العراقي RN on 11/13/23 09:28 interface delay Assessment & Plan Assessment & Plan (1) Current use of anticoagulant therapy: Code(s): Z79.01 - jail (current) use of 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
== END 2023-11-13 09:39 | disposition home or self-care (01) ==
LOC: HO.ACS 09:19
PROVIDERS: PCP Family Medicine; Visit Provider Internal Medicine
DX: Z79.01 Long term (current) use of anticoagulants (principal)

== ENCOUNTER → 2023-11-13 09:19 | Outpatient (BNVA) | payer MEDICARE, SELFPAY | PROVIDERS: PCP Family Medicine; Visit Provider Internal Medicine | DX: Z86.718 Personal history of other venous thrombosis and embolism (principal); Z79.01 Long term (current) use of anticoagulants; Z51.81 Encounter for therapeutic drug level monitoring | CPT/HCPCS: 85610; 99211 ==

== ENCOUNTER 2023-12-04 09:30 | Outpatient (AMB) | payer MEDICARE, SELFPAY ==
[2023-12-04 09:53] LABS: Prothrombin Time Whole Bld POC 29.3 sec (11.1-13.5); ~PT, ~INR - Anti Coag Clinic 2.4 (0.9-1.1)
--- NOTE | 2023-12-04 09:58 | MHC.OFFVISCO ---
Intake Intake Visit Reasons: Anticoagulation Allergies Iodinated Contrast Media [IV DYE, IODINE CONTAINING] Allergy (Severe, Verified 12/04/23 09:41) ANAPHYLAXIS aspirin [Aspirin] Allergy (Intermediate, Verified 12/04/23 09:41) HIVES,SWELLING, swelling ciprofloxacin [Cipro] Allergy (Unknown, Verified 12/04/23 09:41) diarrhea ibuprofen Allergy (Unknown, Verified 12/04/23 09:41) nausea Penicillins Allergy (Unknown, Verified 12/04/23 09:41) HIVES,SWELLING tuberculin, purified protein deriva [TUBERCULIN, PURIFIED PROTEIN DERIVA] Allergy (Unknown, Verified 12/04/23 09:41) REDNESS,ITCHING NSAIDS (Non-Steroidal Anti-Inflamma [NSAIDS] Adverse Reaction (Unknown, Verified 12/04/23 09:41) ABD PAIN,NAUSEA Medication List - Last Reconciled 12/04/23 by Catie العراقي, RN acetaminophen 0 mg PO acetaminophen (Tylenol 8 Hour) PO acetaminophen-codeine 300-30 mg 0 tabs PO albuterol sulfate 90 mcg/actuation (ProAir HFA) 2 puffs inhalation Q6H PRN albuterol sulfate 2.5 mg inhalation Q20M alcohol swabs 0 pad topical atorvastatin 20 mg PO DAILY daidsfklv-dhquzvlu-csqbkse ala 50-200-25 mg (Biktarvy) 1 tab PO DAILY blood sugar diagnostic As directed blood-glucose meter ([employer] Lite Meter kit) As directed calcium carbonate-vitamin D3 600 mg-10 mcg (400 unit) 1 tab PO BID capsaicin 0.025% (Salonpas-Hot) 1 patch topical DAILY PRN cyanocobalamin (vitamin B-12) 1,000 mcg PO DAILY diltiazem HCl CD 180 mg PO DAILY docusate sodium (Colace) 100 mg PO DAILY fluticasone propionate 50 mcg/actuation sprays intranasal hydrocortisone 1% topical inhalat.spacing dev,large mask As directed ipratropium-albuterol 0.5 mg-3 mg(2.5 mg base)/3 mL mL inhalation lancets (FreeStyle Lancets) As directed loratadine 10 mg PO DAILY meclizine mg PO meclizine (Antivert) 25 mg PO DAILY PRN melatonin 3 mg PO BEDTIME metoprolol succinate ER 50 mg PO DAILY metoprolol tartrate 75 mg PO DAILY rgqnyyko-bghg-GF-calcium-mins 9 mg iron-400 mcg (High Potency Multivitamin (w-iron)) 0 tabs PO nitroglycerin 0.4 mg sublingual Q5M PRN nystatin topical omeprazole 20 mg PO DAILY ondansetron 4 mg PO Q8H potassium chloride ER (Klor-Con M) 20 mEq PO DAILY pregabalin 100 mg PO DAILY quetiapine (Seroquel) 200 mg PO BEDTIME sennosides (senna) 17.2 mg PO DAILY sertraline 100 mg PO DAILY sertraline 50 mg PO DAILY sumatriptan succinate 0 mg PO tizanidine 2 mg PO BEDTIME PRN torsemide 20 mg PO DAILY warfarin 5 mg See Protocol PO DAILY Nursing Note Pt to [facility] accompanied by BLOOD AND PLASMA LABORATORY ASSISTANT. Pt A&O X3. C/O arthritis discomfort. States she takes tylenol with codeine prn and it helps. INR: 2.4 in therapeutic range of 2-3 Medications and supplements reviewed No changes in health, diet, medications, or supplements, Denies any signs and symptoms of bleeding or bruising or clotting. Bleeding, bruising, clotting discussed Nutritional guidance given to continue to balance greens and reds Dose: 5mg X 5 days and 2.5mg X 2 days (Fri/Th) F/U INR: 4 weeks Patient verbalizes understanding of instructions given Anti-Coag Initial Assessment Social Hx alcohol intake: never Coding Level of Care Code Est Patient Level 1 Diagnoses Current use of anticoagulant therapy Z79.01 Results AMB INR Fingerstick AMB INR Fingerstick 2.4 Last Edit by Catie العراقي RN on 12/04/23 09:47 interface delay Assessment & Plan Assessment & Plan (1) Current use of anticoagulant therapy: Code(s): Z79.01 - care home (current) use of 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
== END 2023-12-04 10:01 | disposition home or self-care (01) ==
LOC: HO.ACS 09:30
PROVIDERS: PCP Family Medicine; Visit Provider Internal Medicine
DX: Z79.01 Long term (current) use of anticoagulants (principal)

== ENCOUNTER → 2023-12-04 09:30 | Outpatient (BNVA) | payer MEDICARE, SELFPAY | PROVIDERS: PCP Family Medicine; Visit Provider Internal Medicine | DX: Z86.718 Personal history of other venous thrombosis and embolism (principal); Z79.01 Long term (current) use of anticoagulants; Z51.81 Encounter for therapeutic drug level monitoring | CPT/HCPCS: 85610; 99211 ==

== ENCOUNTER 2024-01-01 09:30 | Outpatient (AMB) | payer MEDICARE, SELFPAY ==
[2024-01-01 09:36] LABS: Prothrombin Time Whole Bld POC 31.3 sec (11.1-13.5); ~PT, ~INR - Anti Coag Clinic 2.6 (0.9-1.1)
--- NOTE | 2024-01-01 09:43 | MHC.OFFVISCO ---
Intake Intake Visit Reasons: Anticoagulation Allergies Iodinated Contrast Media [IV DYE, IODINE CONTAINING] Allergy (Severe, Verified 01/01/24 09:30) ANAPHYLAXIS aspirin [Aspirin] Allergy (Intermediate, Verified 01/01/24 09:30) HIVES,SWELLING, swelling ciprofloxacin [Cipro] Allergy (Unknown, Verified 01/01/24 09:30) diarrhea ibuprofen Allergy (Unknown, Verified 01/01/24 09:30) nausea Penicillins Allergy (Unknown, Verified 01/01/24 09:30) HIVES,SWELLING tuberculin, purified protein deriva [TUBERCULIN, PURIFIED PROTEIN DERIVA] Allergy (Unknown, Verified 01/01/24 09:30) REDNESS,ITCHING NSAIDS (Non-Steroidal Anti-Inflamma [NSAIDS] Adverse Reaction (Unknown, Verified 01/01/24 09:30) ABD PAIN,NAUSEA Medication List - Last Reconciled 01/01/24 by Catie العراقي, RN acetaminophen 0 mg PO acetaminophen (Tylenol 8 Hour) PO acetaminophen-codeine 300-30 mg 0 tabs PO albuterol sulfate 90 mcg/actuation (ProAir HFA) 2 puffs inhalation Q6H PRN albuterol sulfate 2.5 mg inhalation Q20M alcohol swabs 0 pad topical atorvastatin 20 mg PO DAILY kmxcrhdja-iypebdzw-ktvrgmr ala 50-200-25 mg (Biktarvy) 1 tab PO DAILY blood sugar diagnostic As directed blood-glucose meter ([employer] Lite Meter kit) As directed calcium carbonate-vitamin D3 600 mg-10 mcg (400 unit) 1 tab PO BID capsaicin 0.025% (Salonpas-Hot) 1 patch topical DAILY PRN cyanocobalamin (vitamin B-12) 1,000 mcg PO DAILY diltiazem HCl CD 180 mg PO DAILY docusate sodium (Colace) 100 mg PO DAILY fluticasone propionate 50 mcg/actuation sprays intranasal hydrocortisone 1% topical inhalat.spacing dev,large mask As directed ipratropium-albuterol 0.5 mg-3 mg(2.5 mg base)/3 mL mL inhalation lancets (FreeStyle Lancets) As directed loratadine 10 mg PO DAILY meclizine mg PO meclizine (Antivert) 25 mg PO DAILY PRN melatonin 3 mg PO BEDTIME metoprolol succinate ER 50 mg PO DAILY metoprolol tartrate 75 mg PO DAILY elczzxpd-gggs-ZZ-calcium-mins 9 mg iron-400 mcg (High Potency Multivitamin (w-iron)) 0 tabs PO nitroglycerin 0.4 mg sublingual Q5M PRN nystatin topical omeprazole 20 mg PO DAILY ondansetron 4 mg PO Q8H potassium chloride ER (Klor-Con M) 20 mEq PO DAILY pregabalin 100 mg PO DAILY quetiapine (Seroquel) 200 mg PO BEDTIME sennosides (senna) 17.2 mg PO DAILY sertraline 100 mg PO DAILY sertraline 50 mg PO DAILY sumatriptan succinate 0 mg PO tizanidine 2 mg PO BEDTIME PRN torsemide 20 mg PO DAILY warfarin 5 mg See Protocol PO DAILY Nursing Note P to [facility] accompanied by IT SECURITY ARCHITECT. States her appetite has been poor. She has ensure but she doesn't take it often because it gives her diarrhea. C/O aches and pains. Also states she has been forgetful lately. INR: 2.6 in therapeutic range of 2-3 Medications and supplements reviewed No changes in health, diet, medications, or supplements, Denies any signs and symptoms of bleeding or bruising or clotting. Bleeding, bruising, clotting discussed Nutritional guidance given Dose: continue same dose of 5mg X 5 days and 2.5mg X 2 days F/U INR: 4 weeks Patient verbalizes understanding of instructions given T/C to med nurse Rebecca. Informed her of pt's INR and to continue same dose and with next appt at [facility]. Rebecca verbalized understanding with read back. Anti-Coag Initial Assessment Social Hx alcohol intake: never Coding Level of Care Code Est Patient Level 1 Diagnoses Current use of anticoagulant therapy Z79.01 Results AMB INR Fingerstick AMB INR Fingerstick 2.6 Last Edit by Catie العراقي RN on 01/01/24 09:41 interface delay Assessment & Plan Assessment & Plan (1) Current use of anticoagulant therapy: Code(s): Z79.01 - nursing home (current) use of 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
== END 2024-01-01 09:49 | disposition home or self-care (01) ==
LOC: HO.ACS 09:30
PROVIDERS: PCP Family Medicine; Visit Provider Internal Medicine
DX: Z79.01 Long term (current) use of anticoagulants (principal)

== ENCOUNTER → 2024-01-01 09:30 | Outpatient (BNVA) | payer MEDICARE, SELFPAY | PROVIDERS: PCP Family Medicine; Visit Provider Internal Medicine | DX: Z86.718 Personal history of other venous thrombosis and embolism (principal); Z79.01 Long term (current) use of anticoagulants; Z51.81 Encounter for therapeutic drug level monitoring | CPT/HCPCS: 85610; 99211 ==

== ENCOUNTER 2024-01-29 09:12 | Outpatient (AMB) | payer MEDICARE, SELFPAY ==
--- NOTE | 2024-01-29 09:52 | MHC.OFFVISCO ---
Intake Intake Visit Reasons: Anticoagulation Allergies Iodinated Contrast Media [IV DYE, IODINE CONTAINING] Allergy (Severe, Verified 01/29/24 09:32) ANAPHYLAXIS aspirin [Aspirin] Allergy (Intermediate, Verified 01/29/24 09:32) HIVES,SWELLING, swelling ciprofloxacin [Cipro] Allergy (Unknown, Verified 01/29/24 09:32) diarrhea ibuprofen Allergy (Unknown, Verified 01/29/24 09:32) nausea Penicillins Allergy (Unknown, Verified 01/29/24 09:32) HIVES,SWELLING tuberculin, purified protein deriva [TUBERCULIN, PURIFIED PROTEIN DERIVA] Allergy (Unknown, Verified 01/29/24 09:32) REDNESS,ITCHING NSAIDS (Non-Steroidal Anti-Inflamma [NSAIDS] Adverse Reaction (Unknown, Verified 01/29/24 09:32) ABD PAIN,NAUSEA Medication List - Last Reconciled 01/29/24 by Anni Gill RN acetaminophen 0 mg PO acetaminophen (Tylenol 8 Hour) PO acetaminophen-codeine 300-30 mg 0 tabs PO albuterol sulfate 90 mcg/actuation (ProAir HFA) 2 puffs inhalation Q6H PRN albuterol sulfate 2.5 mg inhalation Q20M alcohol swabs 0 pad topical atorvastatin 20 mg PO DAILY hxciulhsu-fsycajyo-nddijru ala 50-200-25 mg (Biktarvy) 1 tab PO DAILY blood sugar diagnostic As directed blood-glucose meter ([employer] Lite Meter kit) As directed calcium carbonate-vitamin D3 600 mg-10 mcg (400 unit) 1 tab PO BID capsaicin 0.025% (Salonpas-Hot) 1 patch topical DAILY PRN cyanocobalamin (vitamin B-12) 1,000 mcg PO DAILY diltiazem HCl CD 180 mg PO DAILY docusate sodium (Colace) 100 mg PO DAILY fluticasone propionate 50 mcg/actuation sprays intranasal hydrocortisone 1% topical inhalat.spacing dev,large mask As directed ipratropium-albuterol 0.5 mg-3 mg(2.5 mg base)/3 mL mL inhalation lancets (FreeStyle Lancets) As directed loratadine 10 mg PO DAILY meclizine mg PO meclizine (Antivert) 25 mg PO DAILY PRN melatonin 3 mg PO BEDTIME metoprolol succinate ER 50 mg PO DAILY metoprolol tartrate 75 mg PO DAILY wsjuekxg-pgzv-WL-calcium-mins 9 mg iron-400 mcg (High Potency Multivitamin (w-iron)) 0 tabs PO nitroglycerin 0.4 mg sublingual Q5M PRN nystatin topical omeprazole 20 mg PO DAILY ondansetron 4 mg PO Q8H potassium chloride ER (Klor-Con M) 20 mEq PO DAILY pregabalin 100 mg PO DAILY quetiapine 300 mg PO BEDTIME sennosides (senna) 17.2 mg PO DAILY sertraline 100 mg PO DAILY sertraline 50 mg PO DAILY sumatriptan succinate 0 mg PO tizanidine 2 mg PO BEDTIME PRN torsemide 20 mg PO DAILY warfarin 5 mg See Protocol PO DAILY Nursing Note INR 3.4 out of therapeutic range Medications and supplements reviewed- QUETIAPINE WAS INCREASED ABOUT 2 WEEKS AGO AND CAN RAISE THE INR WITH DELAYED ONSET PT HAD DIARRHEA LAST NIGHT EATING SOMETHING SHE SHOULDNT HAVE SOME KIND OF FRIED FRUIT, SHE HAS NOT HAD HER USUAL GREENS Patient status: ALSO FELL LAST WEEK AND TAKING MORE TYLENOL THAN USUAL Diet: GOOD - MAINTAINING HER WEIGHT Denies any signs and symptoms of bleeding or clotting or unusual bruising Bleeding, bruising, clotting discussed Nutritional guidance given: EAT GREENS TODAY AND MAKE SURE TO EAT GREENS WEEKLY DUE TO MED CHANGES ( TYELNOL AND THEN QUETIAPINE) Dose: KEEP SAME FOR NOW 2.5MG X 2 DAYS / 5MG X 5 DAYS F/U INR Date: 1 WEEK?? Patient verbalizing understanding of instructions given. Anti-Coag Initial Assessment Social Hx alcohol intake: never Questionnaires HAS-BLED Does the patient had uncontrolled Hypertension?: No Does the patient have renal disease?: Yes Does the patient have liver disease?: No Does the patient have a history of stroke?: Yes Has the patient had major bleeding or predisposition to bleeding?: Yes Does the patient have labile INRs?: Yes Is the patient over 65 years of age?: Yes Is the patient on medications that gives them a predisposition to bleeding?: Yes Does the patient use alcohol?: No HAS-BLED Score: 6 CHADSVASC Age: 75 or over Gender: Female Does the patient have a history of CHF?: No Does the patient have a history of Hypertension?: Yes Does the patient have a history of Stroke/TIA/Thromboembolism?: Yes Does the patient have a history of Vascular Disease (prior WI, PAD or aortic plaque)?: Yes (ON CHOLETEROL MEDS ) Does the patient have a history of Diabetes?: Yes CHADS VACS Score: 8 Curry Prediction Score Rsk VTE Active Cancer: No Previous VTE, excluding superficial vein thrombosis: Yes Reduced mobility: Yes Already known Thrombophilic Condition: Yes With-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 Trauma and/or Surgery: Yes (FELL LAST WEEK AND HAS LARGE BRUISE) Elderly 70 year or older: Yes Heart and/or Respiratory Failure: No Acute Myocardial infarction and/or Ischemic Stroke: Yes Acute Infection and/or Rheumatologic Disorder: No Obesity (BMI 30 or greater): Yes Ongoing Hormonal Treatment: No Score: 14 Curry Score less than 4; Low Risk of VTE Curry Score 4 or greater; High Risk of VTE Coding Level of Care Code Est Patient Level 1 Diagnoses Current use of anticoagulant therapy Z79.01 Results AMB INR Fingerstick AMB INR Fingerstick 3.4 Last Edit by Anni Gill RN on 01/29/24 09:44 MANUAL ENTRY Assessment & Plan Assessment & Plan (1) Current use of anticoagulant therapy: Code(s): Z79.01 - alf (current) use of 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
[2024-01-29 11:08] LABS: Prothrombin Time Whole Bld POC 40.2 sec (11.1-13.5); ~PT, ~INR - Anti Coag Clinic 3.4 (0.9-1.1)
== END 2024-01-29 10:19 | disposition home or self-care (01) ==
LOC: HO.ACS 09:12
PROVIDERS: PCP Family Medicine; Visit Provider Internal Medicine
DX: Z79.01 Long term (current) use of anticoagulants (principal)

== ENCOUNTER → 2024-01-29 09:12 | Outpatient (BNVA) | payer MEDICARE, SELFPAY | PROVIDERS: PCP Family Medicine; Visit Provider Internal Medicine | DX: Z86.718 Personal history of other venous thrombosis and embolism (principal); Z79.01 Long term (current) use of anticoagulants; Z51.81 Encounter for therapeutic drug level monitoring | CPT/HCPCS: 85610; 99211 ==

== ENCOUNTER 2024-02-04 08:47 | Outpatient (REF) | payer MEDICARE, SELFPAY ==
--- NOTE | ~2024-02-04 | MM_ITS ---
EXAMINATION: MM SCREENING DIGITAL BREAST TOMOSYNTHESIS, BILATERAL CLINICAL INFORMATION: Screening. Asymptomatic. COMPARISON: Mammography: Comparison is made with available priors TECHNIQUE: Digital breast mammography with tomosynthesis is performed in both the craniocaudal and mediolateral oblique views along with computer-aided detection (CAD). FINDINGS: There are scattered areas of fibroglandular density (ACR BI-RADS breast composition Category b). There are no significant masses, abnormal calcifications, or other abnormalities. MM/MM tomosynthesis screening BI IMPRESSION: No mammographic evidence of malignancy. ASSESSMENT: BI-RADS BI-RADS 1 - Negative RECOMMENDATION: Routine annual mammography screening. 1 year F/U This examination should not preclude the clinical evaluation of a suspicious palpable abnormality. This patient's information was entered into a reminder system with a target due date for their next mammogram. Electronically signed by: Yessenia Baumann DO 02/16/2024 05:28 PM EDT
== END 2024-02-04 08:48 | disposition home or self-care (01) ==
LOC: HO.MAMMO 08:47
PROVIDERS: PCP Family Medicine; Visit Provider Family Medicine
DX: Z12.31 Encounter for screening mammogram for malignant neoplasm of breast (principal)
CPT/HCPCS: 77063; 77067

== ENCOUNTER → 2024-02-04 09:15 | Outpatient (BNV) | payer MEDICARE, SELFPAY | PROVIDERS: PCP Family Medicine; Visit Provider Internal Medicine | DX: Z12.31 Encounter for screening mammogram for malignant neoplasm of breast (principal) | CPT/HCPCS: 77063; 77067 ==

== ENCOUNTER 2024-02-12 09:04 | Outpatient (AMB) | payer MEDICARE, SELFPAY ==
[2024-02-12 09:12] LABS: Prothrombin Time Whole Bld POC 37.5 sec (11.1-13.5); ~PT, ~INR - Anti Coag Clinic 3.1 (0.9-1.1)
--- NOTE | 2024-02-12 09:21 | MHC.OFFVISCO ---
Intake Intake Visit Reasons: Anticoagulation Allergies Iodinated Contrast Media [IV DYE, IODINE CONTAINING] Allergy (Severe, Verified 02/12/24 09:05) ANAPHYLAXIS aspirin [Aspirin] Allergy (Intermediate, Verified 02/12/24 09:05) HIVES,SWELLING, swelling ciprofloxacin [Cipro] Allergy (Unknown, Verified 02/12/24 09:05) diarrhea ibuprofen Allergy (Unknown, Verified 02/12/24 09:05) nausea Penicillins Allergy (Unknown, Verified 02/12/24 09:05) HIVES,SWELLING tuberculin, purified protein deriva [TUBERCULIN, PURIFIED PROTEIN DERIVA] Allergy (Unknown, Verified 02/12/24 09:05) REDNESS,ITCHING NSAIDS (Non-Steroidal Anti-Inflamma [NSAIDS] Adverse Reaction (Unknown, Verified 02/12/24 09:05) ABD PAIN,NAUSEA Medication List - Last Reconciled 02/12/24 by Anni Gill RN acetaminophen 0 mg PO acetaminophen (Tylenol 8 Hour) PO acetaminophen-codeine 300-30 mg 0 tabs PO albuterol sulfate 90 mcg/actuation (ProAir HFA) 2 puffs inhalation Q6H PRN albuterol sulfate 2.5 mg inhalation Q20M alcohol swabs 0 pad topical atorvastatin 20 mg PO DAILY bhhcnemrh-yxmoprxr-alypkjm ala 50-200-25 mg (Biktarvy) 1 tab PO DAILY blood sugar diagnostic As directed blood-glucose meter ([employer] Lite Meter kit) As directed calcium carbonate-vitamin D3 600 mg-10 mcg (400 unit) 1 tab PO BID capsaicin 0.025% (Salonpas-Hot) 1 patch topical DAILY PRN cyanocobalamin (vitamin B-12) 1,000 mcg PO DAILY diltiazem HCl CD 180 mg PO DAILY docusate sodium (Colace) 100 mg PO DAILY fluticasone propionate 50 mcg/actuation sprays intranasal hydrocortisone 1% topical inhalat.spacing dev,large mask As directed ipratropium-albuterol 0.5 mg-3 mg(2.5 mg base)/3 mL mL inhalation lancets (FreeStyle Lancets) As directed loratadine 10 mg PO DAILY meclizine mg PO meclizine (Antivert) 25 mg PO DAILY PRN melatonin 3 mg PO BEDTIME metoprolol succinate ER 50 mg PO DAILY metoprolol tartrate 75 mg PO DAILY egjvqkdc-lyzn-TD-calcium-mins 9 mg iron-400 mcg (High Potency Multivitamin (w-iron)) 0 tabs PO nitroglycerin 0.4 mg sublingual Q5M PRN nystatin topical omeprazole 20 mg PO DAILY ondansetron 4 mg PO Q8H potassium chloride ER (Klor-Con M) 20 mEq PO DAILY pregabalin 100 mg PO DAILY quetiapine 300 mg PO BEDTIME sennosides (senna) 17.2 mg PO DAILY sertraline 100 mg PO DAILY sertraline 50 mg PO DAILY sumatriptan succinate 0 mg PO tizanidine 2 mg PO BEDTIME PRN torsemide 20 mg PO DAILY warfarin 5 mg See Protocol PO DAILY Nursing Note INR: 3.1 ALMOST therapeutic range Medications and supplements reviewed No changes in health, diet, medications, or supplements, Denies any signs and symptoms of bleeding or bruising or clotting. Bleeding, bruising, clotting discussed Nutritional guidance given- INCREASE GREENS SLIGHLYT MORE EVERY WEEK Dose: KEEP SAME FOR NOW 2.5MG X 2 DAYS/ 5MG X 5 DAYS - IF INR IMPROVES THEN GO 3 WEEKS IF STILL ABOVE 3.0 DECREASE WEEKLY DOSE F/U INR: 2 WEEKS Patient verbalizes understanding of instructions given Anti-Coag Initial Assessment Social Hx alcohol intake: never Coding Level of Care Code Est Patient Level 2 Diagnoses Current use of anticoagulant therapy Z79.01 Results AMB INR Fingerstick AMB INR Fingerstick 3.1 Last Edit by Anni Gill RN on 02/12/24 09:14 MANUAL ENTRY Assessment & Plan Assessment & Plan (1) Current use of anticoagulant therapy: Code(s): Z79.01 - alf (current) use of 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
== END 2024-02-12 09:26 | disposition home or self-care (01) ==
LOC: HO.ACS 09:04
PROVIDERS: PCP Family Medicine; Visit Provider Internal Medicine
DX: Z79.01 Long term (current) use of anticoagulants (principal)

== ENCOUNTER → 2024-02-12 09:04 | Outpatient (BNVA) | payer MEDICARE, SELFPAY | PROVIDERS: PCP Family Medicine; Visit Provider Internal Medicine | DX: Z86.718 Personal history of other venous thrombosis and embolism (principal); Z79.01 Long term (current) use of anticoagulants; Z51.81 Encounter for therapeutic drug level monitoring | CPT/HCPCS: 85610; 99212 ==

== ENCOUNTER 2024-02-26 09:07 | Outpatient (AMB) | payer MEDICARE, SELFPAY ==
[2024-02-26 09:16] LABS: Prothrombin Time Whole Bld POC 47.5 sec (11.1-13.5)
--- NOTE | 2024-02-26 09:30 | MHC.OFFVISCO ---
Intake Intake Visit Reasons: Anticoagulation Allergies Iodinated Contrast Media [IV DYE, IODINE CONTAINING] Allergy (Severe, Verified 02/26/24 09:12) ANAPHYLAXIS aspirin [Aspirin] Allergy (Intermediate, Verified 02/26/24 09:12) HIVES,SWELLING, swelling ciprofloxacin [Cipro] Allergy (Unknown, Verified 02/26/24 09:12) diarrhea ibuprofen Allergy (Unknown, Verified 02/26/24 09:12) nausea Penicillins Allergy (Unknown, Verified 02/26/24 09:12) HIVES,SWELLING tuberculin, purified protein deriva [TUBERCULIN, PURIFIED PROTEIN DERIVA] Allergy (Unknown, Verified 02/26/24 09:12) REDNESS,ITCHING NSAIDS (Non-Steroidal Anti-Inflamma [NSAIDS] Adverse Reaction (Unknown, Verified 02/26/24 09:12) ABD PAIN,NAUSEA Medication List - Last Reconciled 02/26/24 by Catie العراقي, RN acetaminophen 0 mg PO acetaminophen (Tylenol 8 Hour) PO acetaminophen-codeine 300-30 mg 0 tabs PO albuterol sulfate 90 mcg/actuation (ProAir HFA) 2 puffs inhalation Q6H PRN albuterol sulfate 2.5 mg inhalation Q20M alcohol swabs 0 pad topical atorvastatin 20 mg PO DAILY emoazuerl-vidawiij-axlacve ala 50-200-25 mg (Biktarvy) 1 tab PO DAILY blood sugar diagnostic As directed blood-glucose meter ([employer] Lite Meter kit) As directed calcium carbonate-vitamin D3 600 mg-10 mcg (400 unit) 1 tab PO BID capsaicin 0.025% (Salonpas-Hot) 1 patch topical DAILY PRN cyanocobalamin (vitamin B-12) 1,000 mcg PO DAILY diltiazem HCl CD 180 mg PO DAILY docusate sodium (Colace) 100 mg PO DAILY fluticasone propionate 50 mcg/actuation sprays intranasal hydrocortisone 1% topical inhalat.spacing dev,large mask As directed ipratropium-albuterol 0.5 mg-3 mg(2.5 mg base)/3 mL mL inhalation lancets (FreeStyle Lancets) As directed loratadine 10 mg PO DAILY meclizine mg PO meclizine (Antivert) 25 mg PO DAILY PRN melatonin 3 mg PO BEDTIME metoprolol succinate ER 50 mg PO DAILY metoprolol tartrate 75 mg PO DAILY tumspotc-amyy-FP-calcium-mins 9 mg iron-400 mcg (High Potency Multivitamin (w-iron)) 0 tabs PO nitroglycerin 0.4 mg sublingual Q5M PRN nystatin topical omeprazole 20 mg PO DAILY ondansetron 4 mg PO Q8H potassium chloride ER (Klor-Con M) 20 mEq PO DAILY pregabalin 100 mg PO DAILY quetiapine 300 mg PO BEDTIME sennosides (senna) 17.2 mg PO DAILY sertraline 100 mg PO DAILY sertraline 50 mg PO DAILY sumatriptan succinate 0 mg PO tizanidine 2 mg PO BEDTIME PRN torsemide 20 mg PO DAILY warfarin 5 mg See Protocol PO DAILY Nursing Note INR 4.0?out of therapeutic range 2-3 Medications and supplements reviewed Patient status: weak, 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 Patient verbalizing understanding of instructions given. Anti-Coag Initial Assessment Social Hx alcohol intake: never Coding Level of Care Code Est Patient Level 1 Diagnoses Current use of anticoagulant therapy Z79.01 Assessment & Plan Assessment & Plan (1) Current use of anticoagulant therapy: Code(s): Z79.01 - halfway (current) use of 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
== END 2024-02-26 09:34 | disposition home or self-care (01) ==
LOC: HO.ACS 09:07
PROVIDERS: PCP Family Medicine; Visit Provider Internal Medicine
DX: Z79.01 Long term (current) use of anticoagulants (principal)

== ENCOUNTER → 2024-02-26 09:07 | Outpatient (BNVA) | payer MEDICARE, SELFPAY | PROVIDERS: PCP Family Medicine; Visit Provider Internal Medicine | DX: Z86.718 Personal history of other venous thrombosis and embolism (principal); Z79.01 Long term (current) use of anticoagulants; Z51.81 Encounter for therapeutic drug level monitoring | CPT/HCPCS: 85610; 99211 ==

== ENCOUNTER 2024-03-11 09:07 | Outpatient (AMB) | payer MEDICARE, SELFPAY ==
[2024-03-11 09:25] LABS: Prothrombin Time Whole Bld POC 56.5 sec (11.1-13.5); ~PT, ~INR - Anti Coag Clinic 4.7 (0.9-1.1)
--- NOTE | 2024-03-11 09:42 | MHC.OFFVISCO ---
Intake Intake Visit Reasons: Anticoagulation Allergies Iodinated Contrast Media [IV DYE, IODINE CONTAINING] Allergy (Severe, Verified 03/11/24 09:20) ANAPHYLAXIS aspirin [Aspirin] Allergy (Intermediate, Verified 03/11/24 09:20) HIVES,SWELLING, swelling ciprofloxacin [Cipro] Allergy (Unknown, Verified 03/11/24 09:20) diarrhea ibuprofen Allergy (Unknown, Verified 03/11/24 09:20) nausea Penicillins Allergy (Unknown, Verified 03/11/24 09:20) HIVES,SWELLING tuberculin, purified protein deriva [TUBERCULIN, PURIFIED PROTEIN DERIVA] Allergy (Unknown, Verified 03/11/24 09:20) REDNESS,ITCHING NSAIDS (Non-Steroidal Anti-Inflamma [NSAIDS] Adverse Reaction (Unknown, Verified 03/11/24 09:20) ABD PAIN,NAUSEA Medication List - Last Reconciled 03/11/24 by Catie العراقي, RN acetaminophen 0 mg PO acetaminophen (Tylenol 8 Hour) PO acetaminophen-codeine 300-30 mg 0 tabs PO albuterol sulfate 90 mcg/actuation (ProAir HFA) 2 puffs inhalation Q6H PRN albuterol sulfate 2.5 mg inhalation Q20M alcohol swabs 0 pad topical atorvastatin 20 mg PO DAILY hvmhjlrgx-jfnbqzxh-cnhvhas ala 50-200-25 mg (Biktarvy) 1 tab PO DAILY blood sugar diagnostic As directed blood-glucose meter ([employer] Lite Meter kit) As directed calcium carbonate-vitamin D3 600 mg-10 mcg (400 unit) 1 tab PO BID capsaicin 0.025% (Salonpas-Hot) 1 patch topical DAILY PRN cyanocobalamin (vitamin B-12) 1,000 mcg PO DAILY diltiazem HCl CD 180 mg PO DAILY docusate sodium (Colace) 100 mg PO DAILY fluticasone propionate 50 mcg/actuation sprays intranasal hydrocortisone 1% topical inhalat.spacing dev,large mask As directed ipratropium-albuterol 0.5 mg-3 mg(2.5 mg base)/3 mL mL inhalation lancets (FreeStyle Lancets) As directed loratadine 10 mg PO DAILY meclizine mg PO meclizine (Antivert) 25 mg PO DAILY PRN melatonin 3 mg PO BEDTIME metoprolol succinate ER 50 mg PO DAILY metoprolol tartrate 75 mg PO DAILY wwyqxzbn-kquj-IF-calcium-mins 9 mg iron-400 mcg (High Potency Multivitamin (w-iron)) 0 tabs PO nitroglycerin 0.4 mg sublingual Q5M PRN nystatin topical omeprazole 20 mg PO DAILY ondansetron 4 mg PO Q8H potassium chloride ER (Klor-Con M) 20 mEq PO DAILY pregabalin 100 mg PO DAILY quetiapine 300 mg PO BEDTIME sennosides (senna) 17.2 mg PO DAILY sertraline 100 mg PO DAILY sertraline 50 mg PO DAILY sumatriptan succinate 0 mg PO tizanidine 2 mg PO BEDTIME PRN torsemide 20 mg PO DAILY warfarin 5 mg See Protocol PO DAILY Nursing Note INR 4.7?out of therapeutic range 2-3 Medications and supplements reviewed Patient status: weak, c/o arthritis and has been taking tylenol with codeine 1-2 times a day Medications or supplements: no changes Diet: usual diet for pt Denies any signs and symptoms of bleeding or clotting or unusual bruising Bleeding, bruising, clotting discussed Nutritional guidance given: to have a serving of greens today Dose: hold today's dose then decrease weekly dose to 5mg x 2 days and 2.5mg X 5 days F/U INR Date : 4 days?? Patient verbalizing understanding of instructions given. Called and spoke to Nurse Rebecca and INR value with dosing instructions given to her. She will be calling pt to make sure she takes the warfarin out of her pill box for today. Next retest date given to her. 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
== END 2024-03-11 09:51 | disposition home or self-care (01) ==
LOC: HO.ACS 09:07
PROVIDERS: PCP Family Medicine; Visit Provider Internal Medicine
DX: Z79.01 Long term (current) use of anticoagulants (principal)

== ENCOUNTER → 2024-03-11 09:07 | Outpatient (BNVA) | payer MEDICARE, SELFPAY | PROVIDERS: PCP Family Medicine; Visit Provider Internal Medicine | DX: Z86.718 Personal history of other venous thrombosis and embolism (principal); Z79.01 Long term (current) use of anticoagulants; Z51.81 Encounter for therapeutic drug level monitoring | CPT/HCPCS: 85610; 99211 ==

== ENCOUNTER 2024-03-15 09:07 | Outpatient (AMB) | payer MEDICARE, SELFPAY ==
[2024-03-15 09:19] LABS: Prothrombin Time Whole Bld POC 27.7 sec (11.1-13.5); ~PT, ~INR - Anti Coag Clinic 2.3 (0.9-1.1)
--- NOTE | 2024-03-15 09:28 | MHC.OFFVISCO ---
Intake Intake Visit Reasons: Anticoagulation Allergies Iodinated Contrast Media [IV DYE, IODINE CONTAINING] Allergy (Severe, Verified 03/15/24 09:16) ANAPHYLAXIS aspirin [Aspirin] Allergy (Intermediate, Verified 03/15/24 09:16) HIVES,SWELLING, swelling ciprofloxacin [Cipro] Allergy (Unknown, Verified 03/15/24 09:16) diarrhea ibuprofen Allergy (Unknown, Verified 03/15/24 09:16) nausea Penicillins Allergy (Unknown, Verified 03/15/24 09:16) HIVES,SWELLING tuberculin, purified protein deriva [TUBERCULIN, PURIFIED PROTEIN DERIVA] Allergy (Unknown, Verified 03/15/24 09:16) REDNESS,ITCHING NSAIDS (Non-Steroidal Anti-Inflamma [NSAIDS] Adverse Reaction (Unknown, Verified 03/15/24 09:16) ABD PAIN,NAUSEA Medication List - Last Reconciled 03/15/24 by Catie العراقي, RN acetaminophen 0 mg PO acetaminophen (Tylenol 8 Hour) PO acetaminophen-codeine 300-30 mg 0 tabs PO albuterol sulfate 90 mcg/actuation (ProAir HFA) 2 puffs inhalation Q6H PRN albuterol sulfate 2.5 mg inhalation Q20M alcohol swabs 0 pad topical atorvastatin 20 mg PO DAILY wgqjklego-whjueqks-ylcorzm ala 50-200-25 mg (Biktarvy) 1 tab PO DAILY blood sugar diagnostic As directed blood-glucose meter ([employer]Style Lite Meter kit) As directed calcium carbonate-vitamin D3 600 mg-10 mcg (400 unit) 1 tab PO BID capsaicin 0.025% (Salonpas-Hot) 1 patch topical DAILY PRN cyanocobalamin (vitamin B-12) 1,000 mcg PO DAILY diltiazem HCl CD 180 mg PO DAILY docusate sodium (Colace) 100 mg PO DAILY fluticasone propionate 50 mcg/actuation sprays intranasal hydrocortisone 1% topical inhalat.spacing dev,large mask As directed ipratropium-albuterol 0.5 mg-3 mg(2.5 mg base)/3 mL mL inhalation lancets (FreeStyle Lancets) As directed loratadine 10 mg PO DAILY meclizine mg PO meclizine (Antivert) 25 mg PO DAILY PRN melatonin 3 mg PO BEDTIME metoprolol succinate ER 50 mg PO DAILY metoprolol tartrate 75 mg PO DAILY uvzxhpja-xaid-MS-calcium-mins 9 mg iron-400 mcg (High Potency Multivitamin (w-iron)) 0 tabs PO nitroglycerin 0.4 mg sublingual Q5M PRN nystatin topical omeprazole 20 mg PO DAILY ondansetron 4 mg PO Q8H potassium chloride ER (Klor-Con M) 20 mEq PO DAILY pregabalin 100 mg PO DAILY quetiapine 300 mg PO BEDTIME sennosides (senna) 17.2 mg PO DAILY sertraline 100 mg PO DAILY sertraline 50 mg PO DAILY sumatriptan succinate 0 mg PO tizanidine 2 mg PO BEDTIME PRN torsemide 20 mg PO DAILY warfarin 5 mg See Protocol PO DAILY Nursing Note INR: 2.3 in therapeutic range of 2-3 Medications and supplements reviewed No changes in health, diet, medications, or supplements, Denies any signs and symptoms of bleeding or bruising or clotting. Bleeding, bruising, clotting discussed Nutritional guidance given to balance reds and greens Dose: 2.5mg X 4 days and 5mg X 3 days F/U INR: 1 week Patient verbalizes understanding of instructions given Anti-Coag Initial Assessment Social Hx alcohol intake: never Coding Level of Care Code Est Patient Level 1 Diagnoses Current use of anticoagulant therapy Z79.01 Results AMB INR Fingerstick AMB INR Fingerstick 2.3 Last Edit by Catie العراقي, RN on 03/15/24 09:19 interface delay Assessment & Plan Assessment & Plan (1) Current use of anticoagulant therapy: Code(s): Z79.01 - senior living (current) use of 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
== END 2024-03-15 09:32 | disposition home or self-care (01) ==
LOC: HO.ACS 09:07
PROVIDERS: PCP Family Medicine; Visit Provider Internal Medicine
DX: Z79.01 Long term (current) use of anticoagulants (principal)

== ENCOUNTER → 2024-03-15 09:07 | Outpatient (BNVA) | payer MEDICARE, SELFPAY | PROVIDERS: PCP Family Medicine; Visit Provider Internal Medicine | DX: Z86.718 Personal history of other venous thrombosis and embolism (principal); Z79.01 Long term (current) use of anticoagulants; Z51.81 Encounter for therapeutic drug level monitoring | CPT/HCPCS: 85610; 99211 ==

== ENCOUNTER 2024-03-22 09:52 | Outpatient (AMB) | payer MEDICARE, SELFPAY ==
[2024-03-22 09:57] LABS: Prothrombin Time Whole Bld POC 35.3 sec (11.1-13.5); ~PT, ~INR - Anti Coag Clinic 2.9 (0.9-1.1)
--- NOTE | 2024-03-22 10:02 | MHC.OFFVISCO ---
Intake Intake Visit Reasons: Anticoagulation Allergies Iodinated Contrast Media [IV DYE, IODINE CONTAINING] Allergy (Severe, Verified 03/15/24 09:16) ANAPHYLAXIS aspirin [Aspirin] Allergy (Intermediate, Verified 03/15/24 09:16) HIVES,SWELLING, swelling ciprofloxacin [Cipro] Allergy (Unknown, Verified 03/15/24 09:16) diarrhea ibuprofen Allergy (Unknown, Verified 03/15/24 09:16) nausea Penicillins Allergy (Unknown, Verified 03/15/24 09:16) HIVES,SWELLING tuberculin, purified protein deriva [TUBERCULIN, PURIFIED PROTEIN DERIVA] Allergy (Unknown, Verified 03/15/24 09:16) REDNESS,ITCHING NSAIDS (Non-Steroidal Anti-Inflamma [NSAIDS] Adverse Reaction (Unknown, Verified 03/15/24 09:16) ABD PAIN,NAUSEA Nursing Note INR: 2.9 in therapeutic range of 2-3 Medications and supplements reviewed No changes in health, diet, medications, or supplements, Denies any signs and symptoms of bleeding or bruising or clotting. Bleeding, bruising, clotting discussed Nutritional guidance given to have a serving of greens today Dose: 5mg X 3 days and 2.5mg X 4 days F/U INR: 2 weeks Patient verbalizes understanding of instructions given Anti-Coag Initial Assessment Social Hx alcohol intake: never Coding Level of Care Code Est Patient Level 1 Diagnoses Current use of anticoagulant therapy Z79.01 Assessment & Plan Assessment & Plan (1) Current use of anticoagulant therapy: Code(s): Z79.01 - skilled nursing (current) use of 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
== END 2024-03-22 10:16 | disposition home or self-care (01) ==
LOC: HO.ACS 09:52
PROVIDERS: PCP Family Medicine; Visit Provider Internal Medicine
DX: Z79.01 Long term (current) use of anticoagulants (principal)

== ENCOUNTER → 2024-03-22 09:52 | Outpatient (BNVA) | payer MEDICARE, SELFPAY | PROVIDERS: PCP Family Medicine; Visit Provider Internal Medicine | DX: Z86.718 Personal history of other venous thrombosis and embolism (principal); Z79.01 Long term (current) use of anticoagulants; Z51.81 Encounter for therapeutic drug level monitoring | CPT/HCPCS: 85610; 99211 ==

== ENCOUNTER 2024-08-12 09:45 | Outpatient (AMB) | payer MEDICARE, SELFPAY ==
--- NOTE | 2024-08-12 09:52 | MHC.OFFVIS ---
Vital Signs 08/12/24 09:57 Height 4 ft 11.8 in Weight 178 lb 5.663 oz BMI 35.1 BP 112/58 L Blood Pressure Location Lt radial Position Sitting Pulse 54 Pulse Source Pulse Oximeter Pulse Oximetry (%) 99 Oxygen Delivery Method Room Air Intake Visit Reasons: Osteoporosis Intake Note: New patient externally referred by PCP for Osteoporosis. Pipe Insulator Helper Required: No Accompanied by: CLIENT CARE MANAGER Allergies Iodinated Contrast Media [IV DYE, IODINE CONTAINING] Allergy (Severe, Verified 08/12/24 09:58) ANAPHYLAXIS aspirin [Aspirin] Allergy (Intermediate, Verified 08/12/24 09:58) HIVES,SWELLING, swelling ciprofloxacin [Cipro] Allergy (Unknown, Verified 08/12/24 09:58) diarrhea ibuprofen Allergy (Unknown, Verified 08/12/24 09:58) nausea Penicillins Allergy (Unknown, Verified 08/12/24 09:58) HIVES,SWELLING tuberculin, purified protein deriva [TUBERCULIN, PURIFIED PROTEIN DERIVA] Allergy (Unknown, Verified 08/12/24 09:58) REDNESS,ITCHING NSAIDS (Non-Steroidal Anti-Inflamma [NSAIDS] Adverse Reaction (Unknown, Verified 08/12/24 09:58) ABD PAIN,NAUSEA Medication List - Last Reconciled 08/12/24 by Christian Dickson MD acetaminophen 0 mg PO acetaminophen (Tylenol 8 Hour) PO acetaminophen-codeine 300-30 mg 0 tabs PO albuterol sulfate 90 mcg/actuation (ProAir HFA) 2 puffs inhalation Q6H PRN albuterol sulfate 2.5 mg inhalation Q20M alcohol swabs 0 pad topical atorvastatin 20 mg PO DAILY jjqlfktgk-udgtqpjv-xdhexsk ala 50-200-25 mg (Biktarvy) 1 tab PO DAILY blood sugar diagnostic As directed blood-glucose meter (FreeStyle Lite Meter kit) As directed calcium carbonate-vitamin D3 600 mg-10 mcg (400 unit) 1 tab PO BID capsaicin 0.025% (Salonpas-Hot) 1 patch topical DAILY PRN cyanocobalamin (vitamin B-12) 1,000 mcg PO DAILY diltiazem HCl CD 180 mg PO DAILY docusate sodium (Colace) 100 mg PO DAILY fluticasone propionate 50 mcg/actuation sprays intranasal hydrocortisone 1% topical inhalat.spacing dev,large mask As directed ipratropium-albuterol 0.5 mg-3 mg(2.5 mg base)/3 mL mL inhalation lancets (FreeStyle Lancets) As directed loratadine 10 mg PO DAILY meclizine mg PO meclizine (Antivert) 25 mg PO DAILY PRN melatonin 3 mg PO BEDTIME metoprolol succinate ER 50 mg PO DAILY metoprolol tartrate 75 mg PO DAILY reolnjzw-hnvf-TS-calcium-mins 9 mg iron-400 mcg (High Potency Multivitamin (w-iron)) 0 tabs PO nitroglycerin 0.4 mg sublingual Q5M PRN nystatin topical omeprazole 20 mg PO DAILY ondansetron 4 mg PO Q8H potassium chloride ER (Klor-Con M) 20 mEq PO DAILY pregabalin 100 mg PO DAILY quetiapine 300 mg PO BEDTIME sennosides (senna) 17.2 mg PO DAILY sertraline 100 mg PO DAILY sertraline 50 mg PO DAILY sumatriptan succinate 0 mg PO tizanidine 2 mg PO BEDTIME PRN torsemide 20 mg PO DAILY warfarin 5 mg See Protocol PO DAILY HPI Comments Details: The patient is a 79-year-old female presenting with osteoporosis. She was first diagnosed with osteoporosis over five years ago. An initial treatment attempt with Fosamax was discontinued after six months, following a hospital admission for cardiac issues. She has not since resumed any specific osteoporosis therapy. The patient's fracture history includes a right shoulder fracture from a fall 15-16 years prior and another fall at home without additional fractures. Her family history is significant with a mother who had a hip fracture and two sisters diagnosed with osteoporosis. She uses calcium and vitamin D supplements, taking 600 mg of calcium and 400 IU of vitamin D twice daily. There is no marked dietary focus on calcium, and she denies any kidney stones. Previous surgical history includes hysterectomy with oophorectomy. She has been on omeprazole for GERD and previously on warfarin, which was discontinued. She has no history of smoking, heavy alcohol use, or unexplained weight loss or height reduction. First diagnosed in few yrs back . Received treatment in the past with alendronate , for 6mos >5 yrs ago . Tolerated treatment well without complication. history of pathologic fracture 15-16 yrs ago fx humerus after falling down stairs - 4 yrs ago fx R shoulder no ONJ. Has several servings of dietary calcium per day in the form of cheese, cereal , ice cream . Fletcher es Calcium supplement 800 mg daily in divided doses. Takes 800 IU of Vitamin D daily. The patient does not adhere to a strict calcium-rich diet but consumes some calcium-rich foods inconsistently. She reports consuming [place] cheese, broccoli, fruit juice, ice cream, and Parmesan cheese. Milk and some forms of cheese are avoided. She takes a calcium and vitamin D supplement daily to aid in meeting calcium requirements. Takes PPI, anticoagulant, antiepileptic in past or glucocorticoid medication. - Fosamax: Previously used for osteoporosis treatment for about six months. - Warfarin: Previously taken but now discontinued. - Omeprazole: Currently taken for gastroesophageal reflux disease. - Calcium supplement: 600 mg taken twice daily with vitamin D. 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 No planned upcoming dental work or extractions. No tabacco use or ETOH use DXA dated 04/18/23 :FINDINGS: LEFT FEMUR, NECK: Current: BMD 0.698 g/cm2, Z-score -0.8, T-score -2.4, osteopenia. Prior: BMD 0.758 g/cm2. Baseline: BMD 0.839 g/cm2. LEFT FEMUR, TOTAL: Current: BMD 0.747 g/cm2, Z-score -0.6, T-score -2.1, osteopenia, 13.9% decrease from previous, 20.8% decrease from baseline (<5% change is not significant). Prior: BMD 0.868 g/cm2. Baseline: BMD 0.943 g/cm2. AP SPINE L2-L4 (excluding L1): The data of L1-L4 has been changed to exclude the L1 vertebral body, because degenerative sclerosis at this level may cause overestimation of lumbar spine density. Current: BMD 0.796 g/cm2, Z-score -2.2, T-score -3.4, osteoporosis, 20.1% decrease from previous, 11.0% decrease from baseline (<5% change is not significant). Prior: BMD 0.996 g/cm2. Baseline: BMD 0.894 g/cm2. IDENTIFIED RISK FACTORS: Early menopause, secondary osteoporosis, bilateral oophorectomy, history of fracture (adult), hysterectomy, osteoporosis. HISTORY OF FRACTURE: Other. Humerus, shoulder. MEDICATIONS: Calcium. MM/XR DEXA axial skeleton IMPRESSION: 1. DIAGNOSIS: Severe osteoporosis based on the lowest T-score value of -3.4 in the lumbar spine and history of fracture applying [facility] Labs: [facility] Medical History Acute (undifferentiated) schizophrenia Anemia Constipation Degenerative arthritis Diabetes DVT (deep venous thrombosis) Fibromyalgia GERD (gastroesophageal reflux disease) HIV (human immunodeficiency virus infection) HTN (hypertension) Obese Osteopenia Thalamic pain syndrome Surgical History History of temporal artery biopsy History of appendectomy History of hysterectomy History of cholecystectomy Family History Father No problems noted. Mother Coronary artery disease Uterine cancer CVD (cardiovascular disease) Sister Breast cancer Sister Breast cancer Social History Alcohol intake: never Patient Tobacco Use Status: Never used Tobacco Physical Exam Vital Signs: BMI result Body Mass Index 35.1 There are no Cushingoid features. Absence of blue sclera. Absence of kyphosis. Thyroid gland is of nl size and weighs 15 gms. There are no thyroid nodules palpated. Lungs CTA. Heart S1 S2 Reg R/R Abdominal exam benign. Muscle strength 5/5 . Examination of spine reveals absence of tenderness on palpation Assessment & Plan Assessment & Plan (1) Osteoporosis: Code(s): M81.0 - Age-related osteoporosis without current pathological fracture Category: Medical Plan: This is a 79-year-old female with a history of moderate to severe osteoporosis with a history of humerus and shoulder fracture with partial secondary workup Plan is to complete the secondary workup by checking a 25 hydroxy vitamin-D, phosphorus, SPEP, urine immunofixation, 24 hour urine for calcium and creatinine. We will continue calcium and vitamin D3 supplementation. Assuming secondary workup is negative, would strongly consider the use of anabolic agent like Evenity, Tymlos or Forteo considering history of fracture of very low bone density and high risk for subsequent fracture which can be proceeded by an anti resorptive agent 1. Osteoporosis The patient has severe osteoporosis with a T-score of -3.4. I discussed various injectable medications that can help build bone density, with maintenance options available post-treatment. Blood and urine tests will be performed to identify any other contributory factors. I reviewed the osteoporosis diagnosis with the patient, explaining her high risk for fractures due to severe bone density loss. Various pharmacologic options were discussed, focusing on medications that build and stabilize bone density. Injectable strategies and maintenance treatments were outlined, with the importance of diagnostic evaluations underscored. I emphasized continuing current calcium and vitamin D supplementation, along with lifestyle modifications to mitigate fall risk. The patient was advised to schedule follow-up in approximately four months post-test completion. - Continue current calcium and vitamin D supplements as advised. - Ensure safety in the home to prevent falls, such as removing clutter and ensuring good lighting. - Complete the 24-hour urine collection as instructed. - Consume calcium-rich foods to reach a total of 1200 mg daily along with supplements. - Schedule follow-up in four months after completion of diagnostics. - The patient had an opportunity to ask questions regarding treatment plan. The patient expressed understanding and agreement with the above treatment plan. Patient was informed and verbally consented to the use of an ambient scribe for clinic note documentation during this visit. Orders: Orders Vitamin D 25-OH Total Today M81.0 - Age-related osteoporosis without current pathological fracture Phosphorus Today M81.0 - Age-related osteoporosis without current pathological fracture Protein Electrophoresis, Serum Today M81.0 - Age-related osteoporosis without current pathological fracture Immunofixation, Random Urine Today M81.0 - Age-related osteoporosis without current pathological fracture Calcium, 24 Hr Ur Today M81.0 - Age-related osteoporosis without current pathological fracture Creatinine, 24 Hr Group Today M81.0 - Age-related osteoporosis without current pathological fracture Coding Level of Care Code New Pt Level 4 (82373) Diagnoses Osteoporosis M81.0
[2024-08-12 09:57] VITALS: BP 112/58; PULSE 54; O2SAT 99; BMI 35.1
--- OUTSIDE RECORDS SUMMARY | 2024-08-12 10:53 | XMS_ITS | Encounter Summary ---
Author Organization [facility] Address [address] [place] [address] Care Team Providers Care Ingredient Scaler Helper Name Role Phone Abigail Rajput MD Primary Care Provider [phone] Encounter Details Date Type Department Care Team (Latest Contact Info) Description 05/04/[address] [facility] - Main Lab [address] [facility] [place] [address] Frankie Sultana MD [address] [place] [address], [phone] Unspecified dementia, unspecified severity, without behavioral disturbance, psychotic disturbance, mood disturbance, and anxiety (CMS/HCC V24, CMS/HCC V28); Human immunodeficiency virus (HIV) disease (CMS/HCC V24, CMS/HCC V28) Social History Tobacco Use Types Packs/Day Years Used Date Smoking Tobacco: Never Assessed Comments Unknown Sex and Gender Information Value Date Recorded Sex Assigned at Not on file Legal Sex Female 1:55 AM EST Gender Identity Not on file Sexual Orientation Not on file documented as of this encounter Plan of Treatment Upcoming Encounters Date Type Department Care Team (Late st Contact Info) Description 09/27/2024 9:45 AM EDT Office Visit Orthopedic Surgery - [place] [address] [phone] Rodrick Viera DPM [address] [address] documented as of this encounter Procedures Procedure Name Priority Date/Time Associated Diagnosis Comments COMPLETE BLOOD COUNT Routine 05/05/2024 6:15 AM EST Unspecified dementia, unspecified severity, without behavioral disturbance, psychotic disturbance, mood disturbance, and anxiety (CMS/HCC) Human immunodeficiency virus (HIV) disease (CMS/HCC) BASIC METABOLIC PANEL Routine 05/05/2024 6:15 AM EST Unspecified dementia, unspecified severity, without behavioral disturbance, psychotic disturbance, mood disturbance, and anxiety (CMS/HCC) Human immunodeficiency virus (HIV) disease (CMS/HCC) documented in this encounter Results * (ABNORMAL) Basic metabolic panel (05/05/2024 6:15 AM EST) Sodium 145 133 - 145 mmol/L LAB CHEMISTRY METHOD 05/05/2024 8:43 AM [facility] Potassium 3.7 3.5 - 5.5 mmol/L LAB CHEMISTRY METHOD 05/05/2024 8:43 AM [facility] Chloride 111(H) 96 - 110 mmol/L LAB CHEMISTRY METHOD 05/05/2024 8:43 AM [facility] CO2 29 21 - 32 mmol/L LAB CHEMISTRY METHOD 05/05/2024 8:43 AM [facility] Anion Gap 5 3 - 11 LAB CHEMISTRY METHOD 05/05/2024 8:43 AM [facility] Glucose 100 70 - 100 mg/dL LAB CHEMISTRY METHOD 05/05/2024 8:43 AM [facility] BUN 15 5 - 25 mg/dL LAB CHEMISTRY METHOD 05/05/2024 8:43 AM [facility] Creatinine 0.72 0.50 - 1.10 mg/dL LAB CHEMISTRY METHOD 05/05/2024 8:43 AM [facility] eGFR 85 >=60 mL/min/1. 73m2 LAB CHEMISTRY METHOD 05/05/2024 8:43 AM [facility] Comment:Calculation based on the??Chronic Kidney Disease Epidemiology Collaboration (CKD-EPI) equation refit??without adjustment for race. BUN/Creatinine Ratio 20.8 LAB CHEMISTRY METHOD 05/05/2024 8:43 AM [facility] Calcium 8.7 8.5 - 10.5 mg/dL LAB CHEMISTRY METHOD 05/05/2024 8:43 AM [facility] Blood Venous blood specimen / Unknown Venipuncture / Unknown 05/05/2024 6:15 AM EST 05/05/2024 8:11 AM EST us Frankie Sultana MD LAB BLOOD ORDERABLES Final Resul t [facility] [address] [place] [address], * (ABNORMAL) Complete blood count (05/05/2024 6:15 AM EST) WBC 4.4(L) 4.8 - 10.8 K/mcL LAB HEMETOLOGY METHOD 05/05/2024 8:57 AM [facility] RBC 3.20(L) 3.80 - 4.80 M/mcL LAB HEMETOLOGY METHOD 05/05/2024 8:57 AM [facility] Hemoglobin 8.9(L) 11.5 - 16.0 g/dL LAB HEMETOLOGY METHOD 05/05/2024 8:57 AM [facility] Hematocrit 28.0(L) 35.0 - 47.0 % LAB HEMETOLOGY METHOD 05/05/2024 8:57 AM [facility] MCV 86.7 79.0 - 98.0 FL LAB HEMETOLOGY METHOD 05/05/2024 8:57 AM [facility] MCH 27.6 27.0 - 32.0 pcg LAB HEMETOLOGY METHOD 05/05/2024 8:57 AM [facility] MCHC 31.8(L) 32.0 - 37.0 g/dL LAB HEMETOLOGY METHOD 05/05/2024 8:57 AM [facility] RDW 15.2(H) 11.0 - 15.0 % LAB HEMETOLOGY METHOD 05/05/2024 8:57 AM EST [facility] Platelets 87(L) 130 - 400 K/mcL LAB HEMETOLOGY METHOD 05/05/2024 8:57 AM EST [facility] Comment:reviewed by slide MPV 11.0 7.0 - 11.0 FL LAB HEMETOLOGY METHOD 05/05/2024 8:57 AM EST [facility] NRBC 0.0 <1.0 % LAB HEMETOLOGY METHOD 05/05/2024 8:57 AM EST [facility] NRBC Absolute 0.00 <0.10 K/mcL LAB HEMETOLOGY METHOD 05/05/2024 8:57 AM EST [facility] Blood Venous blood specimen / Unknown Venipuncture / Unknown 05/05/2024 6:15 AM EST 05/05/2024 8:11 AM EST us Frankie Sultana MD LAB BLOOD ORDERABLES Final Resul t [facility] [address] [place] [address], documented in this encounter Visit Diagnoses Diagnosis Unspecified dementia, unspecified severity, without behavioral disturbance, psychotic disturbance, mood disturbance, and anxiety ([facility]HCC V24, [facility] V28) Human immunodeficiency virus (HIV) disease ([facility]/HCC V24, [facility] V28) Human immunodeficiency virus [HIV] disease documented in this encounter Care Teams Ingredient Scaler Helper Relationship Specialty Start Date End Date Abigail Rajput MD [address] [place] [phone] PCP - General Family Medicine 03/03/24 documented as of this encounter
--- OUTSIDE RECORDS SUMMARY | 2024-08-12 10:53 | XMS_ITS | Encounter Summary ---
Author Organization [facility] Address [id number] [place] [phone] Care Team Providers Care Real Estate Representative Name Role Phone Abigail Rajput MD Primary Care Provider [phone] Encounter Details Date Type Department Care Team (Latest Contact Info) Description 04/29/[address] [facility] - Main Lab [address] [facility] [place] [address] Frankie Sultana MD [address] [place] [address], [phone] Unspecified dementia, unspecified severity, without behavioral [...] AM EDT Office Visit Orthopedic Surgery - [place] [address] [phone] Rodrick Viera DPM [address] [phone] documented as of this encounter Procedures Procedure Name Priority Date/Time Associated Diagnosis Comments COMPLETE BLOOD COUNT Routine 04/29/2024 7:02 AM EST Unspecified dementia, unspecified severity, without behavioral disturbance, psychotic disturbance, mood disturbance, and anxiety (CMS/HCC) Human immunodeficiency virus (HIV) disease (CMS/HCC) BASIC METABOLIC PANEL Routine 04/29/2024 7:02 AM EST Unspecified dementia, unspecified severity, without behavioral disturbance, psychotic disturbance, mood disturbance, and anxiety (CMS/HCC) Human immunodeficiency virus (HIV) disease (CMS/HCC) documented in this encounter Results * (ABNORMAL) Basic metabolic panel (04/29/2024 7:02 AM EST) Sodium 144 133 - 145 mmol/L LAB CHEMISTRY METHOD 04/29/2024 11:08 AM [facility] Potassium 4.1 3.5 - 5.5 mmol/L LAB CHEMISTRY METHOD 04/29/2024 11:08 AM [facility] Chloride 113(H) 96 - 110 mmol/L LAB CHEMISTRY METHOD 04/29/2024 11:08 AM [facility] CO2 27 21 - 32 mmol/L LAB CHEMISTRY METHOD 04/29/2024 11:08 AM [facility] Anion Gap 4 3 - 11 LAB CHEMISTRY METHOD 04/29/2024 11:08 AM [facility] Glucose 89 70 - 100 mg/dL LAB CHEMISTRY METHOD 04/29/2024 11:08 AM [facility] BUN 16 5 - 25 mg/dL LAB CHEMISTRY METHOD 04/29/2024 11:08 AM [facility] Creatinine 0.80 0.50 - 1.10 mg/dL LAB CHEMISTRY METHOD 04/29/2024 11:08 AM [facility] eGFR 76 >=60 mL/min/1. 73m2 LAB CHEMISTRY METHOD 04/29/2024 11:08 AM [facility] Comment:Calculation based on the??Chronic Kidney Disease Epidemiology Collaboration (CKD-EPI) equation refit??without adjustment for race. BUN/Creatinine Ratio 20.0 LAB CHEMISTRY METHOD 04/29/2024 11:08 AM [facility] Calcium 8.8 8.5 - 10.5 mg/dL LAB CHEMISTRY METHOD 04/29/2024 11:08 AM [facility] Blood Venous blood specimen / Unknown Venipuncture / Unknown 04/29/2024 7:02 AM EST 04/29/2024 9:29 AM EST us Frankie Sultana MD LAB BLOOD ORDERABLES Final Resul t [facility] [address] [place] [address], * (ABNORMAL) Complete blood count (04/29/2024 7:02 AM EST) WBC 2.7(L) 4.8 - 10.8 K/mcL LAB HEMETOLOGY METHOD 04/29/2024 10:54 AM [facility] RBC 3.40(L) 3.80 - 4.80 M/mcL LAB HEMETOLOGY METHOD 04/29/2024 10:54 AM [facility] Hemoglobin 9.5(L) 11.5 - 16.0 g/dL LAB HEMETOLOGY METHOD 04/29/2024 10:54 AM [facility] Hematocrit 30.4(L) 35.0 - 47.0 % LAB HEMETOLOGY METHOD 04/29/2024 10:54 AM [facility] MCV 88.9 79.0 - 98.0 FL LAB HEMETOLOGY METHOD 04/29/2024 10:54 AM [facility] MCH 27.8 27.0 - 32.0 pcg LAB HEMETOLOGY METHOD 04/29/2024 10:54 AM [facility] MCHC 31.3(L) 32.0 - 37.0 g/dL LAB HEMETOLOGY METHOD 04/29/2024 10:54 AM [facility] RDW 15.5(H) 11.0 - 15.0 % LAB HEMETOLOGY METHOD 04/29/2024 10:54 AM EST [facility] Platelets 106(L) 130 - 400 K/mcL LAB HEMETOLOGY METHOD 04/29/2024 10:54 AM EST [facility] MPV 11.8(H) 7.0 - 11.0 FL LAB HEMETOLOGY METHOD 04/29/2024 10:54 AM EST [facility] NRBC 0.0 <1.0 % LAB HEMETOLOGY METHOD 04/29/2024 10:54 AM EST [facility] NRBC Absolute 0.00 <0.10 K/mcL LAB HEMETOLOGY METHOD 04/29/2024 10:54 AM [facility] Blood Venous blood specimen / Unknown Venipuncture / Unknown 04/29/2024 7:02 AM EST 04/29/2024 9:29 AM EST us Frankie Sultana MD LAB BLOOD ORDERABLES Final Resul t [facility] [address] [place] [address], documented in this encounter Visit Diagnoses Diagnosis Unspecified dementia, unspecified severity, without behavioral disturbance, psychotic disturbance, mood disturbance, and anxiety ([facility] V24, [facility] V28) Human immunodeficiency virus (HIV) disease ([facility] V24, [facility] V28) Human immunodeficiency virus [HIV] disease documented in this encounter Care Teams Real Estate Representative Relationship Specialty Start Date End Date Abigail Rajput MD [address] [place] [phone] PCP - General Family Medicine 03/03/24 documented as of this encounter
--- OUTSIDE RECORDS SUMMARY | 2024-08-12 10:53 | XMS_ITS | Clinical Summary ---
Author Organization [address] [place] [address] Address [address] [place] [address] Phone Care Team Providers Care Manager Strategic Name Role Phone Abigail Rajput MD Primary Care Provider [phone] Allergies Active Allergy Reactions Criticality Noted Date Comments Aspirin Skin Problems 03/26/2024 Ciprofloxacin Diarrhea 03/26/2024 Iodinated Contrast Media Hives 03/26/2024 Morphine 03/26/2024 Nsaids (Non-Steroidal Anti-I nflammatory Drug) 03/26/2024 Oxycodone 03/26/2024 Penicillin G 03/26/2024 Penicillin V 03/26/2024 [id number] Antimigraine Agents 1 05/27/2023 Medications acetaminophen-c odeine (TYLENOL #4) 300-60 mg per tablet Take 1 tablet by mouth every 4 (four) hours if needed for moderate pain. Max Daily Amount: 6 tablets Active albuterol HFA (PROAIR HFA ; PROVENTIL HFA ; VENTOLIN HFA) 90 mcg/actuation inhaler Inhale 2 puffs by mouth every 6 (six) hours if needed for wheezing. Active atorvastatin (LIPITOR) 10 mg tablet Take 1 tablet (10 mg total) by mouth at bedtime. Active benzonatate (TESSALON) 200 mg capsule Take 1 capsule (200 mg total) by mouth 3 (three) times a day if needed for cough. Do not crush or chew. Active ipratropium-alb uteroL (DUONEB) 0.5-2.5 mg/3 mL nebulizer solution Take 3 mL by nebulization every 6 (six) hours. Active loratadine (CLARITIN) 10 mg tablet Take 1 tablet (10 mg total) by mouth 1 (one) time each day. Active warfarin (COUMADIN) 5 mg tablet Take 1 tablet (5 mg total) by mouth 1 (one) time each day with dinner. Active sertraline (ZOLOFT) 100 mg tablet Take 1 tablet (100 mg total) by mouth 1 (one) time each day. Active pregabalin (LYRICA) 100 mg capsule Take 1 capsule (100 mg total) by mouth 2 (two) times a day. Max Daily Amount: 200 mg Active metoprolol succinate (TOPROL-XL) 25 mg 24 hr tablet Take 1 tablet (25 mg total) by mouth 1 (one) time each day. Do not crush or chew. Active QUEtiapine XR (SEROquel XR) 300 mg 24 hr tablet Take 1 tablet (300 mg total) by mouth at bedtime. Do not crush, chew, or split. Active Active Problems Problem Noted Date Diagnosed Date Cerebellar infarction ([facility] V24, [facility] V28) 03/26/2024 Chronic anemia 03/26/2024 Chronic kidney disease, stage 3 ([facility] V24, [facility] V28) 03/26/2024 Chronic paranoid schizophrenia ([facility] V24, [facility] V28) 03/26/2024 Dyslipidemia 03/26/2024 Essential (primary) hypertension 03/26/2024 Fibromyalgia 03/26/2024 Human immunodeficiency virus infection ([facility] V24, [facility] V28) 03/26/2024 Primary osteoarthritis involving multiple joints 03/26/2024 Recurrent deep vein thrombosis ([facility] V24, [facility] V28) 03/26/2024 Type 2 diabetes mellitus ([facility] V24, [facility] V 28) 03/26/2024 Chronic anticoagulation 03/26/2024 Dilated bile duct 03/26/2024 SVT (supraventricular tachycardia) [place] [place] 03/26/2024 Pancreatic cyst 03/26/2024 Unsteady gait 03/26/2024 Social History Tobacco Use Types Packs/Day Years Used Date Smoking Tobacco: Never Assessed Comments Unknown Sex and Gender Information Value Date Recorded Sex Assigned at Not on file Legal Sex Female 1:55 AM EST Gender Identity Not on file Sexual Orientation Not on file Last Filed Vital Signs Vital Sign Reading Time Taken Comments Blood Pressure - - Pulse - - Temperature - - Respiratory Rate - - Oxygen Saturation - - Inhaled Oxygen Concentration - - Weight 82.3 kg (181 lb 6.4 oz) 03/29/2024 9:46 A M EST Height 157.5 cm (5' 2 ) 03/29/2024 9:46 AM EST Body Mass Index 33.18 03/29/2024 9:46 AM EST Plan of Treatment Upcoming Encounters Date Type Department Care Team (Late st Contact Info) Description 09/27/2024 9:45 AM EDT Office Visit Orthopedic Surgery [place] [id number] [phone] Rodrick Viera, DPM [address] [address] Health Maintenance Due Date Last Done Comments Diabetes: Annual Foot Exam 1955 Diabetes: Annual Retina Eye Exam 1955 MMR Vaccines (1 of 2 - Risk 2-dose series) 1963 Hepatitis A Vaccines (1 of 2 - Risk 2-dose series) 1964 Zoster Vaccines (1 of 2) 1964 RSV Immunization Adult Patients (1 - 1-dose 75+ series) 2020 COVID-19 Vaccine (3 - Mixed Product risk series) 05/24/2021 04/26/2021, 12/28/2020 Meningococcal ACWY Vaccine (3 - Risk 2-dose series) 03/06/2022 03/06/2017, 11/14/2016 Cholesterol Screening (Lipid Panel) 03/24/2022 Depression Screening 03/24/2022 Falls Risk Assessment 03/24/2022 Hepatitis C Screening 03/24/2022 Osteoporosis Screening (Bone Density Screening) 03/24/2022 Social Influencers of Health Screening 03/24/2022 Diabetes: Annual Urine Albumin-Creatinine Ratio (uACR) 03/26/2024 Diabetes: Blood Sugar Control Test (HGBA1C) 03/26/2024 Diabetes: Annual GFR (Glomerular Filtration Rate) 05/12/2025 05/12/2024, 05/05/2024, 04/29/2024 Hypertension/CHF/CAD Annual BMP Blood Test 05/12/2025 05/12/2024, 05/05/2024, 04/29/2024 DTaP,Tdap,and Td Vaccines (3 - Td or Tdap) 06/16/2033 06/16/2023, 04/24/2011 Hepatitis B Vaccines Completed 01/01/2011, 11/22/2010, 04/26/2010, Additional history exists Pneumococcal Vaccine: 50+ Years Completed 12/20/2021, 01/02/2015, 12/23/2013, Additional history exists Influenza Vaccine Completed 04/08/2024, , 01/07/2019, Additional history exists HIB Vaccines Aged Out No longer eligi ble based on patient's age to complete this topic HPV Vaccines Aged Out No longer eligi ble based on patient's age to complete this topic IPV Vaccines Aged Out No longer eligi ble based on patient's age to complete this topic Meningococcal B Vaccine Aged Out No l onger eligible based on patient's age to complete this topic RSV Immunization Patients Under 20 months Aged Out No longer eligible based on patient's age to complete this topic Varicella Vaccines Aged Out No longer eligible based on patient's age to complete this topic Procedures Procedure Name Priority Date/Time Associated Diagnosis Comments BASIC METABOLIC PANEL Routine 05/12/2024 6:44 AM EST Unspecified dementia, unspecified severity, without behavioral disturbance, psychotic disturbance, mood disturbance, and anxiety ([facility]/HCC) Human immunodeficiency virus (HIV) disease ([facility]) from Last 3 Months or Most Recently Relevant to Health Maintenance Results * (ABNORMAL) Basic metabolic panel (05/12/2024 6:44 AM EST) Sodium 142 133 - 145 mmol/L LAB CHEMISTRY METHOD 05/12/2024 2:22 PM [facility] Potassium 4.0 3.5 - 5.5 mmol/L LAB CHEMISTRY METHOD 05/12/2024 2:[address] [facility] Chloride 111(H) 96 - 110 mmol/L LAB CHEMISTRY METHOD 05/12/2024 2:22 PM [facility] CO2 27 21 - 32 mmol/L LAB CHEMISTRY METHOD 05/12/2024 2:[address] [facility] Anion Gap 4 3 - 11 LAB CHEMISTRY METHOD 05/12/2024 2:22 PM [facility] Glucose 87 70 - 100 mg/dL LAB CHEMISTRY METHOD 05/12/2024 2:22 PM [facility] BUN 11 5 - 25 mg/dL LAB CHEMISTRY METHOD 05/12/2024 2:22 PM [facility] Creatinine 0.89 0.50 - 1.10 mg/dL LAB CHEMISTRY METHOD 05/12/2024 2:22 PM [facility] eGFR 66 >=60 mL/min/1. 73m2 LAB CHEMISTRY METHOD 05/12/2024 2:22 PM [facility] Comment:Calculation based on the??Chronic Kidney Disease Epidemiology Collaboration (CKD-EPI) equation refit??without adjustment for race. BUN/Creatinine Ratio 12.4 LAB CHEMISTRY METHOD 05/12/2024 2:22 PM [facility] Calcium 9.1 8.5 - 10.5 mg/dL LAB CHEMISTRY METHOD 05/12/2024 2:22 PM [facility] Blood Venous blood specimen / Unknown Venipuncture / Unknown 05/12/2024 6:44 AM EST 05/12/2024 11:18 AM EST us Frankie Sultana MD LAB BLOOD ORDERABLES Final Resul t [facility] [address] [place] [address], from Last 3 Months or Most Recently Relevant to Health Maintenance Insurance , [address] [place] [id number] [place] [address] Member Subscriber Plan / Payer (Ef fective 2023-Present) Name:Inga Vidal Relation to Subscriber:Self Name:Inga Vidal Payer ID:[id number] Group ID:[id number] Type:Not on file Address: [facility] [address] [id number] Care Teams Manager Strategic Relationship Specialty Start Date End Date Abigail Rajput MD [address] [place] [phone] PCP - General Family Medicine 03/03/24
--- OUTSIDE RECORDS SUMMARY | 2024-08-12 10:53 | XMS_ITS | Data Portability ---
Author Organization [employer] Address [address] [place] [address] Care Team Providers Care Chemical Technician Name Role Phone [facility] Referring Provider [phone] [facility] Referring Provider Assessment Encounter Date Assessment Date Assessment LastModified by Organization Details LastModified Time 10/01/2021 10/01/2021 I have reviewed and agree with the assessment and plan as documented by the radiology therapist. I provided real-time medical direction for this encounter and was immediately available to provide additional phone-based assistance as needed. History as noted in EMR and by radiology therapist. I would add / emphasize: patient with persistent cough. AVSS and well appearing per report. Nonproductive, afebrile with no CP doubt significant PNA. Plan for ongoing use of nebulizers and close monitoring of sxs. Advised on using tea with honey for relief of cough. Reviewed red flags for call back or ED presentation. pallfather Not available 01/18/2022 18:14:10 12/31/2021 12/31/2021 I have reviewed and agree with the Assessment and Plan as documented by the Keg Washer. I provided real -time medical direction via phone for this encounter, and was available for additional phone based assistance as needed. Patient given the opportunity to ask questions. [email or web address] Not available 12/31/2021 11:37:38 02/14/2022 02/14/2022 I have reviewed and agree with the Assessment and Plan as documented by the Keg Washer. I provided real-time medical direction via phone for this encounter, and was available for additional phone based assistance as needed. Patient seen for acute on chronic pain in left shoulder and arm which is reportedly due to osteoarthritis and for which she previously received corticosteroid injection with excellent relief. Opted to trial topical lidocain ointment, Recommend close follow up with care team. pallfather Not available 02/21/2022 14:46:58 Plan of Treatment Reminders Order Date Submit Date Provider Last Modified By Organization Details Last Modified Time Details Appointments None recorded. Lab rapid SARS CoV 2 Ag, QL IA, respiratory specimen 2021 [email or web address] [facility], [address] [place] [address], [id number] 11:44:30 rapid flu (A+B) 2021 [email or web address] 0 [facility], [address] [place] [address], [id number] 11:44:30 glucose, fingerstick , blood 2021 [email or web address] [facility], [address] [place] [address], [id number] 11:44:30 rapid strep group A, throat 2021 [email or web address] 0 [facility], [address] [place] [address], [id number] 11:44:30 Referral None recorded. Procedures None recorded. Surgeries None recorded. Imaging electrocard iogram 2021 [facility], [address] [place] [address], [id number] 3 05:00:52 Medication Orders meclizine 25 mg tablet 2021 [facility], [address] [place] [address], [id number], 14:59:26 lidocaine 5 % topical ointment 2021 [facility], [address] [place] [address], [id number], 11:39:28 prednisone 20 mg tablet 2021 [facility], [address] [place] [address], [id number], 11:48:14 prednisone 20 mg tablet 09/12/ 2022 09/12/2 022 [email or web address] Not available 11:44:30 ipratropium 0.5 mg-albutero l 3 mg (2.5 mg base)/3 mL nebulizatio n soln 2021 022 [email or web address] 0 [facility], [address] [place] [address], [facility], [place], [place], [phone], 11:44:30 Patient TargetsNo targets recorded. Patient InstructionsNo instructions recorded. Reason for Referral None Reported. Results Created Date Observation Date Name Description Value Unit Range Abnormal Flag Note LastModifiedBy Organization Detail LastModifiedTime 01/01/20 22 12/31/2021 gluco se, finge rstic k, blood Blood Glucose: mg/dl 124 Not Available [address], [phone] 12/31/2021 11:38:31 01/01/20 22 12/31/2021 rapid strep group A, throa t Strep negati ve Not Available [facility] ed [address] [place] [address], [phone] 12/31/2021 11:39:46 01/01/20 22 12/31/2021 rapid flu (A+B) Flu negati ve Not Available [facility] ed [address] [place] [address], [phone] 12/31/2021 11:37:55 01/01/20 22 12/31/2021 rapid SARS CoV 2 Ag, QL IA, respi rator y speci men rapid SARS CoV 2 Ag, QL IA, respiratory specimen negati ve Not Available [facility] ed [address] [place] [address], [phone] 12/31/2021 11:37:54 01/01/20 22 12/31/2021 elect rocar diogr am No observ ation record ed. [address], [phone] 12/31/2021 17:32:24 Result Notes None recorded. Procedures Surgical History None recorded. Imaging Results Imaging Date Name Status LastModified by Organization Details LastModified Time 12/31/2021 electrocardiogram completed [address], [phone] 12/31/2021 17:32:24 Procedure Notes None recorded. Medical Equipment None Reported. Allergies Allergen ID Allergen Name Allergen Category Reaction Reaction Severity Criticality Documentation Date Start Date Code Code System Note Provider Name and Address Organization Details Recorded Time 1041 Product containin g penicilli n (product) medicatio n Not available Not available Not available 12/31/2021 16255 8001 SNOMED Not Available [facility] - [facility] 4 03:41:20 1042 aspirin medicatio n Not available Not available Not available 12/31/2021 1191 RxNorm Not Available [facility] - production 4 03:41:20 1043 Iodinated contrast media (substanc e) medicatio n Not available Not available Not available 12/31/2021 02701 2003 SNOMED Lisa Madden MD [address] [place] [address],[address], [place], [phone] [place] [address] [employer], [facility] 2 12:00:24 8008 ciproflox acin medicatio n Not available Not available Not available 02/17/2024 2551 RxNorm Not Available [facility] - production 4 03:41:20 8009 ibuprofen medicatio n Not available Not available Not available 02/17/2024 5640 RxNorm Not Available [facility] - production 4 03:41:20 8010 morphine medicatio n Not available Not available Not available 02/17/2024 7052 RxNorm Not Available [facility] - production 4 03:41:20 Medications Name Sig Start Date Stop Date Status Note LastModified by Organization Details LastModified Time comfrt touch pad alc prep active Not Available Not Available Not Available comfrt touch pad alc prep eaches USE DIRECTED TO CHECK BLOOD SUGAR DIRECTED active Not Available Not Available No t Available atorvastatin 20 mg tablet active Not Available Not Available Not Available ipratropium 0.5 mg-albuterol 3 mg (2.5 mg base)/3 mL nebulization soln 1 uni dose now active Not Available Not Available No t Available diltiazem ER 180 mg capsule,24 hr,extended release active Not Available Not Available Not Available albuterol sulfate 2.5 mg/3 mL (0.083 %) solution for nebulization INHALE 3 MILLILITER BY NEBULIZATIO N ROUTE 3 TIMES EVERY 4 HOURS NEEDED FOR ASTHMA SYMPTOMS. NO MORE THAN 4 TREATMENTS PER DAY active Not Available Not Available No t Available atorvastatin 10 mg tablet active Not Available Not Available Not Available azithromycin 250 mg tablet active Not Available Not Available Not Available diltiazem CD 180 mg capsule,exte nded release 24 hr TAKE 1 CAPSULE BY MOUTH EVERY DAY active Not Available Not Available No t Available metoprolol succinate ER 50 mg tablet,exten ded release 24 hr TAKE 1 TABLET BY MOUTH EVERY DAY active Not Available Not Available No t Available senna 8.6 mg tablet TAKE 2 TABLET BY ORAL ROUTE EVERY DAY NEEDED FOR CONSTIPATIO N active Not Available Not Available No t Available FreeStyle Lancets 28 gauge active Not Available Not Available Not Available prednisone 20 mg tablet 40 mg now po active Not Available Not Available No t Available sertraline 100 mg tablet TAKE 1 TABLET BY MOUTH ONCE A DAY TOGETHER WITH A 50MG TAB. TOTAL DOSE 150MG. active Not Available Not Available Not Available quetiapine 200 mg tablet TAKE 1 TABLET BY MOUTH AT BEDTIME active Not Available Not Available No t Available sumatriptan 50 mg tablet active Not Available Not Available Not Available melatonin 3 mg tablet TAKE 1 TABLET BY MOUTH AT BEDTIME NEEDED active Not Available Not Available No t Available acetaminophe n 300 mg-codeine 30 mg tablet TAKE 1 TABLET BY ORAL ROUTE EVERY 6 HOURS NEEDED FOR SEVERE PAIN. NO MORE THAN 2 TABS PER DAY. NO MORE THAN 7 TABS PER WEEK. active Not Available Not Available No t Available acetaminophe n 500 mg tablet active Not Available Not Available Not Available famotidine 20 mg tablet active Not Available Not Available Not Available meclizine 25 mg tablet Take 1 tablet 3 times a day by oral route as needed. active Not Available Not Available No t Available pantoprazole 40 mg tablet,delay ed release TAKE 1 TABLET BY ORAL ROUTE EVERY DAY active Not Available Not Available No t Available nystatin 100,000 unit/gram topical cream active Not Available Not Available Not Available warfarin 5 mg tablet active Not Available Not Available No t Available nitroglyceri n 0.4 mg sublingual tablet active Not Available Not Available Not Available docusate sodium 100 mg capsule TAKE 1 TABLET BY ORAL ROUTE 2 TIMES EVERY DAY active Not Available Not Available No t Available albuterol sulfate HFA 90 mcg/actuatio n aerosol inhaler INHALE 2 PUFF BY INHALATION ROUTE EVERY 4 - 6 HOURS NEEDED active Not Available Not Available No t Available fluticasone propionate 50 mcg/actuatio n nasal spray,suspen parth active Not Available Not Available Not Available sertraline 50 mg tablet TAKE 1 TABLET BY MOUTH ONCE A DAY TOGETHER WITH A 100MG TAB. TOTAL DOSE 150MG. active Not Available Not Available No t Available loratadine 10 mg tablet TAKE 1 TABLET BY ORAL ROUTE EVERY DAY active Not Available Not Available No t Available Klor-Con M20 mEq tablet,exten ded release active Not Available Not Available Not Available melatonin 1 mg tablet active Not Available Not Available No t Available pregabalin 100 mg capsule TAKE 1 CAPSULE BY ORAL ROUTE EVERY DAY active Not Available Not Available No t Available calcium 600 mg (as carbonate)-v itamin D3 10 mcg (400 unit) tablet TAKE 1 TABLET TWICE PER DAY active Not Available Not Available No t Available FreeStyle Lite Strips CHECK BG DIRECTED active Not Available Not Available No t Available lidocaine 5 % topical ointment active Not Available Not Available Not Available Complete Women 18 mg-400 mcg tablet active Not Available Not Available Not Available Biktarvy 50 mg-200 mg-25 mg tablet active Not Available Not Available No t Available High Potency Multivitamin (w-iron) 9 mg iron-400 mcg tablet TAKE 1 TABLET ONCE A DAY active Not Available Not Available No t Available Vitals Date Recorded Oxygen saturation Oxygen saturation in Arterial blood by Pulse oximetry Heart rate Respiratory rate Body temperature Systolic blood pressure Diastolic blood pressure Provider Name and Address Organization Details Last Updated DateTime 2 95 % 95 % 80 /min 24 /min 98.5 [degF] 112 mm[Hg] 78 mm[Hg] Not Available [facility] 2 20:06:40 Date Recorded Oxygen saturation Oxygen saturation in Arterial blood by Pulse oximetry Body temperature Body height Respiratory rate Heart rate Body weight Body height Oxygen saturation Oxygen saturation in Arterial blood by Pulse oximetry Body weight Body temperature Heart rate Respiratory rate Systolic blood pressure Diastolic blood pressure Systolic blood pressure Diastolic blood pressure Provider Name and Address Organization Details Last Updated DateTime 2 96 % 96 % 98.1 [degF] 157.48 cm 20 /min 78 /min 26627.5 6 g 157.48 cm 96 % 96 % 28625.5 6 g 98.1 [degF] 78 /min 20 /min 146 mm[Hg] 73 mm[Hg] 146 mm[Hg] 73 mm[Hg] Not Available [facility] 2 12:22:48 Date Recorded Heart rate Oxygen saturation Oxygen saturation in Arterial blood by Pulse oximetry Respiratory rate Body temperature Oxygen saturation Oxygen saturation in Arterial blood by Pulse oximetry Respiratory rate Heart rate Body temperature Systolic blood pressure Diastolic blood pressure Systolic blood pressure Diastolic blood pressure Provider Name and Address Organization Details Last Updated DateTime 2 81 /min 97 % 97 % 20 /min 98.2 [degF] 97 % 97 % 20 /min 81 /min 98.2 [degF] 159 mm[Hg] 79 mm[Hg] 159 mm[Hg] 79 mm[Hg] Not Available [facility] 2 12:13:02 Date Recorded Oxygen saturation Oxygen saturation in Arterial blood by Pulse oximetry Body temperature Heart rate Respiratory rate Respiratory rate Body temperature Oxygen saturation Oxygen saturation in Arterial blood by Pulse oximetry Heart rate Systolic blood pressure Diastolic blood pressure Systolic blood pressure Diastolic blood pressure Provider Name and Address Organization Details Last Updated DateTime 2 96 % 96 % 98.6 [degF] 56 /min 20 /min 20 /min 98.6 [degF] 96 % 96 % 56 /min 135 mm[Hg] 75 mm[Hg] 135 mm[Hg] 75 mm[Hg] Not Available [facility] 15:43:49 Social History None recorded. Functional Status None recorded. Mental Status None recorded. Family History Nothing Reported. Medical History No medical history recorded. Gynecological HistoryNo gynecological history recorded. Obstetrics History GPAL:G 0 P 0 0 0 0 Past Encounters Encounter ID Performer Location Encounter Start Date Encounter Closed Date Diagnosis/Indication Diagnosis SNOMED-CT Code Diagnosis ICD10 Code Diagnosis Note [id number] Rufino Guillermo MD [facility] [address] [place] [phone] 10/01/2021 20:06:38 12/14/2021 14:34:37 Cough 08429905 R05.9 [id number] Lisa Madden MD [facility] [address] [place] [phone] 12/31/2021 10:39:10 01/02/2022 12:00:52 Viral upper respiratory tract infection 777425695 J06.9 increased aeration/ air movement after neb- pat has albuterol for nebulizer at home but 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 Whole family has tested negative for covid/ afebrile- no productive sputum- likely viral uri as well/ w/ exacerbati on of chronic pulmonary disease-no indication for antibiotic s at this time - will continue w/ otc SF Tussin/ may gargle w/ warm salt water/ occ 1 tsp honey in throat coat tea( advised will minimally raise BS and can be soothing) - to f/u w/ pcp this week- Advised if develops increasing CP/ increasing GOMES/SOB or cyanosis/ hi fever/ AMS or syncope to call 911 Chest pain 97145027 R07. 9 pain is only with cough- given age and hx cad- ekg obtained- patient reassured [id number] Rufino Guillermo MD [facility] [address] [place] [id number] 02/14/2022 11:29:12 02/19/2022 12:48:37 Shoulder pain [id number] M25.519 [id number] Major Milligan MD [facility] [address] [place] [phone] 04/12/2022 14:51:11 04/15/2022 14:18:35 Vertigo [id number] R42 Reports several days to a week of dizziness with position changes. Most often on standing as she reports that she does not move around much otherwise. No dizziness at rest. No numbness, weakness, but does endorse some worsened bilateral blurry vision. Reports headstrike after a fall about a month ago (she is therapeuti akanksha anticoagul ated) but CT performed afterwards (left AMA before results available) . She states that this feels exactly like her previous vertigo which improved with meclizine. Orthostati cs performed and negative. Advised her to follow up with her PCP and attempt to obtain the read of the CT scan (which was presumably negative) and to ensure her symptoms are worsening. Health Concerns Section Related Observation LastModified by Organization Detai ls LastModified Time None Recorded Concern Status LastModified by Organization Details LastModified Time None Recorded Advance Directives Directive None Recorded Payers Encounter Date Sequence Insurance Name Policy Number Policy Nuñez Covered Member ID Nuñez Member ID Guarantor Name 10/01/2021 1 [facility] - DOS PRIOR TO 2022 - DUAL ELIGIBLE (MEDICARE REPLACEMENT/ADV ANTAGE - HMO) [place] V[place] Wang [id number] [place] Nguyendez 12/31/2021 1 [facility] - DOS PRIOR TO 2022 - DUAL ELIGIBLE (MEDICARE REPLACEMENT/ADV ANTAGE - HMO) [place] V[place] Wang [id number] [place] Wang 02/14/2022 1 [facility] - DOS PRIOR TO 2022 - DUAL ELIGIBLE (MEDICARE REPLACEMENT/ADV ANTAGE - HMO) [place] Vidal Wang [id number] [facility] Wang 04/12/2022 1 [facility] - DOS PRIOR TO 2022 - DUAL ELIGIBLE (MEDICARE REPLACEMENT/ADV ANTAGE - HMO) [place] Vidal Wang [id number] [facility] Notes Date Note Type Note Provider Name and Address Organization Details Recorded Time 10/01/2021 text/html HPI: Patient HIV + , Patient on warfarin, no diagnosis of Asthma on record but has nebulizer with albuterol in home. Multiple allergies. ASA, Cipro, Codeine, Ibuprofen, Morphine, NSAIDS, Oxycodone< PCN Triptans 5-HT1 Patient with three day history of cough .Dry non productive. No shortness of breath or chest pain. Has used nebulizer x two this morning with no noted improvement. ................... ................... ................... ................... ................... ................... ................... ........ CRC Nursing Assessment: Comments: CRC RN no further information needed to process request ................... ................... ................... ................... ................... ................... ................... ........ Keg Washer Note: Chief Complaint cough x 3 days Pertinent positive and negative Review of Systems (ROS) findings Constitutional: Afebrile without fatigue/malaise/ lethargy. Denies Chills HEENT: Denies visual changes Resp: non productive cough no Wheeze, Hemoptysis, SOB or GOMES Cardio: Denies Chest pain or palpitations GI: Denies N/V/D or current loss of appetite Genitourinary: Appropriate frequency with pain or odor, no blood noted in urine Musculoskeletal: Pt denies pain or swelling Neuro: Alert to baseline Psych: Denies anxiety or depression Skin: Denies rashes or wounds Endocrine: No new unexpected weight loss/gain Focused Physical Assessment non productive cough and sore throat x 3 days. Pt taking over the counter cough medicine. General: Well developed and well nourished in no acute distress HEENT: Unremarkable Neck: Unremarkable Lungs: rhonchi upper broussard Heart: Regular rate and rhythm Abdomen: Soft, Non-distended and non-tender Extremities: No Cyanosis, rash, lesions, edema same as last visit Neuro: At baseline Psych: Good Affect/Mood/ Attention Skin Intact without rash Vital signs: As above Diagnostic Testing: covid and strep test neg. Initial Interventions and actions on standing orders: Vitals, hx, exam Virtual Medical Control Physician Call Dr. Guillermo Pt advised, and to follow up with pcp. ................... ................... ................... ................... ................... ................... ................... ........ Disposition: Fulfilled Rufino Guillermo MD [address] [facility],[address], [place], [phone], [employer] 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 Allergies to Triptans, PCN, NSAIDS, Codeine, ASA, Oxycodone, Morphine, Cipro, Tylenol, IVP Dye. Mbr calling into the [facility]U dept reporting cough and trouble breathing since yesterday. Mbr with increased WOB with talking, constant congested cough. [employer] Clip Loading Machine Adjuster initially assisted with this call, Blaine #[id number] then Daughter Tess assisted with call and acute coordinator disconnected. Mbr denies fever but positive for Chest Pain with coughing. Per Daughter whole family has been sick with colds and now Mbr has it. Mbr took asthma inhaler early this morning and per Mbr it helped a little. This [facility] RN instructed Mbr to take inhaler again. If inhaler ineffective and/or Mbr s/s worsen Mbr/daughter need to call 911 and have Mbr go to ER to be evaluated. Mbr and Daughter agreed with plan. Sent [facility] referral in for today. Call back number is [phone]. Sent GC activity to CP alerting CP about this call and TE. ................... ................... ................... ................... ................... ................... ................... ........ CRC Nursing Assessment: Comments: CRC RN did not require any additional information to process this visit. ................... ................... ................... ................... ................... ................... ................... ........ Keg Washer Note: Sent to a call for a pt complaining of cough/sob since yesterday. [facility] arrives on scene, pt found lying in semi-murillo position on bed. Pt is alert and oriented. Airway is patent. Pt's daughter states her family has had colds for the past week or so, and pt began showing symptoms yesterday. Family reports neg covid tests for each member. Pt complains of headache, mild sore throat, non-productive cough, substernal cp with cough, chest congestion and sob w/movement. Pt denies runny nose, sinus tenderness, dizziness, n/v/d, abd pain, fever, or loc. Pt has been using albuterol inhaler and diabetic tussin. Pt has a nebulizer, but doesn't have a nebulizer mask/pipe. BP:146/73, P:78, RR:20, SpO2:96% RA, T:98.1, B; Throat: erythema noted, no edema or exudate noted; (-)stridor; Lung sounds: diminished bilaterally; Abdomen: soft, non-tender, no distention; Skin: pink, warm, dry; Rapid covid test: neg; rapid flu test: neg; rapid strep test: neg; [facility] 12 lead ECG, Duo neb treatment, BG, and Prednisone 40mg PO. 12 lead ECG: uploaded to [employer], Pt reports improvement with duo neb. Lung sounds: clear bilaterally; audible wheezing noted, but improves; , Prednisone 40mg PO administered without incident. [facility] script to pt's pharmacy for Prednisone. Pt advised to continue using Diabetic tussin, use throat coat tea and gargle with warm salt water. Nebulizer mask given to pt to use with personal nebulizer. Red flags discussed. Pt/family have no further questions. ................... ................... ................... ................... ................... ................... ................... ........ Disposition: Fulfilled Lisa Madden MD [address] [place] [address],[address], [place], [phone], [facility] 12/31/2021 13:02:02 02/14/2022 text/html HPI: allergies: NSaIDS Ciprofloxacin, oxycodone, codeine sulfate, ibuprofen, morphine, triptans 5HT1 antimigraine medicatoin. Spoke with daughter chelly who is on HIPPA. reports pt having left arm pain x 3 days. Denies any CP, SOB, CAMARA or dizziness. Pt has used Tylenol without relief. No injury or falls. No swelling, redness or rash. No vomiting. Reviewed need for assessment declined our walk in. [facility] ................... ................... ................... ................... ................... ................... ................... ........ CRC Nursing Assessment: Comments: CRC RN DID NOT NEED FURTHER INFO did not answer> rescheduled for 02/14 ................... ................... ................... ................... ................... ................... ................... ........ Keg Washer Note: Sent to evaluate pt with arm pain. Arrived on scene to find pt seated in living room. Pt is awake and alert, airway open and patent, breathing regular. Pt appears to be in pain. Pt and pt's daughter explain that pt has hx of OA and chronic pain in shoulders, worse in L. Pt used to get steroid injections that controlled pain but since being placed on blood thinners, has no longer been able to get injections. 4-5 days ago, pt began experiencing worse than normal pain in her L shoulder, radiating down L arm, which is where her chronic pain presents. Pt baseline has limited range of motion but is now worse. Pt denies any trauma/falls, chest pain, sob, or numbness/tingling. +radial pulse. +normal warmth to extremity. No edema/deformity/se thema. Endorsing 10/10 pain. Daughter has been attempting to reach PCP but has not gotten response yet. Pt has been taking tylenol every day and [facility] dispenses T3 PRN. Pt reports slight relief from lidocaine patches but daughter reports they have to buy them OTC and cannot afford them anymore. Consulted [facility] who will send prescription topical lidocaine to pt's pharmacy. [facility] encouraged family to continue calling PCP for eval and possible referral to ortho. Relayed info to pt's daughter and [facility]. No further questions or concerns at this time. ................... ................... ................... ................... ................... ................... ................... ........ Disposition: Fulfilled Rufino Guillermo MD [address] [facility],[address] [facility], [place], [phone], [employer] 02/21/2022 14:47:06 04/12/2022 text/html HPI: spoke with Chelly Llanes daughter who is on HIPPA. Pt having intermittent dizziness x 3 days. Pt having more with position changes. Denies any CAMARA, CP ,SOB vomiting or diarrhea. No UTI sx. Pt drinking plenty of water. Reviewed disposition, agrees to [facility] referral ................... ................... ................... ................... ................... ................... ................... ........ CRC Nursing Assessment: Comments: No additional information needed ................... ................... ................... ................... ................... ................... ................... ........ Keg Washer Note: [facility] Keg Washer Andrew Holt [id number] dispatched to [facility] for a 76 yof C/O dizziness. Upon arrival, the pt was standing in her living room, awake and alert, FLANAGAN X4, in no apparent distress. She stated that she felt dizzy when she got up out of bed, stood up from sitting, and generally when she changed position or moved too quickly. She stated that she had been diagnosed with vertigo in the past and medicated for it, but was not currently taking meclizine. She stated that she fell and hit her head a week prior, and was seen at [facility] ED with imaging. She stated her vision was more blurry than usual, but denied any more frequent headaches (diagnosed with migraines), nausea, vomiting, sore throat, fevers, more frequent CP than usual, more SOB than usual (w/ exertion), abd pain, urinary S/S, or swelling. Some swelling/bruising to her right knee from prior fall; no BLE edema. No facial droop, slurred speech, confusion, or hemiparesis. She described the dizziness as the room spinning, and stated she felt light headed on my forehead. She denied any other falls or LOC. [facility] consulted; pt was advised to contact PCP [facility] to discuss imaging results, and was prescribe meclizine. She was given meclizine PO 25 mg. Red flags discussed. ................... ................... ................... ................... ................... ................... ................... ........ Disposition: Fulfilled Major Milligan MD [address] [place] [address],[address] [facility], [place], [phone], [employer] 04/12/2022 16:55:37 OBGyn Episode No OBEpisode recorded.
--- OUTSIDE RECORDS SUMMARY | 2024-08-12 10:53 | XMS_ITS | Encounter Summary ---
Author Organization [facility] Address [address] [place] [id number] Care Team Providers Care Marketing Rep Name Role Phone Abigail Rajput MD Primary Care Provider [phone] Encounter Details Date Type Department Care Team (Latest Contact Info) Description 05/11/2024 Lab Requisition [facility] - Main Lab [address] [facility] [place] [address] Frankie Sultana MD [address] [place] [address], [phone] Unspecified dementia, unspecified severity, without behavioral [...] AM EDT Office Visit [facility] - [place] [address] [id number] Rodrick Viera DPM [address] [id number] documented as of this encounter Procedures Procedure Name Priority Date/Time Associated Diagnosis Comments COMPLETE BLOOD COUNT Routine 05/12/2024 6:44 AM EST Unspecified dementia, unspecified severity, without behavioral disturbance, psychotic disturbance, mood disturbance, and anxiety (CMS/HCC) Human immunodeficiency virus (HIV) disease (CMS/HCC) BASIC METABOLIC PANEL Routine 05/12/2024 6:44 AM EST Unspecified dementia, unspecified severity, without behavioral disturbance, psychotic disturbance, mood disturbance, and anxiety (CMS/HCC) Human immunodeficiency virus (HIV) disease (CMS/HCC) documented in this encounter Results * (ABNORMAL) Basic metabolic panel (05/12/2024 6:44 AM EST) Sodium 142 133 - 145 mmol/L LAB CHEMISTRY METHOD 05/12/2024 2:[address] [facility] Potassium 4.0 3.5 - 5.5 mmol/L LAB CHEMISTRY METHOD 05/12/2024 2:[address] [facility] Chloride 111(H) 96 - 110 mmol/L LAB CHEMISTRY METHOD 05/12/2024 2:[address] [facility] CO2 27 21 - 32 mmol/L LAB CHEMISTRY METHOD 05/12/2024 2:[address] [facility] Anion Gap 4 3 - 11 LAB CHEMISTRY METHOD 05/12/2024 2:[address] [facility] Glucose 87 70 - 100 mg/dL LAB CHEMISTRY METHOD 05/12/2024 2:[address] [facility] BUN 11 5 - 25 mg/dL LAB CHEMISTRY METHOD 05/12/2024 2:[address] [facility] Creatinine 0.89 0.50 - 1.10 mg/dL LAB CHEMISTRY METHOD 05/12/2024 2:[address] [facility] eGFR 66 >=60 mL/min/1. 73m2 LAB CHEMISTRY METHOD 05/12/2024 2:[address] [facility] Comment:Calculation based on the??Chronic Kidney Disease Epidemiology Collaboration (CKD-EPI) equation refit??without adjustment for race. BUN/Creatinine Ratio 12.4 LAB CHEMISTRY METHOD 05/12/2024 2:[address] [facility] Calcium 9.1 8.5 - 10.5 mg/dL LAB CHEMISTRY METHOD 05/12/2024 2:[address] [facility] Blood Venous blood specimen / Unknown Venipuncture / Unknown 05/12/2024 6:44 AM EST 05/12/2024 11:18 AM EST us Frankie Sultana MD LAB BLOOD ORDERABLES Final Resul t [facility] [address] [place] [address], * (ABNORMAL) Complete blood count (05/12/2024 6:44 AM EST) WBC 2.9(L) 4.8 - 10.8 K/mcL LAB HEMETOLOGY METHOD 05/12/2024 11:[address] [facility] RBC 3.60(L) 3.80 - 4.80 M/mcL LAB HEMETOLOGY METHOD 05/12/2024 11:[address] [facility] Hemoglobin 10.0(L) 11.5 - 16.0 g/dL LAB HEMETOLOGY METHOD 05/12/2024 11:[address] [facility] Hematocrit 31.2(L) 35.0 - 47.0 % LAB HEMETOLOGY METHOD 05/12/2024 11:[address] [facility] MCV 87.4 79.0 - 98.0 FL LAB HEMETOLOGY METHOD 05/12/2024 11:[address] [facility] MCH 28.0 27.0 - 32.0 pcg LAB HEMETOLOGY METHOD 05/12/2024 11:[address] [facility] MCHC 32.1 32.0 - 37.0 g/dL LAB HEMETOLOGY METHOD 05/12/2024 11:[address] [facility] RDW 14.9 11.0 - 15.0 % LAB HEMETOLOGY METHOD 05/12/2024 11:56 AM EST [facility] Platelets 121(L) 130 - 400 K/mcL LAB HEMETOLOGY METHOD 05/12/2024 11:56 AM EST [facility] MPV 11.3(H) 7.0 - 11.0 FL LAB HEMETOLOGY METHOD 05/12/2024 11:56 AM EST [facility] NRBC 0.0 <1.0 % LAB HEMETOLOGY METHOD 05/12/2024 11:56 AM EST [facility] NRBC Absolute 0.00 <0.10 K/mcL LAB HEMETOLOGY METHOD 05/12/2024 11:56 AM EST [facility] Blood Venous blood specimen / Unknown Venipuncture / Unknown 05/12/2024 6:44 AM EST 05/12/2024 11:18 AM EST us Frankie Sultana MD LAB BLOOD ORDERABLES Final Resul t [facility] [address] [place] [address], documented in this encounter Visit Diagnoses Diagnosis Unspecified dementia, unspecified severity, without behavioral disturbance, psychotic disturbance, mood disturbance, and anxiety ([facility] V24, [facility] V28) Human immunodeficiency virus (HIV) disease ([facility] V24, [facility] V28) Human immunodeficiency virus [HIV] disease documented in this encounter Care Teams Marketing Rep Relationship Specialty Start Date End Date Abigail Rajput MD [address] [place] [phone] PCP - General Family Medicine 03/03/24 documented as of this encounter
--- OUTSIDE RECORDS SUMMARY | 2024-08-12 10:53 | XMS_ITS | Data Portability ---
Author Organization [facility], formerly [facility], Main Office Address [address], [address] [place] [address] Care Team Providers Care Teamcenter Solution Architect Name Role Phone JEAN-CLAUDE OROZCO - 2ND FLOOR OTHER Assessment Encounter Date Assessment Date Assessment LastModified by Organization Details LastModified Time 05/19/2024 05/19/2024 45 minutes spent on coordination of discharge [email or web address] Not available 05/19/2024 13:54:44 Plan of Treatment Reminders Order Date Submit Date Provider Last Modified By Organization Details Last Modified Time Details Appointments None record ed. Lab None record ed. Referral None record ed. Procedures None record ed. Surgeries None record ed. Imaging None record ed. Medication Orders None record ed. Patient TargetsNo targets recorded. Patient InstructionsNo instructions recorded. Reason for Referral None Reported. Problems Name Problem SNOMED Code Status Onset Date Resolution Date Notes Provider Name and Address Organization Details Recorded Time Falls 196503897 Active 2023 JULIEN RING NP [address] [facility], [address], [place], [address], [facility] 4 15:14:09 History of deep vein thrombosis 599098663 Active 2023 JULIEN RING NP [address] [facility], [address], [place], [address], [facility] 4 15:14:24 Osteoporosis 33426314 Active 2023 JULIEN RING NP [address] [facility], [address], [place], [address], [facility] 4 15:14:30 Human immunodeficien cy virus infection 38987598 Active 2023 JULIEN RING NP [address] [facility], [address], [place], [address], [place] [facility] 4 15:14:42 Dementia 01846446 Active 2023 JULIEN RING NP [address], [address], [place], [address], [facility] 4 15:14:48 Subarachnoid hemorrhage 14370360 Active 2023 JULIEN RING NP [address], [address], [place], [address], [facility] 4 15:23:09 Essential hypertension 54102794 Active 2023 JULIEN RING NP [address], [address], [place], [address], [facility] 4 15:25:07 Hyperlipidemia 05232287 Active 2023 JULIEN RING NP [address], [address], [place], [address], [facility] 4 15:25:14 Gastroesophage al reflux disease without esophagitis 760638499 Active 2023 Frankie Sultana MD [address], [address], [place], [address], [facility] 4 10:43:41 Primary insomnia 4458631 Active 2023 Frankie Sultana MD [address], [address], [place], [address], [facility] 4 10:44:24 Pancytopenia 679240434 Active 2024 ZANA JACINTO NP [address], [address], [place], [address], [facility] 5 12:42:01 Problem Notes None recorded. Medical Equipment None Reported. Allergies Allergen ID Allergen Name Allergen Category Reaction Reaction Severity Criticality Documentation Date Start Date Code Code System Note Provider Name and Address Organization Details Recorded Time 43347 Product containin g penicilli n (product) medicatio n Not available Not available Not available 04/17/2024 74286 8001 SNOMED Not Available Not Available Not Available 59186 Cipro medicatio n Not available Not available Not available 04/17/2024 74307 3 RxNorm Not Available Not Available Not Available 35577 Non-stero idal anti-infl ammatory agent (product) medicatio n Not available Not available Not available 04/17/2024 62373 005 SNOMED Not Available Not Available Not Available 66870 iodine medicatio n Not available Not available Not available 04/17/2024 5933 RxNorm Not Available Not Available Not Available 32809 aspirin medicatio n Not available Not available Not available 04/20/20242023 1191 RxNorm unrec ogniz ed react ion (text : Skin Probl ems, code: 52870 [id number]) (from exter nal sourc e) Not Available Not Available Not Available 36402 ciproflox acin medicatio n diarrhea Not available Not available 04/20/20242023 2551 RxNorm Not Available Not Available Not Available 91938 Iodinated contrast media (substanc e) medicatio n hives Not available Not available 04/20/20242023 89090 2004 SNOMED Not Available Not Available Not Available 88787 morphine medicatio n Not available Not available Not available 04/20/20242023 7052 RxNorm Not Available Not Available Not Available 23586 oxycodone medicatio n Not available Not available Not available 04/20/20242023 7804 RxNorm Not Available Not Available Not Available 80384 penicilli n G Not available Not available Not available Not available 04/20/20242023 7980 RxNorm Not Available Not Available Not Available 49169 sumatript an medicatio n Not available Not available Not available 04/20/20242023 13471 RxNorm Not Available Not Available Not Available Vitals Date Recorded Body weight Heart rate Respiratory rate Body temperature Oxygen saturation Oxygen saturation in Arterial blood by Pulse oximetry Systolic blood pressure Diastolic blood pressure Provider Name and Address Organization Details Last Updated DateTime 5 41730.4 8 g 77 /min 16 /min 97.3 [degF] 97 % 97 % 91 mm[Hg] 52 mm[Hg] Remedios Vela, MARJORIE [address] [facility], [address], [place], [address], [facility] 5 08:25:15 Date Recorded Body weight Heart rate Respiratory rate Body temperature Oxygen saturation Oxygen saturation in Arterial blood by Pulse oximetry Systolic blood pressure Diastolic blood pressure Provider Name and Address Organization Details Last Updated DateTime 5 22815.4 8 g 78 /min 18 /min 97.8 [degF] 98 % 98 % 132 mm[Hg] 60 mm[Hg] Remedios Vela NP [address] [facility], [address], [place], [address], [facility] 5 19:42:37 Date Recorded Heart rate Respiratory rate Body temperature Oxygen saturation Oxygen saturation in Arterial blood by Pulse oximetry Systolic blood pressure Diastolic blood pressure Provider Name and Address Organization Details Last Updated DateTime 5 74 /min 17 /min 98.2 [degF] 95 % 95 % 132 mm[Hg] 60 mm[Hg] ZANA JACINTO NP [address] [facility], [address], [place], [address], [facility] 5 12:28:29 Date Recorded Heart rate Respiratory rate Body temperature Oxygen saturation Oxygen saturation in Arterial blood by Pulse oximetry Systolic blood pressure Diastolic blood pressure Provider Name and Address Organization Details Last Updated DateTime 5 77 /min 18 /min 97.5 [degF] 98 % 98 % 132 mm[Hg] 60 mm[Hg] ZANA JACINTO NP [address] [facility], [address], [place], [address], [facility] 5 13:27:17 Date Recorded Systolic blood pressure Diastolic blood pressure Provider Name and Address Organization Details Last Updated DateTime 04/19/2024 115 mm[Hg] 65 mm[Hg] Frankie Sultana MD [address] [facility], [address], [place], [address], [facility] 04/19/2024 10:33:58 Social History Question Answer Notes LastModified by Organizat ion Details LastModified Time Tobacco Smoking Status Never Smoker JULIEN RING NP [address] [facility], [address], [place], [address], [facility] 04/17/2024 15:15:37 Do You Have An Advance Directive? Yes Information not available 04/17/2024 What Is Your Level Of Alcohol Consumption? None Information not available 04/17/2024 What Is Your Code Status? Full Code Information not available 04/17/2024 What Was The Date Of Your Most Recent Tobacco Screening? 04/17/2024 Information not available 04/17/2024 Do You Use Any Illicit Or Recreational Drugs? No Information not available 04/17/2024 Sex: Unknown Functional Status None recorded. Mental Status None recorded. Family History Nothing Reported Notes:N/C Medical History No medical history recorded. Gynecological HistoryNo gynecological history recorded. Obstetrics History GPAL:G 0 P 0 0 0 0 Immunizations Vaccine Type Date Status Note Provider Nam e and Address Organization Details Recorded Time Hep B, unspecified formulation 0 completed Chelly Peñaloza [facility] 04/20/2024 14:21:23 Hep B, unspecified formulation 0 completed Chelly Peñaloza [facility] 04/20/2024 14:21:34 Hep B, unspecified formulation 1 completed [facility] 04/20/2024 14:21:43 Hep B, unspecified formulation 1 completed [facility] 04/20/2024 14:21:53 Hep B, unspecified formulation 1 completed Chelly Peñaloza [facility] 04/20/2024 14:22:01 Tdap 2 completed [facility] 04/20/2024 14:22:20 Tdap 4 completed [facility] 04/20/2024 14:22:30 Pneumococcal conjugate PCV 13 4 completed Chelly Peñaloza [facility] 04/20/2024 14:22:53 pneumococcal polysaccharide PPV23 0 completed [facility] 04/20/2024 14:23:21 pneumococcal polysaccharide PPV23 5 completed Chelly Peñaloza [facility] 04/20/2024 14:23:50 pneumococcal polysaccharide PPV23 2 completed Chelly [facility] 04/20/2024 14:23:58 influenza, unspecified formulation 4 completed Chelly [facility] 04/20/2024 14:25:58 influenza, unspecified formulation 2 completed [facility] 04/20/2024 14:26:13 meningococcal ACWY, unspecified formulation 7 completed Chelly [facility] 04/20/2024 14:26:35 meningococcal ACWY, unspecified formulation 7 completed Chelly [facility] 04/20/2024 14:26:43 SARS-COV-2 (COVID-19) vaccine, UNSPECIFIED 1 completed Chelly [facility] 04/20/2024 14:26:58 SARS-COV-2 (COVID-19) vaccine, UNSPECIFIED 2 completed Chelly [facility] 04/20/2024 14:27:05 Past Encounters Encounter ID Performer Location Encounter Start Date Encounter Closed Date Diagnosis/Indication Diagnosis SNOMED-CT Code Diagnosis ICD10 Code Diagnosis Note [id number] JULIEN RING NP [address] [address] 04/17/2024 14:36:06 04/19/2024 12:40:19 Falls 924769233 R29.6 PT OT eval and treatfall precaution sfrequent safety checks Subarachno id hemorrhage 29330732 I60.9 monitor neurosdisc uss restarting Coumadin with family-ris k v. benefitmon itor for seizuresly jimmy 100 mg daily History of deep vein thrombosis 732041805 Z86.718 coumadin stopped due to bleed Dementia 96592609 F03.90 seroquel 300 mg hsZoloft 150 mg dailypsych prn Human immunodeficiency virus infection 80731340 B20 bictegravi r/emtricit ab/tenofov 30/120/15 daily Osteoporosis 30577900 M8 1.0 T3 bidCaD 2 dailyMVI Essential hypertension 57316558 I10 amlodipine 10 mg dailytopro l 50 mg dailymonit or bp Hyperlipidemia 26366271 E78.5 atrovastat in 40 mg daily [id number] Frankie Sultana MD [address] [address] 04/19/2024 10:33:18 04/20/2024 13:19:47 Falls 882211682 R29.6 PT OT eval and treatmonit or fall risk History of deep vein thrombosis 880962463 Z86.718 see above with recent CVAAC on hold till cleared by surgery Dementia 36216274 F01.B3 carrying dxappears high functionin gmaintaine d onseroquel 300 mg qdZoloft 150 mg qdmonitor for behaviorsp sych eval prnmonitor need to invoke HCP currently able to make own medical decisions Human immunodeficiency virus infection 54308476 B20 carrying dxmaintain ed onbictegra vir/emtric itab/tenof ov dailycoord inate with ID as neededupda te with concerns Essential hypertension 06621263 I10 norvasc 10 mg qdmetoprol ol 50 mg qdmonitor bp and need to titrate Hyperlipidemia 94644784 E78.2 lipitor 20 mg qdcontinue d Subarachno id hemorrhage due to traumatic injury 073108649 S06.6X0D see HPI s/p fallImagin g positive for acute hemorrhagi c CVAEval by neurosurge ry with no interventi on indicated at that timeHad been on AC prior with hx of dvt now in hold till cleared by neurosurge rymonitor for changeupda te neurosurge ry with concerns Gastroesop hageal reflux disease without esophagitis 615121979 K21.9 pantoprazo le 40 mg qdmonitor sx control Primary insomnia 2507727 F51.01 melatonin 3 mg qhsmonitor for effect [id number] Remedios Vela NP [address] [address] 04/28/2024 08:23:36 04/29/2024 10:05:53 Subarachnoid hemorrhage due to traumatic injury 290417649 S06.6X0D see HPI s/p fallImagin g positive for acute hemorrhagi c CVAEval by neurosurge ry with no interventi on indicated at that timeHad been on AC prior with hx of dvt now in hold till cleared by neurosurge ryhad received keppra for 7 days and was dc'd in hospital also noted in dc summary not to continue.m onitor for changeupda te neurosurge ry with concerns and fu appt (will request fu -nsg to check if this is scheduled. Falls [id number] R29.6 family reporting falls at homePT OT eval and treatsuppo rtive caremonito r fall risk History of deep vein thrombosis 438082352 Z86.718 see above with recent CVAAC on hold till cleared by surgeryfu with neurosurge ry as above Dementia 75596485 F01.B3 hx ofappears high functionin gmaintaine d onseroquel 300 mg qdZoloft 150 mg qdmonitor for behaviorsp sych eval prnmonitor need to invoke HCP currently able to make own medical decisions Human immunodeficiency virus infection 53426149 B20 hx ofmaintain ed onbictegra vir/emtric itab/tenof ov 30/120/15 dailycoord inate with ID as neededupda te with concerns Essential hypertension 30143536 I10 norvasc 10 mg qdmetoprol ol 50 mg qdmonitor bp and need to titrate Hyperlipidemia 92227651 E78.2 lipitor 20 mg qdcontinue d Gastroesop hageal reflux disease without esophagitis 752979700 K21.9 pantoprazo le 40 mg qdmonitor sx control Primary insomnia 6570670 F51.01 melatonin 3 mg qhsmonitor for effect Osteoporosis 08216327 M8 1.0 T3 bid ( on this at home at baseline-o verride allergy for itching if noted-side effect)CaD 2 dailyMVImo nitor [id number] Remedios Vela NP [address] [address] 2024 08:19:19 05/05/2024 09:32:31 Subarachnoid hemorrhage due to traumatic injury 721352497 S06.6X0D Imaging positive for acute hemorrhagi c CVA sp fallin hosp Eval by neurosurge ry with no interventi on indicated at that timeHad been on AC prior with hx of dvt now in hold till cleared by neurosurge rygeoffrey received keppra for 7 days and was dc'd in hospital also noted in dc summary not to continue.m onitor for changeupda te neurosurge ry with concerns and fu apptnsg to check if this is scheduledm onitor neuros and for changes Falls [id number] R29.6 family reporting falls at homePT OT eval and treatsuppo rtive caremonito r fall risk Dementia 58279816 F01.B3 hx ofappears high functionin gmaintaine d onseroquel 300 mg qdZoloft 150 mg qdmonitor for behaviorsp sych eval prnmonitor need to invoke HCP currently able to make own medical decisions Essential hypertension 59055462 I10 bp stable, no acute shifts in bp warranted with cvacontnor vasc 10 mg qdmetoprol ol 50 mg qdmonitor bp and need to titrate Osteoporosis 21616601 M8 1.0 05/03 change T3 bid to T3 bid prn per requestCal cium dailyMVImo nitor Constipation 38594239 K5 9.00 pt with constipati on05/03 start senna 2 qhshouse bowel protocol prnmonitor [id number] ZANA JACINTO NP [address] [address] 05/12/2024 12:27:56 05/18/2024 14:39:52 Constipation 72033141 K59.00 Started senna 2 qd on 05/03Now with loose stool, suspect related to viral gastroente ritis.Hold senna as neededMain tain fluids, activityMo nitor and adjust meds prn Osteoporosis 04826084 M8 1.0 05/03- changed T3 bid to T3 bid prn per request, remy. wellCalciu m dailyMVImo nitor Subarachno id hemorrhage due to traumatic injury 368168252 S06.6X0D Imaging positive for acute hemorrhagi c CVA sp fallSeen by Neurosurge ry, no surgical interventi on warranted. Currently off AC - resume when cleared by Neurosurge Nuha keppra for 7 days in hosp., not continued here.updat e neurosurge ry with concerns and fu apptnsg to check if this is scheduledm onitor neuros and for changes Falls [id number] R29.6 family reporting falls at homePT OT eval and treatsuppo rtive caremonito r fall riskgoal is to return home. Dementia 45202982 F01.B3 hx ofappears high functionin gmaintaine d onseroquel 300 mg qdZoloft 150 mg qdmonitor for behaviorsp sych eval prnmonitor need to invoke HCP currently able to make own medical decisions Essential hypertension 29658112 I10 VSScontnor vasc 10 mg qdmetoprol ol 50 mg qdmonitor bp and need to titrate Pancytopenia 440602464 D 61.818 Labs here consistent with labs at [facility], but no formal dx. of pancytopen ia found in [facility] paperwork. Monitor for now, can consider heme referral if labs worsen.CBC q fri x 2 more weeksMonit or s/s active bleeding.C urrently off AC Viral gastroenteritis 11 2412683 A08.4 N/V/D x 2 days, feeling better today, just tired.Taki ng fluids well - continue for now, advance diet as tolerated. Hold laxatives prn, utilize imodium, zofran prnMonitor closely [id number] ZANA JACINTO NP [address] [address] 05/19/2024 13:26:33 05/21/2024 10:38:51 Viral gastroenteritis 691003617 A08.4 N/V/D x 2 days last week, now resolved.M onitor closely as outpt. Pancytopenia 394234840 D 61.818 Labs here consistent with labs at [facility], but no formal dx. of pancytopen ia found in [facility] paperwork. Monitor labs as outpt.Amie tor s/s active bleeding.C urrently off AC Constipation 03272782 K5 9.00 Started senna 2 qd on 05/03Mainta in fluids, activityMo nitor and adjust meds prn Subarachno id hemorrhage due to traumatic injury 402210593 S06.6X0D Imaging positive for acute hemorrhagi c CVA sp fallSeen by Neurosurge [place], no surgical interventi on warranted. Currently off AC - resume when cleared by Neurosurge Nuha cabral for 7 days in hosp., not continued here.updat e neurosurge ry with concerns and fu as requested. monitor neuros and for changes as outpt. Essential hypertension 78427312 I10 VSScontinu e:norvasc 10 mg qdmetoprol ol 50 mg qdmonitor bp and need to titrate Falls 440883728 R29.6 family reporting falls at homePT OT eval and treat, meeting goals for d/c back home tomorrow with services.m onitor fall risk as outpt. Osteoporosis 65170621 M8 1.0 T3 bid prn - using on occasionCo ntinue Calcium daily, MVImonitor Dementia 69438446 F01.B3 hx ofappears high functionin gmaintaine d onseroquel 300 mg qdZoloft 150 mg qdmonitor for behaviors Human immunodeficiency virus infection 93893131 B20 Continue home meds Hyperlipidemia 84284541 E78.2 Continue artorvasta tin 20 mg qd Gastroesop hageal reflux disease without esophagitis 596741540 K21.9 Continue pantoprazo le 40 mg daily Health Concerns Section Related Observation LastModified by Organization Detai ls LastModified Time None Recorded Concern Status LastModified by Organization Details LastModified Time None Recorded Advance Directives Directive Y: Payers Encounter Date Sequence Insurance Name Policy Number Policy Nuñez Covered Member ID Nuñez Member ID Guarantor Name 04/19/2024 1 [facility] CARE ALLIANCE - DOS ON OR AFTER 2022 - MEDICARE [place]VANTAGE [place]AC[place]/ADV ANTAGE - PPO) [place] [id number] [facility] 04/28/2024 1 [email or web address] DOS ON OR AFTER 2022 - MEDIC[place] RE[place]AC[place]/ADV ANTAGE - [place]PO) [place] [id number] [facility] 2024 1 [email or web address] DOS ON OR AFTER 2022 - [place]/ADV ANTAGE - [place]PO) [place] [id number] [facility] 05/12/2024 1 [facility] CARE [employer] - DOS ON OR AFTER 2022 - [place]/ADV ANTAGE - PPO) [place] [id number] Inga [facility]idal 05/19/2024 1 [facility] - DOS ON OR AFTER 2022 - [place]/ADV ANTAGE - PPO) Inga Vidal [id number] Inga [facility] Notes Date Note Type Note Provider Name and Address Organization Details Recorded Time 024 text/ht ml Patient is a 78 yo female admit from hospital after presenting after fall with confusion, headache and nausea. Imaging positive for acute hemorrhagic CVA, limited information available with dc summary requested. Eval by neurosurgery with no intervention indicated at that time. Had been on AC prior with hx of dvt now in hold till cleared by neurosurgery. PMH significant forhx DVTdementiagait instabilityhldhtnosteoporosisHIV admit to facility for continued care and therapy Frankie Sultana MD [address] [place] [address], [address], [place], [address], [facility] 04/19/2024 10:51:19 025 text/ht ml Pt is seen for an acute rounding visit today. She is a 78 yo female admitted from hospital after presenting after fall with confusion, headache and nausea. Imaging positive for acute hemorrhagic CVA here at [facility] for rehab. She was seen by neurosurgery with no intervention indicated at that time. She was started on keppra in the hospital, however not listed on dc summary. Had been on AC prior with hx of dvt now in hold till cleared by neurosurgery. Follow up appt recommended and will check with nursing if scheduled. per hospital dc note available in [facility] hospital portal: 78 years old patient with medical history of dementia, HIV on ART, obesity, osteoporosis, supraventricular tachycardia, prior DVT on Coumadin, who presented to ED 04/06 w/ severe CAMARA and nausea s/p fall on 04/04. Patient was in kitchen, does not recall what happened, she had a fall and later daughter found her on the floor. Patient was confused. +LOC. Hit L side of head and L shoulder. In ED, CTH 6 mm L temporal SAH.NSG consulted, patient reversed w/ K centra and started on Keppra 500 mg BID x 7 days for seizure prophylaxis. NSG evaluated pt, no acute intervention. Patient was under trauma surgery team, She was transferred to medicine team on 04/08. Neurology team evaluated patient 04/08, routine EEG with diffuse slowing but no epileptiform activities. Echo 04/09-- LVEF 65-75 %. No WMA. Left ventricular filling pressures are indeterminate. MRI brain with and without contrast 04/10-- No acute infarct. Cronic microangiopathic/small vessel ischemic change, CADASIL can give a similar appearance and should be considered. Chronic right cerebellar infarct. Chronic right pontine lacunar infarct. The anterior left temporal lobe with a small hypointense focus - ? hemorrhagic lesion, such as a small cavernous malformation within adjacent calcified developmental venous anomaly. A small focus of acute hemorrhage with surrounding edema is not excluded. A four-week interval follow-up examination can be obtained. Left temporal lobe and right frontal lobe lesion-- likely chronic microhemorrhage related to hypertension or amyloid angiopathy.Subarachnoid bleed (I60.9):Patient is seen by the neurosurgery team 04/07No acute neurosurgical interventionThey recommended to resume anticoagulation if okay with patient/family, patient will have risk for recurrent or progression of hemorrhage upon restarting anticoagulation.Keppra 500 mg BID [facility] given seizure possible and possible seizure focus in Left temporal regionNeurology signed off 04/11Outpatient follow up in epilepsy clinic - appointment requestedPer [place] state law, No driving until 6months event freeContinue neuro check, seizure precautionsSyncope (R55): Likely from seizureBased on current evaluation, no concern for vasovagal syncope; but patient did complain of orthostatic dizziness intermittently; also patient had history of epilepsy in childhood, no weakness seizure currently; does have history of SVT; currently telemetry not suggestive of significant arrhythmias.Orthostatic vitals, maintain fall precautions.Cont cardiac monitoringPt had some complaints muscular chest wall pain, EKG not significant.Delirium (R41.0)Metabolic encephalopathy (G93.41)Advanced dementia at baseline, oriented to self and close family members and familiar places, dependent in most of ADL S and all IADL'sRemote history of seizure in childhoodPatient on high-dose Seroquel 300 mg for long time and also high-dose sertraline 150 mg daily and also on Lyrica 100 mg at bedtime.Patient has some oral movement with concern of mild tardive dyskinesiaStarted low dose mirtazapine 7.5Family agrees to discontinue warfarin given the high risk of fall and bleedingContinue high-dose Seroquel. Can decrease the dose gradually as outpatient with concern of tardive dyskinesiaContinue home sertraline dose 150. Please decrease the dose as outpatientHematoma of arm (S40.029A): -per trauma Sx, supportive careHLD - Hyperlipidemia (E78.5): -Continue home LipitorHypertension (I10): Cont metoprolol. Changed dose from Metoprolol XL 50 mg to Metoprolol 50 mg BID for better BP control. Oral Hydralazine as needed.History of DVT in adulthood (Z86.718): Warfarin on hold because of SAH, continue metoprolol. Per NSG, okay to start per NSGY. Jia had long discussion with healthcare proxy about risk versus benefit and she agrees to discontinue full anticoagulation at this point. She will re-discuss that with PCP as outpatientMood disorder (F39): Continue home sertraline, Seroquel. Started on Mirtazapine 7.5mg dailyNeuropathy (G62.9): Cont LyricaHistory of HIV infection (B20): Cont Biktarvy While here at [facility] she continues with therapy and MIN A, functional sit to stand and pivot transfers to increase independence with VCfor sequencing, MIN A and pt ambulated with FWW, MIN A, minimal foot clearance and stride length, unsteady gait, and 50 feet to increase independence per last note. Pt is seen for request of T#3 today and states she was receiving this at [facility] and she is ordered for this here and has received it this am. Unclear of request from nursing. It is unclear why she hasn't received this and will override any side effect of itching as noted in a chart at [facility] some time ago. She reports oxycodone makes her dizzy with multiple allergies. Due to notes in neurosurgery consult on 04/11 and later dc on 04/17 above it seems while in hospital her keppra 500 mg po bid was only given for 7 days and dc'd, not FPC. It was not recommended on dc summary. fu with neurosurgery to see if this is needed going forward. On exam, she is in great spirits, positive, and denies any concerns. She has scattered ecchymosis on left upper arms and bilateral legs. She denies any concerns. She states the swollen upper arm is baseline for her after losing weight. No redness, or warm, positive cms to left hand noted. Remedios Vela NP [address] [facility], [address], [place], [address], [facility] 04/28/2024 09:29:37 025 text/ht ml Pt is seen for an acute rounding visit today. Inga is a 78 yo female admitted from hospital after presenting after fall with confusion, headache and nausea. Imaging positive for acute hemorrhagic CVA. AC stopped until follows with neurosurgery and cleared. Currently here at [facility] for rehab. Inga is refusing her T#3 lately and wants it prn instead. Will agree. She also states she is having hard stool and it finally is starting coming out after some mom over the weekend. On exam, she is in great spirits, positive, and denies any concerns. She has scattered ecchymosis on left upper arms and bilateral legs. She denies any concerns. She states the swollen upper arm is baseline for her after losing weight. No redness, or warm, positive cms to left hand noted. Remedios Vela NP [address] [facility], [address], [place], [address], [facility] 2024 20:05:16 025 text/ht ml Inga is seen today for a routine 30 day visit. She is a 78 yo female admitted from hospital after presenting after fall with confusion, headache and nausea. Imaging positive for acute hemorrhagic CVA. AC stopped until follows with neurosurgery and cleared. Currently here at [facility] for rehab. Currently Inga is having GI sx (N/V/D) for the past 2 days.Fortunately sx. are improving today. She is more comfortable, remains in bed, just weak. No vomiting or diarrhea so far today. She is taking fluids well, but doesn't feel like eating much yet. In good spirits, no other concerns at this time. [facility] monitored - stable so far. ZANA JACINTO NP [address] [facility], [address], [place], [address], [facility] 05/18/2024 12:55:41 025 text/ht ml Inga is seen today for discharge.She is going home tomorrow with support of services. She is a 78 yo female admitted from hospital after presenting after fall with confusion, headache and nausea. Imaging positive for acute hemorrhagic CVA. AC stopped until follows with neurosurgery and cleared. Currently here at [facility] for rehab. While here, Inga has done well.She has worked with rehab, meeting goals for d/c home with support of family and services.[facility] improvedStay complicated by viral gastroenteritis last week, now resolved. Upon exam, Inga is up in a chair in the dayroom, alert, NAD. In good spirits, denies any complaints, happy to be going home. ZANA JACINTO NP [address] [facility], [address], [place], [address], [facility] 05/19/2024 13:54:57 OBGyn Episode No OBEpisode recorded.
== END 2024-08-12 10:43 | disposition home or self-care (01) ==
LOC: HO.ENCR 09:46
PROVIDERS: PCP Family Medicine; Visit Provider Internal Medicine Endocrinology, Diabetes & Metabolism
DX: M81.0 Age-related osteoporosis without current pathological fracture (principal)
CPT/HCPCS: 99204

== ENCOUNTER → 2024-08-12 09:45 | Outpatient (BNVA) | payer OTHER, SELFPAY | PROVIDERS: PCP Family Medicine; Visit Provider Internal Medicine Endocrinology, Diabetes & Metabolism | DX: M81.0 Age-related osteoporosis without current pathological fracture (principal) | CPT/HCPCS: 99202 ==

== ENCOUNTER 2024-08-16 10:00 | Outpatient (REF) | payer MEDICARE, SELFPAY ==
--- OUTSIDE RECORDS SUMMARY | 2024-08-16 11:31 | XMS_ITS | Encounter Summary ---
Author Organization [facility] Address [address] [place] [address] Care Team Providers Care Screen Printing Supervisor Name Role Phone Abigail Rajput MD Primary Care Provider [phone] Encounter Details Date Type Department Care Team (Latest Contact Info) Description 05/04/2024 Lab Requisition [facility] - Main Lab [address] [facility] [place] [address] Frankie Sultana MD [address] [place] [address], [phone] Unspecified dementia, unspecified severity, without behavioral [...] AM EDT Office Visit Orthopedic Surgery - [place] [address] [phone] Rodrick Viera DPM [address] [address] documented as of this encounter Procedures Procedure [...] mmol/L LAB CHEMISTRY METHOD 05/05/2024 8:43 AM [facility] Potassium 3.7 3.5 - 5.5 mmol/L LAB CHEMISTRY METHOD 05/05/2024 8:43 AM [facility] Chloride 111(H) 96 - 110 mmol/L LAB CHEMISTRY METHOD 05/05/2024 8:43 AM [facility] CO2 29 21 - 32 mmol/L LAB CHEMISTRY METHOD 05/05/2024 8:43 AM [facility] Anion Gap 5 3 - 11 LAB CHEMISTRY METHOD 05/05/2024 8:43 AM [facility] Glucose 100 70 - 100 mg/dL LAB CHEMISTRY METHOD 05/05/2024 8:43 AM [facility] BUN 15 5 - 25 mg/dL LAB CHEMISTRY METHOD 05/05/2024 8:43 AM [facility] Creatinine 0.72 0.50 - 1.10 mg/dL LAB CHEMISTRY METHOD 05/05/2024 8:43 AM [facility] eGFR 85 >=60 mL/min/1. 73m2 LAB CHEMISTRY METHOD 05/05/2024 8:43 AM [facility] LAB Comment:Calculation based on the??Chronic Kidney Disease Epidemiology Collaboration (CKD-EPI) equation refit??without adjustment for race. BUN/Creatinine Ratio 20.8 LAB CHEMISTRY METHOD 05/05/2024 8:43 AM [facility] Calcium 8.7 8.5 - 10.5 mg/dL LAB CHEMISTRY METHOD 05/05/2024 8:43 AM [facility] Blood Venous blood specimen / Unknown Venipuncture / Unknown 05/05/2024 6:15 AM EST 05/05/2024 8:11 AM EST us Frankie Sultana MD LAB BLOOD ORDERABLES Final Resul t [facility] [address] [place] [address], * (ABNORMAL) Complete blood count (05/05/2024 6:15 AM EST) WBC 4.4(L) 4.8 - 10.8 K/mcL LAB HEMETOLOGY METHOD 05/05/2024 8:57 AM [facility] RBC 3.20(L) 3.80 - 4.80 M/mcL LAB HEMETOLOGY METHOD 05/05/2024 8:57 AM [facility] Hemoglobin 8.9(L) 11.5 - 16.0 g/dL LAB HEMETOLOGY METHOD 05/05/2024 8:57 AM [facility] Hematocrit 28.0(L) 35.0 - 47.0 % LAB HEMETOLOGY METHOD 05/05/2024 8:57 AM [facility] MCV 86.7 79.0 - 98.0 FL LAB HEMETOLOGY METHOD 05/05/2024 8:57 AM [facility] MCH 27.6 27.0 - 32.0 pcg LAB HEMETOLOGY METHOD 05/05/2024 8:57 AM [facility] MCHC 31.8(L) 32.0 - 37.0 g/dL LAB HEMETOLOGY METHOD 05/05/2024 8:57 AM [facility] RDW 15.2(H) 11.0 - 15.0 % LAB HEMETOLOGY METHOD 05/05/2024 8:57 AM EST [facility] Platelets 87(L) 130 - 400 K/mcL LAB HEMETOLOGY METHOD 05/05/2024 8:57 AM EST [facility] LAB Comment:reviewed by slide MPV 11.0 7.0 - 11.0 FL LAB HEMETOLOGY METHOD 05/05/2024 8:57 AM EST [facility] NRBC 0.0 <1.0 % LAB HEMETOLOGY METHOD 05/05/2024 8:57 AM EST [facility] NRBC Absolute 0.00 <0.10 K/mcL LAB HEMETOLOGY METHOD 05/05/2024 8:57 AM EST [facility] Blood Venous blood specimen / Unknown Venipuncture / Unknown 05/05/2024 6:15 AM EST 05/05/2024 8:11 AM EST us Frankie Sultana MD LAB BLOOD ORDERABLES Final Resul t [facility] [address] [place] [address], documented in this encounter Visit Diagnoses Diagnosis Unspecified dementia, unspecified severity, without behavioral disturbance, psychotic disturbance, mood disturbance, and anxiety ([facility]/HCC V24, [facility] V28) Human immunodeficiency virus (HIV) disease ([facility] V24, [facility] V28) Human immunodeficiency virus [HIV] disease documented in this encounter Care Teams Screen Printing Supervisor Relationship Specialty Start Date End Date Abigail Rajput MD [address] [place] [phone] PCP - General Family Medicine 03/03/24 documented as of this encounter
--- OUTSIDE RECORDS SUMMARY | 2024-08-16 11:31 | XMS_ITS | Clinical Summary ---
Author Organization [address] [place] [address] Address [address] [place] [address] Phone Care Team Providers Care Technical Operations Manager Name Role Phone Abigail Rajput MD Primary Care Provider [phone] Allergies Active Allergy Reactions Criticality Noted Date Comments Aspirin Skin Problems 03/26/2024 Ciprofloxacin Diarrhea 03/26/2024 Iodinated Contrast Media Hives 03/26/2024 Morphine 03/26/2024 Nsaids (Non-Steroidal Anti-I nflammatory Drug) 03/26/2024 Oxycodone 03/26/2024 Penicillin G 03/26/2024 Penicillin V 03/26/2024 [id number] Antimigraine Agents 1 05/27/2023 Medications acetaminophen-c odeine [...] Problem Noted Date Diagnosed Date Cerebellar infarction ([facility] V24, [facility] V28) 03/26/2024 Chronic anemia 03/26/2024 Chronic kidney disease, stage 3 ([facility] V24, [facility] V28) 03/26/2024 Chronic paranoid schizophrenia ([facility] V24, [facility] V28) 03/26/2024 Dyslipidemia 03/26/2024 Essential (primary) hypertension 03/26/2024 Fibromyalgia 03/26/2024 Human immunodeficiency virus infection ([facility] V24, [facility] V28) 03/26/2024 Primary osteoarthritis involving multiple joints 03/26/2024 Recurrent deep vein thrombosis ([facility] V24, [facility] V28) 03/26/2024 Type 2 diabetes mellitus ([facility] V24, [facility] V 28) 03/26/2024 Chronic anticoagulation 03/26/2024 Dilated bile duct 03/26/2024 SVT (supraventricular tachycardia) ([facility] V24) 03/26/2024 Pancreatic cyst 03/26/2024 Unsteady gait [...] AM EDT Office Visit Orthopedic Surgery - [place] [address] [address] Rodrick Viera, DPM [address] [address] Health Maintenance Due Date Last Done Comments [...] disturbance, psychotic disturbance, mood disturbance, and anxiety ([facility]/H[facility]) Human immunodeficiency virus (HIV) disease ([facility]) from Last 3 Months or Most Recently Relevant to Health Maintenance Results * (ABNORMAL) Basic metabolic panel (05/12/2024 6:44 AM EST) Sodium 142 133 - 145 mmol/L LAB CHEMISTRY METHOD 05/12/2024 2:22 PM [facility] Potassium 4.0 3.5 - 5.5 mmol/L LAB CHEMISTRY METHOD 05/12/2024 2:22 PM EST [facility] Chloride 111(H) 96 - 110 mmol/L LAB CHEMISTRY METHOD 05/12/2024 2:22 PM [facility] CO2 27 21 - 32 mmol/L LAB CHEMISTRY METHOD 05/12/2024 2:22 PM EST [facility] Anion Gap 4 3 - 11 LAB CHEMISTRY METHOD 05/12/2024 2:22 PM [facility] Glucose 87 70 - 100 mg/dL LAB CHEMISTRY METHOD 05/12/2024 2:22 PM [facility] BUN 11 5 - 25 mg/dL LAB CHEMISTRY METHOD 05/12/2024 2:22 PM [facility] Creatinine 0.89 0.50 - 1.10 mg/dL LAB CHEMISTRY METHOD 05/12/2024 2:22 PM [facility] eGFR 66 >=60 mL/min/1. 73m2 LAB CHEMISTRY METHOD 05/12/2024 2:22 PM [facility] Comment:Calculation based on the??Chronic Kidney Disease Epidemiology Collaboration (CKD-EPI) equation refit??without adjustment for race. BUN/Creatinine Ratio 12.4 LAB CHEMISTRY METHOD 05/12/2024 2:22 PM [facility] Calcium 9.1 8.5 - 10.5 mg/dL LAB CHEMISTRY METHOD 05/12/2024 2:22 PM [facility] Blood Venous blood specimen / Unknown Venipuncture / Unknown 05/12/2024 6:44 AM EST 05/12/2024 11:18 AM EST us Frankie Sultana MD LAB BLOOD ORDERABLES Final Resul t [facility] [address] [place] [address], from Last 3 Months or Most Recently Relevant to Health Maintenance Insurance , [address] [place] [id number] [place] [address] Member Subscriber Plan / Payer (Ef fective 2023-Present) Name:Inga Vidal Relation to Subscriber:Self Name:Inga Vidal Payer ID:[id number] Group ID:[id number] Type:Not on file Address: [facility] [address] [phone] Care Teams Technical Operations Manager Relationship Specialty Start Date End Date Abigail Rajput MD [address] [place] [phone] PCP - General Family Medicine 03/03/24
--- OUTSIDE RECORDS SUMMARY | 2024-08-16 11:31 | XMS_ITS | Encounter Summary ---
Author Organization [facility] Address [address] [place] [address] Care Team Providers Care Master Rigger Name Role Phone Abigail Rajput MD Primary Care Provider [phone] Encounter Details Date Type Department Care Team (Latest Contact Info) Description 05/11/2024 Lab Requisition [facility] - Main Lab [address] [facility] [place] [address] Frankie Sultana MD [address] [place] [address], [phone] Unspecified dementia, unspecified severity, without behavioral [...] AM EDT Office Visit Orthopedic Surgery - [place] [address] [phone] Rodrick Viera DPM [address] [address] documented as of this encounter Procedures Procedure [...] mmol/L LAB CHEMISTRY METHOD 05/12/2024 2:22 PM [facility] Potassium 4.0 3.5 - 5.5 mmol/L LAB CHEMISTRY METHOD 05/12/2024 2:22 PM [facility] Chloride 111(H) 96 - 110 mmol/L LAB CHEMISTRY METHOD 05/12/2024 2:22 PM [facility] CO2 27 21 - 32 mmol/L LAB CHEMISTRY METHOD 05/12/2024 2:22 PM [facility] Anion Gap 4 3 - 11 LAB CHEMISTRY METHOD 05/12/2024 2:22 PM [facility] Glucose 87 70 - 100 mg/dL LAB CHEMISTRY METHOD 05/12/2024 2:22 PM [facility] BUN 11 5 - 25 mg/dL LAB CHEMISTRY METHOD 05/12/2024 2:22 PM [facility] Creatinine 0.89 0.50 - 1.10 mg/dL LAB CHEMISTRY METHOD 05/12/2024 2:22 PM [facility] LAB eGFR 66 >=60 mL/min/1. 73m2 LAB CHEMISTRY METHOD 05/12/2024 2:22 PM [facility] LAB Comment:Calculation based on the??Chronic Kidney Disease Epidemiology Collaboration (CKD-EPI) equation refit??without adjustment for race. BUN/Creatinine Ratio 12.4 LAB CHEMISTRY METHOD 05/12/2024 2:22 PM [facility] Calcium 9.1 8.5 - 10.5 mg/dL LAB CHEMISTRY METHOD 05/12/2024 2:22 PM [facility] Blood Venous blood specimen / Unknown Venipuncture / Unknown 05/12/2024 6:44 AM EST 05/12/2024 11:18 AM EST us Frankie Sultana MD LAB BLOOD ORDERABLES Final Resul t [facility] [address] [place] [address], * (ABNORMAL) Complete blood count (05/12/2024 6:44 AM EST) WBC 2.9(L) 4.8 - 10.8 K/mcL LAB HEMETOLOGY METHOD 05/12/2024 11:56 AM [facility] RBC 3.60(L) 3.80 - 4.80 M/mcL LAB HEMETOLOGY METHOD 05/12/2024 11:56 AM [facility] Hemoglobin 10.0(L) 11.5 - 16.0 g/dL LAB HEMETOLOGY METHOD 05/12/2024 11:56 AM [facility] Hematocrit 31.2(L) 35.0 - 47.0 % LAB HEMETOLOGY METHOD 05/12/2024 11:56 AM [facility] MCV 87.4 79.0 - 98.0 FL LAB HEMETOLOGY METHOD 05/12/2024 11:56 AM [facility] MCH 28.0 27.0 - 32.0 pcg LAB HEMETOLOGY METHOD 05/12/2024 11:56 AM [facility] MCHC 32.1 32.0 - 37.0 g/dL LAB HEMETOLOGY METHOD 05/12/2024 11:56 AM [facility] RDW 14.9 11.0 - 15.0 % LAB HEMETOLOGY METHOD 05/12/2024 11:56 AM EST [facility] Platelets 121(L) 130 - 400 K/mcL LAB HEMETOLOGY METHOD 05/12/2024 11:56 AM EST [facility] MPV 11.3(H) 7.0 - 11.0 FL LAB HEMETOLOGY METHOD 05/12/2024 11:56 AM EST [facility] NRBC 0.0 <1.0 % LAB HEMETOLOGY METHOD 05/12/2024 11:56 AM EST [facility] NRBC Absolute 0.00 <0.10 K/mcL LAB HEMETOLOGY METHOD 05/12/2024 11:56 AM EST [facility] Blood Venous blood specimen / Unknown Venipuncture / Unknown 05/12/2024 6:44 AM EST 05/12/2024 11:18 AM EST us Frankie Sultana MD LAB BLOOD ORDERABLES Final Resul t [facility] [address] [place] [address], documented in this encounter Visit Diagnoses Diagnosis Unspecified dementia, unspecified severity, without behavioral disturbance, psychotic disturbance, mood disturbance, and anxiety ([facility] V24, [facility] V28) Human immunodeficiency virus (HIV) disease ([facility] V24, [facility] V28) Human immunodeficiency virus [HIV] disease documented in this encounter Care Teams Master Rigger Relationship Specialty Start Date End Date Abigail Rajput MD [address] [place] [phone] PCP - General Family Medicine 03/03/24 documented as of this encounter
--- OUTSIDE RECORDS SUMMARY | 2024-08-16 11:31 | XMS_ITS | Data Portability ---
Author Organization [facility] Segment [facility], Main Office Address [address], [address] [place] [address] Care Team Providers Care Experimental Worker Name Role Phone JEAN-CLAUDE OROZCO - 2ND FLOOR OTHER Assessment Encounter Date Assessment Date Assessment LastModified by Organization Details LastModified Time 05/19/2024 05/19/2024 45 minutes spent on coordination of discharge [email or web address] Not available 05/19/2024 13:54:44 Plan of Treatment [...] and Address Organization Details Recorded Time Falls 284202665 Active 2023 JULIEN RING NP [address] [facility], [address], [place], [address], [facility] 4 15:14:09 History of deep vein thrombosis 742245513 Active 2023 JULIEN RING NP [address] [facility], [address], [place], [address], [facility] 4 15:14:24 Osteoporosis 92053406 Active 2023 JULIEN RING NP [address] [facility], [address], [place], [address], [facility] 4 15:14:30 Human immunodeficien cy virus infection 74002902 Active 2023 JULIEN RING NP [address] [facility], [address], [place], [address], [place] [facility] 4 15:14:42 Dementia 47056700 Active 2023 JULIEN RING NP [address], [address], [place], [address], [facility] 4 15:14:48 Subarachnoid hemorrhage 02118089 Active 2023 JULIEN RING NP [address], [address], [place], [address], [facility] 4 15:23:09 Essential hypertension 81589521 Active 2023 JULIEN RING NP [address], [address], [place], [address], [facility] 4 15:25:07 Hyperlipidemia 42161103 Active 2023 JULIEN RING NP [address], [address], [place], [address], [facility] 4 15:25:14 Gastroesophage al reflux disease without esophagitis 198407369 Active 2023 Frankie Sultana MD [address], [address], [place], [address], [facility] 4 10:43:41 Primary insomnia 4355011 Active 2023 Frankie Sultana MD [address], [address], [place], [address], [facility] 4 10:44:24 Pancytopenia 846391603 Active 2024 ZANA JACINTO NP [address], [address], [place], [address], [facility] 5 12:42:01 Problem Notes None recorded. Medical Equipment None Reported. Allergies Allergen ID Allergen Name Allergen Category Reaction Reaction Severity Criticality Documentation Date Start Date Code Code System Note Provider Name and Address Organization Details Recorded Time 67066 Product containin g penicilli n (product) medicatio n Not available Not available Not available 04/17/2024 86202 8001 SNOMED Not Available Not Available Not Available 82791 Cipro medicatio n Not available Not available Not available 04/17/2024 90579 3 RxNorm Not Available Not Available Not Available 55496 Non-stero idal anti-infl ammatory agent (product) medicatio n Not available Not available Not available 04/17/2024 81061 005 SNOMED Not Available Not Available Not Available 79118 iodine medicatio n Not available Not available Not available 04/17/2024 5933 RxNorm Not Available Not Available Not Available 22683 aspirin medicatio n Not available Not available Not available 04/20/20242023 1191 RxNorm unrec ogniz ed react ion (text : Skin Probl ems, code: [id number]) (from exter nal sourc e) Not Available Not Available Not Available 96805 ciproflox acin medicatio n diarrhea Not available Not available 04/20/20242023 2551 RxNorm Not Available Not Available Not Available 04433 Iodinated contrast media (substanc e) medicatio n hives Not available Not available 04/20/20242023 02840 2004 SNOMED Not Available Not Available Not Available 94058 morphine medicatio n Not available Not available Not available 04/20/20242023 7052 RxNorm Not Available Not Available Not Available 37192 oxycodone medicatio n Not available Not available Not available 04/20/20242023 7804 RxNorm Not Available Not Available Not Available 36747 penicilli n G Not available Not available Not available Not available 04/20/20242023 7980 RxNorm Not Available Not Available Not Available 38932 sumatript an medicatio n Not available Not available Not available 04/20/20242023 54240 RxNorm Not Available Not Available Not Available Vitals Date Recorded Body weight Heart rate Respiratory rate Body temperature Oxygen saturation Oxygen saturation in Arterial blood by Pulse oximetry Systolic blood pressure Diastolic blood pressure Provider Name and Address Organization Details Last Updated DateTime 5 68017.4 8 g 77 /min 16 /min 97.3 [degF] 97 % 97 % 91 mm[Hg] 52 mm[Hg] Remedios Vela, MARJORIE [address] [facility], [address], [place], [address], [facility] 5 08:25:15 Date Recorded Body weight Heart rate Respiratory rate Body temperature Oxygen saturation Oxygen saturation in Arterial blood by Pulse oximetry Systolic blood pressure Diastolic blood pressure Provider Name and Address Organization Details Last Updated DateTime 5 40030.4 8 g 78 /min 18 /min 97.8 [degF] 98 % 98 % 132 mm[Hg] 60 mm[Hg] Remedios Vela NP [address] [facility], [address], [place], [address], [facility] 5 19:42:37 Date Recorded Heart rate Respiratory rate Body temperature Oxygen saturation Oxygen saturation in Arterial blood by Pulse oximetry Systolic blood pressure Diastolic blood pressure Provider Name and Address Organization Details Last Updated DateTime 5 74 /min 17 /min 98.2 [degF] 95 % 95 % 132 mm[Hg] 60 mm[Hg] ZANA JACINTO NP [address] [facility], [address], [place], [address], [facility] 5 12:28:29 Date Recorded Heart rate Respiratory rate Body temperature Oxygen saturation Oxygen saturation in Arterial blood by Pulse oximetry Systolic blood pressure Diastolic blood pressure Provider Name and Address Organization Details Last Updated DateTime 5 77 /min 18 /min 97.5 [degF] 98 % 98 % 132 mm[Hg] 60 mm[Hg] ZANA JACINTO NP [address] [facility], [address], [place], [address], [facility] 5 13:27:17 Date Recorded Systolic blood pressure Diastolic blood pressure Provider Name and Address Organization Details Last Updated DateTime 04/19/2024 115 mm[Hg] 65 mm[Hg] Frankie Sultana MD [address] [facility], [address], [place], [address], [facility] 04/19/2024 10:33:58 Social History Question Answer Notes LastModified by Organizat ion Details LastModified Time Tobacco Smoking Status Never Smoker JULIEN RING NP [address] [facility], [address], [place], [address], [facility] 04/17/2024 15:15:37 Do You Have An [...] B, unspecified formulation 0 completed Chelly Peñaloza [facility] 04/20/2024 14:21:23 Hep B, unspecified formulation 0 completed Chelly Peñaloza [facility] 04/20/2024 14:21:34 Hep B, unspecified formulation 1 [facility] 14:21:43 Hep B, unspecified formulation 1 [facility] 14:21:53 Hep B, unspecified formulation 1 completed Chelly Peñaloza [facility] 04/20/2024 14:22:01 Tdap 2 completed [facility] 14:22:20 Tdap 4 completed [facility] 14:22:30 Pneumococcal conjugate PCV 13 4 completed Chelly Peñaolza [facility] 04/20/2024 14:22:53 pneumococcal polysaccharide PPV23 0 completed [facility] 04/[facility]24 14:23:21 pneumococcal polysaccharide PPV23 5 completed Chelly Peñaloza [facility] 04/20/2024 14:23:50 pneumococcal polysaccharide PPV23 2 completed Chelly [facility] 04/20/2024 14:23:58 influenza, unspecified formulation 4 completed Chelly [facility] 04/20/2024 14:25:58 influenza, unspecified formulation 2 completed [facility] 04/20/2024 14:26:13 meningococcal ACWY, unspecified formulation 7 completed Chelly [facility] 04/20/2024 14:26:35 meningococcal ACWY, unspecified formulation 7 completed Chelly [facility] 04/20/2024 14:26:43 SARS-COV-2 (COVID-19) vaccine, UNSPECIFIED 1 completed Chelly [facility] 04/20/2024 14:26:58 SARS-COV-2 (COVID-19) vaccine, UNSPECIFIED 2 completed Chelly [facility] 04/20/2024 14:27:05 Past Encounters Encounter ID Performer Location Encounter Start Date Encounter Closed Date Diagnosis/Indication Diagnosis SNOMED-CT Code Diagnosis ICD10 Code Diagnosis Note [id number] JULIEN RING NP [address] [address] 04/17/2024 14:36:06 04/19/2024 12:40:19 Falls 752719463 R29.6 PT OT eval and treatfall precaution sfrequent safety checks Subarachno id hemorrhage 13979866 I60.9 monitor neurosdisc uss restarting Coumadin with family-ris k v. benefitmon itor for seizuresly jimmy 100 mg daily History of deep vein thrombosis 535664908 Z86.718 coumadin stopped due to bleed Dementia 05524756 F03.90 seroquel 300 mg hsZoloft 150 mg dailypsych prn Human immunodeficiency virus infection 58064400 B20 bictegravi r/emtricit ab/tenofov 30/120/15 daily Osteoporosis 48055974 M8 1.0 T3 bidCaD 2 dailyMVI Essential hypertension 89772175 I10 amlodipine 10 mg dailytopro l 50 mg dailymonit or bp Hyperlipidemia 31683446 E78.5 atrovastat in 40 mg daily [id number] Frankie Sultana MD [address] [address] 04/19/2024 10:33:18 04/20/2024 13:19:47 Falls 532840311 R29.6 PT OT eval and treatmonit or fall risk History of deep vein thrombosis 803306334 Z86.718 see above with recent CVAAC on hold till cleared by surgery Dementia 31400970 F01.B3 carrying dxappears high functionin gmaintaine d onseroquel 300 mg qdZoloft 150 mg qdmonitor for behaviorsp sych eval prnmonitor need to invoke HCP currently able to make own medical decisions Human immunodeficiency virus infection 95420899 B20 carrying dxmaintain ed onbictegra vir/emtric itab/tenof ov dailycoord inate with ID as neededupda te with concerns Essential hypertension 87841993 I10 norvasc 10 mg qdmetoprol ol 50 mg qdmonitor bp and need to titrate Hyperlipidemia 27746710 E78.2 lipitor 20 mg qdcontinue d Subarachno id hemorrhage due to traumatic injury 521913738 S06.6X0D see HPI s/p fallImagin g positive for acute hemorrhagi c CVAEval by neurosurge ry with no interventi on indicated at that timeHad been on AC prior with hx of dvt now in hold till cleared by neurosurge rymonitor for changeupda te neurosurge ry with concerns Gastroesop hageal reflux disease without esophagitis 081421924 K21.9 pantoprazo le 40 mg qdmonitor sx control Primary insomnia 1180220 F51.01 melatonin 3 mg qhsmonitor for effect [id number] Remedios Vela NP [address] [address] 04/28/2024 08:23:36 04/29/2024 10:05:53 Subarachnoid hemorrhage due to traumatic injury 845736391 S06.6X0D see HPI s/p fallImagin g positive [...] to check if this is scheduled. Falls 786066555 R29.6 family reporting falls at homePT OT eval and treatsuppo rtive caremonito r fall risk History of deep vein thrombosis 919894882 Z86.718 see above with recent CVAAC on hold till cleared by surgeryfu with neurosurge ry as above Dementia 71265851 F01.B3 hx ofappears high functionin gmaintaine d onseroquel 300 mg qdZoloft 150 mg qdmonitor for behaviorsp sych eval prnmonitor need to invoke HCP currently able to make own medical decisions Human immunodeficiency virus infection 54264496 B20 hx ofmaintain ed onbictegra vir/emtric itab/tenof ov 30/120/15 dailycoord inate with ID as neededupda te with concerns Essential hypertension 37921887 I10 norvasc 10 mg qdmetoprol ol 50 mg qdmonitor bp and need to titrate Hyperlipidemia 64863348 E78.2 lipitor 20 mg qdcontinue d Gastroesop hageal reflux disease without esophagitis 231580085 K21.9 pantoprazo le 40 mg qdmonitor sx control Primary insomnia 1839037 F51.01 melatonin 3 mg qhsmonitor for effect Osteoporosis 34448829 M8 1.0 T3 bid ( on this at home at baseline-o verride allergy for itching if noted-side effect)CaD 2 dailyMVImo nitor [id number] Remedios Vela NP [address] [address] 2024 08:19:19 05/05/2024 09:32:31 Subarachnoid hemorrhage due to traumatic injury 325985822 S06.6X0D Imaging positive for acute hemorrhagi c [...] scheduledm onitor neuros and for changes Falls 969334909 R29.6 family reporting falls at homePT OT eval and treatsuppo rtive caremonito r fall risk Dementia 42012655 F01.B3 hx ofappears high functionin gmaintaine d onseroquel 300 mg qdZoloft 150 mg qdmonitor for behaviorsp sych eval prnmonitor need to invoke HCP currently able to make own medical decisions Essential hypertension 56389868 I10 bp stable, no acute shifts in bp warranted with cvacontnor vasc 10 mg qdmetoprol ol 50 mg qdmonitor bp and need to titrate Osteoporosis 09162945 M8 1.0 05/03 change T3 bid to T3 bid prn per requestCal cium dailyMVImo nitor Constipation 89770011 K5 9.00 pt with constipati on05/03 start senna 2 qhshouse bowel protocol prnmonitor [id number] ZANA JACINTO NP [address] [address] 05/12/2024 12:27:56 05/18/2024 14:39:52 Constipation 01475054 K59.00 Started senna 2 qd on 05/03Now with loose stool, suspect related to viral gastroente ritis.Hold senna as neededMain tain fluids, activityMo nitor and adjust meds prn Osteoporosis 74415700 M8 1.0 05/03- changed T3 bid to T3 bid prn per request, remy. wellCalciu m dailyMVImo nitor Subarachno id hemorrhage due to traumatic injury 922663742 S06.6X0D Imaging positive for acute hemorrhagi c CVA sp fallSeen by Neurosurge ry, no surgical interventi on warranted. Currently off AC - resume when cleared by Neurosurge Nuha keppra for 7 days in hosp., not continued here.updat e neurosurge ry with concerns and fu apptnsg to check if this is scheduledm onitor neuros and for changes Falls 475570496 R29.6 family reporting falls at homePT OT eval and treatsuppo rtive caremonito r fall riskgoal is to return home. Dementia 49861420 F01.B3 hx ofappears high functionin gmaintaine d onseroquel 300 mg qdZoloft 150 mg qdmonitor for behaviorsp sych eval prnmonitor need to invoke HCP currently able to make own medical decisions Essential hypertension 83732150 I10 VSScontnor vasc 10 mg qdmetoprol ol 50 mg qdmonitor bp and need to titrate Pancytopenia 450723021 D 61.818 Labs here consistent with labs at [facility], but no formal dx. of pancytopen ia found in [facility] paperwork. Monitor for now, can consider heme referral if labs worsen.CBC q fri x 2 more weeksMonit or s/s active bleeding.C urrently off AC Viral gastroenteritis 11 6101129 A08.4 N/V/D x 2 days, feeling better today, just tired.Taki ng fluids well - continue for now, advance diet as tolerated. Hold laxatives prn, utilize imodium, zofran prnMonitor closely [id number] ZANA JACINTO NP [address] [address] 05/19/2024 13:26:33 05/21/2024 10:38:51 Viral gastroenteritis 375007639 A08.4 N/V/D x 2 days last week, now resolved.M onitor closely as outpt. Pancytopenia 848175285 D 61.818 Labs here consistent with labs at [facility], but no formal dx. of pancytopen ia found in [facility] paperwork. Monitor labs as outpt.Amie tor s/s active bleeding.C urrently off AC Constipation 50971229 K5 9.00 Started senna 2 qd on 05/03Mainta in fluids, activityMo nitor and adjust meds prn Subarachno id hemorrhage due to traumatic injury 525859083 S06.6X0D Imaging positive for acute hemorrhagi c CVA sp fallSeen by Neurosurge [place], no surgical interventi on warranted. Currently off AC - resume when cleared by Neurosurge Nuha cabral for 7 days in hosp., not continued here.updat e neurosurge ry with concerns and fu as requested. monitor neuros and for changes as outpt. Essential hypertension 73397739 I10 VSScontinu e:norvasc 10 mg qdmetoprol ol 50 mg qdmonitor bp and need to titrate Falls 194860307 R29.6 family reporting falls at homePT OT eval and treat, meeting goals for d/c back home tomorrow with services.m onitor fall risk as outpt. Osteoporosis 75933795 M8 1.0 T3 bid prn - using on occasionCo ntinue Calcium daily, MVImonitor Dementia 95973828 F01.B3 hx ofappears high functionin gmaintaine d onseroquel 300 mg qdZoloft 150 mg qdmonitor for behaviors Human immunodeficiency virus infection 29858328 B20 Continue home meds Hyperlipidemia 22691933 E78.2 Continue artorvasta tin 20 mg qd Gastroesop hageal reflux disease without esophagitis 625307943 K21.9 Continue pantoprazo le 40 mg daily Health Concerns Section Related Observation LastModified by Organization Detai ls LastModified Time None Recorded Concern Status LastModified by Organization Details LastModified Time None Recorded Advance Directives Directive Y: Payers Encounter Date Sequence Insurance Name Policy Number Policy Nuñez Covered Member ID Nuñez Member ID Guarantor Name 04/19/2024 1 [facility] - DOS ON OR AFTER 2022 - MEDICARE [place]VANTAGE [place]ARE [place]ACEMENT/ADV ANTAGE - PPO) [place] Young [id number] [facility] 04/28/2024 1 [email or web address] DOS ON OR AFTER 2022 - [place]IC[place]AC[place]/ADV ANTAGE - PPO) [place] Young [id number] [facility] 2024 1 [email or web address] DOS ON OR AFTER 2022 - [place]/ADV ANTAGE - PPO) [place] Young [id number] [facility] 05/12/2024 1 [facility] - DOS ON OR AFTER 2022 - [place]/ADV ANTAGE - PPO) Inga Young [id number] Inga Vidal 05/19/2024 1 [facility] - DOS ON OR AFTER 2022 - [place]/ADV ANTAGE - PPO) Inga Vidal [id number] Inga Vidal Notes Date Note Type Note [...] continued care and therapy Frankie Sultana MD [address] [place] [address], [address], [place], [address], [facility] 04/19/2024 10:51:19 025 text/ht ml Pt is seen for an acute rounding visit today. She is a 78 yo female admitted from hospital after presenting after fall with confusion, headache and nausea. Imaging positive for acute hemorrhagic CVA here at [facility] for rehab. She was seen by neurosurgery with no intervention indicated at that time. She was started on keppra in the hospital, however not listed on dc summary. Had been on AC prior with hx of dvt now in hold till cleared by neurosurgery. Follow up appt recommended and will check with nursing if scheduled. per hospital dc [facility]: 78 years old patient with medical [...] hemorrhage upon restarting anticoagulation.Keppra 500 mg BID detention given seizure possible and possible seizure focus in Left temporal regionNeurology signed off 04/11Outpatient follow up [place] epilepsy clinic - appointment requestedPer [place] state law, No driving until 6months event [...] infection (B20): Cont Biktarvy While here at [facility] she continues with therapy and MIN A, functional sit to stand and pivot transfers to increase independence with VCfor sequencing, MIN A and pt ambulated with FWW, MIN A, minimal foot clearance and stride length, unsteady gait, and 50 feet to increase independence per last note. Pt is seen for request of T#3 today and states she was receiving this at [facility] and she is ordered for this here and has received it this am. Unclear of request from nursing. It is unclear why she hasn't received this and will override any side effect of itching as noted in a chart at [facility] some time ago. She reports oxycodone makes her dizzy with multiple allergies. Due to notes in neurosurgery consult on 04/11 and later dc on 04/17 above it seems while in hospital her keppra 500 mg po bid was only given for 7 days and dc'd, not [facility]. It was not recommended on dc summary. [...] hand noted. Remedios Vela NP [address] [facility], [address], [place], [address], [facility] 04/28/2024 09:29:37 025 text/ht ml Pt is seen for an acute rounding visit today. Inga is a 78 yo female admitted from hospital after presenting after fall with confusion, headache and nausea. Imaging positive for acute hemorrhagic CVA. AC stopped until follows with neurosurgery and cleared. Currently here at [facility] for rehab. Inga is refusing her [...] hand noted. Remedios Vela NP [address] [facility], [address], [place], [address], [facility] 2024 20:05:16 025 text/ht ml Inga is seen today for a routine 30 day visit. She is a 78 yo female admitted from hospital after presenting after fall with confusion, headache and nausea. Imaging positive for acute hemorrhagic CVA. AC stopped until follows with neurosurgery and cleared. Currently here at [facility] for rehab. Currently Inga is having [...] so far. ZANA JACINTO NP [address] [facility], [address], [place], [address], [facility] 05/18/2024 12:55:41 025 text/ht ml Inga is seen today for discharge.She is going home tomorrow with support of services. She is a 78 yo female admitted from hospital after presenting after fall with confusion, headache and nausea. Imaging positive for acute hemorrhagic CVA. AC stopped until follows with neurosurgery and cleared. Currently here at [facility] for rehab. While here, Inga has done well.She has worked with rehab, meeting goals for d/c home with support of family and services.VSSLabs improvedStay complicated by viral gastroenteritis last week, now resolved. Upon exam, Inga is up in a chair in the dayroom, alert, NAD. In good spirits, denies any complaints, happy to be going home. ZANA JACINTO NP [address] [facility], [address], [place], [address], [facility] Segment [facility] 05/19/2024 13:54:57 OBGyn Episode No OBEpisode recorded.
--- OUTSIDE RECORDS SUMMARY | 2024-08-16 11:32 | XMS_ITS | Encounter Summary ---
Author Organization [facility] Address [address] [place] [address] Care Team Providers Care Territory Business Manager Name Role Phone Abigail Rajput MD Primary Care Provider Encounter Details Date Type Department Care Team (Latest Contact Info) Description 04/29/2024 Lab Requisition [facility] - Main Lab [address] [facility] [place] [address] Frankie Sultana MD [address] [place] [address], [phone] Unspecified dementia, unspecified severity, without behavioral [...] AM EDT Office Visit Orthopedic Surgery - [place] [address] [phone] Rodrick Viera DPM [address] [address] documented as of this encounter Procedures Procedure [...] mmol/L LAB CHEMISTRY METHOD 04/29/2024 11:08 AM [facility] Potassium 4.1 3.5 - 5.5 mmol/L LAB CHEMISTRY METHOD 04/29/2024 11:08 AM [facility] Chloride 113(H) 96 - 110 mmol/L LAB CHEMISTRY METHOD 04/29/2024 11:08 AM [facility] CO2 27 21 - 32 mmol/L LAB CHEMISTRY METHOD 04/29/2024 11:08 AM [facility] Anion Gap 4 3 - 11 LAB CHEMISTRY METHOD 04/29/2024 11:08 AM [facility] Glucose 89 70 - 100 mg/dL LAB CHEMISTRY METHOD 04/29/2024 11:08 AM [facility] BUN 16 5 - 25 mg/dL LAB CHEMISTRY METHOD 04/29/2024 11:08 AM [facility] Creatinine 0.80 0.50 - 1.10 mg/dL LAB CHEMISTRY METHOD 04/29/2024 11:08 AM [facility] eGFR 76 >=60 mL/min/1. 73m2 LAB CHEMISTRY METHOD 04/29/2024 11:08 AM [facility] Comment:Calculation based on the??Chronic Kidney Disease Epidemiology Collaboration (CKD-EPI) equation refit??without adjustment for race. BUN/Creatinine Ratio 20.0 LAB CHEMISTRY METHOD 04/29/2024 11:08 AM [facility] Calcium 8.8 8.5 - 10.5 mg/dL LAB CHEMISTRY METHOD 04/29/2024 11:08 AM [facility] Blood Venous blood specimen / Unknown Venipuncture / Unknown 04/29/2024 7:02 AM EST 04/29/2024 9:29 AM EST us Frankie Sultana MD LAB BLOOD ORDERABLES Final Resul t [facility] [address] [place] [address], * (ABNORMAL) Complete blood count (04/29/2024 7:02 AM EST) WBC 2.7(L) 4.8 - 10.8 K/mcL LAB HEMETOLOGY METHOD 04/29/2024 10:54 AM [facility] RBC 3.40(L) 3.80 - 4.80 M/mcL LAB HEMETOLOGY METHOD 04/29/2024 10:54 AM [facility] Hemoglobin 9.5(L) 11.5 - 16.0 g/dL LAB HEMETOLOGY METHOD 04/29/2024 10:54 AM [facility] Hematocrit 30.4(L) 35.0 - 47.0 % LAB HEMETOLOGY METHOD 04/29/2024 10:54 AM [facility] MCV 88.9 79.0 - 98.0 FL LAB HEMETOLOGY METHOD 04/29/2024 10:54 AM [facility] MCH 27.8 27.0 - 32.0 pcg LAB HEMETOLOGY METHOD 04/29/2024 10:54 AM [facility] MCHC 31.3(L) 32.0 - 37.0 g/dL LAB HEMETOLOGY METHOD 04/29/2024 10:54 AM [facility] RDW 15.5(H) 11.0 - 15.0 % LAB HEMETOLOGY METHOD 04/29/2024 10:54 AM EST [facility] Platelets 106(L) 130 - 400 K/mcL LAB HEMETOLOGY METHOD 04/29/2024 10:54 AM EST [facility] MPV 11.8(H) 7.0 - 11.0 FL LAB HEMETOLOGY METHOD 04/29/2024 10:54 AM EST [facility] NRBC 0.0 <1.0 % LAB HEMETOLOGY METHOD 04/29/2024 10:54 AM EST [facility] NRBC Absolute 0.00 <0.10 K/mcL LAB HEMETOLOGY METHOD 04/29/2024 10:54 AM [facility] Blood Venous blood specimen / Unknown Venipuncture / Unknown 04/29/2024 7:02 AM EST 04/29/2024 9:29 AM EST us Frankie Sultana MD LAB BLOOD ORDERABLES Final Resul t [facility] [address] [place] [address], documented in this encounter Visit Diagnoses Diagnosis Unspecified dementia, unspecified severity, without behavioral disturbance, psychotic disturbance, mood disturbance, and anxiety ([facility] V24, [facility] V28) Human immunodeficiency virus (HIV) disease ([facility] V24, [facility] V28) Human immunodeficiency virus [HIV] disease documented in this encounter Care Teams Territory Business Manager Relationship Specialty Start Date End Date Abigail Rajput MD [address] [place] [phone] PCP - General Family Medicine 03/03/24 documented as of this encounter
--- OUTSIDE RECORDS SUMMARY | 2024-08-16 11:32 | XMS_ITS | Data Portability ---
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 I provided real-time medical direction for this encounter and was immediately available to provide additional phone-based assistance as needed. History as noted in EMR and by staffing branch manager. I would add / emphasize: patient with [...] Assessment and Plan as documented by the Business Rules Developer. I provided real -time medical direction via phone for this encounter, and was available for additional phone based assistance as needed. Patient given the opportunity to ask questions. [email or web address] Not available 12/31/2021 11:37:38 02/14/2022 02/14/2022 I have reviewed and agree with the Assessment and Plan as documented by the Business Rules Developer. I provided real-time medical direction via phone [...] QL IA, respiratory specimen 2021 [email or web address] [facility], [address] [place] [address], [phone] 11:44:30 rapid flu (A+B) 2021 [email or web address] 0 [facility], [address] [place] [address], [phone] 11:44:30 glucose, fingerstick , blood 2021 [email or web address] 0 [facility], [address] [place] [address], [phone] 11:44:30 rapid strep group A, throat 2021 [email or web address] 0 [facility], [address] [place] [address], [phone] 11:44:30 Referral None recorded. Procedures None recorded. Surgeries None recorded. Imaging electrocard iogram 2021 [facility], [address] [place] [address], [phone] 3 05:00:52 Medication Orders meclizine 25 mg tablet 2021 [facility], [address] [place] [address], [id number], 14:59:26 lidocaine 5 % topical ointment 2021 [facility], [address] [place] [address], [id number], 11:39:28 prednisone 20 mg tablet 2021 [facility], [address] [place] [address], [phone], 11:48:14 prednisone 20 mg tablet 09/12/ 2022 09/12/2 022 [email or web address] Not available 11:44:30 ipratropium 0.5 mg-albutero l 3 mg (2.5 mg base)/3 mL nebulizatio n soln 2021 022 [email or web address] 0 [facility], [address] [place] [address], [facility], [place], [place], [phone], 11:44:30 Patient TargetsNo targets recorded. Patient InstructionsNo instructions recorded. Reason for Referral None Reported. Results Created Date Observation Date Name Description Value Unit Range Abnormal Flag Note LastModifiedBy Organization Detail LastModifiedTime 01/01/20 22 12/31/2021 gluco se, finge rstic k, blood Blood Glucose: mg/dl 124 Not Available [address], [phone] 12/31/2021 11:38:31 01/01/20 22 12/31/2021 rapid strep group A, throa t Strep negati ve Not Available [facility] ed [address] [place] [address], [phone] 12/31/2021 11:39:46 01/01/20 22 12/31/2021 rapid flu (A+B) Flu negati ve Not Available [facility] ed [address] [place] [address], [phone] 12/31/2021 11:37:55 01/01/20 22 12/31/2021 rapid SARS CoV 2 Ag, QL IA, respi rator y speci men rapid SARS CoV 2 Ag, QL IA, respiratory specimen negati ve Not Available [facility] ed [address] [place] [address], [phone] 12/31/2021 11:37:54 01/01/20 22 12/31/2021 elect rocar diogr am No observ ation record ed. [address], [phone] 12/31/2021 17:32:24 Result Notes None recorded. Procedures Surgical History None recorded. Imaging Results Imaging Date Name Status LastModified by Organization Details LastModified Time 12/31/2021 electrocardiogram completed [address], [phone] 12/31/2021 17:32:24 Procedure Notes None recorded. Medical Equipment None Reported. Allergies Allergen ID Allergen Name Allergen Category Reaction Reaction Severity Criticality Documentation Date Start Date Code Code System Note Provider Name and Address Organization Details Recorded Time 1041 Product containin g penicilli n (product) medicatio n Not available Not available Not available 12/31/2021 57859 8001 SNOMED Not Available [facility] - production 4 03:41:20 1042 aspirin medicatio n Not available Not available Not available 12/31/2021 1191 RxNorm Not Available [facility] - production 4 03:41:20 1043 Iodinated contrast media (substanc e) medicatio n Not available Not available Not available 12/31/2021 40347 2003 SNOMED Lisa Madden MD [address] [place] [address],[address], [place], [phone] [place] [address] [employer], [facility] 2 12:00:24 8008 ciproflox acin medicatio n [...] LastModified Time comfrt touch pad alc prep eaches USE DIRECTED TO CHECK BLOOD SUGAR DIRECTED active Not Available Not Available No t Available comfrt touch pad alc prep active Not Available Not Available Not Available atorvastatin 20 mg tablet active Not [...] [degF] 157.48 cm 20 /min 78 /min 59671.5 6 g 157.48 cm 96 % 96 % 15795.5 6 g 98.1 [degF] 78 /min 20 /min 146 mm[Hg] 73 mm[Hg] 146 mm[Hg] 73 mm[Hg] Not Available [employer] 2 12:22:48 Date Recorded Heart rate Oxygen [...] mm[Hg] 159 mm[Hg] 79 mm[Hg] Not Available [employer] 2 12:13:02 Date Recorded Oxygen saturation Oxygen [...] mm[Hg] 135 mm[Hg] 75 mm[Hg] Not Available [employer] 15:43:49 Social History None recorded. Functional Status [...] 2122 Rufino Guillermo MD Main - [facility] [address] [place] [phone] 10/01/2021 20:06:38 12/14/2021 14:34:37 Cough 36432185 R05.9 3906 Lisa Madden MD Main - [facility] [address] [place] [phone] 12/31/2021 10:39:10 01/02/2022 12:00:52 Viral upper respiratory tract infection 173818672 J06.9 increased aeration/ air movement after neb- pat has albuterol for nebulizer at home but had no mask for compressor - given mask by [facility]- to use 4 x per day- [...] or syncope to call 911 Chest pain 99518802 R07. 9 pain is only with cough- given age and hx cad- ekg obtained- patient reassured 4868 Rufino Guillermo MD Main - [facility] [address] [place] [phone] 02/14/2022 11:29:12 02/19/2022 12:48:37 Pain of shoulder region 66578058 M25.519 6433 Major Milligan MD Main - [facility] [address] [place] [phone] 04/12/2022 14:51:11 04/15/2022 14:18:35 Vertigo [id number] R42 Reports several days to a week [...] Nuñez Member ID Guarantor Name 10/01/2021 1 [facility] - DOS PRIOR TO 2022 - DUAL ELIGIBLE (MEDICARE REPLACEMENT/ADV ANTAGE - HMO) Inga Vidal Wang [id number] [place] Young Escuderomudez 12/31/2021 1 [facility] - DOS PRIOR TO 2022 - DUAL ELIGIBLE (MEDICARE REPLACEMENT/ADV ANTAGE - HMO) [place] Vidal Wang [id number] [place] Vidal Wang 02/14/2022 1 [facility] - DOS PRIOR TO 2022 - DUAL ELIGIBLE (MEDICARE REPLACEMENT/ADV ANTAGE - HMO) [place] Vidal Wang [id number] [place] Vidal Wang 04/12/2022 1 [facility] - DOS PRIOR TO 2022 - DUAL ELIGIBLE (MEDICARE REPLACEMENT/ADV ANTAGE - HMO) [place] Vidal Wang [id number] [facility] Notes Date Note Type Note Provider [...] ................... ................... ................... ................... ................... ................... ........ Business Rules Developer Note: Chief Complaint cough x 3 days [...] ........ Disposition: Fulfilled Rufino Guillermo MD [address] [facility],[address], [place], [phone], [employer]am[facility] 01/18/2022 18:14:19 12/31/2021 text/html HPI: Mak is a 76 yo Welsh speaking only female with significant medical history of asthma, HIV, DM 2, Paranoid Schizophrenia, MDD, PTSD, MARIA C, Chronic Pain, HTNVE CKD stage 4, Old MN, Bilat coronary artery stenosis, GERD, IBS, Fibromyalgia, half-way use of inhaled steroids, hx of falling, and compression fracture of spine. Allergies to Triptans, PCN, NSAIDS, Codeine, ASA, Oxycodone, Morphine, Cipro, Tylenol, IVP Dye. Mbr calling into the CR[facility] dept reporting cough and trouble breathing since yesterday. Mbr with increased WOB with talking, constant congested cough. [employer] initially assisted with this call, Blaine #[phone] then Daughter Tess assisted with call and screen door maker disconnected. Mbr denies fever but positive for [...] Mbr and Daughter agreed with plan. Sent [facility] referral in for today. Call back number is [phone]. Sent GC activity to alerting CP about this call and TE. ................... ................... ................... ................... ................... ................... ................... ........ CRC Nursing Assessment: Comments: CRC RN did not require any additional information to process this visit. ................... ................... ................... ................... ................... ................... ................... ........ Business Rules Developer Note: Sent to a call for a [...] flu test: neg; rapid strep test: neg; [facility] orders 12 lead ECG, Duo neb treatment, BG, and Prednisone 40mg PO. 12 lead ECG: uploaded to [employer], Pt reports improvement with duo neb. Lung sounds: clear bilaterally; audible wheezing noted, but improves; , Prednisone 40mg PO administered without incident. [facility] sends script to pt's pharmacy for Prednisone. Pt advised to continue using Diabetic tussin, use throat coat tea and gargle with warm salt water. Nebulizer mask given to pt to use with personal nebulizer. Red flags discussed. Pt/family have no further questions. ................... ................... ................... ................... ................... ................... ................... ........ Disposition: Fulfilled Lisa Madden MD [address] [place] [address],[address], [place], [phone], [facility] [employer] [facility] 12/31/2021 13:02:02 02/14/2022 text/html HPI: allergies: NSaIDS [...] assessment declined our walk in. Ok for [facility] referral. ................... ................... ................... ................... ................... ................... ................... ........ CRC Nursing Assessment: Comments: CRC RN DID NOT NEED FURTHER INFO did not answer> rescheduled for 02/14 ................... ................... ................... ................... ................... ................... ................... ........ Business Rules Developer Note: Sent to evaluate pt with arm [...] OTC and cannot afford them anymore. Consulted [facility] who will send prescription topical lidocaine to pt's pharmacy. [facility] encouraged family to continue calling PCP for eval and possible referral to ortho. Relayed info to pt's daughter and [facility]. No further questions or concerns at this time. ................... ................... ................... ................... ................... ................... ................... ........ Disposition: Fulfilled Rufino Guillermo MD [address] [facility],[address], [place], [phone], [employer] 02/21/2022 14:47:06 04/12/2022 text/html HPI: spoke with Chelly Llanes daughter who is on HIPPA. Pt having intermittent dizziness x 3 days. Pt having more with position changes. Denies any CAMARA, CP ,SOB vomiting or diarrhea. No UTI sx. Pt drinking plenty of water. Reviewed disposition, agrees to [facility] referral ................... ................... ................... ................... ................... ................... ................... ........ CRC Nursing Assessment: Comments: No additional information needed ................... ................... ................... ................... ................... ................... ................... ........ Business Rules Developer Note: [facility] Business Rules Developer Andrew Holt [email or web address] dispatched to [facility] for a 76 yof C/O dizziness. [...] a week prior, and was seen at [facility] ED with imaging. She stated her [...] She denied any other falls or LOC. [facility] consulted; pt was advised to contact PCP AVE to discuss imaging results, and was prescribe meclizine. She was given meclizine PO 25 mg. Red flags discussed. ................... ................... ................... ................... ................... ................... ................... ........ Disposition: Fulfilled Major Milligan MD [address] [place] [address],[address], [place], [phone], Exam18 - [email or web address] 04/12/2022 16:55:37 OBGyn Episode No OBEpisode recorded.
[2024-08-16 14:07] LABS: Phosphorus 3.3 mg/dL (2.7-4.5)
[2024-08-16 14:12] LABS: Creatinine, mg/dL 50.16
[2024-08-16 15:02] LABS: Creatinine, 24Hr Urine 0.4 G/Day (1.0-2.0); Total Volume 24 Hour Urine 800 mL
== END 2024-08-16 10:01 | disposition home or self-care (01) ==
LOC: HO.10HDL 10:00
PROVIDERS: Visit Provider Internal Medicine Endocrinology, Diabetes & Metabolism
DX: M81.0 Age-related osteoporosis without current pathological fracture (principal)
CPT/HCPCS: 36415; 82306; 82340; 82570; 84100; 84165

== ENCOUNTER 2024-12-13 08:49 | Outpatient (AMB) | payer MEDICARE, SELFPAY ==
[2024-12-13 08:51] VITALS: BP 90/64; PULSE 55; O2SAT 95
--- NOTE | 2024-12-13 08:51 | MHC.OFFVIS ---
Vital Signs 12/13/24 08:51 Height 4 ft 11.8 in BP 90/64 Blood Pressure Location Lt brachial Position Sitting Pulse 55 Pulse Source Pulse Oximeter Pulse Oximetry (%) 95 Oxygen Delivery Method Room Air Intake Visit Reasons: f/u osteoporosis Intake Note: Patient present today for osteoporosis follow up visit. Youth Ministry Director Required: Yes Youth Ministry Director Language: Teenage Babysitter Services: Youth Ministry Director Present Youth Ministry Director Name: César [id number] Information Interpreted: non-clinical & clinical Accompanied by: ANALYTICS ANALYST Allergies Iodinated Contrast Media (IV DYE, IODINE CONTAINING) Allergy (Severe, Verified 12/13/24 08:59) ANAPHYLAXIS aspirin (Aspirin) Allergy (Intermediate, Verified 12/13/24 08:59) HIVES,SWELLING, swelling ciprofloxacin (Cipro) Allergy (Unknown, Verified 12/13/24 08:59) diarrhea ibuprofen Allergy (Unknown, Verified 12/13/24 08:59) nausea Penicillins Allergy (Unknown, Verified 12/13/24 08:59) HIVES,SWELLING tuberculin, purified protein deriva (TUBERCULIN, PURIFIED PROTEIN DERIVA) Allergy (Unknown, Verified 12/13/24 08:59) REDNESS,ITCHING NSAIDS (Non-Steroidal Anti-Inflamma (NSAIDS) Adverse Reaction (Unknown, Verified 12/13/24 08:59) ABD PAIN,NAUSEA Medication List - Last Reconciled 12/13/24 by Rachana Wilcox MD acetaminophen 0 mg PO acetaminophen (Tylenol 8 Hour) PO acetaminophen-codeine 300-30 mg 0 tabs PO albuterol sulfate 90 mcg/actuation (ProAir HFA) 2 puffs inhalation Q6H PRN albuterol sulfate 2.5 mg inhalation Q20M alcohol swabs 0 pad topical atorvastatin 20 mg PO DAILY xeeraojfn-twgrzeit-uownaqh ala 50-200-25 mg (Biktarvy) 1 tab PO DAILY blood sugar diagnostic As directed blood-glucose meter (FreeStyle Lite Meter kit) As directed calcium carbonate-vitamin D3 600 mg-10 mcg (400 unit) 1 tab PO BID capsaicin 0.025% (Salonpas-Hot) 1 patch topical DAILY PRN cyanocobalamin (vitamin B-12) 1,000 mcg PO DAILY diltiazem HCl CD 180 mg PO DAILY docusate sodium (Colace) 100 mg PO DAILY fluticasone propionate 50 mcg/actuation sprays intranasal hydrocortisone 1% topical inhalat.spacing dev,large mask As directed ipratropium-albuterol 0.5 mg-3 mg(2.5 mg base)/3 mL mL inhalation lancets (FreeStyle Lancets) As directed loratadine 10 mg PO DAILY meclizine mg PO meclizine (Antivert) 25 mg PO DAILY PRN melatonin 3 mg PO BEDTIME metoprolol succinate ER 50 mg PO DAILY metoprolol tartrate 75 mg PO DAILY ojwupsre-lrgp-KU-calcium-mins 9 mg iron-400 mcg (High Potency Multivitamin (w-iron)) 0 tabs PO nitroglycerin 0.4 mg sublingual Q5M PRN nystatin topical omeprazole 20 mg PO DAILY ondansetron 4 mg PO Q8H potassium chloride ER (Klor-Con M) 20 mEq PO DAILY pregabalin 100 mg PO DAILY quetiapine 300 mg PO BEDTIME sennosides (senna) 17.2 mg PO DAILY sertraline 100 mg PO DAILY sertraline 50 mg PO DAILY sumatriptan succinate 0 mg PO tizanidine 2 mg PO BEDTIME PRN torsemide 20 mg PO DAILY HPI Comments Details: 79-year-old female presenting for follow up of osteoporosis. HPI first diagnosed: over five years ago. treatment :attempt with Fosamax > 5 yrs ago was discontinued after six months, following a hospital admission for cardiac issues. She has not since resumed any specific osteoporosis therapy. fracture history :history of pathologic fracture 15-16 yrs ago fx humerus after falling down stairs - 4 yrs ago fx R shoulder no ONJ. family history: mother who had a hip fracture and two sisters diagnosed with osteoporosis. calcium and vitamin D supplements, taking 600 mg of calcium and 400 IU of vitamin D twice daily. There is no marked dietary focus on calcium, does not adhere to a strict calcium-rich diet but consumes some calcium-rich foods inconsistently. She reports consuming Mosotho cheese, broccoli, fruit juice, ice cream, and Parmesan cheese. Milk and some forms of cheese are avoided. denies any kidney stones. Previous surgical history includes hysterectomy with oophorectomy. on omeprazole for GERD previously on warfarin, which was discontinued. She has no history of smoking, heavy alcohol use, or unexplained weight loss or height reduction. 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 No planned upcoming dental work or extractions. Last DEXA scan March 2023 showed osteoporosis of the spine with T-score of -3.4, showed osteopenia of the hip with T-score of-2.4 at the left femoral neck and T-score of-2.1 at the left total femur. Interval history Here today with ANALYTICS ANALYST Secondary workup from July 2024 showed vitamin-D of 40, 24 hour urine calcium on the lower side consistent with poor nutritional intake Her med rec is very confusing, nurse comes in Friday , Fri and Friday . Physical exam General: sitting comfortably in no acute distress HEENT: normocephalic/atraumatic, Neck: supple, symmetrical, Cardiac: normal heart sounds Pulm: normal breath sounds B/L, no added breath sounds Abd: not distended, no tenderness Extremities: no edema, no signs of myxedema Laboratory Tests 06/16/23 08/16/24 08/16/24 10:16 08:15 10:05 Creatinine 0.83 Estimated GFR > 60 Calcium 9.6 Phosphorus 3.3 Total Protein (PEP) 6.6 Albumin (PEP) 3.7 L Mthkw-7-Ubdbtskrp 0.4 H Yxase-4-Zdlftzchr 0.6 Fwew-3-Xppqpmgt 0.4 Sdrn-6-Ywidemsr 0.4 Gamma Globulins 1.2 25-OH Vitamin D Total 40.0 TSH 0.87 Ur 24 Hour Volume 800 Ur Creatinine mg/dL 50.16 Ur Creatinine 24 Hour 0.4 L Ur Calcium 24 Hr 50 Calcium/Creat 24 Hr 122 DXA dated 04/18/23 :FINDINGS: LEFT FEMUR, NECK: Current: BMD 0.698 g/cm2, Z-score -0.8, T-score -2.4, osteopenia. Prior: BMD 0.758 g/cm2. Baseline: BMD 0.839 g/cm2. LEFT FEMUR, TOTAL: Current: BMD 0.747 g/cm2, Z-score -0.6, T-score -2.1, osteopenia, 13.9% decrease from previous, 20.8% decrease from baseline (<5% change is not significant). Prior: BMD 0.868 g/cm2. Baseline: BMD 0.943 g/cm2. AP SPINE L2-L4 (excluding L1): The data of L1-L4 has been changed to exclude the L1 vertebral body, because degenerative sclerosis at this level may cause overestimation of lumbar spine density. Current: BMD 0.796 g/cm2, Z-score -2.2, T-score -3.4, osteoporosis, 20.1% decrease from previous, 11.0% decrease from baseline (<5% change is not significant). Prior: BMD 0.996 g/cm2. Baseline: BMD 0.894 g/cm2. IDENTIFIED RISK FACTORS: Early menopause, secondary osteoporosis, bilateral oophorectomy, history of fracture (adult), hysterectomy, osteoporosis. HISTORY OF FRACTURE: Other. Humerus, shoulder. MEDICATIONS: Calcium. MM/XR DEXA axial skeleton IMPRESSION: 1. DIAGNOSIS: Severe osteoporosis based on the lowest T-score value of -3.4 in the lumbar spine and history of fracture applying [facility] Medical History (Updated 12/13/24 @ 09:19 by Rachana Wilcox MD) Osteoporosis Acute (undifferentiated) schizophrenia Anemia Diabetes Fibromyalgia DVT (deep venous thrombosis) HTN (hypertension) Thalamic pain syndrome Constipation Degenerative arthritis Osteopenia HIV (human immunodeficiency virus infection) Obese GERD (gastroesophageal reflux disease) Surgical History History of temporal artery biopsy History of appendectomy History of hysterectomy History of cholecystectomy Family History Father No problems noted. Mother Coronary artery disease Uterine cancer CVD (cardiovascular disease) Sister Breast cancer Sister Breast cancer Social History Alcohol intake: never Patient Tobacco Use Status: Never used Tobacco Assessment & Plan Assessment & Plan (1) Osteoporosis: Code(s): M81.0 - Age-related osteoporosis without current pathological fracture Category: Medical Qualifiers: Osteoporosis type: age-related Presence of current pathological fracture: without current pathological fracture Qualified Code(s): M81.0 - Age-related osteoporosis without current pathological fracture Plan: 79-year-old female who was diagnosed with osteoporosis many years ago, with most recent bone density scan from March 2023 showed osteoporosis of the spine with T-score of -3.4, showed osteopenia of the hip with T-score of-2.4 at the left femoral neck and T-score of-2.1 at the left total femur. Risk factors for osteoporosis include chronic PPI use, age, being postmenopausal, prior history of warfarin use, early menopause at age 25 with no HRT, poor nutritional intake of calcium. No recent bone resorption markers in the chart. Her secondary workup was unremarkable except poor nutritional intake of calcium reflected by low 24 hour urine calcium levels. She has been on Fosamax for about 6 months over 5 years ago which was stopped after she was hospitalized for cardiac issues? At this time based on the fact that her lowest T-score is-3.4 in the lumbar spine with a history of prior fractures of right shoulder 4-5 years ago, she is at high-risk of fracture with a history consistent with severe osteoporosis. She would benefit from a strong agents such as anabolic. Given that bone densities worse in the spine and not so bad in the hip, she would be a good candidate for Evenity or Tymlos or Forteo. However given her age and history of arthritis it might be difficult for her to inject Tymlos or Forteo at home. She does have a nurse who comes thrice a week but on other days she is by herself. Daughter could potentially help with the injecting, but not sure. I would be more reassured by giving her Evenity. Could also consider Prolia however that is not as potent as Evenity. At this time patient is agreeable to all of the medications. I discussed with her modes of administration plus common side effects including injection site reactions, as well as rare side effects of osteonecrosis of the jaw and atypical femur fracture. Patient has not had any stroke or heart attack in the last 6 months. Pros and cons discussed including black box warning of increased cardiac events 1% absolute risk -He has not had a cardiac event or stroke and he is relatively in good shape I.e. no hypertension hyperlipidemia or diabetes -Other side effects of arthralgia headaches hypocalcemia discussed Osteonecrosis of the jaw and atypical femur fracture is un likely Plan: -start Evenity monthly injections -ordered bone resorption markers including bone specific alkaline phosphatase and CTX to be done prior to starting treatment -continue calcium vitamin-D supplements -discussed about increasing nutritional intake of calcium to incorporate at least 1000 mg daily -follow up in 6-7 months Plan I spent 30 minutes in reviewing the record, seeing the patient and documenting in the medical record. Orders: Orders Albumin Level Today M81.0 - Age-related osteoporosis without current pathological fracture Calcium Today M81.0 - Age-related osteoporosis without current pathological fracture Collagen Type I C-Telopeptide Today M81.0 - Age-related osteoporosis without current pathological fracture Creatinine Today M81.0 - Age-related osteoporosis without current pathological fracture Alkaline Phosphatase Bone Today M81.0 - Age-related osteoporosis without current pathological fracture Medications: New romosozumab-aqqg (Evenity) 210 mg (2.34 mL) subcut QMONTH 2.34 mL 11RF 12 months Patient Instructions: DO blood work fasting three dimensional map modeler around 8 AM Our nurse will give you a call regarding [facility] medication was approved and make appointment Continue calcium vitamin D supplements as it is Try to incorporate more cheese and yogurt in your diet Realice an?lisis de sylvester en ayunas temprano por la ma?rodrigo, alrededor de las 8 a. m. Nuestra enfermera le llamar? para informarle qu? medicamento fue aprobado y programar homero eli. Contin?e con los suplementos de calcio y vitamina D dottie brianna est?n. Intente incorporar m?s queso y yogur a butterfield dieta. Coding Level of Care Code Est Pt Level 4 (06456) Diagnoses Age-related osteoporosis without current pathological fracture M81.0 Osteoporosis type: age-related Presence of current pathological fracture: without current pathological fracture Time Spent (min) 30
--- OUTSIDE RECORDS SUMMARY | 2024-12-13 09:21 | XMS_ITS | Encounter Summary ---
Author Organization [facility] Address [address] [place] [address] Care Team Providers Care Edge Trimmer Name Role Phone Abigail Rajput MD Primary Care Provider [phone] Encounter Details Date Type Department Care Team (Latest Contact Info) Description 04/29/2024 Lab Requisition [facility] - Main Lab [address] [facility] [place] [address] Frankie Sultana MD [address] [place] [address], [phone] Unspecified dementia, unspecified severity, without behavioral [...] Care Team (Late st Contact Info) Description 03/01/2025 9:15 AM EST Office Visit Orthopedic Surgery - [place] [address] [phone] Rodrick Viera DPM [address] [phone] documented as of this encounter Procedures Procedure [...] mmol/L LAB CHEMISTRY METHOD 04/29/2024 11:08 AM [facility] Potassium 4.1 3.5 - 5.5 mmol/L LAB CHEMISTRY METHOD 04/29/2024 11:08 AM [facility] Chloride 113(H) 96 - 110 mmol/L LAB CHEMISTRY METHOD 04/29/2024 11:08 AM [facility] CO2 27 21 - 32 mmol/L LAB CHEMISTRY METHOD 04/29/2024 11:08 AM [facility] Anion Gap 4 3 - 11 LAB CHEMISTRY METHOD 04/29/2024 11:08 AM [facility] Glucose 89 70 - 100 mg/dL LAB CHEMISTRY METHOD 04/29/2024 11:08 AM [facility] BUN 16 5 - 25 mg/dL LAB CHEMISTRY METHOD 04/29/2024 11:08 AM [facility] Creatinine 0.80 0.50 - 1.10 mg/dL LAB CHEMISTRY METHOD 04/29/2024 11:08 AM [facility] eGFR 76 >=60 mL/min/1. 73m2 LAB CHEMISTRY METHOD 04/29/2024 11:08 AM [facility] Comment:Calculation based on the Chronic Kidney Disease Epidemiology Collaboration (CKD-EPI) equation refit without adjustment for race. BUN/Creatinine Ratio 20.0 LAB CHEMISTRY METHOD 04/29/2024 11:08 AM [facility] Calcium 8.8 8.5 - 10.5 mg/dL LAB CHEMISTRY METHOD 04/29/2024 11:08 AM [facility] Blood Venous blood specimen / Unknown Venipuncture / Unknown 04/29/2024 7:02 AM EST 04/29/2024 9:29 AM EST us Frankie Sultana MD LAB BLOOD ORDERABLES Final Resul t [facility] [address] [place] [address], [place] [phone] * (ABNORMAL) Complete blood count (04/29/2024 7:02 AM EST) WBC 2.7(L) 4.8 - 10.8 K/mcL LAB HEMETOLOGY METHOD 04/29/2024 10:54 AM [facility] RBC 3.40(L) 3.80 - 4.80 M/mcL LAB HEMETOLOGY METHOD 04/29/2024 10:54 AM [facility] Hemoglobin 9.5(L) 11.5 - 16.0 g/dL LAB HEMETOLOGY METHOD 04/29/2024 10:54 AM [facility] Hematocrit 30.4(L) 35.0 - 47.0 % LAB HEMETOLOGY METHOD 04/29/2024 10:54 AM [facility] MCV 88.9 79.0 - 98.0 FL LAB HEMETOLOGY METHOD 04/29/2024 10:54 AM [facility] MCH 27.8 27.0 - 32.0 pcg LAB HEMETOLOGY METHOD 04/29/2024 10:54 AM [facility] MCHC 31.3(L) 32.0 - 37.0 g/dL LAB HEMETOLOGY METHOD 04/29/2024 10:54 AM EST [facility] RDW 15.5(H) 11.0 - 15.0 % LAB HEMETOLOGY METHOD 04/29/2024 10:54 AM EST [facility] Platelets 106(L) 130 - 400 K/mcL LAB HEMETOLOGY METHOD 04/29/2024 10:54 AM EST [facility] MPV 11.8(H) 7.0 - 11.0 FL LAB HEMETOLOGY METHOD 04/29/2024 10:54 AM EST [facility] NRBC 0.0 <1.0 % LAB HEMETOLOGY METHOD 04/29/2024 10:54 AM EST [facility] NRBC Absolute 0.00 <0.10 K/mcL LAB HEMETOLOGY METHOD 04/29/2024 10:54 AM [facility] Blood Venous blood specimen / Unknown Venipuncture / Unknown 04/29/2024 7:02 AM EST 04/29/2024 9:29 AM EST us Frankie Sultana MD LAB BLOOD ORDERABLES Final Resul t [facility] [address] [place] [address], documented in this encounter Visit Diagnoses Diagnosis Unspecified dementia, unspecified severity, without behavioral disturbance, psychotic disturbance, mood disturbance, and anxiety ([facility] V24, [facility] V28) Human immunodeficiency virus (HIV) disease ([facility] V24, [facility] V28) Human immunodeficiency virus [HIV] disease documented in this encounter Care Teams Edge Trimmer Relationship Specialty Start Date End Date Abigail Rajput MD [address] [place] [phone] PCP - General Family Medicine 03/03/24 documented as of this encounter
== END 2024-12-13 09:24 | disposition home or self-care (01) ==
LOC: HO.ENCR 08:50
PROVIDERS: PCP Family Medicine; Visit Provider Student in an Organized Health Care Education/Training Program
DX: M81.0 Age-related osteoporosis without current pathological fracture (principal)
CPT/HCPCS: 99214

== ENCOUNTER 2024-12-13 08:51 | Outpatient (REF) | payer MEDICARE, SELFPAY ==
--- OUTSIDE RECORDS SUMMARY | 2025-01-15 20:00 | XMS_ITS | Clinical Summary ---
Author Organization Unknown Care Team Providers Care Golf Course Patroller Name Role Phone EMHRDAD ANDRE, ANTONIO Unavailable Unavailable KEVIN MONACO, CLINICAL NAVIGATOR, JESUS Avery ble Unavailable ALAYNA MONACO, DARNELL Unavailable Unavailable Payers Payer Name Policy Type Policy Number Effective Date Expira tion Date [facility] [place] [id number] [place] [id number] MEDICARE - [facility] - [place] [id number] Problems Condition Name Condition Details Condition Category Status Onset Date Resolution Date Last Treatment Date Treating Clinician Comments UNSP DEMENTIA, UNSP SEVERITY, 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 Active 2023-04 00:00: 00 ESSENTIAL (PRIMARY) HYPERTENSION Active 05-21 00:00: 00 SCHIZOAFFECT ARTUR DISORDER, UNSPECIFIED Active 06-08 00:00: 00 UNILATERAL PRIMARY OSTEOARTHRIT IS, LEFT KNEE Active 06-08 00:00: 00 CONGENITAL SUBAORTIC STENOSIS Active 06-08 00:00: 00 HYPERLIPIDEM IA, UNSPECIFIED Active - 00:00: 00 ASYMPTOMATIC HUMAN IMMUNODEFICI ENCY VIRUS INFECTION STATUS Active - 00:00: 00 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 Active - 00:00: 00 PERSONAL HISTORY OF OTHER VENOUS THROMBOSIS AND EMBOLISM Active - 00:00: 00 Allergies, Adverse Reactions, Alerts Allergy Name Allergy Type Status Severity Reaction(s) Onset Date Inactive Date Treating Clinician Comments MOTRIN Propensity to adverse reactions Active 05-22 16:25: 39 CONTRAST DYE Propensity to adverse reactions Active 05-22 16:25: 52 ASPIRIN RELATED MEDICATIONS Propensity to adverse reactions Active 05-22 16:25: 31 PENICILLIN (G) Propensity to adverse reactions Active 05-22 16:25: 23 Medications Ordered Medication Name Filled Medication Name Start Date Stop Date Current Medication? Ordering Clinician Indication Dosage Frequency Signature (SIG) Comments Components acetaminoph en 300 mg-codeine 30 mg tablet 2- 00:00: 00 Yes [id number] FOR PAIN 1 tablet 2 TIMES DAILY 1 tablet 2 TIMES DAILY (route: oral) Med Classific ation: Analgesic , Anti-infl ammatory or Antipyret ic amlodipine 10 mg tablet 2- 00:00: 00 Yes [id number] 1 tablet DAILY 1 tablet DAILY (route: oral) Med Classific ation: Cardiovas cular Therapy Agents atorvastati n 20 mg tablet 2- 00:00: 00 Yes [id number] 1 tablet DAILY 1 tablet DAILY (route: oral) Med Classific ation: Cardiovas cular Therapy Agents Biktarvy 30 mg-120 mg-15 mg tablet 2- 00:00: 00 Yes [id number] 1 tablet DAILY 1 tablet DAILY (route: oral) Med Classific ation: Anti-Infe ctive Agents Calcium 600 with Vitamin D3 600 mg-10 mcg (400 unit) chewable tablet 2- 00:00: 00 Yes [id number] 2 tablet DAILY 2 tablet DAILY (route: oral) Med Classific ation: Electroly te Balance-N utritiona l Products loratadine 10 mg tablet 2- 00:00: 00 Yes [id number] 1 tablet DAILY 1 tablet DAILY (route: oral) Med Classific ation: Respirato ry Therapy Agents Lyrica 100 mg capsule 2- 00:00: 00 Yes [id number] 1 capsule BEDTIME 1 capsule BEDTIME (route: oral) Med Classific ation: Central Nervous System Agents melatonin 3 mg tablet 2- 00:00: 00 Yes [id number] FOR INSOMNIA 1 tablet DAILY 1 tablet DAILY (route: oral) Med Classific ation: Central Nervous System Agents metoprolol succinate ER 50 mg tablet,exte nded release 24 hr 2- 00:00: 00 Yes [id number] 1 tablet DAILY 1 tablet DAILY (route: oral) Med Classific ation: Cardiovas cular Therapy Agents multivitami n tablet 2- 00:00: 00 Yes [id number] 1 tablet DAILY 1 tablet DAILY (route: oral) Med Classific ation: Electroly te Balance-N utritiona l Products ondansetron HCl 4 mg tablet - 00:00: 00 Yes [id number] FOR NEURO SYMPTOMS 1 tablet EVERY 6 HOURS 1 tablet EVERY 6 HOURS (route: oral) Med Classific ation: Gastroint estinal Therapy Agents pantoprazol e 40 mg tablet,lavinia yed release 2- 00:00: 00 Yes [id number] 1 tablet DAILY 1 tablet DAILY (route: oral) Med Classific ation: Gastroint estinal Therapy Agents Senna Lax 8.6 mg tablet 05-22 00:00: 00 Yes [id number] FOR CONSTIPATIO N 2 tablet DAILY 2 tablet DAILY (route: oral) Med Classific ation: Gastroint estinal Therapy Agents Seroquel 300 mg tablet 2- 00:00: 00 Yes [id number] 1 tablet BEDTIME 1 tablet BEDTIME (route: oral) Med Classific ation: Central Nervous System Agents sertraline 50 mg tablet 2 00:00: 00 Yes [id number] 1 tablet DAILY 1 tablet DAILY (route: oral) Med Classific ation: Central Nervous System Agents Zoloft 100 mg tablet 05-22 00:00: 00 Yes [id number] 1 tablet DAILY 1 tablet DAILY (route: oral) Med Classific ation: Central Nervous System Agents Vital Signs Vital Name Observation Time Observation Value Commen ts Temperature 2024-12-10 15:47:00.000 97.2 [degF] Temperature 2024-12-08 13:30:00.000 97.1 [degF] Temperature 2024-12-06 15:15:00.000 98.2 [degF] Temperature 2024-12-03 16:49:00.000 97.6 [degF] Temperature 2024-12-01 12:04:00.000 96.7 [degF] Temperature 2024-11-29 13:40:00.000 97.6 [degF] Temperature 2024-11-27 12:15:00.000 97.8 [degF] Temperature 2024-11-24 16:20:00.000 98.2 [degF] Temperature 2024-11-22 16:02:00.000 97.1 [degF] Temperature 2024-11-19 11:06:00.000 97.1 [degF] Pulse 2024-12-10 15:47:00.000 68 /min Pulse 2024-12-08 13:30:00.000 68 /min Pulse 2024-12-06 15:15:00.000 78 /min Pulse 2024-12-03 16:49:00.000 80 /min Pulse 2024-12-01 12:04:00.000 76 /min Pulse 2024-11-29 13:40:00.000 80 /min Pulse 2024-11-27 12:15:00.000 72 /min Pulse 2024-11-24 16:20:00.000 76 /min Pulse 2024-11-22 16:02:00.000 76 /min Pulse 2024-11-19 11:06:00.000 72 /min O2 Saturation (%) 2024-11-22 16:02:00.000 98 % O2 Saturation (%) 2024-11-19 11:06:00.000 97 % Respirations 2024-12-10 15:47:00.000 16 /min Respirations 2024-12-08 13:30:00.000 16 /min Respirations 2024-12-06 15:15:00.000 16 /min Respirations 2024-12-03 16:49:00.000 16 /min Respirations 2024-12-01 12:04:00.000 16 /min Respirations 2024-11-29 13:40:00.000 16 /min Respirations 2024-11-27 12:15:00.000 16 /min Respirations 2024-11-24 16:20:00.000 16 /min Respirations 2024-11-22 16:02:00.000 16 /min Respirations 2024-11-19 11:06:00.000 16 /min Systolic Blood Pressure 2024-12-10 15:47:00.000 150 mm [Hg] Systolic Blood Pressure 2024-12-08 13:30:00.000 126 mm [Hg] Systolic Blood Pressure 2024-12-06 15:15:00.000 136 mm [Hg] Systolic Blood Pressure 2024-12-03 16:49:00.000 134 mm [Hg] Systolic Blood Pressure 2024-12-01 12:04:00.000 132 mm [Hg] Systolic Blood Pressure 2024-11-29 13:40:00.000 136 mm [Hg] Systolic Blood Pressure 2024-11-27 12:15:00.000 138 mm [Hg] Systolic Blood Pressure 2024-11-24 16:20:00.000 126 mm [Hg] Systolic Blood Pressure 2024-11-22 16:02:00.000 134 mm [Hg] Systolic Blood Pressure 2024-11-19 11:06:00.000 136 mm [Hg] Diastolic Blood Pressure 2024-12-10 15:47:00.000 68 mm [Hg] Diastolic Blood Pressure 2024-12-08 13:30:00.000 70 mm [Hg] Diastolic Blood Pressure 2024-12-06 15:15:00.000 72 mm [Hg] Diastolic Blood Pressure 2024-12-03 16:49:00.000 76 mm [Hg] Diastolic Blood Pressure 2024-12-01 12:04:00.000 74 mm [Hg] Diastolic Blood Pressure 2024-11-29 13:40:00.000 70 mm [Hg] Diastolic Blood Pressure 2024-11-27 12:15:00.000 72 mm [Hg] Diastolic Blood Pressure 2024-11-24 16:20:00.000 72 mm [Hg] Diastolic Blood Pressure 2024-11-22 16:02:00.000 76 mm [Hg] Diastolic Blood Pressure 2024-11-19 11:06:00.000 82 mm [Hg] Plan of Treatment Planned Activity Planned Date Details Comments Future Scheduled Test SKILLED NU RSE TO EVALUATE PATIENT, IDENTIFY PRIMARY AND CO-MORBID CONDITIONS CODED PER CODING GUIDELINES, AND DEVELOP PATIENT SPECIFIC PLAN OF CARE THAT INCLUDES PATIENT GOAL FOR HOME HEALTH. [code = SKILLED NURSE TO EVALUATE PATIENT, IDENTIFY PRIMARY AND CO-MORBID CONDITIONS CODED PER CODING GUIDELINES, AND DEVELOP PATIENT SPECIFIC PLAN OF CARE THAT INCLUDES PATIENT GOAL FOR HOME HEALTH.] Future Scheduled Test SKILLED NU RSE TO PRE-POUR MEDICATION PER MEDICATION LIST 3 X WEEK. [code = SKILLED NURSE TO PRE-POUR MEDICATION PER MEDICATION LIST 3 X WEEK.] Future Scheduled Test PATIENT MA Y HAVE ONE SET OF EMERGENCY MEDICATION NOT TO BE PRE-POURED ANY SOONER THAN 24 HOURS BEFORE SEVERE INCLEMENT WEATHER OR EMERGENT EVENT AND FOLLOWING SKILLED NURSE EVALUATION OF PATIENT SAFETY. [code = PATIENT MAY HAVE ONE SET OF EMERGENCY MEDICATION NOT TO BE PRE-POURED ANY SOONER THAN 24 HOURS BEFORE SEVERE INCLEMENT WEATHER OR EMERGENT EVENT AND FOLLOWING SKILLED NURSE EVALUATION OF PATIENT SAFETY.] Future Scheduled Test SKILLED NU RSE TO O/A OF PATIENTS MENTAL/BEHAVIORAL STATUS, ASSESS VITAL SIGNS WEEKLY AND PRN ALLOW 2 PRNS FOR MEDICATION MANAGEMENT. [code = SKILLED NURSE TO O/A OF PATIENTS MENTAL/BEHAVIORAL STATUS, ASSESS VITAL SIGNS WEEKLY AND PRN ALLOW 2 PRNS FOR MEDICATION MANAGEMENT.] Future Scheduled Test MEDICATION S WILL BE HELD AND STORED IN LOCKBOX [code = MEDICATIONS WILL BE HELD AND STORED IN LOCKBOX] Future Scheduled Test SKILLED NU RSE FOR O/A OF GENERAL HEALTH STATUS OF PAIN, CARDIAC, RESPIRATORY, GASTROINTESTINAL, GENITOURINARY, SKIN, NEUROLOGIC, ENDOCRINE SYSTEMS TO IDENTIFY CHANGES ASSOCIATED WITH EXACERBATION FOR EARLY INTERVENTION OF COMPLICATIONS WEEKLY. [code = SKILLED NURSE FOR O/A OF GENERAL HEALTH STATUS OF PAIN, CARDIAC, RESPIRATORY, GASTROINTESTINAL, GENITOURINARY, SKIN, NEUROLOGIC, ENDOCRINE SYSTEMS TO IDENTIFY CHANGES ASSOCIATED WITH EXACERBATION FOR EARLY INTERVENTION OF COMPLICATIONS WEEKLY.] Future Scheduled Test SKILLED NU RSE FOR O/A AND SKILLED TEACHING OF COPING SKILLS TO MANAGE ANXIETY AND MAINTAIN SAFETY. [code = SKILLED NURSE FOR O/A AND SKILLED TEACHING OF COPING SKILLS TO MANAGE ANXIETY AND MAINTAIN SAFETY.] Future Scheduled Test SKILLED NU RSE FOR O/A AND SKILLED TEACHING RELATED TO MANAGEMENT OF DEPRESSIVE SYMPTOMS AND/OR DEPRESSION. SN TO REPORT SIGNIFICANT CHANGE IN DEPRESSIVE SYMPTOMS TO CLINICAL PROVIDER FOR EARLY INTERVENTION. [code = SKILLED NURSE FOR O/A AND SKILLED TEACHING RELATED TO MANAGEMENT OF DEPRESSIVE SYMPTOMS AND/OR DEPRESSION. SN TO REPORT SIGNIFICANT CHANGE IN DEPRESSIVE SYMPTOMS TO CLINICAL PROVIDER FOR EARLY INTERVENTION.] Future Scheduled Test SKILLED NU RSE TO PROVIDE TEACHING ON SIGNS AND SYMPTOMS AND MANAGEMENT OF HYPERTENSION. [code = SKILLED NURSE TO PROVIDE TEACHING ON SIGNS AND SYMPTOMS AND MANAGEMENT OF HYPERTENSION.] Future Scheduled Test SKILLED NU RSE FOR O/A RELATED TO SIGNS AND SYMPTOMS OF INFECTION AND TO PROVIDE TEACHING REGARDING INFECTION CONTROL MEASURES. [code = SKILLED NURSE FOR O/A RELATED TO SIGNS AND SYMPTOMS OF INFECTION AND TO PROVIDE TEACHING REGARDING INFECTION CONTROL MEASURES.] Future Scheduled Test SKILLED NU RSE TO PROVIDE TEACHING/REINFORCEMENT RELATED TO URINARY INCONTINENCE. [code = SKILLED NURSE TO PROVIDE TEACHING/REINFORCEMENT RELATED TO URINARY INCONTINENCE.] Future Scheduled Test SKILLED NU RSE TO REVIEW PATIENT MEDICATIONS. INSTRUCT PATIENT/CAREGIVER ON MONITORING OF EFFECTIVENESS, ADVERSE DRUG REACTIONS, SIDE EFFECTS OF ALL MEDICATIONS (PRESCRIPTION/-OTC), AND HOW AND WHEN TO REPORT PROBLEMS. [code = SKILLED NURSE TO REVIEW PATIENT MEDICATIONS. INSTRUCT PATIENT/CAREGIVER ON MONITORING OF EFFECTIVENESS, ADVERSE DRUG REACTIONS, SIDE EFFECTS OF ALL MEDICATIONS (PRESCRIPTION/-OTC), AND HOW AND WHEN TO REPORT PROBLEMS.] Future Scheduled Test SKILLED NU RSE FOR O/A OF MUSCULOSKELETAL STATUS AND TEACHING ON MEASURES TO MANAGE OSTEOARTHRITIS AND TO MAINTAIN SAFETY WITH ACTIVITY [code = SKILLED NURSE FOR O/A OF MUSCULOSKELETAL STATUS AND TEACHING ON MEASURES TO MANAGE OSTEOARTHRITIS AND TO MAINTAIN SAFETY WITH ACTIVITY] Future Scheduled Test SKILLED NU RSE TO ASSESS PATIENTS PSYCHOSOCIAL STATUS TO IDENTIFY POTENTIAL ISSUES THAT MAY COMPLICATE THE PROVISION OF THE PLAN OF CARE INCLUDING THE PATIENTS ABILITY TO ACCESS COMMUNITY RESOURCES AND PSYCHOSOCIAL SUPPORT SERVICES. [code = SKILLED NURSE TO ASSESS PATIENTS PSYCHOSOCIAL STATUS TO IDENTIFY POTENTIAL ISSUES THAT MAY COMPLICATE THE PROVISION OF THE PLAN OF CARE INCLUDING THE PATIENTS ABILITY TO ACCESS COMMUNITY RESOURCES AND PSYCHOSOCIAL SUPPORT SERVICES.] Future Scheduled Test SKILLED NU RSE WILL MAINTAIN SITUATIONAL AWARENESS FOR SAFETY AND WILL NOTIFY CLINICAL UNDERGROUND UTILITY LOCATOR AND PHYSICIAN/PROVIDER WITH ANY CHANGE IN CONDITION. [code = SKILLED NURSE WILL MAINTAIN SITUATIONAL AWARENESS FOR SAFETY AND WILL NOTIFY CLINICAL UNDERGROUND UTILITY LOCATOR AND PHYSICIAN/PROVIDER WITH ANY CHANGE IN CONDITION.] Goal 2024-07-16 Patient Goal - NO MORE HOSPI TALIZATION Goal 2024-09-15 Patient Goal - NO MORE HOSPI TALIZATION Goal 2024-11-15 Patient Goal - NO MORE HOSPI TALIZATION Goal Patient Goal - NO MORE HOSPI TALIZATION Goal Provider Goal - A PLAN OF CARE WILL BE ESTABLISHED THAT MEETS PATIENT'S LONG TERM NEEDS AND INCLUDES PATIENT GOAL FOR HOME HEALTH. Goal Provider Goal - PATIENT WILL COMPLY WITH MEDICATION WHEN SKILLED NURSE PRE-POURS MEDICATION THROUGHOUT CERTIFICATION PERIOD. Goal Provider Goal - MEDICATION WILL BE AVAILABLE DURING INCLEMENT WEATHER OR EMERGENT EVENT THROUGHOUT CERTIFICATION PERIOD. Goal Provider Goal - ALTERED MENTAL/BEHAVIORAL STATUS WILL BE IDENTIFIED PROMPTLY AND INTERVENTION INITIATED QUICKLY TO MINIMIZE ASSOCIATED RISKS THROUGHOUT CERTIFICATION PERIOD. Goal Provider Goal - MEDICATION WILL BE STORED IN LOCKBOX FOR SAFETY. Goal Provider Goal - CHANGE IN GENERAL HEALTH STATUS WILL BE IDENTIFIED AND REPORTED TO PHYSICIAN FOR PROMPT INTERVENTION TO MINIMIZE ASSOCIATED RISKS THROUGHOUT CERTIFICATION PERIOD. Goal Provider Goal - PATIENT WILL BE ABLE TO PERFORM DAILY FUNCTIONS AND HAVE OPTIMAL IMPROVEMENT IN LEVEL OF ANXIETY THROUGHOUT CERTIFICATION PERIOD. Goal Provider Goal - PATIENT WILL REMAIN SAFE WITHOUT DECOMPENSATION IN DEPRESSIVE CONDITION, WHILE MAINTAINING OPTIMAL LEVEL OF MENTAL HEALTH AND WELL BEING THROUGHOUT CERTIFICATION PERIOD. Goal Provider Goal - PATIENT/CAREGIVER WILL VERBALIZE SIGNS AND SYMPTOMS OF HYPERTENSION AND WILL BE ABLE TO DEMONSTRATE ABILITY TO MANAGE EXACERBATION BY END OF THE EPISODE. Goal Provider Goal - PATIENT/CAREGIVER WILL VERBALIZE/DEMONSTRATE UNDERSTANDING OF S/S OF INFECTION AND INFECTION CONTROL MEASURES. SIGNS AND SYMPTOMS OF INFECTION WILL BE IDENTIFIED AND PHYSICIAN NOTIFIED FOR PROMPT INTERVENTION THROUGHOUT THE CERTIFICATION PERIOD. Goal Provider Goal - PATIENT / CAREGIVER WILL VERBALIZE UNDERSTANDING OF EFFECTS OF URINARY INCONTINENCE BY THE END OF THE CERTIFICATION PERIOD. Goal Provider Goal - PATIENT/CAREGIVER WILL VERBALIZE UNDERSTANDING OF EDUCATION PROVIDED ON MEDICATIONS BY THE END OF THE CERTIFICATION PERIOD. Goal Provider Goal - PATIENT/CAREGIVER WILL VERBALIZE/DEMONSTRATE ABILITY TO MANAGE OSTEOARTHRITIS MUSCULOSKELETAL DISEASE WHILE MAINTAINING SAFETY THROUGHOUT THE EPISODE. Goal Provider Goal - PSYCHOSOCIAL NEEDS WILL BE IDENTIFIED AND PLAN IMPLEMENTED TO MINIMIZE RISK THROUGHOUT CERTIFICATION PERIOD. Goal Provider Goal - PATIENT WILL REMAIN SAFE IN THE COMMUNITY AND WILL BE FREE OF DANGER TO SELF AND OTHERS THROUGHOUT THE CERTIFICATION PERIOD. Encounters Start Date/Time End Date/Time Encounter Type Admission Type Attending [facility] Care Facility Care Department Encounter ID Discharge Date Discharge Status Discharge Condition Discharge Reason Percent Goals Met 2024-11-18 00:00:00 2025-01-16 00:00:00 Outpatient RECERTIFIC ATDARNELL DIAS [facility] [id number]
== END 2024-12-13 08:52 | disposition home or self-care (01) ==
LOC: HO.10HDLNP 08:51
PROVIDERS: Family Medicine; Visit Provider Internal Medicine Endocrinology, Diabetes & Metabolism
DX: M81.0 Age-related osteoporosis without current pathological fracture (principal); E11.9 Type 2 diabetes mellitus without complications
CPT/HCPCS: 82043; 82570; 86335; 99212

== ENCOUNTER 2024-12-29 09:05 | Outpatient (AMB) | payer MEDICARE, SELFPAY ==
--- NOTE | 2024-12-29 09:35 | AM.OFFVISNUR ---
Intake Visit Reasons: Evenity #1 Allergies Iodinated Contrast Media (IV DYE, IODINE CONTAINING) Allergy (Severe, Verified 12/13/24 08:59) ANAPHYLAXIS aspirin (Aspirin) Allergy (Intermediate, Verified 12/13/24 08:59) HIVES,SWELLING, swelling ciprofloxacin (Cipro) Allergy (Unknown, Verified 12/13/24 08:59) diarrhea ibuprofen Allergy (Unknown, Verified 12/13/24 08:59) nausea Penicillins Allergy (Unknown, Verified 12/13/24 08:59) HIVES,SWELLING tuberculin, purified protein deriva (TUBERCULIN, PURIFIED PROTEIN DERIVA) Allergy (Unknown, Verified 12/13/24 08:59) REDNESS,ITCHING NSAIDS (Non-Steroidal Anti-Inflamma (NSAIDS) Adverse Reaction (Unknown, Verified 12/13/24 08:59) ABD PAIN,NAUSEA Office Meds romosozumab-aqqg 210 mg/2.34 mL(105 mg/1.17 mL x2)subcutaneous syringe Performing Provider: Rachana Wilcox MD Performing Location: [facility] Endocrinology Administered by: Anh Olivas RN on 12/29/24 09:35 Dose Route Admin Location Dispensed Lot Number Expiration Date [facility] Zoology Professor 210 mg subcut bilateral upper arms 2.34 mL [id number] 03/20/27 67708-349-26 [employer]GEN Total Dispensed Waste 2.34 mL 0 % Comments: pt accompanied by daughter who interpreted visit. 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 Pt tolerated injection well. Advised that given this is her first injection we will have her stay for 15 minutes following injection per protocol. I advised pt she will remain on vitamin D and calcium while on this medication and to let her dentist know she is on this medication. I advised her that if she should have any adverse reactions such as site reactions or other side effects to please call the office and let us know. All questions were answered and there are no further questions at this time. Assessment & Plan Assessment & Plan Orders: Orders AMB Romosozumab Injection Patient Supplied Today M81.0 - Age-related osteoporosis without current pathological fracture Coding
--- OUTSIDE RECORDS SUMMARY | 2024-12-29 10:45 | XMS_ITS | Encounter Summary ---
Author Organization [facility] Address [address] [place] [address] Care Team Providers Care Seasonal Customer Service Associate Name Role Phone Abigail Rajput MD Primary Care Provider [phone] Encounter Details Date Type Department Care Team (Latest Contact Info) Description 04/29/2024 Lab Requisition [facility] - Main Lab [address] [facility] [place] [address] Frankie Sultana MD [address] [place] [address], [phone] Unspecified dementia, unspecified severity, without behavioral [...] AM EST Office Visit Orthopedic Surgery - [place] [address] [address] Rodrick Viera DPM [address] [phone] documented as of this encounter Procedures Procedure [...] mmol/L LAB CHEMISTRY METHOD 04/29/2024 11:08 AM [facility] Potassium 4.1 3.5 - 5.5 mmol/L LAB CHEMISTRY METHOD 04/29/2024 11:08 AM [facility] Chloride 113(H) 96 - 110 mmol/L LAB CHEMISTRY METHOD 04/29/2024 11:08 AM [facility] CO2 27 21 - 32 mmol/L LAB CHEMISTRY METHOD 04/29/2024 11:08 AM [facility] Anion Gap 4 3 - 11 LAB CHEMISTRY METHOD 04/29/2024 11:08 AM [facility] Glucose 89 70 - 100 mg/dL LAB CHEMISTRY METHOD 04/29/2024 11:08 AM [facility] BUN 16 5 - 25 mg/dL LAB CHEMISTRY METHOD 04/29/2024 11:08 AM [facility] Creatinine 0.80 0.50 - 1.10 mg/dL LAB CHEMISTRY METHOD 04/29/2024 11:08 AM [facility] eGFR 76 >=60 mL/min/1. 73m2 LAB CHEMISTRY METHOD 04/29/2024 11:08 AM [facility] Comment:Calculation based on the Chronic Kidney Disease Epidemiology Collaboration (CKD-EPI) equation refit without adjustment for race. BUN/Creatinine Ratio 20.0 LAB CHEMISTRY METHOD 04/29/2024 11:08 AM [facility] Calcium 8.8 8.5 - 10.5 mg/dL LAB CHEMISTRY METHOD 04/29/2024 11:08 AM [facility] Blood Venous blood specimen / Unknown Venipuncture / Unknown 04/29/2024 7:02 AM EST 04/29/2024 9:29 AM EST us Frankie Sultana MD LAB BLOOD ORDERABLES Final Resul t [facility] [address] [place] [address], * (ABNORMAL) Complete blood count (04/29/2024 7:02 AM EST) WBC 2.7(L) 4.8 - 10.8 K/mcL LAB HEMETOLOGY METHOD 04/29/2024 10:54 AM [facility] RBC 3.40(L) 3.80 - 4.80 M/mcL LAB HEMETOLOGY METHOD 04/29/2024 10:54 AM [facility] Hemoglobin 9.5(L) 11.5 - 16.0 g/dL LAB HEMETOLOGY METHOD 04/29/2024 10:54 AM [facility] Hematocrit 30.4(L) 35.0 - 47.0 % LAB HEMETOLOGY METHOD 04/29/2024 10:54 AM [facility] MCV 88.9 79.0 - 98.0 FL LAB HEMETOLOGY METHOD 04/29/2024 10:54 AM [facility] MCH 27.8 27.0 - 32.0 pcg LAB HEMETOLOGY METHOD 04/29/2024 10:54 AM [facility] MCHC 31.3(L) 32.0 - 37.0 g/dL LAB HEMETOLOGY METHOD 04/29/2024 10:54 AM [facility] RDW 15.5(H) 11.0 - 15.0 % LAB HEMETOLOGY METHOD 04/29/2024 10:54 AM EST [facility] Platelets 106(L) 130 - 400 K/mcL LAB HEMETOLOGY METHOD 04/29/2024 10:54 AM EST [facility] MPV 11.8(H) 7.0 - 11.0 FL LAB HEMETOLOGY METHOD 04/29/2024 10:54 AM EST [facility] NRBC 0.0 <1.0 % LAB HEMETOLOGY METHOD 04/29/2024 10:54 AM EST [facility] NRBC Absolute 0.00 <0.10 K/mcL LAB HEMETOLOGY METHOD 04/29/2024 10:54 AM [facility] Blood Venous blood specimen / Unknown Venipuncture / Unknown 04/29/2024 7:02 AM EST 04/29/2024 9:29 AM EST us Frankie Sultana MD LAB BLOOD ORDERABLES Final Resul t [facility] [address] [place] [address], documented in this encounter Visit Diagnoses Diagnosis Unspecified dementia, unspecified severity, without behavioral disturbance, psychotic disturbance, mood disturbance, and anxiety ([facility] V24, [facility] V28) Human immunodeficiency virus (HIV) disease ([facility] V24, [facility] V28) Human immunodeficiency virus [HIV] disease documented in this encounter Care Teams Seasonal Customer Service Associate Relationship Specialty Start Date End Date Abigail Rajput MD [address] [place] [phone] PCP - General Family Medicine 03/03/24 documented as of this encounter
--- OUTSIDE RECORDS SUMMARY | 2024-12-29 10:45 | XMS_ITS | Encounter Summary ---
Author Organization [facility] Address [address] [place] [address] Care Team Providers Care Mechanotherapist Name Role Phone Abigail Rajput MD Primary Care Provider [phone] Encounter Details Date Type Department Care Team (Latest Contact Info) Description 05/04/2024 Lab Requisition [facility] - Main Lab [address] [facility] [place] [address] Frankie Sultana MD [address] [place] [address], [phone] Unspecified dementia, unspecified severity, without behavioral [...] AM EST Office Visit Orthopedic Surgery - [place] [address] [address] Rodrick Viera DPM [address] [address] documented as of this encounter [...] [facility] Comment:Calculation based on the Chronic Kidney Disease Epidemiology Collaboration (CKD-EPI) equation refit without adjustment for race. BUN/Creatinine Ratio 20.8 LAB CHEMISTRY METHOD 05/05/2024 8:43 AM [facility] Calcium 8.7 8.5 - 10.5 mg/dL LAB CHEMISTRY METHOD 05/05/2024 8:43 AM [facility] Blood Venous blood specimen / Unknown Venipuncture / Unknown 05/05/2024 6:15 AM EST 05/05/2024 8:11 AM EST us Frankie Sultana MD LAB BLOOD ORDERABLES Final Resul t [facility] [address] [place] [address], * (ABNORMAL) Complete blood count (05/05/2024 6:15 [...] LAB HEMETOLOGY METHOD 05/05/2024 8:57 AM EST [facility] Platelets 87(L) 130 - 400 K/mcL LAB HEMETOLOGY METHOD 05/05/2024 8:57 AM EST [facility] Comment:reviewed by slide MPV 11.0 7.0 - 11.0 FL LAB HEMETOLOGY METHOD 05/05/2024 8:57 AM EST [facility] NRBC 0.0 <1.0 % LAB HEMETOLOGY METHOD 05/05/2024 8:57 AM EST [facility] NRBC Absolute 0.00 <0.10 K/mcL LAB HEMETOLOGY METHOD 05/05/2024 8:57 AM EST [facility] Blood Venous blood specimen / Unknown Venipuncture / Unknown 05/05/2024 6:15 AM EST 05/05/2024 8:11 AM EST us Frankie Sultana MD LAB BLOOD ORDERABLES Final Resul t [facility] [address] [place] [address], documented in this encounter Visit Diagnoses Diagnosis Unspecified dementia, unspecified severity, without behavioral disturbance, psychotic disturbance, mood disturbance, and anxiety ([facility] V24, [facility] V28) Human immunodeficiency virus (HIV) disease ([facility] V24, [facility] V28) Human immunodeficiency virus [HIV] disease documented in this encounter Care Teams Mechanotherapist Relationship Specialty Start Date End Date Abigail Rajput MD [address] [place] [phone] PCP - General Family Medicine 03/03/24 documented as of this encounter
--- OUTSIDE RECORDS SUMMARY | 2024-12-29 10:45 | XMS_ITS | Clinical Summary ---
Author Organization [address] [place] [address] Address [address] [place] [address] Phone Care Team Providers Care Material Damage Adjuster Name Role Phone Abigail Rajput MD Primary Care Provider [phone] Allergies Active Allergy Reactions Criticality Noted Date Comments Aspirin Skin Problems 03/26/2024 Ciprofloxacin Diarrhea 03/26/2024 Iodinated Contrast Media Hives 03/26/2024 Morphine 03/26/2024 Nsaids (Non-Steroidal Anti-I nflammatory Drug) 03/26/2024 Oxycodone 03/26/2024 Penicillin G 03/26/2024 Penicillin V 03/26/2024 Ctrsiuct-7-Br2 Antimigraine Agents 1 05/27/2023 Medications acetaminophen-c odeine [...] Problem Noted Date Diagnosed Date Cerebellar infarction ([facility] V24, [facility] V28) 03/26/2024 Chronic anemia 03/26/2024 Chronic kidney disease, stage 3 ([facility] V24, [facility] V28) 03/26/2024 Chronic paranoid schizophrenia ([facility] V24, [facility] V28) 03/26/2024 Dyslipidemia 03/26/2024 Essential (primary) hypertension 03/26/2024 Fibromyalgia 03/26/2024 Human immunodeficiency virus infection ([facility] V24, [facility] V28) 03/26/2024 Primary osteoarthritis involving multiple joints 03/26/2024 Recurrent deep vein thrombosis ([facility] V24, [facility] V28) 03/26/2024 Type 2 diabetes mellitus ([facility] V24, [facility] V 28) 03/26/2024 Chronic anticoagulation 03/26/2024 Dilated bile duct 03/26/2024 SVT (supraventricular tachycardia) ([facility] V24) 03/26/2024 Pancreatic cyst 03/26/2024 Unsteady gait 03/26/2024 Encounters Date Type Department Care Team Description 11/29/2024 9:15 AM EDT Office Visit Orthopedic Surgery - [address] [phone] Rodrick Viera, DPM Dermatophytosis of nail (Primary Dx); Diabetic mononeuropathy simplex ([facility] V24, [facility] V28); Type II diabetes mellitus with peripheral circulatory disorder ([facility] V24, [facility] V28); Hammer toe of left foot; Tinea pedis of both feet; Pain in toe of left foot; Pain in toe of right foot; Acquired hammer toe of right foot; Difficulty walking from Last 3 Months Social History Tobacco Use Types Packs/Day Years [...] AM EST Office Visit Orthopedic Surgery - [place] [address] [address] Rodrick Viera, DPM [address] [address] Health Maintenance Due Date Last Done Comments [...] 03/06/2017, 11/14/2016 Cholesterol Screening (Lipid Panel) 03/24/2022 Falls Risk Assessment 03/24/2022 Hepatitis C Screening 03/24/2022 Osteoporosis Screening (Bone Density Screening) 03/24/2022 Social Influencers of Health Screening 03/24/2022 Diabetes: Annual Urine Albumin-Creatinine Ratio (uACR) 03/26/2024 Diabetes: Blood Sugar Control Test (HGBA1C) 03/26/2024 Depression Screening 04/21/2024 Influenza Vaccine (#1) 2024 , 12/20/2021, 01/07/2019, Additional history exists Diabetes: Annual GFR (Glomerular Filtration Rate) 05/12/2025 05/12/2024, 05/05/2024, 04/29/2024 Hypertension/CHF/CAD Annual BMP Blood Test 05/12/2025 05/12/2024, 05/05/2024, 04/29/2024 DTaP,Tdap,and Td Vaccines (3 - Td or Tdap) 06/16/2033 06/16/2023, 04/24/2011 Hepatitis B Vaccines Completed 01/01/2011, 11/22/2010, 04/26/2010, Additional history exists Pneumococcal Vaccine: 50+ Years Completed 12/20/2021, 01/02/2015, 12/23/2013, Additional history exists HIB Vaccines Aged Out [...] disturbance, psychotic disturbance, mood disturbance, and anxiety ([facility]) Human immunodeficiency virus (HIV) disease ([facility]) from Last 3 Months or Most Recently Relevant to Health Maintenance Results * (ABNORMAL) Basic metabolic panel (05/12/2024 6:44 AM EST) Sodium 142 133 - 145 mmol/L LAB CHEMISTRY METHOD 05/12/2024 2:22 PM [facility] Potassium 4.0 3.5 - 5.5 mmol/L LAB CHEMISTRY METHOD 05/12/2024 2:22 PM [facility] Chloride 111(H) 96 - 110 mmol/L LAB CHEMISTRY METHOD 05/12/2024 2:22 PM [facility] CO2 27 21 - 32 mmol/L LAB CHEMISTRY METHOD 05/12/2024 2:22 PM [facility] Anion Gap 4 3 - 11 LAB CHEMISTRY METHOD 05/12/2024 2:22 PM [facility] Glucose 87 70 - 100 mg/dL LAB CHEMISTRY METHOD 05/12/2024 2:22 PM [facility] BUN 11 5 - 25 mg/dL LAB CHEMISTRY METHOD 05/12/2024 2:22 PM [facility] Creatinine 0.89 0.50 - 1.10 mg/dL LAB CHEMISTRY METHOD 05/12/2024 2:22 PM [facility] eGFR 66 >=60 mL/min/1. 73m2 LAB CHEMISTRY METHOD 05/12/2024 2:22 PM [facility] Comment:Calculation based on the Chronic Kidney Disease Epidemiology Collaboration (CKD-EPI) equation refit without adjustment for race. BUN/Creatinine Ratio 12.4 LAB CHEMISTRY METHOD 05/12/2024 2:22 PM [facility] Calcium 9.1 8.5 - 10.5 mg/dL LAB CHEMISTRY METHOD 05/12/2024 2:22 PM [facility] Blood Venous blood specimen / Unknown Venipuncture / Unknown 05/12/2024 6:44 AM EST 05/12/2024 11:18 AM EST us Frankie Sultana MD LAB BLOOD ORDERABLES Final Resul t [facility] [address] [place] [address], from Last 3 Months or Most Recently Relevant to Health Maintenance Insurance , [address] [place] [address] [facility] Member Subscriber Plan / Payer (Ef fective 2023-Present) Name:Inga Perez Relation to Subscriber:Self Name:Inga Vidal Payer ID:[id number] Group ID:[id number] Type:Not on file Address: [place] [address] [address] [id number] Care Teams Material Damage Adjuster Relationship Specialty Start Date End Date Abigail Rajput MD [address] [place] [phone] PCP - General Family Medicine 03/03/24
--- OUTSIDE RECORDS SUMMARY | 2024-12-29 10:45 | XMS_ITS | Encounter Summary ---
Author Organization [facility] Address [address] [place] [address] Care Team Providers Care Accounting Recruiter Name Role Phone Abigail Rajput MD Primary Care Provider [phone] Encounter Details Date Type Department Care Team (Latest Contact Info) Description 05/11/2024 Lab Requisition [facility] - Main Lab [address] [facility] [place] [address] Frankie Sultana MD [address] [place] [address], [phone] Unspecified dementia, unspecified severity, without behavioral [...] AM EST Office Visit Orthopedic Surgery - [place] [address] [address] Rodrick Viera DPM [address] [phone] documented as of this encounter [...] mmol/L LAB CHEMISTRY METHOD 05/12/2024 2:22 PM [facility] Potassium 4.0 3.5 - 5.5 mmol/L LAB CHEMISTRY METHOD 05/12/2024 2:22 PM [facility] Chloride 111(H) 96 - 110 mmol/L LAB CHEMISTRY METHOD 05/12/2024 2:22 PM [facility] CO2 27 21 - 32 mmol/L LAB CHEMISTRY METHOD 05/12/2024 2:22 PM [facility] Anion Gap 4 3 - 11 LAB CHEMISTRY METHOD 05/12/2024 2:22 PM [facility] Glucose 87 70 - 100 mg/dL LAB CHEMISTRY METHOD 05/12/2024 2:22 PM [facility] BUN 11 5 - 25 mg/dL LAB CHEMISTRY METHOD 05/12/2024 2:22 PM [facility] Creatinine 0.89 0.50 - 1.10 mg/dL LAB CHEMISTRY METHOD 05/12/2024 2:22 PM [facility] eGFR 66 >=60 mL/min/1. 73m2 LAB CHEMISTRY METHOD 05/12/2024 2:22 PM [facility] Comment:Calculation based on the Chronic Kidney Disease Epidemiology Collaboration (CKD-EPI) equation refit without adjustment for race. BUN/Creatinine Ratio 12.4 LAB CHEMISTRY METHOD 05/12/2024 2:22 PM [facility] Calcium 9.1 8.5 - 10.5 mg/dL LAB CHEMISTRY METHOD 05/12/2024 2:22 PM [facility] Blood Venous blood specimen / Unknown Venipuncture / Unknown 05/12/2024 6:44 AM EST 05/12/2024 11:18 AM EST us Frankie Sultana MD LAB BLOOD ORDERABLES Final Resul t [facility] [address] [place] [address], * (ABNORMAL) Complete blood count (05/12/2024 6:44 AM EST) WBC 2.9(L) 4.8 - 10.8 K/mcL LAB HEMETOLOGY METHOD 05/12/2024 11:56 AM [facility] RBC 3.60(L) 3.80 - 4.80 M/mcL LAB HEMETOLOGY METHOD 05/12/2024 11:56 AM [facility] Hemoglobin 10.0(L) 11.5 - 16.0 g/dL LAB HEMETOLOGY METHOD 05/12/2024 11:56 AM [facility] Hematocrit 31.2(L) 35.0 - 47.0 % LAB HEMETOLOGY METHOD 05/12/2024 11:56 AM [facility] MCV 87.4 79.0 - 98.0 FL LAB HEMETOLOGY METHOD 05/12/2024 11:56 AM [facility] MCH 28.0 27.0 - 32.0 pcg LAB HEMETOLOGY METHOD 05/12/2024 11:56 AM [facility] MCHC 32.1 32.0 - 37.0 g/dL LAB HEMETOLOGY METHOD 05/12/2024 11:56 AM [facility] RDW 14.9 11.0 - 15.0 % LAB HEMETOLOGY METHOD 05/12/2024 11:[address] [facility] Platelets 121(L) 130 - 400 K/mcL LAB HEMETOLOGY METHOD 05/12/2024 11:[address] [facility] MPV 11.3(H) 7.0 - 11.0 FL LAB HEMETOLOGY METHOD 05/12/2024 11:[address] [facility] NRBC 0.0 <1.0 % LAB HEMETOLOGY METHOD 05/12/2024 11:56 AM [facility] NRBC Absolute 0.00 <0.10 K/mcL LAB HEMETOLOGY METHOD 05/12/2024 11:56 AM [facility] Blood Venous blood specimen / Unknown Venipuncture / Unknown 05/12/2024 6:44 AM EST 05/12/2024 11:18 AM EST us Frankie Sultana MD LAB BLOOD ORDERABLES Final Resul t [facility] [address] [place] [address], documented in this encounter Visit Diagnoses Diagnosis Unspecified dementia, unspecified severity, without behavioral disturbance, psychotic disturbance, mood disturbance, and anxiety ([facility] V24, [facility] V28) Human immunodeficiency virus (HIV) disease ([facility] V24, [facility] V28) Human immunodeficiency virus [HIV] disease documented in this encounter Care Teams Accounting Recruiter Relationship Specialty Start Date End Date Abigail Rajput MD [address] [place] [phone] PCP - General Family Medicine 03/03/24 documented as of this encounter
== END 2024-12-29 09:42 | disposition home or self-care (01) ==
LOC: HO.ENCR 09:06
PROVIDERS: PCP Family Medicine; Visit Provider Student in an Organized Health Care Education/Training Program
DX: M81.0 Age-related osteoporosis without current pathological fracture (principal)

== ENCOUNTER → 2024-12-29 09:05 | Outpatient (BNVA) | payer MEDICARE, SELFPAY | PROVIDERS: PCP Family Medicine; Visit Provider Student in an Organized Health Care Education/Training Program | DX: M81.0 Age-related osteoporosis without current pathological fracture (principal) | CPT/HCPCS: 96372; J3111 ==

== ENCOUNTER 2025-01-27 10:17 | Outpatient (AMB) | payer MEDICARE, SELFPAY ==
--- NOTE | 2025-01-27 10:51 | AM.OFFVISNUR ---
Intake Visit Reasons: Evenity #2 Allergies Iodinated Contrast Media (IV DYE, IODINE CONTAINING) Allergy (Severe, Verified 12/13/24 08:59) ANAPHYLAXIS aspirin (Aspirin) Allergy (Intermediate, Verified 12/13/24 08:59) HIVES,SWELLING, swelling ciprofloxacin (Cipro) Allergy (Unknown, Verified 12/13/24 08:59) diarrhea ibuprofen Allergy (Unknown, Verified 12/13/24 08:59) nausea Penicillins Allergy (Unknown, Verified 12/13/24 08:59) HIVES,SWELLING tuberculin, purified protein deriva (TUBERCULIN, PURIFIED PROTEIN DERIVA) Allergy (Unknown, Verified 12/13/24 08:59) REDNESS,ITCHING NSAIDS (Non-Steroidal Anti-Inflamma (NSAIDS) Adverse Reaction (Unknown, Verified 12/13/24 08:59) ABD PAIN,NAUSEA Office Meds romosozumab-aqqg 210 mg/2.34 mL(105 mg/1.17 mL x2)subcutaneous syringe Performing Provider: Rachana Wilcox MD Performing Location: [facility] Administered by: Anh Olivas RN on 01/27/25 10:52 Dose Route Admin Location Dispensed Lot Number Expiration Date [facility] [employer] 210 mg subcut bilateral upper arms 2.34 mL [id number] 03/20/27 27454-084-68 [employer] Total Dispensed Waste 2.34 mL 0 % Comments: No adverse reactions reported from previous injection. Pt tolerated injection well. Pt scheduled in 4 weeks for next appt. No further questions at this time. Assessment & Plan Assessment & Plan Orders: Orders AMB Romosozumab Injection Patient Supplied Today M81.0 - Age-related osteoporosis without current pathological fracture Coding
== END 2025-01-27 10:48 | disposition home or self-care (01) ==
LOC: HO.ENCR 10:17
PROVIDERS: PCP Family Medicine; Visit Provider Student in an Organized Health Care Education/Training Program
DX: M81.0 Age-related osteoporosis without current pathological fracture (principal)

== ENCOUNTER → 2025-01-27 10:17 | Outpatient (BNVA) | payer MEDICARE, SELFPAY | PROVIDERS: PCP Family Medicine; Visit Provider Student in an Organized Health Care Education/Training Program | DX: M81.0 Age-related osteoporosis without current pathological fracture (principal) | CPT/HCPCS: 96372; J3111 ==

== ENCOUNTER 2025-02-24 10:21 | Outpatient (AMB) | payer OTHER, SELFPAY ==
--- NOTE | 2025-02-24 10:42 | AM.OFFVISNUR ---
Intake Visit Reasons: Evenity #3 Allergies Iodinated Contrast Media (IV DYE, IODINE CONTAINING) Allergy (Severe, Verified 12/13/24 08:59) ANAPHYLAXIS aspirin (Aspirin) Allergy (Intermediate, Verified 12/13/24 08:59) HIVES,SWELLING, swelling ciprofloxacin (Cipro) Allergy (Unknown, Verified 12/13/24 08:59) diarrhea ibuprofen Allergy (Unknown, Verified 12/13/24 08:59) nausea Penicillins Allergy (Unknown, Verified 12/13/24 08:59) HIVES,SWELLING tuberculin, purified protein deriva (TUBERCULIN, PURIFIED PROTEIN DERIVA) Allergy (Unknown, Verified 12/13/24 08:59) REDNESS,ITCHING NSAIDS (Non-Steroidal Anti-Inflamma (NSAIDS) Adverse Reaction (Unknown, Verified 12/13/24 08:59) ABD PAIN,NAUSEA Office Meds romosozumab-aqqg 210 mg/2.34 mL(105 mg/1.17 mL x2)subcutaneous syringe Performing Provider: Christian Dickson MD Performing Location: [facility] Administered by: Anh Olivas RN on 02/24/25 10:38 Dose Route Admin Location Dispensed Lot Number Expiration Date [facility] [employer] 210 mg subcut bilateral upper arms 2.34 mL [id number] 07/20/27 89007-547-79 [employer] Total Dispensed Waste 2.34 mL 0 % Comments: Pt accompanied by daughter who interpreted visit. Pt declined machine try out setter. No adverse reactions reported from previous injection. Pt tolerated injection well. Pt scheduled in 4 weeks for next appt. No further questions at this time. Assessment & Plan Assessment & Plan Orders: Orders AMB Romosozumab Injection Patient Supplied Today M81.0 - Age-related osteoporosis without current pathological fracture Coding
--- OUTSIDE RECORDS SUMMARY | 2025-02-24 12:12 | XMS_ITS | Encounter Summary ---
Author Organization [facility] Address [address] [place] [address] Care Team Providers Care Brusher Name Role Phone Abigail Rajput MD Primary Care Provider [phone] Encounter Details Date Type Department Care Team (Latest Contact Info) Description 04/29/2024 Lab Requisition [facility] - Main Lab [address] [facility] [place] [address] Frankie Sultana MD [address] [place] [address], [phone] Unspecified dementia, unspecified severity, without behavioral [...] AM EST Office Visit Orth[facility] Surgery - [place] [address] [address] Rodrick Viera DPM [address] [address] documented as of this encounter [...] mmol/L LAB CHEMISTRY METHOD 04/29/2024 11:[address] [facility] Potassium 4.1 3.5 - 5.5 mmol/L LAB CHEMISTRY METHOD 04/29/2024 11:[address] [facility] Chloride 113(H) 96 - 110 mmol/L LAB CHEMISTRY METHOD 04/29/2024 11:[address] [facility] CO2 27 21 - 32 mmol/L LAB CHEMISTRY METHOD 04/29/2024 11:[address] [facility] Anion Gap 4 3 - 11 LAB CHEMISTRY METHOD 04/29/2024 11:[address] [facility] Glucose 89 70 - 100 mg/dL LAB CHEMISTRY METHOD 04/29/2024 11:[address] [facility] BUN 16 5 - 25 mg/dL LAB CHEMISTRY METHOD 04/29/2024 11:[address] [facility] Creatinine 0.80 0.50 - 1.10 mg/dL LAB CHEMISTRY METHOD 04/29/2024 11:[address] [facility] eGFR 76 >=60 mL/min/1. 73m2 LAB CHEMISTRY METHOD 04/29/2024 11:[address] [facility] Comment:Calculation based on the Chronic Kidney Disease Epidemiology Collaboration (CKD-EPI) equation refit without adjustment for race. BUN/Creatinine Ratio 20.0 LAB CHEMISTRY METHOD 04/29/2024 11:[address] [facility] Calcium 8.8 8.5 - 10.5 mg/dL LAB CHEMISTRY METHOD 04/29/2024 11:[address] [facility] Blood Venous blood specimen / Unknown Venipuncture / Unknown 04/29/2024 7:02 AM EST 04/29/2024 9:29 AM EST us Frankie Sultana MD LAB BLOOD ORDERABLES Final Resul t [facility] [address] [place] [address], * (ABNORMAL) Complete blood count (04/29/2024 7:02 AM EST) WBC 2.7(L) 4.8 - 10.8 K/mcL LAB HEMETOLOGY METHOD 04/29/2024 10:[address] [facility] RBC 3.40(L) 3.80 - 4.80 M/mcL LAB HEMETOLOGY METHOD 04/29/2024 10:[address] [facility] Hemoglobin 9.5(L) 11.5 - 16.0 g/dL LAB HEMETOLOGY METHOD 04/29/2024 10:[address] [facility] Hematocrit 30.4(L) 35.0 - 47.0 % LAB HEMETOLOGY METHOD 04/29/2024 10:[address] [facility] MCV 88.9 79.0 - 98.0 FL LAB HEMETOLOGY METHOD 04/29/2024 10:[address] [facility] MCH 27.8 27.0 - 32.0 pcg LAB HEMETOLOGY METHOD 04/29/2024 10:[address] [facility] MCHC 31.3(L) 32.0 - 37.0 g/dL LAB HEMETOLOGY METHOD 04/29/2024 10:[address] [facility] RDW 15.5(H) 11.0 - 15.0 % LAB HEMETOLOGY METHOD 04/29/2024 10:54 AM EST [facility] Platelets 106(L) 130 - 400 K/mcL LAB HEMETOLOGY METHOD 04/29/2024 10:54 AM EST [facility] MPV 11.8(H) 7.0 - 11.0 FL LAB HEMETOLOGY METHOD 04/29/2024 10:54 AM EST [facility] NRBC 0.0 <1.0 % LAB HEMETOLOGY METHOD 04/29/2024 10:54 AM EST [facility] NRBC Absolute 0.00 <0.10 K/mcL LAB HEMETOLOGY METHOD 04/29/2024 10:[address] [facility] Blood Venous blood specimen / Unknown Venipuncture / Unknown 04/29/2024 7:02 AM EST 04/29/2024 9:29 AM EST us Frankie Sultana MD LAB BLOOD ORDERABLES Final Resul t [facility] [address] [place] [address], documented in this encounter Visit Diagnoses Diagnosis Unspecified dementia, unspecified severity, without behavioral disturbance, psychotic disturbance, mood disturbance, and anxiety ([facility] V24, [facility] V28) Human immunodeficiency virus (HIV) disease ([facility] V24, [facility] V28) Human immunodeficiency virus [HIV] disease documented in this encounter Care Teams Brusher Relationship Specialty Start Date End Date Abigail Rajput MD [address] [place] [phone] PCP - General Family Medicine 03/03/24 documented as of this encounter
--- OUTSIDE RECORDS SUMMARY | 2025-02-24 12:12 | XMS_ITS | Data Portability ---
Author Organization [place] - ELLIOTT TERESA MD [facility], Main Office Address [address] [place] [address] Assessment Encounter Date Assessment Date Assessment LastModified by Organization Details LastModified Time 04/10/2023 04/10/2023 telehealth. [place] home in [place]. 15 min. [employer]. audio. [email or web address] Not available 04/10/2023 11:33:11 05/25/2024 05/25/2024 AUDIO. 19 min. [place]; [place]; [facility] [email or web address] Not available 05/25/2024 16:58:54 Plan of Treatment Reminders Order Date Submit Date Provider Last Modified By Organization Details Last Modified Time Details Appointments B20 FOLLOW UP 2025 12:00P M Elliott Stewart MD Not available Not available Not available Lab CBC w/ diff 2024 025 [email or web address] [facility] (Centralized Electronic Ordering - All Locations), Patient Can Go To The Location Of Their Choice, [id number] 02/07/2025 08:48:17 HIV-1 RNA, quantita tive, PCR, serum or plasma 2024 025 [email or web address] [facility] (Centralized Electronic Ordering - All Locations), Patient Can Go To The Location Of Their Choice, [id number] 02/07/2025 08:48:18 RPR (rapid plasma reagin), serum 2024 025 [email or web address] [facility] (Centralized Electronic Ordering - All Locations), Patient Can Go To The Location Of Their Choice, [id number] 02/07/2025 08:48:18 cd4 T-cells, blood 2024 025 [email or web address] [facility], [address] [address], [place], [address], 02/07/2025 08:48:18 CMP, serum or plasma 2024 025 [place] [facility], [address] [place] [address] [address], [place], [address], 02/07/2025 08:48:18 TSH, serum, reflex free T4 2024 025 [place], [address], [address], 02/07/2025 08:48:18 lipid panel, serum 2024 025 [place] [facility], [address] [place] [address], [place], [address], 02/07/2025 08:48:18 CBC w/ diff 2024 025 [email or web address] [facility] (Centralized Electronic Ordering - All Locations), Patient Can Go To The Location Of Their Choice, [id number] 06/01/2024 15:14:02 ALT (alanine aminotra nsferase ), serum or plasma 2024 025 [email or web address] [facility] (Centralized Electronic Ordering - All Locations), Patient Can Go To The Location Of Their Choice, [id number] 06/01/2024 15:14:03 AST/SGOT (asparta te aminotra nsferase ), serum or plasma 2024 025 [email or web address] [facility] (Centralized Electronic Ordering - All Locations), Patient Can Go To The Location Of Their Choice, [id number] 06/01/2024 15:14:03 CT + NG DNA, PCR, unspecif ied specimen 2024 025 [email or web address] [facility] (Centralized Electronic Ordering - All Locations), Patient Can Go To The Location Of Their Choice, [id number] 06/01/2024 15:14:03 creatini ne w/ estimate d GFR (eGFR), serum or plasma 2024 025 [email or web address] [facility] (Centralized Electronic Ordering - All Locations), Patient Can Go To The Location Of Their Choice, 06/01/2024 15:14:03 HIV-1 RNA, quantita tive, PCR, serum or plasma 2024 025 [email or web address] [facility] (Centralized Electronic Ordering - All Locations), Patient Can Go To The Location Of Their Choice, 06/01/2024 15:14:03 RPR (rapid plasma reagin), serum 2024 025 [email or web address] [facility] (Centralized Electronic Ordering - All Locations), Patient Can Go To The Location Of Their Choice, 06/01/2024 15:14:03 HBsAg (hepatit is B surface Ag), EIA, serum 2024 025 [email or web address] [facility] ([facility]ized Electronic Ordering - All Locations), Patient Can Go To The Location Of Their Choice, 06/01/2024 15:14:03 cd4 T-cells, blood 2024 025 [email or web address] [facility], [address] [place] [address], [address], [place], [address], 06/01/2024 15:14:03 CBC w/ diff 2023 024 [email or web address] [facility] ([facility]ized [facility] Ordering - All Locations), Patient Can Go To The Location Of Their Choice, 03/02/2024 09:05:49 electrol ytes panel, blood 2023 024 [email or web address] [facility] ([facility] Ordering - All Locations), Patient Can Go To The Location Of Their Choice, 03/02/2024 09:05:49 ALT (alanine aminotra nsferase ), serum or plasma 2023 024 [email or web address] [facility] ([facility] Ordering - All Locations), Patient Can Go To The Location Of Their Choice, 03/02/2024 09:05:50 AST/SGOT (asparta te aminotra nsferase ), serum or plasma 2023 024 [email or web address] [facility] ([facility] Ordering - All Locations), Patient Can Go To The Location Of Their Choice, 03/02/2024 09:05:50 CT + NG DNA, PCR, unspecif ied specimen 2023 [email or web address] [facility] ([facility] Ordering - All Locations), Patient Can Go To The Location Of Their Choice, 03/02/2024 09:05:50 creatini ne w/ estimate d GFR (eGFR), serum or plasma 2023 024 [email or web address] [facility] ([facility] Ordering - All Locations), Patient Can Go To The Location Of Their Choice, 03/02/2024 09:05:50 hepatiti s C virus Ab, serum 2023 024 [email or web address] [facility] ([facility] Ordering - All Locations), Patient Can Go To The Location Of Their Choice, 03/02/2024 09:05:50 HIV-1 RNA, quantita tive, PCR, serum or plasma 2023 024 [email or web address] [facility] ([facility] Ordering - All Locations), Patient Can Go To The Location Of Their Choice, 03/02/2024 09:05:50 RPR (rapid plasma reagin), serum 2023 024 [email or web address] [facility] ([facility] Ordering - All Locations), Patient Can Go To The Location Of Their Choice, 03/02/2024 09:05:50 T-cell regulato ry subsets panel, blood 2023 024 [email or web address] [facility] ([facility] Ordering - All Locations), Patient Can Go To The Location Of Their Choice, 03/02/2024 09:05:50 HBsAg (hepatit is B surface Ag), EIA, serum 2023 024 [email or web address] [facility] ([facility] Ordering - All Locations), Patient Can Go To The Location Of Their Choice, 03/02/2024 09:05:50 CBC w/ diff 2022 023 [email or web address] [facility] ([facility] Ordering - All Locations), Patient Can Go To The Location Of Their Choice, 04/18/2023 17:06:09 electrol ytes panel, blood 2022 023 [email or web address] [facility] ([facility] Ordering - All Locations), Patient Can Go To The Location Of Their Choice, 04/18/2023 17:06:10 ALT (alanine aminotra nsferase ), serum or plasma 2022 023 [email or web address] [facility] ([facility] Ordering - All Locations), Patient Can Go To The Location Of Their Choice, 04/18/2023 17:06:10 AST/SGOT (asparta te aminotra nsferase ), serum or plasma 2022 023 [email or web address] [facility] ([facility] Ordering - All Locations), Patient Can Go To The Location Of Their Choice, 04/18/2023 17:06:10 CT + NG DNA, PCR, unspecif ied specimen 2022 023 [email or web address] [facility] ([facility]ized [facility] Ordering - All Locations), Patient Can Go To The Location Of Their Choice, 04/18/2023 17:06:10 creatini ne w/ estimate d GFR (eGFR), serum or plasma 2022 023 [email or web address] [facility] ([facility] Ordering - All Locations), Patient Can Go To The Location Of Their Choice, 04/18/2023 17:06:10 hepatiti s C virus Ab, serum 2022 023 [email or web address] [facility] ([facility] Ordering - All Locations), Patient Can Go To The Location Of Their Choice, 04/18/2023 17:06:10 HIV-1 RNA, quantita tive, PCR, serum or plasma 2022 023 [email or web address] [facility] ([facility] Ordering - All Locations), Patient Can Go To The Location Of Their Choice, 04/18/2023 17:06:11 RPR (rapid plasma reagin), serum 2022 023 [email or web address] [facility] ([facility] Ordering - All Locations), Patient Can Go To The Location Of Their Choice, 04/18/2023 17:06:11 T-cell regulato ry subsets panel, blood 2022 023 [email or web address] [facility] ([facility]ized [facility] Ordering - All Locations), Patient Can Go To The Location Of Their Choice, [facility] 04/18/2023 17:06:11 HBsAg (hepatit is B surface Ag), EIA, serum 2022 023 [email or web address] [facility] ([facility] Ordering - All Locations), Patient Can Go To The Location Of Their Choice, [facility] 04/18/2023 17:06:11 CBC w/ diff 2022 023 [email or web address] [facility], [address] [place] [address], [id number], 03/27/2023 16:11:13 electrol ytes panel, blood 2022 023 [email or web address] [facility], [address] [place] [address], [id number], 03/27/2023 16:11:13 ALT (alanine aminotra nsferase ), serum or plasma 2022 023 [email or web address] [facility], [address] [place] [address], [place], [address], 03/27/2023 16:11:13 AST/SGOT (asparta te aminotra nsferase ), serum or plasma 2022 023 [employer] [facility], [address] [place] [address], [id number], 03/27/2023 16:11:13 CT + NG DNA, PCR, unspecif ied specimen 2022 023 [email or web address] [facility], [address] [place] [address], [id number], 03/27/2023 16:11:14 creatini ne w/ estimate d GFR (eGFR), serum or plasma [address]22 [address] [email or web address] [employer] [facility], 175 [facility] [address], [place], [address], 03/27/2023 16:11:14 hepatiti s C virus Ab, serum [address], 175 [facility], [facility] [address], [place], [address], 03/27/2023 16:11:14 HIV-1 RNA, quantita tive, PCR, serum or plasma [address], 175 [facility], [facility] [address], [place], [address], 03/27/2023 16:11:14 RPR (rapid plasma reagin), serum [address], 175 [facility], [facility] [address], [place], [address], 03/27/2023 16:11:15 T-cell regulato ry subsets panel, blood [address], 175 [facility], [facility] [address], [place], [address], 03/27/2023 16:11:15 HBsAg (hepatit is B surface Ag), EIA, serum [address], 175 [facility], [facility] [address], [place], [address], 03/27/2023 16:11:15 Referral None recorded . Procedures None recorded . Surgeries None recorded . Imaging None recorded . Medication Orders predniso ne 20 mg tablet 2024 025 [facility], [address] [place] [address] [address], [place], [place], [id number], 01/30/2025 05:01:56 Robituss in Cough-Ch est Congesti on DM 5 mg-100 mg/5 mL oral liquid 2024 025 [facility], [address] [place] [address], [id number], 01/20/2025 11:31:31 Biktarvy 50 mg-200 mg-25 mg tablet 2024 025 [facility], [address] [place] [address], [id number], 01/20/2025 11:10:49 Biktarvy 50 mg-200 mg-25 mg tablet 2024 025 [facility], [address] [place] [address], [id number], 05/25/2024 17:55:46 Biktarvy 50 mg-200 mg-25 mg tablet 2023 024 [facility], [address] [place] [address], [id number], 02/24/2024 13:06:50 Biktarvy 50 mg-200 mg-25 mg tablet 2022 023 [facility], [address] [place] [address], [id number], 04/10/2023 14:03:18 Biktarvy 50 mg-200 mg-25 mg tablet 2022 023 [facility], [address] [place] [address], [id number], 01/07/2023 17:23:45 Patient TargetsNo targets recorded. Patient InstructionsNo instructions recorded. Reason for Referral None Reported. Results Created Date Observation Date Name Description Value Unit Range Abnormal Flag Note LastModifiedBy Organization Detail LastModifiedTime 09/10/19 24 09/11/2023 HCV ANTIB TRINI hep C virus Ab Non Reacti ve non reacti ve HCV antib trini alone does not diffe renti ate betwe en previ ously resol santosh infec tion and activ e infec tion. Equiv ocal and React rashida HCV antib trini resul ts shoul d be follo wed up with an HCV RNA test to suppo rt the diagn osis of activ e HCV infec tion. Not Available [facility] ([facility]) [address] [place], [address], 09/12/2023 10:06:27 09/10/19 24 09/11/2023 AST (SGOT ) AST (SGOT) 14 IU/L 0-40 Not Available [facility] ([facility]) [address] [facility], [place], [address], 09/12/2023 10:06:27 09/10/19 24 09/11/2023 ALT (SGPT ) ALT (SGPT) 7 IU/L 0-32 Not Available [facility] ([facility]) [address] [place], [address], 09/12/2023 10:06:28 09/30/19 25 09/29/2024 CBC/D /PLT W/ REFLE X CALVIN TIN WBC 3.0 x10e3 /uL 3.4-10 .8 below low normal Not Available [facility] ([facility]) [address] [place], [address], 09/30/2024 18:05:43 09/30/19 25 09/29/2024 CBC/D /PLT W/ REFLE X CALVIN TIN RBC 3.74 x10e6 /uL 3.77-5 .28 below low normal Not Available [facility] ([facility]) [address] [place], [address], 09/30/2024 18:05:43 09/30/19 25 09/29/2024 CBC/D /PLT W/ REFLE X CALVIN TIN hemoglobin 10.4 g/dL 11.1-1 5.9 below low normal Not Available [facility] ([facility]) [address] [place], [address], 09/30/2024 18:05:43 09/30/19 25 09/29/2024 CBC/D /PLT W/ REFLE X CALVIN TIN hematocrit 33.5 % 34.0-4 6.6 below low normal Not Available [facility] ([facility]) [address] [facility], [place], [address], 09/30/2024 18:05:43 09/30/19 25 09/29/2024 CBC/D /PLT W/ REFLE X CALVIN TIN MCV 90 fL 79-97 normal Not Available [facility] ([facility]) [address] [place], [address], 09/30/2024 18:05:43 09/30/19 25 09/29/2024 CBC/D /PLT W/ REFLE X CALVIN TIN MCH 27.8 pg 26.6-3 3.0 normal Not Available [facility] ([facility]) [address] [place], [address], 09/30/2024 18:05:43 09/30/19 25 09/29/2024 CBC/D /PLT W/ REFLE X CALVIN TIN MCHC 31.0 g/dL 31.5-3 5.7 below low normal Not Available [facility] ([facility]) [address] [place], [address], 09/30/2024 18:05:43 09/30/19 25 09/29/2024 CBC/D /PLT W/ REFLE X CALVIN TIN RDW 15.0 % 11.7-1 5.4 Not Available [facility] ([facility]) [address] [place], [address], 09/30/2024 18:05:43 09/30/19 25 09/29/2024 CBC/D /PLT W/ REFLE X CALVIN TIN platelets 102 x10e3 /uL 150-45 0 below low normal Not Available [facility] ([facility]) [address] [place], [address], 09/30/2024 18:05:43 09/30/19 25 09/29/2024 CBC/D /PLT W/ REFLE X CALVIN TIN neutrophils 44 % not estab. normal Not Available [facility] ([facility]) [address] [facility], [place], [address], 09/30/2024 18:05:43 09/30/19 25 09/29/2024 CBC/D /PLT W/ REFLE X CALVIN TIN lymphs 36 % not estab. normal Not Available [facility] ([facility]) [address] [facility], [place], [address], 09/30/2024 18:05:43 09/30/19 25 09/29/2024 CBC/D /PLT W/ REFLE X CALVIN TIN monocytes 19 % not estab. normal Not Available [facility] ([facility]) [address] [facility], [place], [address], 09/30/2024 18:05:43 09/30/19 25 09/29/2024 CBC/D /PLT W/ REFLE X CALVIN TIN eos 1 % not estab. normal Not Available [facility] ([facility]) [address] [facility], [place], [address], 09/30/2024 18:05:43 09/30/19 25 09/29/2024 CBC/D /PLT W/ REFLE X CALVIN TIN basos 0 % not estab. normal Not Available [facility] ([facility]) [address] [facility], [place], [address], 09/30/2024 18:05:43 09/30/19 25 09/29/2024 CBC/D /PLT W/ REFLE X CALVIN TIN immature cells PHOTONIC LABORATORY TECHNICIAN Not Available [facility] ([facility]) [address] [facility], [place], [address], 09/30/2024 18:05:43 09/30/19 25 09/29/2024 CBC/D /PLT W/ REFLE X CALVIN TIN neutrophils (absolute) 1.4 x10e3 /uL 1.4-7. 0 normal Not Available [facility] ([facility]) [address] [place], [address], 09/30/2024 18:05:43 09/30/19 25 09/29/2024 CBC/D /PLT W/ REFLE X CALVIN TIN lymphs (absolute) 1.1 x10e3 /uL 0.7-3. 1 normal Not Available [facility] ([facility]) [address] [place], [address], 09/30/2024 18:05:43 09/30/19 25 09/29/2024 CBC/D /PLT W/ REFLE X CALVIN TIN monocytes(ab solute) 0.6 x10e3 /uL 0.1-0. 9 normal Not Available [facility] ([facility]) [address] [place], [address], 09/30/2024 18:05:43 09/30/19 25 09/29/2024 CBC/D /PLT W/ REFLE X CALVIN TIN eos (absolute) 0.0 x10e3 /uL 0.0-0. 4 normal Not Available [facility] ([facility]) [address] [place], [address], 09/30/2024 18:05:43 09/30/19 25 09/29/2024 CBC/D /PLT W/ REFLE X CALVIN TIN baso (absolute) 0.0 x10e3 /uL 0.0-0. 2 normal Not Available [facility] ([facility]) [address] [place], [address], 09/30/2024 18:05:43 09/30/19 25 09/29/2024 CBC/D /PLT W/ REFLE X CALVIN TIN immature granulocytes 0 % not estab. Not Available [facility] ([facility]) [address] [place], [address], 09/30/2024 18:05:43 09/30/19 25 09/29/2024 CBC/D /PLT W/ REFLE X CALVIN TIN immature grans (abs) 0.0 x10e3 /uL 0.0-0. 1 Not Available [facility] ([facility]) [address] [facility], [place], [address], 09/30/2024 18:05:43 09/30/19 25 09/29/2024 CBC/D /PLT W/ REFLE X CALVIN TIN NRBC PHOTONIC LABORATORY TECHNICIAN Not Available [facility] ([facility]) [address] [facility], [place], [address], 09/30/2024 18:05:43 09/30/19 25 09/29/2024 CBC/D /PLT W/ REFLE X CALVIN TIN hematology comments: PHOTONIC LABORATORY TECHNICIAN Not Available [facility] ([facility]) [address] [facility], [place], [address], 09/30/2024 18:05:43 09/30/19 25 09/30/2024 RNA, REAL TIME PCR (GRAP H) HIV-1 RNA by PCR <20 copie s/mL HIV-1 RNA not detec darcy The repor table range for this assay is 20 to 10,00 0,000 copie s HIV-1 RNA/m L. Not Available [facility] ([facility]) [address] [facility], [place], [address], 09/30/2024 18:05:43 09/30/1909/30/2024 RNA, REAL TIME PCR (GRAP H) log10 HIV-1 RNA COMMEN T log10 copy/ mL Unabl e to calcu late resul t since non-n umeri c resul t obtai tucker for compo nent test. Not Available [facility] ([facility]) [address] [facility], [place], [address], 09/30/2024 18:05:43 09/30/19 25 09/30/2024 RNA, REAL TIME PCR (GRAP H) pdf . Not Available [facility] ([facility]) [address] [facility], [place], [address], 09/30/2024 18:05:43 09/30/19 25 09/30/2024 CHLAM YDIA/ GC AMPLI FICAT ION chlamydia trachomatis, ANTONIO Negati ve negati ve Not Available [facility] ([facility]) [address] [facility], [place], [address], 09/30/2024 18:05:44 09/30/19 25 09/30/2024 CHLAM YDIA/ GC AMPLI FICAT ION neisseria gonorrhoeae, ANTONIO Negati ve negati ve Not Available [facility] ([facility]) [address] [facility], [place], [address], 09/30/2024 18:05:44 09/30/19 25 09/29/2024 RPR, RFX QN RPR/C ONFIR M TP interpretati on: Commen t Syphi lis: RPR with Refle x to RPR Titer and Trepo nemal Antib odies , Tradi ponce l Scree jean-pierre and Diagn osis Algor ith ----- ----- ----- ----- ----- ----- ----- ----- ----- ----- ----- ----- Trepo nemal RPR RPR, Qn Ab Final Inter preta tion ----- --- ----- ---- ----- ----- ----- ----- ----- ----- ---- Non N/A N/A No labor atory evide nce React rashida of syphi lis. Retes t in 2-4 weeks if recen t expos ure us suspe cted. ----- --- ----- ---- ----- ----- ----- ----- ----- ----- ---- React rashida >/=1: 1 Non Nontr epone mal antib odies React rashida detec darcy. Syphi lis unlik bill; biolo gical false posit rashida possi ble. Retes t in 2-4 weeks if recen t expos ure is suspe cted. ----- --- ----- ---- ----- ----- ----- ----- ----- ----- ---- React rashida >/=1: 1 React rashida Trepo nemal and nontr epone mal antib odies detec darcy. Consi stent with past or curre nt (paco ntial early ) syphi lis. Not Available [facility] ([facility]) [address] [place], [address], 09/30/2024 18:05:44 09/30/19 25 09/30/2024 RPR, RFX QN RPR/C ONFIR M TP RPR Non Reacti ve non reacti ve Not Available [facility] ([facility]) [address] [place], [address], 09/30/2024 18:05:44 09/30/19 25 09/30/2024 GLOM FILT RATE, ESTIM ATED creatinine 1.03 mg/dL 0.57-1 .00 above high normal Not Available [facility] ([facility]) [address] [place], [address], 09/30/2024 18:05:45 09/30/19 25 09/30/2024 GLOM FILT RATE, ESTIM ATED eGFR 55 mL/mi n/1.7 3 >59 below low normal Not Available [facility] ([facility]) [address] [place], [address], 09/30/2024 18:05:45 09/30/19 25 09/30/2024 AST (SGOT ) AST (SGOT) 17 IU/L 0-40 normal Not Available [facility] ([facility]) [address] [facility], [place], [address], 09/30/2024 18:05:45 09/30/19 25 09/30/2024 ALT (SGPT ) ALT (SGPT) 9 IU/L 0-32 normal Not Available [facility] ([facility]) [address] [facility], [place], [address], 09/30/2024 18:05:46 09/30/1909/30/2024 HBSAG SCREE N HBsAg screen Negati ve negati ve Not Available [facility] ([facility]) [address] [place], [address], 09/30/2024 18:05:46 Result Notes None recorded. 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 Medical Equipment None Reported. Medications Name Sig Start Date Stop Date Status Note LastModified by Organization Details LastModified Time comfort tch mis lanc 30g active Not Available Not Available Not Available comfrt touch pad alc prep active Not Available Not Available Not Available atorvasta tin 20 mg tablet TAB 20MG; Quantity : 30; Duration : 30; 0 refill(s ) active Not Available Not Available No t Available ipratropi um 0.5 mg-albute rol 3 mg (2.5 mg base)/3 mL nebulizat ion soln active Not Available Not Available Not Available quetiapin e 300 mg tablet active Not Available Not Available Not Available diltiazem ER 180 mg capsule,2 4 hr,extend ed release 180 Quantity : 30; Duration : 30; 0 refill(s ) 06/14 completed Duration : 30; VACCINE_ IND: no; Not Available Not Available Not Available albuterol sulfate 2.5 mg/3 mL (0.083 %) solution for nebulizat ion active Not Available Not Available Not Available azithromy gutierrez 250 mg tablet active Not Available Not Available No t Available diltiazem CD 180 mg capsule,e xtended release 24 hr 180 Quantity : 30; Duration : 30; 0 refill(s ) 06/14 completed Duration : 30; VACCINE_ IND: no; Not Available Not Available Not Available tizanidin e 4 mg tablet active Not Available Not Available Not Available metoprolo l succinate ER 50 mg tablet,ex tended release 24 hr SUC TAB 50MG ER; Quantity : 30; Duration : 30; 0 refill(s ) active Not Available Not Available No t Available senna 8.6 mg tablet TAB 8.6MG; Quantity : 60; Duration : 30; 0 refill(s ) active Not Available Not Available No t Available FreeStyle Lancets 28 gauge active Not Available Not Available Not Available ondansetr on HCl 4 mg tablet active Not Available Not Available No t Available prednison e 20 mg tablet Take 1 tablet every day by oral route for 3 days, for asthma. 01/30 completed Not Available Not Available Not Available sertralin e 100 mg tablet TAB 100MG; Quantity : 30; Duration : 30; 0 refill(s ) active Not Available Not Available No t Available quetiapin e 200 mg tablet TAB 200MG; Quantity : 30; Duration : 30; 0 refill(s ) active Not Available Not Available No t Available sumatript an 50 mg tablet TAB 50MG; Quantity : 9; Duration : 2; 0 refill(s ) active Not Available Not Available No t Available melatonin 3 mg tablet TAB 3MG; Quantity : 30; Duration : 30; 0 refill(s ) active Not Available Not Available No t Available acetamino phen 300 mg-codein e 30 mg tablet TAB 300-30MG ; Quantity : 28; Duration : 28; 0 refill(s ) active Not Available Not Available No t Available peg-elect rolyte solution 420 gram oral solution active Not Available Not Available Not Available famotidin e 20 mg tablet TAB 20MG; Quantity : 60; Duration : 30; 0 refill(s ) active Not Available Not Available No t Available meclizine 25 mg tablet TAB 25MG; Quantity : 30; Duration : 10; 0 refill(s ) active Not Available Not Available No t Available amlodipin e 10 mg tablet active Not Available Not Available Not Available pantopraz ole 40 mg tablet,de layed release TAB 40MG; Quantity : 30; Duration : 30; 0 refill(s ) active Not Available Not Available No t Available nystatin 100,000 unit/gram topical cream [id number] Quantity : 60; Duration : 30; 0 refill(s ) active Not Available Not Available No t Available warfarin 5 mg tablet TAB 5MG; Quantity : 60; Duration : 30; 0 refill(s ) active Not Available Not Available No t Available nitroglyc royer 0.4 mg sublingua l tablet 0.4 Quantity : 25; Duration : 30; 0 refill(s ) active Not Available Not Available No t Available docusate sodium 100 mg capsule 100 Quantity : 60; Duration : 30; 0 refill(s ) active Not Available Not Available No t Available omeprazol e 20 mg capsule,d elayed release active Not Available Not Available Not Available albuterol sulfate HFA 90 mcg/actua tion aerosol inhaler 108 Quantity : 8; Duration : 17; 0 refill(s ) active Not Available Not Available No t Available fluticaso ne propionat e 50 mcg/actua tion nasal spray,jennifer pension 50 Quantity : 16; Duration : 30; 0 refill(s ) active Not Available Not Available No t Available sertralin e 50 mg tablet TAB 50MG; Quantity : 30; Duration : 30; 0 refill(s ) active Not Available Not Available No t Available loratadin e 10 mg tablet TAB 10MG; Quantity : 30; Duration : 30; 0 refill(s ) active Not Available Not Available No t Available enoxapari n 80 mg/0.8 mL subcutane ous syringe active Not Available Not Available Not Available Pneumovax -23 25 mcg/0.5 mL injection syringe - Quantity : ; 0 refill(s ) 2021 active VACCINE_ IND: yes; VACCINE_ DOCUMENT _DATE: 00:00:00 ; VACCINE_ DOCUMENT _NAME: Influenz a (Flu) (Inactiv ated or Recombin ant): 11/24/20; VACCINE_ NAME: pneumoco ccal polysacc haride PPV23; SU_FULL_ NAME: Elliott moore; VIS_DATE : 19:29:02 .0; Not Available Not Available Not Available melatonin 1 mg tablet TAB 1MG; Quantity : 30; Duration : 30; 0 refill(s ) 12/07 completed Duration : 30; VACCINE_ IND: no; Not Available Not Available Not Available Pain Reliever (acetamin ophen) 500 mg tablet TAB 500MG; Quantity : 120; Duration : 30; 0 refill(s ) active Not Available Not Available No t Available pregabali n 100 mg capsule 100 Quantity : 30; Duration : 30; 0 refill(s ) active Not Available Not Available No t Available calcium 600 mg (as carbonate )-vitamin D3 10 mcg (400 unit) tablet TAB 600-400; Quantity : 60; Duration : 30; 0 refill(s ) active Not Available Not Available No t Available FreeStyle Lite Strips active Not Available Not Available Not Available Robitussi n Cough-Mima st Congestio n DM 5 mg-100 mg/5 mL oral liquid 5 cc po tid PRN for cough 2024 active Not Available Not Available Not Avai lable Biktarvy 50 mg-200 mg-25 mg tablet Take 1 tablet every day by oral route. 2024 active Not Available Not Available Not Avai lable Pure Comfort Safety Lancets 30 gauge active Not Available Not Available Not Available High Potency Multivita min (w-iron) 9 mg iron-400 mcg tablet POT MV/ TAB BETA-CAR ; Quantity : 30; Duration : 30; 0 refill(s ) active Not Available Not Available No t Available Prevnar 20 (PF) 0.5 mL intramusc ular syringe - Quantity : 1; Duration : 1; 0 refill(s ) 10/03 completed Frequenc y: x1; Duration : 1; VACCINE_ IND: no; VACCINE_ NAME: Pneumoco ccal conjugat e PCV20, polysacc haride [id number] conjugat e, adjuvant , PF; SU_FULL_ NAME: Elliott moore; Not Available Not Available Not Available Afluria Quad (6mo up) 60 mcg (15 mcg x 4)/0.5 mL IM susp quadriva lent Quantity : ; 0 refill(s ) 2021 active VACCINE_ IND: yes; VACCINE_ DOCUMENT _DATE: 00:00:00 ; VACCINE_ DOCUMENT _NAME: Influenz a (Flu) (Inactiv ated or Recombin ant): 11/24/20; VACCINE_ NAME: influenz a, injectab le, quadriva lent; SU_FULL_ NAME: Elliott moore; VIS_DATE : 19:27:04 .0; Not Available Not Available Not Available Vitals Date Recorded Heart rate Body temperature Body weight Systolic And Diastolic Provider Name and Address Organization Details Last Updated DateTime 01/20/2025 61 /min 97.5 [degF] 86315.63 g 134/70 mm[Hg] Ariadna STEWART MD [facility] 01/20/2025 10:55:51 Date Recorded Heart rate Respiratory rate Body temperature Body weight Systolic And Diastolic Provider Name and Address Organization Details Last Updated DateTime 4 61 /min 10 /min 98.1 [degF] 94649.8 1 g 120/78 mm[Hg] Deepti STEWART MD [facility] 4 12:58:30 Social History None recorded. Functional Status None recorded. Mental Status None recorded. Family History Nothing Reported. Medical History No medical history recorded. Gynecological HistoryNo gynecological history recorded. Obstetrics History GPAL:G 0 P 0 0 0 0 Immunizations Vaccine Type Date Status Note Provider Nam e and Address Organization Details Recorded Time Influenza, split virus, quadrivalent, preservative 2 completed Not Available [facility] 06/11/2023 06:54:29 pneumococcal polysaccharide PPV23 2 completed Not Available [facility] 06/11/2023 06:54:29 Past Encounters Encounter ID Performer Location Encounter Start Date Encounter Closed Date Diagnosis/Indication Diagnosis SNOMED-CT Code Diagnosis ICD10 Code Diagnosis IMO Codes Diagnosis Note [id number] Elliott Stewrat MD Main Office [address] [place] [address] [place] [address] 01/02/2023 09:45:05 02/05/2023 09:07:46 Human immunodeficiency virus infection 11747003 B20 HIV. Continue Biktarvy 1 tab po qd. wants to keep same regimen. new regimens reviewed strict compliance reviewed to prevent viral resistance , viral emergence and viral transmissi on among other: this week PreP reviewed. condom use; U=U labs this week. flu vaccine and RSV vaccine reviewed. Plan of care reviewed. questions and concerns addressed. [id number] Elliott Stewart MD Main Office [address] [place] [address] 04/10/2023 13:21:02 04/10/2023 16:41:41 Human immunodeficiency virus infection 83105850 B20 HIV. Continue Biktarvy 1 tab po qd. wants to keep same regimen. new regimens reviewed such as TAF free options, 2 drug regimens, long acting agents, injectable s, and monoclona AB.strict compliance reviewed to prevent viral resistance , viral emergence and viral transmissi on among other: this week PreP reviewed. condom use; U=U labs this week. Plan of care reviewed. questions and concerns addressed. [id number] Elliott Stewart MD Main Office [address] [place] [address] 02/24/2024 12:41:35 02/24/2024 13:11:55 Human immunodeficiency virus infection 78650131 B20 HIV. Continue Biktarvy 1 tab po qd. wants to keep same regimen.st rict compliance reviewed to prevent viral resistance , viral emergence and viral transmissi on among other: this week PreP reviewed. condom use; U=Uflu, COVID19 and RSV vaccines prescribed labs this week. Plan of care reviewed. questions and concerns addressed. [id number] Elliott Stewart MD Main Office [address] [place] [address], [place] [address] 05/25/2024 16:54:48 06/03/2024 14:19:42 Human immunodeficiency virus infection 19493266 B20 HIV. Continue Biktarvy 1 tab po qd. wants to keep same regimen.st rict compliance reviewed to prevent viral resistance , viral emergence and viral transmissi on among other: this week PreP reviewed. condom use; U=Uflu, COVID19 and RSV vaccines prescribed labs this week. Plan of care reviewed. questions and concerns addressed. [id number] Elliott Stewart MD Main Office [address] [facility], [place] [address] 01/20/2025 10:30:55 01/20/2025 11:19:49 Human immunodeficiency virus infection 14431184 B20 HIV. Continue Biktarvy 1 tab po qd. wants to keep same regimen.st rict compliance reviewed to prevent viral resistance , viral emergence and viral transmissi on among other: this week PreP reviewed. condom use; U=Uflu, COVID19 and RSV,prevna r20; vaccines prescribed labs this week. Plan of care reviewed. questions and concerns addressed. Asthma - c urrently active [id number] J45.909 037082 albuterol q6-8 hrs PRNprednis one qd x 3 dosesRobit ussin DM q4-6 hrs PRNto ER or call ifworsenin g sx or if SOB, breathing, confusion among other Health Concerns Section Related Observation LastModified by Organization Detai ls LastModified Time None Recorded Concern Status LastModified by Organization Details LastModified Time None Recorded Advance Directives Directive None Recorded Payers Insurance Date Sequence Insurance Name Policy Number Policy Nuñez Covered Member ID Nuñez Member ID Guarantor Name 01/20/2025 1 [facility] - DOS ON OR AFTER 2022 - MEDICARE [place]VANTAGE [place] (MEDICARE REPLACEMENT/AD VANTAGE - PPO) Inga Wang [id number] Inga Wang Notes Date Note Type Note Provider Name and Address Organization Details Recorded Time 01/02/2023 text/html F/U HIVTelemedicine visit. [place] AUDIO 17 mindaughter in call with patient.On Biktarvy 1 tab po qd.denies missing doses. complianthappy w regimennot interested in changing regimen. not interested in injectables.no side effectsno concernsmed list reviewed.will get labs done this week.has not been sick.no n/v/d. no rash.not sexually activeno drugs. no ETOH EDYTA Aguilera MD [facility] 02/07/2023 11:16:01 04/10/2023 text/html ROS as noted in the HPI F/U HIVOn Biktarvy 1 tab po qd.denies missing doses. complianthappy w regimennot interested in changing regimen. not interested in injectables.no side effectsno concernsmed list reviewed.has not been sick.no n/v/d. no rash.not sexually activeno drugs. no ETOH Elliott Stewart MD [address] [place] [address], [phone], EDYTA STEWART MD [facility] 04/10/2023 13:54:11 02/24/2024 text/html ROS as noted in the HPI f/u HIV.on Triumeq 1 tab po qd.compliant. not missing doses. has a nurse that goes to her home tiwno side effectsmed list reviewedhas not been sickno labs; has order. plans to go this week; depends on someone that can drive her.07/2023 HIV VL nondetected; CD4>1300; eGFR>70; AST/ALT wnl; HCV and hBV neg; neg treponemal ab01/2023 HIV VL nondetected; QD7=3946; EGFR>60; ALT/AST08/2022 QJ9=325; HIV VL nondetected; AST/ALT wnl; eGFR>6001/2022 HIV VL Nondetected; NP6=5473; ALT/AST WNL; eGFR>60.denies sexual activity Elliott Stewart MD [address] [place] [address], [phone], EDYTA STEWART MD [facility] 02/24/2024 14:10:09 05/25/2024 text/html ROS as noted in the HPI f/u HIV.on Biktarvy 1 tab po qd.compliant. not missing doses. has a nurse that goes to her home tiwno side effectsmed list reviewed07/2023 HIV VL nondetected; CD4>1300; eGFR>70; AST/ALT wnl; HCV and hBV neg; neg treponemal ab01/2023 HIV VL nondetected; XW5=8311; EGFR>60; ALT/AST08/2022 GV6=217; HIV VL nondetected; AST/ALT wnl; eGFR>60 denies sexual activity she was hospitalized, and was discharged this week. feels tired and weak. daughter helping her out. daughter in call with mother's consent and is aware of dx. Elliott Stewart MD [address] [place] [address], [phone], EDYTA STEWART MD [facility] 05/25/2024 17:57:13 01/20/2025 text/html ROS as noted in the HPI f/u HIV.on Biktarvy 1 tab po qd.compliant. not missing doses. has a nurse that goes to her home tiwno side effectsmed list reviewed07/2023 HIV VL nondetected; CD4>1300; eGFR>70; AST/ALT wnl; HCV and hBV neg; neg treponemal abasthma exacerbation. wheezing. tested for COVID and flu, and negative. no productive cough w phlegm, but keeps coughing. sx have improved. no CP. no SOB. no wheezing. no dizziness. using 09/2024 eGFR 55; RPR NR: GC/chlamydia neg; HBV s ag neg; AST/ALT wnl; HIV VLnondetceted; anemia; HCV neg01/2023 HIV VL nondetected; RL9=8411; EGFR>60; ALT/AST08/2022 YE8=172; HIV VL nondetected; AST/ALT wnl; eGFR>60denies sexual activitydaughter in call with mother's consent and is aware of dx. Elliott Stewart MD [address] [place] [address], [phone], EDYTA STEWART MD [facility] 01/20/2025 12:36:08 OBGyn Episode No OBEpisode recorded.
--- OUTSIDE RECORDS SUMMARY | 2025-02-24 12:12 | XMS_ITS | Clinical Summary ---
Author Organization [address] [place] [address] Address [address] [place] [address] Phone Care Team Providers Care Lime Boiler Name Role Phone Abigail Rajput MD Primary Care Provider [phone] Allergies Active Allergy Reactions Criticality Noted Date Comments Aspirin Skin Problems 03/26/2024 Ciprofloxacin Diarrhea 03/26/2024 Iodinated Contrast Media Hives 03/26/2024 Morphine 03/26/2024 Nsaids (Non-Steroidal Anti-I nflammatory Drug) 03/26/2024 Oxycodone 03/26/2024 Penicillin G 03/26/2024 Penicillin V 03/26/2024 [id number] Antimigraine Agents 1 05/27/2023 Medications acetaminophen-c odeine [...] Problem Noted Date Diagnosed Date Cerebellar infarction ([facility] V24, [facility] V28) 03/26/2024 Chronic anemia 03/26/2024 Chronic kidney disease, stage 3 ([facility] V24, [facility] V28) 03/26/2024 Chronic paranoid schizophrenia ([facility] V24, [facility] V28) 03/26/2024 Dyslipidemia 03/26/2024 Essential (primary) hypertension 03/26/2024 Fibromyalgia 03/26/2024 Human immunodeficiency virus infection ([facility] V24, [facility] V28) 03/26/2024 Primary osteoarthritis involving multiple joints 03/26/2024 Recurrent deep vein thrombosis ([facility] V24, [facility] V28) 03/26/2024 Type 2 diabetes mellitus ([facility] V24, [facility] V 28) 03/26/2024 Chronic anticoagulation 03/26/2024 Dilated bile duct 03/26/2024 SVT (supraventricular tachycardia) ([facility] V24) 03/26/2024 Pancreatic cyst 03/26/2024 Unsteady gait 03/26/2024 Encounters Date Type Department Care Team Description 11/29/2024 9:15 AM EDT Office Visit Orthopedic Surgery - [address] [address] Rodrick Viera, DPM Dermatophytosis of nail (Primary Dx); Diabetic mononeuropathy simplex ([facility] V24, [facility] V28); Type II diabetes mellitus with peripheral circulatory disorder ([facility] V24, [facility] V28); Hammer toe of left foot; Tinea [...] AM EST Office Visit Orthopedic Surgery - [place] [address] [address] Rodrick Viera, DPM [address] [address] Health Maintenance Due Date Last [...] disturbance, psychotic disturbance, mood disturbance, and anxiety ([facility]/HCC) Human immunodeficiency virus (HIV) disease ([facility]) from Last 3 Months or Most Recently Relevant to Health Maintenance Results * (ABNORMAL) Basic metabolic panel (05/12/2024 6:44 AM EST) Sodium 142 133 - 145 mmol/L LAB CHEMISTRY METHOD 05/12/2024 2:22 PM [facility] Potassium 4.0 3.5 - 5.5 mmol/L LAB CHEMISTRY METHOD 05/12/2024 2:22 PM [facility] Chloride 111(H) 96 - 110 mmol/L LAB CHEMISTRY METHOD 05/12/2024 2:22 PM [facility] CO2 27 21 - 32 mmol/L LAB CHEMISTRY METHOD 05/12/2024 2:22 PM [facility] Anion Gap 4 3 - 11 LAB CHEMISTRY METHOD 05/12/2024 2:22 PM [facility] Glucose 87 70 - 100 mg/dL LAB CHEMISTRY METHOD 05/12/2024 2:22 PM [facility] BUN 11 5 - 25 mg/dL LAB CHEMISTRY METHOD 05/12/2024 2:22 PM [facility] Creatinine 0.89 0.50 - 1.10 mg/dL LAB CHEMISTRY METHOD 05/12/2024 2:22 PM [facility] eGFR 66 >=60 mL/min/1. 73m2 LAB CHEMISTRY METHOD 05/12/2024 2:22 PM [facility] Comment:Calculation based on the Chronic Kidney Disease Epidemiology Collaboration (CKD-EPI) equation refit without adjustment for race. BUN/Creatinine Ratio 12.4 LAB CHEMISTRY METHOD 05/12/2024 2:22 PM [facility] Calcium 9.1 8.5 - 10.5 mg/dL LAB CHEMISTRY METHOD 05/12/2024 2:22 PM [facility] Blood Venous blood specimen / Unknown Venipuncture / Unknown 05/12/2024 6:44 AM EST 05/12/2024 11:18 AM EST us Frankie Sultana MD LAB BLOOD ORDERABLES Final Resul t [facility] [address] [place] [address], from Last 3 Months or Most Recently Relevant to Health Maintenance Insurance , [address] [place] [address] [facility] Member Subscriber Plan / Payer (Ef fective 2023-Present) Name:Inga Perez Relation to Subscriber:Self Name:Inga Vidal Payer ID:[id number] Group ID:[id number] Type:Not on file Address: [place] [address] [address] [phone] Care Teams Lime Boiler Relationship Specialty Start Date End Date Abigail Rajput MD [address] [place] [phone] PCP - General Family Medicine 03/03/24
--- OUTSIDE RECORDS SUMMARY | 2025-02-24 12:12 | XMS_ITS | Encounter Summary ---
Author Organization [facility] Address [address] [place] [address] Care Team Providers Care Quality Lab Technician Name Role Phone Abigail Rajput MD Primary Care Provider [phone] Encounter Details Date Type Department Care Team (Latest Contact Info) Description 05/04/2024 Lab Requisition [facility] - Main Lab [address] [facility] [place] [address] Frankie Sultana MD [address] [place] [address], [phone] Unspecified dementia, unspecified severity, without behavioral [...] AM EST Office Visit Orthopedic Surgery - [place] [address] [address] Rodrick Viera DPM [address] [address] documented as of this encounter [...] mmol/L LAB CHEMISTRY METHOD 05/05/2024 8:43 AM [facility] Potassium 3.7 3.5 - 5.5 mmol/L LAB CHEMISTRY METHOD 05/05/2024 8:43 AM [facility] Chloride 111(H) 96 - 110 mmol/L LAB CHEMISTRY METHOD 05/05/2024 8:43 AM [facility] CO2 29 21 - 32 mmol/L LAB CHEMISTRY METHOD 05/05/2024 8:43 AM [facility] Anion Gap 5 3 - 11 LAB CHEMISTRY METHOD 05/05/2024 8:43 AM [facility] Glucose 100 70 - 100 mg/dL LAB CHEMISTRY METHOD 05/05/2024 8:43 AM [facility] BUN 15 5 - 25 mg/dL LAB CHEMISTRY METHOD 05/05/2024 8:43 AM [facility] Creatinine 0.72 0.50 - 1.10 mg/dL LAB CHEMISTRY METHOD 05/05/2024 8:43 AM [facility] eGFR 85 >=60 mL/min/1. 73m2 LAB CHEMISTRY METHOD 05/05/2024 8:43 AM [facility] Comment:Calculation based on the Chronic Kidney Disease Epidemiology Collaboration (CKD-EPI) equation refit without adjustment for race. BUN/Creatinine Ratio 20.8 LAB CHEMISTRY METHOD 05/05/2024 8:43 AM [facility] Calcium 8.7 8.5 - 10.5 mg/dL LAB CHEMISTRY METHOD 05/05/2024 8:43 AM [facility] Blood Venous blood specimen / Unknown Venipuncture / Unknown 05/05/2024 6:15 AM EST 05/05/2024 8:11 AM EST us Frankie Sultana MD LAB BLOOD ORDERABLES Final Resul t [facility] [address] [place] [address], * (ABNORMAL) Complete blood count (05/05/2024 6:15 AM EST) WBC 4.4(L) 4.8 - 10.8 K/mcL LAB HEMETOLOGY METHOD 05/05/2024 8:57 AM [facility] RBC 3.20(L) 3.80 - 4.80 M/mcL LAB HEMETOLOGY METHOD 05/05/2024 8:57 AM [facility] Hemoglobin 8.9(L) 11.5 - 16.0 g/dL LAB HEMETOLOGY METHOD 05/05/2024 8:57 AM [facility] Hematocrit 28.0(L) 35.0 - 47.0 % LAB HEMETOLOGY METHOD 05/05/2024 8:57 AM [facility] MCV 86.7 79.0 - 98.0 FL LAB HEMETOLOGY METHOD 05/05/2024 8:57 AM [facility] MCH 27.6 27.0 - 32.0 pcg LAB HEMETOLOGY METHOD 05/05/2024 8:57 AM [facility] MCHC 31.8(L) 32.0 - 37.0 g/dL LAB HEMETOLOGY METHOD 05/05/2024 8:57 AM [facility] RDW 15.2(H) 11.0 - 15.0 % LAB HEMETOLOGY METHOD 05/05/2024 8:[address] [facility] Platelets 87(L) 130 - 400 K/mcL LAB HEMETOLOGY METHOD 05/05/2024 8:[address] [facility] Comment:reviewed by slide MPV 11.0 7.0 - 11.0 FL LAB HEMETOLOGY METHOD 05/05/2024 8:[address] [facility] NRBC 0.0 <1.0 % LAB HEMETOLOGY METHOD 05/05/2024 8:[address] [facility] NRBC Absolute 0.00 <0.10 K/mcL LAB HEMETOLOGY METHOD 05/05/2024 8:[address] [facility] Blood Venous blood specimen / Unknown Venipuncture / Unknown 05/05/2024 6:15 AM EST 05/05/2024 8:11 AM EST us Frankie Sultana MD LAB BLOOD ORDERABLES Final Resul t [facility] [address] [place] [address], documented in this encounter Visit Diagnoses Diagnosis Unspecified dementia, unspecified severity, without behavioral disturbance, psychotic disturbance, mood disturbance, and anxiety ([facility] V24, [facility] V28) Human immunodeficiency virus (HIV) disease ([facility] V24, [facility] V28) Human immunodeficiency virus [HIV] disease documented in this encounter Care Teams Quality Lab Technician Relationship Specialty Start Date End Date Abigail Rajput MD [address] [place] [phone] PCP - General Family Medicine 03/03/24 documented as of this encounter
--- OUTSIDE RECORDS SUMMARY | 2025-02-24 12:12 | XMS_ITS | Encounter Summary ---
Author Organization [facility] Address [address] [place] [address] Care Team Providers Care Wheelchair Rental Clerk Name Role Phone Abigail Rajput MD Primary Care Provider [phone] Encounter Details Date Type Department Care Team (Latest Contact Info) Description 05/11/2024 Lab Requisition [facility] - Main Lab [address] [facility] [place] [address] Frankie Sultana MD [address] [place] [address], [phone] Unspecified dementia, unspecified severity, without behavioral [...] AM EST Office Visit Orthopedic Surgery - Index [address] [phone] Rodrick Viera DPM [address] [phone] documented as of this encounter [...] mmol/L LAB CHEMISTRY METHOD 05/12/2024 2:22 PM [facility] Potassium 4.0 3.5 - 5.5 mmol/L LAB CHEMISTRY METHOD 05/12/2024 2:22 PM [facility] Chloride 111(H) 96 - 110 mmol/L LAB CHEMISTRY METHOD 05/12/2024 2:22 PM [facility] CO2 27 21 - 32 mmol/L LAB CHEMISTRY METHOD 05/12/2024 2:22 PM [facility] Anion Gap 4 3 - 11 LAB CHEMISTRY METHOD 05/12/2024 2:22 PM [facility] Glucose 87 70 - 100 mg/dL LAB CHEMISTRY METHOD 05/12/2024 2:22 PM [facility] BUN 11 5 - 25 mg/dL LAB CHEMISTRY METHOD 05/12/2024 2:22 PM [facility] Creatinine 0.89 0.50 - 1.10 mg/dL LAB CHEMISTRY METHOD 05/12/2024 2:22 PM [facility] eGFR 66 >=60 mL/min/1. 73m2 LAB CHEMISTRY METHOD 05/12/2024 2:22 PM [facility] Comment:Calculation based on the Chronic Kidney Disease Epidemiology Collaboration (CKD-EPI) equation refit without adjustment for race. BUN/Creatinine Ratio 12.4 LAB CHEMISTRY METHOD 05/12/2024 2:22 PM [facility] Calcium 9.1 8.5 - 10.5 mg/dL LAB CHEMISTRY METHOD 05/12/2024 2:22 PM [facility] Blood Venous blood specimen / Unknown Venipuncture / Unknown 05/12/2024 6:44 AM EST 05/12/2024 11:18 AM EST us Frankie Sultana MD LAB BLOOD ORDERABLES Final Resul t [facility] [address] [place] [address], * (ABNORMAL) Complete blood count (05/12/2024 6:44 AM EST) WBC 2.9(L) 4.8 - 10.8 K/mcL LAB HEMETOLOGY METHOD 05/12/2024 11:56 AM [facility] RBC 3.60(L) 3.80 - 4.80 M/mcL LAB HEMETOLOGY METHOD 05/12/2024 11:56 AM [facility] Hemoglobin 10.0(L) 11.5 - 16.0 g/dL LAB HEMETOLOGY METHOD 05/12/2024 11:56 AM [facility] Hematocrit 31.2(L) 35.0 - 47.0 % LAB HEMETOLOGY METHOD 05/12/2024 11:56 AM [facility] MCV 87.4 79.0 - 98.0 FL LAB HEMETOLOGY METHOD 05/12/2024 11:56 AM [facility] MCH 28.0 27.0 - 32.0 pcg LAB HEMETOLOGY METHOD 05/12/2024 11:56 AM [facility] MCHC 32.1 32.0 - 37.0 g/dL LAB HEMETOLOGY METHOD 05/12/2024 11:56 AM [facility] RDW 14.9 11.0 - 15.0 % LAB HEMETOLOGY METHOD 05/12/2024 11:56 AM EST [facility] Platelets 121(L) 130 - 400 K/mcL LAB HEMETOLOGY METHOD 05/12/2024 11:56 AM EST [facility] MPV 11.3(H) 7.0 - 11.0 FL LAB HEMETOLOGY METHOD 05/12/2024 11:56 AM EST [facility] NRBC 0.0 <1.0 % LAB HEMETOLOGY METHOD 05/12/2024 11:56 AM [facility] NRBC Absolute 0.00 <0.10 K/mcL LAB HEMETOLOGY METHOD 05/12/2024 11:56 AM [facility] Blood Venous blood specimen / Unknown Venipuncture / Unknown 05/12/2024 6:44 AM EST 05/12/2024 11:18 AM EST us Frankie Sultana MD LAB BLOOD ORDERABLES Final Resul t [facility] [address] [place] [address], documented in this encounter Visit Diagnoses Diagnosis Unspecified dementia, unspecified severity, without behavioral disturbance, psychotic disturbance, mood disturbance, and anxiety ([facility] V24, [facility] V28) Human immunodeficiency virus (HIV) disease ([facility] V24, [facility] V28) Human immunodeficiency virus [HIV] disease documented in this encounter Care Teams Wheelchair Rental Clerk Relationship Specialty Start Date End Date Abigail Rajput MD [address] [place] [phone] PCP - General Family Medicine 03/03/24 documented as of this encounter
--- OUTSIDE RECORDS SUMMARY | 2025-02-24 12:12 | XMS_ITS | Data Portability ---
Author Organization [facility], [facility] Address [address] [place] [address] Care Team Providers Care Shrimper Name Role Phone Unavailable Referring Provider [phone] HIM CCA OTHER Assessment Encounter Date Assessment Date Assessment LastModified by Organization Details LastModified Time 10/01/2021 10/01/2021 I have reviewed and agree with the assessment and plan as documented by the office receptionist. I provided real-time medical direction for this encounter and was immediately available to provide additional phone-based assistance as needed. History as noted in EMR and by office receptionist. I would add / emphasize: patient with [...] Assessment and Plan as documented by the Paint Mixer. I provided real -time medical direction via phone for this encounter, and was available for additional phone based assistance as needed. Patient given the opportunity to ask questions. [email or web address] Not available 12/31/2021 11:37:38 02/14/2022 02/14/2022 I have reviewed and agree with the Assessment and Plan as documented by the Paint Mixer. I provided real-time medical direction via phone [...] care team. [email or web address] Not available 02/21/2022 14:46:58 01/14/2025 01/14/2025 Impression: 79yo/f with pmhx as above including asthma referred for evaluation of cough, dyspnea on exertion that patient states feels like her asthma symptoms. Patient states began having symptoms yesterday, endorsing some mild sore throat, mild headache, but then went on to develop nonproductive cough, some dyspnea on exertion. Symptoms persisting today. For medic on scene patient is awake, alert, in no distress. A/ox3, GCS 15. No dyspnea at rest at this time. No associated chest pain or pleurisy. No lower extremity edema. No fevers/chills, nausea/vomiting, abdominal pain. No associated neurologic symptoms of numbness/weakness /paresthesias. On exam patient noted to be hypertensive, known diagnosis of HTN, states took AM meds recently. No tachycardia, no tachypnea, no hypoxia, afebrile. Patient is speaking in full sentences, no increased work of breathing, no respiratory distress. Ambulating comfortably. Lungs are CTAB at this time, no wheezing/crackles /rhonchi. No LE edema. Rest of exam is unremarkable. Patient denies other ROS. Plan: Patient states her symptoms feel like her typical asthma symptoms but patient run out of her inhalers and nebulizers. They do not know the names of the medications. They called PCP office who were refilling medications, I will also send rx for rescue inhaler at this time. Patient will be given duoneb in home for symptom control. Patient and family feel safe remaining at home and continuing her symptoms and resuming her at home medications including nebulizers from her PCP. Of note, patient is hypertensive at this time, patient and family state this is not unusual for her. I advised them to recheck this afternoon and followup with PCP for continued management. Patient's lung exam is without significant abnormality at this time, however patient feels these symptoms are consistent with her asthma exacerbations. No associated chest pain, pleurisy, LE swelling. Lower suspicion for occult PE, aortic dissection, AAA, ARDS, sepsis. Advised to continue to observe symptoms today, followup with PCP in 24-48 hours for recheck, and seek care immediately with any acute worsening or change in symptoms which they understand. Primary care, consider 24-48 hour followup Disposition: We discussed the diagnostic uncertainty of home visits and the risk associated with this. In this case, the patient and I felt this to be an acceptable and reasonable amount of risk given the benefit of avoiding an ED visit. We discussed the need to seek care urgently/emergent ly in the setting of any new or worsening serious symptoms [email or web address] Not available 01/14/2025 11:34:42 Plan of Treatment Reminders Order Date Submit Date Provider Last Modified By Organization Details Last Modified Time Details Appointments None recorded. Lab rapid flu (A+B) 2024 [facility], [address] [place] [address], [id number] 12:41:50 rapid SARS CoV 2 Ag, QL IA, respiratory specimen 2024 [facility], [address] [place] [address], [id number] 12:41:24 rapid strep group A, throat 2024 [facility], [address] [place] [address], [id number] 12:40:49 rapid SARS CoV 2 Ag, QL IA, respiratory specimen 2021 022 [email or web address] [address], [id number] 11:44:30 rapid flu (A+B) 2021 022 [email or web address] [address], [address] 11:44:30 glucose, fingerstick , blood 2021 022 [email or web address] [address], [phone] 11:44:30 rapid strep group A, throat 2021 022 [email or web address] [address], [address] 11:44:30 Referral None recorded. Procedures None recorded. Surgeries None recorded. Imaging electrocard iogram 2021 022 [facility], [address] [place] [address], [id number] 05:00:52 Medication Orders ipratropium 0.5 mg-albutero l 3 mg (2.5 mg base)/3 mL nebulizatio n soln 2024 025 rsullivan 89 [facility], [address] [place] [address], [address], [id number], 5 11:34:58 albuterol sulfate 2.5 mg/3 mL (0.083 %) solution for nebulizatio n 2024 025 [facility], [address] [place] [address], [address], [id number], 5 11:42:12 meclizine 25 mg tablet 2021 022 [facility], [address] [place] [address], [address], [id number], 2 14:59:26 lidocaine 5 % topical ointment 2021 [facility], [address] [place] [address], [address], [id number], 2 11:39:28 prednisone 20 mg tablet 2021 022 [facility], [address] [place] [address], [facility] [address] [place], [id number], 2 11:48:14 prednisone 20 mg tablet 2021 022 [email or web address] 0 Not available 11:44:30 ipratropium 0.5 mg-albutero l 3 mg (2.5 mg base)/3 mL nebulizatio n soln 2021 022 [email or web address] 0 [facility], [address] [place] [address], [facility] [address] [place], [id number], 11:44:30 Patient TargetsNo targets recorded. Patient InstructionsNo instructions recorded. Reason for Referral None Reported. Results Created Date Observation Date Name Description Value Unit Range Abnormal Flag Note LastModifiedBy Organization Detail LastModifiedTime 01/01/20 22 12/31/2021 floridalma woods se, blood Blood Glucose: mg/dl 124 Not Available Main - [facility] [address] [place] [address], [id number] 12/31/2021 11:38:31 01/01/20 22 12/31/2021 rapid strep group A, throa t Strep negati ve Not Available Main - [facility] ed [address] [place] [address], [phone] 12/31/2021 11:39:46 01/01/2012/31/2021 rapid flu (A+B) Flu negati ve Not Available Main - [facility] ed [address] [place] [address], [phone] 12/31/2021 11:37:55 01/01/2012/31/2021 rapid SARS CoV 2 Ag, QL IA, respi rator y speci men rapid SARS CoV 2 Ag, QL IA, respiratory specimen negati ve Not Available Main - [facility] ed [address] [place] [address], [id number] 12/31/2021 11:37:54 01/15/2001/14/2025 rapid SARS CoV 2 Ag, QL IA, respi rator y speci men rapid SARS CoV 2 Ag, QL IA, respiratory specimen negati ve Not Available Main-[facility] [address], [phone] 01/14/2025 11:23:40 01/15/2001/14/2025 rapid flu (A+B) Flu negati ve Not Available [facility] [address], [phone] 01/14/2025 11:23:39 01/15/2001/14/2025 rapid strep group A, throa t Strep negati ve Not Available [facility] [address], [address] 01/14/2025 11:23:46 01/01/20 22 12/31/2021 elect rocar diogr am No observ ation record ed. trena [address], [place], [address] 12/31/2021 17:32:24 Result Notes None recorded. Medical Equipment None Reported. Allergies Allergen ID Allergen Name Allergen Category Reaction Reaction Severity Criticality Documentation Date Start Date Code Code System Note Provider Name and Address Organization Details Recorded Time 1041 Product containin g penicilli n (product) medicatio n Not available Not available Not available 12/31/2021 54168 8001 SNOMED Not Available [facility] - production 4 03:41:20 1042 aspirin medicatio n Not available Not available Not available 12/31/2021 1191 RxNorm Not Available [facility] - production 4 03:41:20 1043 Iodinated contrast media (substanc e) medicatio n Not available Not available Not available 12/31/2021 23084 2003 SNOMED Lisa Madden MD [address] [place] [address],[address], [place], [phone] [place], [place] [address] 2 12:00:24 8008 ciproflox acin medicatio n Not available Not available Not available 02/17/2024 2551 [facility] 03:41:20 8009 ibuprofen medicatio n Not available Not available Not available 02/17/2024 5640 RxNorm [facility] 03:41:20 8010 morphine medicatio [...] mg/3 mL (0.083 %) solution for nebulization Inhale 3 mL 3 times a day by nebulizatio n route as needed, for for shortness of breath. active Not Available Not Available N ot Available atorvastatin 10 mg tablet active Not [...] Not Available Not Available No t Available famotidine 20 mg tablet active Not [...] Not Available Not Available No t Available Pain Reliever (acetaminoph en) 500 mg tablet active Not Available Not Available Not Available pregabalin 100 mg capsule TAKE 1 CAPSULE BY ORAL ROUTE EVERY DAY active Not Available Not Available No t Available FreeStyle Lite Strips CHECK BG DIRECTED active Not Available Not Available No t Available Calcium with Vitamin D 600 mg-10 mcg (400 unit) tablet TAKE 1 TABLET [...] Heart rate Respiratory rate Body temperature Systolic And Diastolic Provider Name and Address Organization Details Last Updated DateTime 2 95 % 95 % 80 /min 24 /min 98.5 [degF] 112/78 mm[Hg] Not Available [facility] - production 2 20:06:40 Date Recorded Oxygen saturation Oxygen saturation in Arterial blood by Pulse oximetry Body temperature Body height Respiratory rate Heart rate Body weight Body height Oxygen saturation Oxygen saturation in Arterial blood by Pulse oximetry Body weight Body temperature Provider Name and Address Organization Details Last Updated DateTime 2 96 % 96 % 98.1 [degF] 157.48 cm 20 /min 78 /min 77567.5 6 g 157.48 cm 96 % 96 % 04559.5 6 g 98.1 [degF] Not Available [facility] - production 2 12:22:48 Date Recorded Heart rate Respiratory rate Systolic And Diastolic Systolic And Diastolic Provider Name and Address Organization Details Last Updated DateTime 12/31/2021 78 /min 20 /min 146/73 mm[Hg] 146/73 mm[Hg] Not Available [employer] 2 12:22:48 Date Recorded Body temperature Respiratory rate Body height Body weight Heart rate Oxygen saturation Oxygen saturation in Arterial blood by Pulse oximetry Systolic And Diastolic Provider Name and Address Organization Details Last Updated DateTime 5 98.6 [degF] 20 /min 160.02 cm 46546.0 08 g 67 /min 97 % 97 % 189/68 mm[Hg] Not Available [employer] 5 11:21:48 Date Recorded Heart rate Oxygen saturation Oxygen saturation in Arterial blood by Pulse oximetry Respiratory rate Body temperature Oxygen saturation Oxygen saturation in Arterial blood by Pulse oximetry Respiratory rate Heart rate Body temperature Systolic And Diastolic Systolic And Diastolic Provider Name and Address Organization Details Last Updated DateTime 2 81 /min 97 % 97 % 20 /min 98.2 [degF] 97 % 97 % 20 /min 81 /min 98.2 [degF] 159/79 mm[Hg] 159/79 mm[Hg] Not Available [employer] 2 12:13:02 Date Recorded Oxygen saturation Oxygen saturation in Arterial blood by Pulse oximetry Body temperature Heart rate Respiratory rate Respiratory rate Body temperature Oxygen saturation Oxygen saturation in Arterial blood by Pulse oximetry Heart rate Systolic And Diastolic Systolic And Diastolic Provider Name and Address Organization Details Last Updated DateTime 2 96 % 96 % 98.6 [degF] 56 /min 20 /min 20 /min 98.6 [degF] 96 % 96 % 56 /min 135/75 mm[Hg] 135/75 mm[Hg] Not Available [employer] 2 15:43:49 Social History None recorded. Functional Status None recorded. Mental Status None recorded. Family History Nothing Reported. Medical History No medical history recorded. Gynecological HistoryNo gynecological history recorded. Obstetrics History GPAL:G 0 P 0 0 0 0 Past Encounters Encounter ID Performer Location Encounter Start Date Encounter Closed Date Diagnosis/Indication Diagnosis SNOMED-CT Code Diagnosis ICD10 Code Diagnosis IMO Codes Diagnosis Note [id number] Rufino Guillermo MD Main - [facility] [address] [place] [phone] 10/01/2021 20:06:38 12/14/2021 14:34:37 Cough 83730091 R05.9 [id number] Lisa Madden MD Main - [facility] [address] [place] [phone] 12/31/2021 10:39:10 01/02/2022 12:00:52 Viral upper respiratory tract infection 767224285 J06.9 increased aeration/ air movement after neb- pat has albuterol for nebulizer at home but had no mask for compressor - given mask by [facility]- to use 4 x per day- continue [...] or syncope to call 911 Chest pain 57346196 R07. 9 pain is only with cough- given age and hx cad- ekg obtained- patient reassured [id number] Rufino Guillermo MD Main - [facility] [address] [place] [phone] 02/14/2022 11:29:12 02/19/2022 12:48:37 Pain of shoulder region 69849664 M25.519 [id number] Major Milligan MD Main - [facility] [address] [place] [phone] 04/12/2022 14:51:11 04/15/2022 14:18:35 Vertigo 924168826 R42 Reports several days to a week [...] and to ensure her symptoms are worsening. [id number] Shan Avila MD [facility] ED Medical [facility] [address] [place] [address] 01/14/2025 11:21:44 01/14/2025 13:34:57 Dyspnea 546084439 R06.02 87002 Health Concerns Section Related Observation LastModified by Organization Detai ls LastModified Time None Recorded Concern Status LastModified by Organization Details LastModified Time None Recorded Advance Directives Directive None Recorded Payers Insurance Date Sequence Insurance Name Policy Number Policy Nuñez Covered Member ID Nuñez Member ID Guarantor Name 06/17/2023 1 [facility] - DOS PRIOR TO 2022 - DUAL ELIGIBLE (MEDICARE REPLACEMENT/ADV ANTAGE - HMO) Inga Young Wang [id number] [place] Young [place] 01/14/2025 1 [facility] - DOS ON OR AFTER 2022 - DUAL ELIGIBLE - HALFWAY OPTIONS AND ONE CARE (MEDICARE REPLACEMENT/ADV ANTAGE - HMO) Inga Wang [id number] [place] Young Wang Notes Date Note Type Note Provider [...] ................... ................... ................... ................... ................... ................... ........ Paint Mixer Note: Chief Complaint cough x 3 days [...] ................... ................... ................... ................... ........ 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 Allergies to Triptans, PCN, NSAIDS, Codeine, ASA, Oxycodone, Morphine, Cipro, Tylenol, IVP Dye. Mbr calling into the CRU dept reporting cough and trouble breathing since yesterday. Mbr with increased WOB with talking, constant congested cough. [employer] Human Relations Teacher initially assisted with this call, Blaine #[phone] then Daughter Tess assisted with call and returned case inspector disconnected. Mbr denies fever but positive for [...] Mbr and Daughter agreed with plan. Sent [facility] referral in for today. Call back number is [phone]. Sent GC activity to CP alerting CP about this call and TE. ................... ................... ................... ................... ................... ................... ................... ........ CRC Nursing Assessment: Comments: CRC RN did not require any additional information to process this visit. ................... ................... ................... ................... ................... ................... ................... ........ Paint Mixer Note: Sent to a call for a [...] flu test: neg; rapid strep test: neg; [facility] orders 12 lead ECG, Duo neb treatment, BG, and Prednisone 40mg PO. 12 lead ECG: uploaded to [employer], Pt reports improvement with duo neb. Lung sounds: clear bilaterally; audible wheezing noted, but improves; , Prednisone 40mg PO administered without incident. [facility] sends script to pt's pharmacy for Prednisone. Pt advised to continue using Diabetic tussin, use throat coat tea and gargle with warm salt water. Nebulizer mask given to pt to use with personal nebulizer. Red flags discussed. Pt/family have no further questions. ................... ................... ................... ................... ................... ................... ................... ........ Disposition: Fulfilled Lisa Madden MD [address] [place] [address],[address], [place], [phone], [facility] 12/31/2021 13:02:02 02/14/2022 text/html HPI: allergies: NSaIDS Ciprofloxacin, oxycodone, codeine sulfate, ibuprofen, morphine, triptans 5HT1 antimigraine medicatoin. Spoke with daughter susanne who is on HIPPA. reports pt having left arm pain x 3 days. Denies any CP, SOB, CAMARA or dizziness. Pt has used Tylenol without relief. No injury or falls. No swelling, redness or rash. No vomiting. Reviewed need for assessment declined our walk in. Ok for [facility] referral. ................... ................... ................... ................... ................... ................... ................... ........ CRC Nursing Assessment: Comments: CRC RN DID NOT NEED FURTHER INFO did not answer> rescheduled for 02/14 ................... ................... ................... ................... ................... ................... ................... ........ Paint Mixer Note: Sent to evaluate pt with arm [...] OTC and cannot afford them anymore. Consulted [facility] who will send prescription topical lidocaine to pt's pharmacy. [facility] encouraged family to continue calling PCP for eval and possible referral to ortho. Relayed info to pt's daughter and VNA. No further questions or concerns at this time. ................... ................... ................... ................... ................... ................... ................... ........ Disposition: Fulfilled Rufino Guillermo MD [address] [facility],[address], [place], [phone], [employer] [facility] 02/21/2022 14:47:06 04/12/2022 text/html HPI: spoke with Susanne Llanes daughter who is on HIPPA. Pt having intermittent dizziness x 3 days. Pt having more with position changes. Denies any CAMARA, CP ,SOB vomiting or diarrhea. No UTI sx. Pt drinking plenty of water. Reviewed disposition, agrees to [facility] referral ................... ................... ................... ................... ................... ................... ................... ........ CRC Nursing Assessment: Comments: No additional information needed ................... ................... ................... ................... ................... ................... ................... ........ Paint Mixer Note: [facility] Paint Mixer Andrew Holt [email or web address] dispatched to a [facility] for a 76 yof C/O dizziness. Upon [...] a week prior, and was seen at [facility] ED with imaging. She stated her vision [...] She denied any other falls or LOC. [facility] consulted; pt was advised to contact PCP AVE to discuss imaging results, and was prescribe meclizine. She was given meclizine PO 25 mg. Red flags discussed. ................... ................... ................... ................... ................... ................... ................... ........ Disposition: Fulfilled Major Milligan MD [address] [facility],[address], [place], [address], [employer] [facility] 04/12/2022 16:55:37 01/14/2025 text/html ROS as noted in the HPI HPI: RN from PCP office calling to put in referral. Member called in reporting asthma exacerbation symptoms. Dry cough with intermittent wheezing and chest tightness. Did not have inhalers or nebulizers - PCP is working out getting those prescriptions to her today. Per provider - no audible wheezing on the phone, able to speak in full and complete sentences, no coughing fits. Denies fever, nasal congestion, chills, nausea/vomiting. Requesting [facility] visit. ................... ................... ................... ................... ................... ................... ................... ........ CRC Nurse Triage Notes (Fabi Carty): Reason For Request: Patient has Cough Wheezing, chest tightness when she coughs. Chief Complaints: Cough PMH: Coronary Artery Disease, Hypertension, HIV/AIDS, Asthma PMH Reviewed at 01/14/2025:58 Allergies Reviewed at 01/14/2025:58 Comments: Reviewed HPI. Paint Mixer Organization Information for [employer] Legal Name: [employer]. Address: [address] [place] [address], Supervisor Net Making: Brennan FINN No.: [id number] Paint Mixer POC Test Results from [facility] [employer] Rapid strep test (11:19:43) Strep: - Rapid influenza antigen (11:19:57) Flu: - Rapid COVID antigen (11:19:59) COVID: - ................... ................... ................... ................... ................... ................... ................... ........ Paint Mixer Note From [employer]: Sent to a call for a pt complaining of cough. SC8 arrives on scene, pt is alert and oriented, airway is patent. Pt ambulates with a steady gait, no respiratory distress noted. Pt complains of chronic headache and chronic dry cough. Pt complains of sore throat and sob w/exertion starting last night when pt reports asthma worsening, resulting in worsening cough. Pt states she feels like she can't take a full breath at rest. Pt denies dizziness, cp, sob at rest, n/v/d, abd pain, fever, or loc. Pt states she ran out of inhaler and nebulizer solution. Pt called PCP office this morning, and states they are refilling her prescriptions. Pt allergies verified: Contrast Dye, Ibuprofen, PCN, Cipro, ASA. Pt states she is not allergic to Morphine, just doesn't like how it makes her feel. BP:189/68, P:67, RR:18, SpO2:97% RA, T:98.6; (Pt's daughter states BP today is normal for pt). Head: unremarkable; Lung sounds: clear bilaterally; Abdomen: soft, non-tender, no distention; Back: unremarkable; Extremities: unremarkable; Skin: pink, warm, dry; Rapid covid/flu test: neg; Rapid strep test: neg; [facility] consulted and orders Duo neb. Pt and daughter state they do not think pt needs Prednisone. Daughter calls pharmacy and states inhaler has refills, but no refill for neb solution. [facility] sends script to pt's pharmacy for neb solution. 5 med rights verified; Duo neb administered. Pt reports improvement in breathing. Red flags discussed. Pt has no further questions. [facility] Lab Orders: rapid flu (A+B): Performed rapid SARS CoV 2 Ag, QL IA, respiratory specimen: Performed rapid strep group A, throat: Performed [facility] Medication Orders: ipratropium 0.5 mg-albuterol 3 mg (2.5 mg base)/3 mL nebulization soln: Performed ................... ................... ................... ................... ................... ................... ................... ........ [facility] Consulted: Shan Avila ................... ................... ................... ................... ................... ................... ................... ........ Disposition: Fulfilled Shan Avila MD [address] [facility],[address], [place], [address], [place] [facility] - [facility]ol[facility] 01/14/2025 12:25:05 OBGyn Episode No OBEpisode recorded.
--- OUTSIDE RECORDS SUMMARY | 2025-02-24 12:12 | XMS_ITS | Data Portability ---
Author Organization [facility], Main Office Address [address] [facility], [address] [place] [address] Care Team Providers Care Retail Sales Assistant Name Role Phone JEAN-CLAUDE OROZCO - 2ND FLOOR OTHER Assessment Encounter Date Assessment Date Assessment LastModified by Organization Details LastModified Time 05/19/2024 05/19/2024 45 minutes spent on coordination of discharge [id number] Not available 05/19/2024 13:54:44 Plan of Treatment [...] and Address Organization Details Recorded Time Falls 628055739 Active 2023 JULIEN RING NP [address] [facility], [address], [place], [address], [facility] 4 15:14:09 History of deep vein thrombosis 255326763 Active 2023 JULIEN RING NP [address] [facility], [address], [place], [address], [facility] 4 15:14:24 Osteoporosis 08378114 Active 2023 JULIEN RING NP [address] [facility], [address], [place], [address], [facility] 4 15:14:30 Human immunodeficien cy virus infection 60273128 Active 2023 JULIEN RING NP [address] [facility], [address], [place], [address], [facility] 4 15:14:42 Dementia 49020930 Active 2023 JULIEN RING NP [address], [address], [place], [address], [facility] 4 15:14:48 Subarachnoid hemorrhage 42783505 Active 2023 JULIEN RING NP [address], [address], [place], [address], [facility] 4 15:23:09 Essential hypertension 58055130 Active 2023 JULIEN RING NP [address], [address], [place], [address], [facility] 4 15:25:07 Hyperlipidemia 46625323 Active 2023 JULIEN RING NP [address], [place], [address], [facility] 4 15:25:14 Gastroesophage al reflux disease without esophagitis 778490534 Active 2023 Frankie Sultana MD [address], [place], [address], [facility] 4 10:43:41 Primary insomnia 7920570 Active 2023 Frankie Sultana MD [address] [facility], [address], [place], [address], [facility] 4 10:44:24 Pancytopenia 530323243 Active 2024 ZANA JACINTO NP [address], [address], [place], [address], [facility] 5 12:42:01 Problem Notes None recorded. Medical Equipment None Reported. Allergies Allergen ID Allergen Name Allergen Category Reaction Reaction Severity Criticality Documentation Date Start Date Code Code System Note Provider Name and Address Organization Details Recorded Time 69664 Product containin g penicilli n (product) medicatio n Not available Not available Not available 04/17/2024 01356 8001 SNOMED JULIEN RING NP [address], [address], [place], [address], [facility] 4 15:13:06 26819 Cipro medicatio n Not available Not available Not available 04/17/2024 10077 3 RxNorm JULIEN RING, WATER RESOURCE PROJECT MANAGER [address] [facility], [address], [place], [address], [facility] 4 15:13:14 72310 Non-stero idal anti-infl ammatory agent (substanc e) medicatio n Not available Not available Not available 04/17/2024 00735 5008 SNOMED JULIEN RING, WATER RESOURCE PROJECT MANAGER [address] [facility], [address], [place], [address], [facility] 4 15:13:22 40658 iodine medicatio n Not available Not available Not available 04/17/2024 5933 RxNorm JULIEN RING, WATER RESOURCE PROJECT MANAGER [address] [facility], [address], [place], [address], [facility] 4 15:13:27 98902 aspirin medicatio n Not available Not available Not available 04/20/20242023 1191 RxNorm unrec ogniz ed react ion (text : Skin Probl ems, code: [id number]) (from exter nal sourc e) Rachel Segura MD [address] [place] [address], [address], [place], [address], [facility] 4 16:01:22 98761 ciproflox acin medicatio n diarrhea Not available Not available 04/20/20242023 2551 RxNorm Rachel Segura MD [address] [place] [address], [address], [place], [address], [facility] 4 16:02:10 78275 Iodinated contrast media (substanc e) medicatio n hives Not available Not available 04/20/20242023 01304 2004 SNOMED Rachel Segura MD [address] [place] [address], [address], [place], [address], [facility] 4 16:02:16 36664 morphine medicatio n Not available Not available Not available 04/20/20242023 7052 RxLeno Segura MD [address], [address], [place], [address], [facility] 4 16:02:22 48367 oxycodone medicatio n Not available Not available Not available 04/20/20242023 7804 RxLeno Segura MD [address], [address], [place], [address], [facility] 4 16:02:26 26940 penicilli n G Not available Not available Not available Not available 04/20/20242023 [id number] Hadley Segura MD [address], [address], [place], [address], [facility] 4 16:02:33 10245 sumatript an medicatio n Not available Not available Not available 04/20/20242023 41755 Hadley Segura MD [address], [place], [address], [facility] 4 16:02:40 Vitals Date Recorded Body weight Heart rate Respiratory rate Body temperature Oxygen saturation Oxygen saturation in Arterial blood by Pulse oximetry Systolic And Diastolic Provider Name and Address Organization Details Last Updated DateTime 5 18787.4 8 g 77 /min 16 /min 97.3 [degF] 97 % 97 % 91/52 mm[Hg] Remedios Vela NP [address], [address], [place], [address], [facility] 5 08:25:15 Date Recorded Body weight Heart rate Respiratory rate Body temperature Oxygen saturation Oxygen saturation in Arterial blood by Pulse oximetry Systolic And Diastolic Provider Name and Address Organization Details Last Updated DateTime 5 71320.4 8 g 78 /min 18 /min 97.8 [degF] 98 % 98 % 132/60 mm[Hg] Remedios Vela NP [address], [address], [place], [address], [facility] 5 19:42:37 Date Recorded Heart rate Respiratory rate Body temperature Oxygen saturation Oxygen saturation in Arterial blood by Pulse oximetry Systolic And Diastolic Provider Name and Address Organization Details Last Updated DateTime 5 74 /min 17 /min 98.2 [degF] 95 % 95 % 132/60 mm[Hg] ZANA JACINTO NP [address] [facility], [address], [place], [address], [facility] 5 12:28:29 Date Recorded Heart rate Respiratory rate Body temperature Oxygen saturation Oxygen saturation in Arterial blood by Pulse oximetry Systolic And Diastolic Provider Name and Address Organization Details Last Updated DateTime 5 77 /min 18 /min 97.5 [degF] 98 % 98 % 132/60 mm[Hg] ZANA JACINTO NP [address] [facility], [facility] [address], [place], [address], [facility] 5 13:27:17 Date Recorded Systolic And Diastolic Provider Name and Address Organization Details Last Updated DateTime 04/19/2024 115/65 mm[Hg] Frankie Sultana MD [address] [facility], [facility] [address], [place], [address], [facility] 04/19/2024 10:33:58 Social History Question Answer Notes LastModified by Organizat ion Details LastModified Time Tobacco Smoking Status Never Smoker JULIEN RING NP [address] [facility] [address], [place], [address], [facility] 04/17/2024 15:15:37 Do You Have An Advance Directive? Yes Information not available 04/17/2024 What Is Your Code Status? Full Code Information not available 04/17/2024 What Was The Date Of Your Most Recent Tobacco Screening? 04/17/2024 Information not available 04/17/2024 Sex: Unknown Functional Status Question Answer Note LastModified by Organizat ion Details LastModified Time Do you use any illicit or recreational drugs? No Information not available 04/17/2024 What is your level of alcohol consumption? None Information not available 04/17/2024 Mental Status None recorded. Family History Nothing Reported Notes:N/C Medical History No medical history recorded. Gynecological HistoryNo gynecological history recorded. Obstetrics History GPAL:G 0 P 0 0 0 0 Immunizations Vaccine Type Date Status Note Provider Nam e and Address Organization Details Recorded Time Hep B, unspecified formulation 0 completed [facility] 04/20/2024 14:21:23 Hep B, unspecified formulation 0 completed [facility] 04/20/2024 14:21:34 Hep B, unspecified formulation 1 completed [facility] 04/20/2024 14:21:43 Hep B, unspecified formulation 1 completed Chelly Jh [facility] 04/20/2024 14:21:53 Hep B, unspecified formulation 1 completed Chelly Jh [facility] 04/20/2024 14:22:01 Tdap 2 completed Chelly Jh [facility] 04/20/2024 14:22:20 Tdap 4 completed Chelly Jh [facility] 04/20/2024 14:22:30 Pneumococcal conjugate PCV 13 4 completed Chelly Jh [facility] 04/20/2024 14:22:53 pneumococcal polysaccharide PPV23 0 completed Chelly Jh [facility] 04/20/2024 14:23:21 pneumococcal polysaccharide PPV23 5 completed Chelly Jh [facility] 04/20/2024 14:23:50 pneumococcal polysaccharide PPV23 2 completed Chelly Jh [facility] 04/20/2024 14:23:58 influenza, unspecified formulation 4 completed Chelly Jh [facility] 04/20/2024 14:25:58 influenza, unspecified formulation 2 completed [facility] 04/20/2024 14:26:13 meningococcal ACWY, unspecified formulation 7 completed Chellykenyon Peñaloza [facility] 04/20/2024 14:26:35 meningococcal ACWY, unspecified formulation 7 completed Chellykenyon Peñaloza [facility] 04/20/2024 14:26:43 SARS-COV-2 (COVID-19) vaccine, UNSPECIFIED 1 completed Chelly [facility] 04/20/2024 14:26:58 SARS-COV-2 (COVID-19) vaccine, UNSPECIFIED 2 completed Chelly [facility] 04/20/2024 14:27:05 Past Encounters Encounter ID Performer Location Encounter Start Date Encounter Closed Date Diagnosis/Indication Diagnosis SNOMED-CT Code Diagnosis ICD10 Code Diagnosis IMO Codes Diagnosis Note [id number] JULIEN RING NP [address] [address] 04/17/2024 14:36:06 04/19/2024 12:40:19 Falls 199972588 R29.6 PT OT eval and treatfall precaution sfrequent safety checks Subarachno id hemorrhage 79304403 I60.9 monitor neurosdisc uss restarting Coumadin with family-ris k v. benefitmon itor for seizuresly jimmy 100 mg daily History of deep vein thrombosis 897045280 Z86.718 coumadin stopped due to bleed Dementia 02785834 F03.90 seroquel 300 mg hsZoloft 150 mg dailypsych prn Human immunodeficiency virus infection 55925318 B20 bictegravi r/emtricit ab/tenofov 30/120/15 daily Osteoporosis 07389509 M8 1.0 T3 bidCaD 2 dailyMVI Essential hypertension 18358755 I10 amlodipine 10 mg dailytopro l 50 mg dailymonit or bp Hyperlipidemia 62286977 E78.5 atrovastat in 40 mg daily [id number] Frankie Sultana MD [address] [address] 04/19/2024 10:33:18 04/20/2024 13:19:47 Falls 568182043 R29.6 PT OT eval and treatmonit or fall risk History of deep vein thrombosis 984021291 Z86.718 see above with recent CVAAC on hold till cleared by surgery Dementia 10852433 F01.B3 carrying dxappears high functionin gmaintaine d onseroquel 300 mg qdZoloft 150 mg qdmonitor for behaviorsp sych eval prnmonitor need to invoke HCP currently able to make own medical decisions Human immunodeficiency virus infection 34000822 B20 carrying dxmaintain ed onbictegra vir/emtric itab/tenof ov 30/120/15 dailycoord inate with ID as neededupda te with concerns Essential hypertension 28031517 I10 norvasc 10 mg qdmetoprol ol 50 mg qdmonitor bp and need to titrate Hyperlipidemia 85376812 E78.2 lipitor 20 mg qdcontinue d Subarachno id hemorrhage due to traumatic injury 071823808 S06.6X0D see HPI s/p fallImagin g positive for acute hemorrhagi c CVAEval by neurosurge ry with no interventi on indicated at that timeHad been on AC prior with hx of dvt now in hold till cleared by neurosurge rymonitor for changeupda te neurosurge ry with concerns Gastroesop hageal reflux disease without esophagitis 101611952 K21.9 pantoprazo le 40 mg qdmonitor sx control Primary insomnia 5614434 F51.01 melatonin 3 mg qhsmonitor for effect [id number] Remedios Vela NP [address] [address] 04/28/2024 08:23:36 04/29/2024 10:05:53 Subarachnoid hemorrhage due to traumatic injury 819640151 S06.6X0D see HPI s/p fallImagin g positive [...] to check if this is scheduled. Falls 944504206 R29.6 family reporting falls at homePT OT eval and treatsuppo rtive caremonito r fall risk History of deep vein thrombosis 324559536 Z86.718 see above with recent CVAAC on hold till cleared by surgeryfu with neurosurge ry as above Dementia 17957901 F01.B3 hx ofappears high functionin gmaintaine d onseroquel 300 mg qdZoloft 150 mg qdmonitor for behaviorsp sych eval prnmonitor need to invoke HCP currently able to make own medical decisions Human immunodeficiency virus infection 53886271 B20 hx ofmaintain ed onbictegra vir/emtric itab/tenof ov 30/120/15 dailycoord inate with ID as neededupda te with concerns Essential hypertension 08637679 I10 norvasc 10 mg qdmetoprol ol 50 mg qdmonitor bp and need to titrate Hyperlipidemia 93175367 E78.2 lipitor 20 mg qdcontinue d Gastroesop hageal reflux disease without esophagitis 965785600 K21.9 pantoprazo le 40 mg qdmonitor sx control Primary insomnia 2328082 F51.01 melatonin 3 mg qhsmonitor for effect Osteoporosis 24163153 M8 1.0 T3 bid ( on this at home at baseline-o verride allergy for itching if noted-side effect)CaD 2 dailyMVImo nitor [id number] Remedios Vela NP [address] [address] 2024 08:19:19 05/05/2024 09:32:31 Subarachnoid hemorrhage due to traumatic injury 900183685 S06.6X0D Imaging positive for acute hemorrhagi c CVA sp fallin hosp Eval by neurosurge ry with no interventi on indicated at that timeHad been on AC prior with hx of dvt now in hold till cleared [place] neurosurge [place] keppra for 7 days and was dc'd in hospital also noted in dc summary not to continue.m onitor for changeupda te neurosurge ry with concerns and fu apptnsg to check if this is scheduledm onitor neuros and for changes Falls 716018392 R29.6 family reporting falls at homePT OT eval and treatsuppo rtive caremonito r fall risk Dementia 49965329 F01.B3 hx ofappears high functionin gmaintaine d onseroquel 300 mg qdZoloft 150 mg qdmonitor for behaviorsp sych eval prnmonitor need to invoke HCP currently able to make own medical decisions Essential hypertension 65656283 I10 bp stable, no acute shifts in bp warranted with cvacontnor vasc 10 mg qdmetoprol ol 50 mg qdmonitor bp and need to titrate Osteoporosis 57735509 M8 1.0 05/03 change T3 bid to T3 bid prn per requestCal cium dailyMVImo nitor Constipation 27655338 K5 9.00 pt with constipati on05/03 start senna 2 qhshouse bowel protocol prnmonitor [id number] ZANA JACINTO NP [address] [address] 05/12/2024 12:27:56 05/18/2024 14:39:52 Constipation 53810852 K59.00 Started senna 2 qd on 05/03Now with loose stool, suspect related to viral gastroente ritis.Hold senna as neededMain tain fluids, activityMo nitor and adjust meds prn Osteoporosis 92991479 M8 1.0 05/03- changed T3 bid to T3 bid prn per request, remy. wellCalciu m dailyMVImo nitor Subarachno id hemorrhage due to traumatic injury 099351955 S06.6X0D Imaging positive for acute hemorrhagi c CVA sp fallSeen by Neurosurge ry, no surgical interventi on warranted. Currently off AC - resume when cleared by Neurosurge Nuha cabral for 7 days in hosp., not continued here.updat e neurosurge ry with concerns and fu apptnsg to check if this is scheduledm onitor neuros and for changes Falls 259732030 R29.6 family reporting falls at homePT OT eval and treatsuppo rtive caremonito r fall riskgoal is to return home. Dementia 68164334 F01.B3 hx ofappears high functionin gmaintaine d onseroquel 300 mg qdZoloft 150 mg qdmonitor for behaviorsp sych eval prnmonitor need to invoke HCP currently able to make own medical decisions Essential hypertension 04590674 I10 VSScontnor vasc 10 mg qdmetoprol ol 50 mg qdmonitor bp and need to titrate Pancytopenia 370048968 D 61.818 Labs here consistent with labs at [facility], but no formal dx. of pancytopen ia found in [facility] paperwork. Monitor for now, can consider heme referral if labs worsen.CBC q wed x 2 more weeksMonit or s/s active bleeding.C urrently off AC Viral gastroenteritis 11 1612588 A08.4 N/V/D x 2 days, feeling better today, just tired.Taki ng fluids well - continue for now, advance diet as tolerated. Hold laxatives prn, utilize imodium, zofran prnMonitor closely [id number] ZANA JACINTO NP [address] [address] 05/19/2024 13:26:33 05/21/2024 10:38:51 Viral gastroenteritis 794548436 A08.4 N/V/D x 2 days last week, now resolved.M onitor closely as outpt. Pancytopenia 217270294 D 61.818 Labs here consistent with labs at [facility], but no formal dx. of pancytopen ia found in [facility] paperwork. Monitor labs as outpt.Amie tor s/s active bleeding.C urrently off AC Constipation 40186895 K5 9.00 Started senna 2 qd on 05/03Mainta in fluids, activityMo nitor and adjust meds prn Subarachno id hemorrhage due to traumatic injury 428683439 S06.6X0D Imaging positive for acute hemorrhagi c CVA sp fallSeen by Neurosurge ry, no surgical interventi on warranted. Currently off AC - resume when cleared by Neurosurge Nuha cabral for 7 days in hosp., not continued here.updat e neurosurge ry with concerns and fu as requested. monitor neuros and for changes as outpt. Essential hypertension 10545611 I10 VSScontinu e:norvasc 10 mg qdmetoprol ol 50 mg qdmonitor bp and need to titrate Falls 616495805 R29.6 family reporting falls at homePT OT eval and treat, meeting goals for d/c back home tomorrow with services.m onitor fall risk as outpt. Osteoporosis 80831352 M8 1.0 T3 bid prn - using on occasionCo ntinue Calcium daily, MVImonitor Dementia 27086105 F01.B3 hx ofappears high functionin gmaintaine d onseroquel 300 mg qdZoloft 150 mg qdmonitor for behaviors Human immunodeficiency virus infection 94343680 B20 Continue home meds Hyperlipidemia 17162588 E78.2 Continue artorvasta tin 20 mg qd Gastroesop hageal reflux disease without esophagitis 392881144 K21.9 Continue pantoprazo le 40 mg daily Health Concerns Section Related Observation LastModified by Organization Detai ls LastModified Time None Recorded Concern Status LastModified by Organization Details LastModified Time None Recorded Advance Directives Directive Y: Payers Insurance Date Sequence Insurance Name Policy Number Policy Nuñez Covered Member ID Nuñez Member ID Guarantor Name 05/19/2024 1 [facility] - DOS ON OR AFTER 2022 - MEDICARE ADVANTAGE [place] (MEDICARE REPLACEMENT/ADV ANTAGE - PPO) Inga Vidal [id number] Inga Vidal Notes Date Note Type Note Provider Name and Address Organization Details Recorded Time 024 text/ht ml ROS as noted in the HPI Patient is a 78 yo female admit [...] continued care and therapy Frankie Sultana MD [address] [place] [address], [address], [place], [address], [facility] 04/19/2024 10:51:19 025 text/ht ml ROS as noted in the HPI Pt is seen for an acute rounding visit today. She is a 78 yo female admitted from hospital after presenting after fall with confusion, headache and nausea. Imaging positive for acute hemorrhagic CVA here at [facility] for rehab. She was seen by neurosurgery with no intervention indicated at that time. She was started on keppra in the hospital, however not listed on dc summary. Had been on AC prior with hx of dvt now in hold till cleared by neurosurgery. Follow up appt recommended and will check with nursing if scheduled. 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 Pt is seen for request of T#3 today and states she was receiving this at [facility] and she is ordered for this here and has received it this am. Unclear of request from nursing. It is unclear why she hasn't received this and will override any side effect of itching as noted in a chart at [facility] some time ago. She reports oxycodone makes her dizzy with multiple allergies. Due to notes in neurosurgery consult on 04/11 and later dc on 04/17 above it seems while in hospital her keppra 500 mg po bid was only given for 7 days and dc'd, not terminal operations manager. It was not recommended on dc summary. [...] left hand noted. Remedios Vela NP [address] [facility], [address], [place], [address], [facility] 04/28/2024 09:29:37 025 text/ht ml ROS as noted in the HPI Pt is seen for an acute rounding visit today. Inga is a 78 yo female admitted from hospital after presenting after fall with confusion, headache and nausea. Imaging positive for acute hemorrhagic CVA. AC stopped until follows with neurosurgery and cleared. Currently here at [facility] for rehab. Inga is refusing her T#3 [...] left hand noted. Remedios Vela NP [address] [facility], [address], [place], [address], [facility] 2024 20:05:16 025 text/ht ml ROS as noted in the HPI Inga is seen today for a routine 30 day visit. She is a 78 yo female admitted from hospital after presenting after fall with confusion, headache and nausea. Imaging positive for acute hemorrhagic CVA. AC stopped until follows with neurosurgery and cleared. Currently here at [facility] for rehab. Currently Inga is having GI [...] stable so far. ZANA JACINTO NP [address] [facility], [address], [place], [address], [facility] 05/18/2024 12:55:41 025 text/ht ml ROS as noted in the HPI Inga is seen today for discharge.She is going home tomorrow with support of services. She is a 78 yo female admitted from hospital after presenting after fall with confusion, headache and nausea. Imaging positive for acute hemorrhagic CVA. AC stopped until follows with neurosurgery and cleared. Currently here at [facility] for rehab. While here, Inga has done well.She has worked with rehab, meeting goals for d/c home with support of family and services.VSSLabs improvedStay complicated by viral gastroenteritis last week, now resolved. Upon exam, Inga is up in a chair in the dayroom, alert, NAD. In good spirits, denies any complaints, happy to be going home. ZANA JACINTO NP [address] [facility], [address], [place], [address], [facility] 05/19/2024 13:54:57 OBGyn Episode No OBEpisode recorded.
== END 2025-02-24 10:41 | disposition home or self-care (01) ==
LOC: HO.ENCR 10:22
PROVIDERS: Visit Provider Internal Medicine Endocrinology, Diabetes & Metabolism
DX: M81.0 Age-related osteoporosis without current pathological fracture (principal)

== ENCOUNTER → 2025-02-24 10:21 | Outpatient (BNVA) | payer OTHER, SELFPAY | PROVIDERS: Visit Provider Internal Medicine Endocrinology, Diabetes & Metabolism | DX: M81.0 Age-related osteoporosis without current pathological fracture (principal) | CPT/HCPCS: 96372; J3111 ==

== ENCOUNTER 2025-03-24 09:39 | Outpatient (AMB) | payer OTHER, SELFPAY ==
--- NOTE | 2025-03-24 10:23 | AM.OFFVISNUR ---
Intake Visit Reasons: Evenity #4 Allergies Iodinated Contrast Media (IV DYE, IODINE CONTAINING) Allergy (Severe, Verified 12/13/24 08:59) ANAPHYLAXIS aspirin (Aspirin) Allergy (Intermediate, Verified 12/13/24 08:59) HIVES,SWELLING, swelling ciprofloxacin (Cipro) Allergy (Unknown, Verified 12/13/24 08:59) diarrhea ibuprofen Allergy (Unknown, Verified 12/13/24 08:59) nausea Penicillins Allergy (Unknown, Verified 12/13/24 08:59) HIVES,SWELLING tuberculin, purified protein deriva (TUBERCULIN, PURIFIED PROTEIN DERIVA) Allergy (Unknown, Verified 12/13/24 08:59) REDNESS,ITCHING NSAIDS (Non-Steroidal Anti-Inflamma (NSAIDS) Adverse Reaction (Unknown, Verified 12/13/24 08:59) ABD PAIN,NAUSEA Office Meds romosozumab-aqqg 210 mg/2.34 mL(105 mg/1.17 mL x2)subcutaneous syringe Performing Provider: Christian Dickson MD Performing Location: [facility] Endocrinology Administered by: Anh Olivas RN on 03/24/25 10:10 Dose Route Admin Location Dispensed Lot Number Expiration Date [facility] Ruching Machine Operator 210 mg subcut bilateral upper arms 2.34 mL [id number] 08/19/27 06720-949-27 [facility] Total Dispensed Waste 2.34 mL 0 % Comments: pt accompanied by TOOTH GRINDER. Pt declined seam checker. No adverse reactions reported from previous injection. Pt tolerated injection well. Pt scheduled in 4 weeks for next appt. No further questions at this time. Assessment & Plan Assessment & Plan Orders: Orders AMB Romosozumab Injection Patient Supplied Today M81.0 - Age-related osteoporosis without current pathological fracture Coding
--- OUTSIDE RECORDS SUMMARY | 2025-03-24 11:06 | XMS_ITS | Encounter Summary ---
Author Organization [email or web address] Address [address] [place] [address] Care Team Providers Care Javascript Ui Developer Name Role Phone Abigail Rajput MD Primary Care Provider [phone] Encounter Details Date Type Department Care Team (Latest Contact Info) Description 04/29/2024 Lab Requisition [facility] - Main Lab [address] [facility] [place] [address] Frankie Sultana MD [address] [place] [address], [phone] Unspecified dementia, unspecified severity, without behavioral [...] Care Team (Late st Contact Info) Description 05/10/2025 8:45 AM EST Office Visit Orthopedic Surgery - [place] [address] [address] Rodrick Viera, JHON [address] [address] documented as of this encounter [...] mmol/L LAB CHEMISTRY METHOD 04/29/2024 11:08 AM [facility] Potassium 4.1 3.5 - 5.5 mmol/L LAB CHEMISTRY METHOD 04/29/2024 11:08 AM [facility] Chloride 113(H) 96 - 110 mmol/L LAB CHEMISTRY METHOD 04/29/2024 11:08 AM [facility] CO2 27 21 - 32 mmol/L LAB CHEMISTRY METHOD 04/29/2024 11:08 AM [facility] Anion Gap 4 3 - 11 LAB CHEMISTRY METHOD 04/29/2024 11:08 AM [facility] Glucose 89 70 - 100 mg/dL LAB CHEMISTRY METHOD 04/29/2024 11:08 AM [facility] BUN 16 5 - 25 mg/dL LAB CHEMISTRY METHOD 04/29/2024 11:08 AM [facility] Creatinine 0.80 0.50 - 1.10 mg/dL LAB CHEMISTRY METHOD 04/29/2024 11:08 AM [facility] eGFR 76 >=60 mL/min/1. 73m2 LAB CHEMISTRY METHOD 04/29/2024 11:08 AM [facility] Comment:Calculation based on the Chronic Kidney Disease Epidemiology Collaboration (CKD-EPI) equation refit without adjustment for race. BUN/Creatinine Ratio 20.0 LAB CHEMISTRY METHOD 04/29/2024 11:08 AM [facility] Calcium 8.8 8.5 - 10.5 mg/dL LAB CHEMISTRY METHOD 04/29/2024 11:08 AM [facility] Blood Venous blood specimen / Unknown Venipuncture / Unknown 04/29/2024 7:02 AM EST 04/29/2024 9:29 AM EST us Frankie Sultana MD LAB BLOOD ORDERABLES Final Resul t [facility] [address] [place] [address], [place] [phone] * (ABNORMAL) Complete blood count (04/29/2024 7:02 AM EST) WBC 2.7(L) 4.8 - 10.8 K/mcL LAB HEMETOLOGY METHOD 04/29/2024 10:54 AM [facility] RBC 3.40(L) 3.80 - 4.80 M/[facility] LAB HEMETOLOGY METHOD 04/29/2024 10:54 AM [facility] Hemoglobin 9.5(L) 11.5 - 16.0 g/dL LAB HEMETOLOGY METHOD 04/29/2024 10:54 AM [facility] Hematocrit 30.4(L) 35.0 - 47.0 % LAB HEMETOLOGY METHOD 04/29/2024 10:54 AM [facility] MCV 88.9 79.0 - 98.0 FL LAB HEMETOLOGY METHOD 04/29/2024 10:54 AM [facility] MCH 27.8 27.0 - 32.0 pcg LAB HEMETOLOGY METHOD 04/29/2024 10:54 AM [facility] MCHC 31.3(L) 32.0 - 37.0 g/dL LAB HEMETOLOGY METHOD 04/29/2024 10:54 AM [facility] RDW 15.5(H) 11.0 - 15.0 % LAB HEMETOLOGY METHOD 04/29/2024 10:54 AM EST [facility] Platelets 106(L) 130 - 400 K/mcL LAB HEMETOLOGY METHOD 04/29/2024 10:54 AM EST [facility] LAB MPV 11.8(H) 7.0 - 11.0 FL LAB HEMETOLOGY METHOD 04/29/2024 10:54 AM EST [facility] NRBC 0.0 <1.0 % LAB HEMETOLOGY METHOD 04/29/2024 10:54 AM EST [facility] NRBC Absolute 0.00 <0.10 K/mcL LAB HEMETOLOGY METHOD 04/29/2024 10:54 AM [facility] Blood Venous blood specimen / Unknown Venipuncture / Unknown 04/29/2024 7:02 AM EST 04/29/2024 9:29 AM EST us Frankie Sultana MD LAB BLOOD ORDERABLES Final Resul t [facility] [address] [place] [address], documented in this encounter Visit Diagnoses Diagnosis Unspecified dementia, unspecified severity, without behavioral disturbance, psychotic disturbance, mood disturbance, and anxiety ([facility] V24, [facility] V28) Human immunodeficiency virus (HIV) disease ([facility] V24, [facility] V28) Human immunodeficiency virus [HIV] disease documented in this encounter Care Teams Javascript Ui Developer Relationship Specialty Start Date End Date Abigail Rajput MD [address] [place] [phone] PCP - General Family Medicine 03/03/24 documented as of this encounter
--- OUTSIDE RECORDS SUMMARY | 2025-03-24 11:06 | XMS_ITS | Encounter Summary ---
Author Organization [employer] Address [address] [place] [address] Care Team Providers Care Forest Pathologist Name Role Phone Abigail Rajput MD Primary Care Provider [phone] Encounter Details Date Type Department Care Team (Latest Contact Info) Description 05/04/2024 Lab Requisition [facility] - Main Lab [address] [facility] [place] [address] Frankie Sultana MD [address] [place] [address], [phone] Unspecified dementia, unspecified severity, without behavioral [...] AM EST Office Visit Orthopedic Surgery - [place] [address] [phone] Rodrick Viera, JHON [address] [address] documented as of this encounter [...] mmol/L LAB CHEMISTRY METHOD 05/05/2024 8:43 AM [facility] Potassium 3.7 3.5 - 5.5 mmol/L LAB CHEMISTRY METHOD 05/05/2024 8:43 AM [facility] Chloride 111(H) 96 - 110 mmol/L LAB CHEMISTRY METHOD 05/05/2024 8:43 AM [facility] CO2 29 21 - 32 mmol/L LAB CHEMISTRY METHOD 05/05/2024 8:43 AM [facility] Anion Gap 5 3 - 11 LAB CHEMISTRY METHOD 05/05/2024 8:43 AM [facility] Glucose 100 70 - 100 mg/dL LAB CHEMISTRY METHOD 05/05/2024 8:43 AM [facility] BUN 15 5 - 25 mg/dL LAB CHEMISTRY METHOD 05/05/2024 8:43 AM [facility] Creatinine 0.72 0.50 - 1.10 mg/dL LAB CHEMISTRY METHOD 05/05/2024 8:43 AM [facility] eGFR 85 >=60 mL/min/1. 73m2 LAB CHEMISTRY METHOD 05/05/2024 8:43 AM [facility] Comment:Calculation based on the Chronic Kidney Disease Epidemiology Collaboration (CKD-EPI) equation refit without adjustment for race. BUN/Creatinine Ratio 20.8 LAB CHEMISTRY METHOD 05/05/2024 8:43 AM [facility] Calcium 8.7 8.5 - 10.5 mg/dL LAB CHEMISTRY METHOD 05/05/2024 8:43 AM [facility] Blood Venous blood specimen / Unknown Venipuncture / Unknown 05/05/2024 6:15 AM EST 05/05/2024 8:11 AM EST us Frankie Sultana MD LAB BLOOD ORDERABLES Final Resul t [facility] [address] [place] [address], [place] [phone] * (ABNORMAL) Complete blood count (05/05/2024 6:15 AM EST) WBC 4.4(L) 4.8 - 10.8 K/mcL LAB HEMETOLOGY METHOD 05/05/2024 8:57 AM [facility] RBC 3.20(L) 3.80 - 4.80 M/[facility] LAB HEMETOLOGY METHOD 05/05/2024 8:57 AM [facility] Hemoglobin 8.9(L) 11.5 - 16.0 g/dL LAB HEMETOLOGY METHOD 05/05/2024 8:57 AM [facility] Hematocrit 28.0(L) 35.0 - 47.0 % LAB HEMETOLOGY METHOD 05/05/2024 8:57 AM [facility] MCV 86.7 79.0 - 98.0 FL LAB HEMETOLOGY METHOD 05/05/2024 8:57 AM [facility] MCH 27.6 27.0 - 32.0 pcg LAB HEMETOLOGY METHOD 05/05/2024 8:57 AM [facility] MCHC 31.8(L) 32.0 - 37.0 g/dL LAB HEMETOLOGY METHOD 05/05/2024 8:57 AM [facility] RDW 15.2(H) 11.0 - 15.0 % LAB HEMETOLOGY METHOD 05/05/2024 8:57 AM EST [facility] Platelets 87(L) 130 - 400 K/mcL LAB HEMETOLOGY METHOD 05/05/2024 8:57 AM EST [facility] Comment:reviewed by slide MPV 11.0 7.0 - 11.0 FL LAB HEMETOLOGY METHOD 05/05/2024 8:57 AM EST [facility] NRBC 0.0 <1.0 % LAB HEMETOLOGY METHOD 05/05/2024 8:57 AM EST [facility] NRBC Absolute 0.00 <0.10 K/mcL LAB HEMETOLOGY METHOD 05/05/2024 8:57 AM [facility] Blood Venous blood specimen / Unknown Venipuncture / Unknown 05/05/2024 6:15 AM EST 05/05/2024 8:11 AM EST us Frankie Sultana MD LAB BLOOD ORDERABLES Final Resul t [facility] [address] [place] [address], documented in this encounter Visit Diagnoses Diagnosis Unspecified dementia, unspecified severity, without behavioral disturbance, psychotic disturbance, mood disturbance, and anxiety ([facility] V24, [facility] V28) Human immunodeficiency virus (HIV) disease ([facility] V24, [facility] V28) Human immunodeficiency virus [HIV] disease documented in this encounter Care Teams Forest Pathologist Relationship Specialty Start Date End Date Abigail Rajput MD [address] [place] [phone] PCP - General Family Medicine 03/03/24 documented as of this encounter
--- OUTSIDE RECORDS SUMMARY | 2025-03-24 11:06 | XMS_ITS | Encounter Summary ---
Author Organization [employer] Address [address] [place] [address] Care Team Providers Care Armored Car Guard Name Role Phone Abigail Rajput MD Primary Care Provider [phone] Encounter Details Date Type Department Care Team (Latest Contact Info) Description 05/11/2024 Lab Requisition [facility] - Main Lab [address] [facility] [place] [address] Frankie Sultana MD [address] [place] [address], [phone] Unspecified dementia, unspecified severity, without behavioral [...] AM EST Office Visit Orthopedic Surgery - [place] [address] [phone] Rodrick Viera, JHON [address] [address] documented as of this encounter [...] MD LAB BLOOD ORDERABLES Final Resul t [facility] [address] [place] [address], [place] [phone] * (ABNORMAL) Complete blood count (05/12/2024 6:44 [...] LAB HEMETOLOGY METHOD 05/12/2024 11:56 AM EST [facility] Platelets 121(L) 130 - 400 K/mcL LAB HEMETOLOGY METHOD 05/12/2024 11:56 AM EST [facility] MPV 11.3(H) 7.0 - 11.0 FL LAB HEMETOLOGY METHOD 05/12/2024 11:56 AM EST [facility] NRBC 0.0 <1.0 % LAB HEMETOLOGY METHOD 05/12/2024 11:56 AM EST [facility] NRBC Absolute 0.00 <0.10 K/mcL LAB HEMETOLOGY METHOD 05/12/2024 11:56 AM EST [facility] Blood Venous blood specimen / Unknown Venipuncture / Unknown 05/12/2024 6:44 AM EST 05/12/2024 11:18 AM EST us Frankie Sultana MD LAB BLOOD ORDERABLES Final Resul t [facility] [address] [place] [address], documented in this encounter Visit Diagnoses Diagnosis Unspecified dementia, unspecified severity, without behavioral disturbance, psychotic disturbance, mood disturbance, and anxiety ([facility] V24, [facility] V28) Human immunodeficiency virus (HIV) disease ([facility] V24, [facility] V28) Human immunodeficiency virus [HIV] disease documented in this encounter Care Teams Armored Car Guard Relationship Specialty Start Date End Date Abigail Rajput MD [address] [place] [phone] PCP - General Family Medicine 03/03/24 documented as of this encounter
--- OUTSIDE RECORDS SUMMARY | 2025-03-24 11:06 | XMS_ITS | Clinical Summary ---
Author Organization [address] [place] [address] Address [address] [place] [address] Phone Care Team Providers Care Shuttle Threader Name Role Phone Abigail Rajput MD Primary Care Provider [phone] Allergies Active Allergy Reactions Criticality Noted Date Comments Aspirin Skin Problems 03/26/2024 Ciprofloxacin Diarrhea 03/26/2024 Iodinated Contrast Media Hives 03/26/2024 Morphine 03/26/2024 Nsaids (Non-Steroidal Anti-I nflammatory Drug) 03/26/2024 Oxycodone 03/26/2024 Penicillin G 03/26/2024 Penicillin V 03/26/2024 [id number] Antimigraine Agents 1 05/27/2023 Medications acetaminophen-c odeine [...] Problem Noted Date Diagnosed Date Cerebellar infarction ([facility] V24, [facility] V28) 03/26/2024 Chronic anemia 03/26/2024 Chronic kidney disease, stage 3 ([facility] V24, [facility] V28) 03/26/2024 Chronic paranoid schizophrenia ([facility] V24, [facility] V28) 03/26/2024 Dyslipidemia 03/26/2024 Essential (primary) hypertension 03/26/2024 Fibromyalgia 03/26/2024 Human immunodeficiency virus infection ([facility] V24, [facility] V28) 03/26/2024 Primary osteoarthritis involving multiple joints 03/26/2024 Recurrent deep vein thrombosis ([facility] V24, [facility] V28) 03/26/2024 Type 2 diabetes mellitus ([facility] V24, [facility] V 28) 03/26/2024 Chronic anticoagulation 03/26/2024 Dilated bile duct 03/26/2024 SVT (supraventricular tachycardia) ([facility] V24) 03/26/2024 Pancreatic cyst 03/26/2024 Unsteady gait [...] AM EST Office Visit Orthopedic Surgery - [place] [address] [address] Rodrick Viera, JHON [address] [phone] Health Maintenance Due Date Last [...] anxiety (CMS/HCC) Human immunodeficiency virus (HIV) disease ([facility]) from Last 3 Months or Most Recently Relevant to Health Maintenance Results * (ABNORMAL) Basic metabolic panel (05/12/2024 6:44 AM EST) Sodium 142 133 - 145 mmol/L LAB CHEMISTRY METHOD 05/12/2024 2:22 PM EST [facility] Potassium 4.0 3.5 - 5.5 mmol/L LAB CHEMISTRY METHOD 05/12/2024 2:22 PM [facility] Chloride 111(H) 96 - 110 mmol/L LAB CHEMISTRY METHOD 05/12/2024 2:22 PM [facility] CO2 27 21 - 32 mmol/L LAB CHEMISTRY METHOD 05/12/2024 2:22 PM [facility] Anion Gap 4 3 - 11 LAB CHEMISTRY METHOD 05/12/2024 2:22 PM EST [facility] Glucose 87 70 - 100 mg/dL LAB CHEMISTRY METHOD 05/12/2024 2:22 PM [facility] BUN 11 5 - 25 mg/dL LAB CHEMISTRY METHOD 05/12/2024 2:22 PM [facility] Creatinine 0.89 0.50 - 1.10 mg/dL LAB CHEMISTRY METHOD 05/12/2024 2:22 PM [facility] eGFR 66 >=60 mL/min/1. 73m2 LAB CHEMISTRY METHOD 05/12/2024 2:22 PM [facility] Comment:Calculation based on the Chronic Kidney Disease Epidemiology Collaboration (CKD-EPI) equation refit without adjustment for race. BUN/Creatinine Ratio 12.4 LAB CHEMISTRY METHOD 05/12/2024 2:22 PM [facility] Calcium 9.1 8.5 - 10.5 mg/dL LAB CHEMISTRY METHOD 05/12/2024 2:22 PM [facility] Blood Venous blood specimen / Unknown Venipuncture / Unknown 05/12/2024 6:44 AM EST 05/12/2024 11:18 AM EST us Frankie Sultana MD LAB BLOOD ORDERABLES Final Resul t [facility] [address] [place] [address], from Last 3 Months or Most Recently Relevant to Health Maintenance Insurance [facility] Member Subscriber Plan / Payer (Ef fective 2023-Present) Name:Inga Perez Relation to Subscriber:Self Name:Inga Vidal Payer ID:[id number] Group ID:[id number] Type:Not on file Address: [address] [place] [id number] Care Teams Shuttle Threader Relationship Specialty Start Date End Date Abigail Rajput MD [address] [place] [phone] PCP - General Family Medicine 03/03/24
== END 2025-03-24 10:15 | disposition home or self-care (01) ==
LOC: HO.ENCR 09:40
PROVIDERS: Visit Provider Internal Medicine Endocrinology, Diabetes & Metabolism
DX: M81.0 Age-related osteoporosis without current pathological fracture (principal)

== ENCOUNTER → 2025-03-24 09:39 | Outpatient (BNVA) | payer OTHER, SELFPAY | PROVIDERS: Visit Provider Internal Medicine Endocrinology, Diabetes & Metabolism | DX: M81.0 Age-related osteoporosis without current pathological fracture (principal) | CPT/HCPCS: 96372; J3111 ==

== ENCOUNTER → 2025-03-25 08:30 | Outpatient (BNV) | payer OTHER, SELFPAY | PROVIDERS: PCP Family Medicine; Visit Provider Internal Medicine | DX: Z12.31 Encounter for screening mammogram for malignant neoplasm of breast (principal) | CPT/HCPCS: 77063; 77067 ==

== ENCOUNTER 2025-03-25 08:35 | Outpatient (REF) | payer OTHER, SELFPAY ==
--- NOTE | ~2025-03-25 | MM_ITS ---
EXAMINATION: MM SCREENING DIGITAL BREAST TOMOSYNTHESIS, BILATERAL CLINICAL INFORMATION: Screening. Asymptomatic. COMPARISON: Mammography: Comparison is made with available priors TECHNIQUE: Digital breast mammography with tomosynthesis is performed in both the craniocaudal and mediolateral oblique views along with computer-aided detection (CAD). FINDINGS: There are scattered areas of fibroglandular density. There are no significant masses, abnormal calcifications, or other abnormalities. MM/MM tomosynthesis screening BI IMPRESSION: No mammographic evidence of malignancy. ASSESSMENT: BI-RADS Category 1: Negative RECOMMENDATION: Routine annual mammography screening. 1 year F/U This examination should not preclude the clinical evaluation of a suspicious palpable abnormality. This patient's information was entered into a reminder system with a target due date for their next mammogram. Electronically signed by: Yessenia Baumann DO 03/28/2025 09:54 AM [facility]
== END 2025-03-25 08:36 | disposition home or self-care (01) ==
LOC: HO.MAMMO 08:35
PROVIDERS: PCP Family Medicine; Visit Provider Family Medicine
DX: Z12.31 Encounter for screening mammogram for malignant neoplasm of breast (principal)
CPT/HCPCS: 77063; 77067